=== PATIENT | male | born 1955 | race Caucasian/White ===

== ENCOUNTER 2020-02-29 08:04 | Inpatient (IN) | payer BC, OTHER ==
[2020-02-29 08:14] LABS: Glucose,Whole Blood >600 mg/dL (75-99)
[2020-02-29] MEDS ORDERED: SODIUM CHLORIDE 0.9% 1,000 ML IV STA (08:19)
[2020-02-29] MEDS ORDERED: SODIUM CHLORIDE 0.9% 500 ML 500 ML IV STA (08:19)
[2020-02-29] MEDS ORDERED: INSULIN REGULAR BOLUS (FROM DRIP BAG) IV ONE (08:21)
--- NOTE | 2020-02-29 08:47 | ED ---
General Adult HPI - General Chief complaint: Weakness Stated complaint: weakness Time Seen by Provider: 02/29/20 08:05 Source: patient, EMS, RN notes reviewed, old records reviewed Mode of arrival: EMS Limitations: altered mental status - History of Present Illness Initial comments: This is a 64-year-old male who presents emergency Department because his significant other called because he was on the floor all night. Supposedly the patient last night was too weak to shredder picker as related the floor. Patient is a diabetic we believe and does not take any medication. EMS states his sugar was in the 500s when we did a quick Accu-Chek on arrival was over 600. Patient follows commands but is not telling us why is here or what hurts. No one else with the patient at this time. - Related Data Home Medications Medication Instructions Recorded Confirmed No Known Home Medications 02/29/20 02/29/20 Allergies Allergy/AdvReac Type Severity Reaction Status Date / Time No Known Allergies Allergy Verified 02/29/20 10:04 Review of Systems ROS Statement: Those systems with pertinent positive or pertinent negative responses have been documented in the HPI. ROS Other: All systems not noted in ROS Statement are negative. Past Medical History Past Medical History: Diabetes Mellitus Past Surgical History: No Surgical Hx Reported Smoking Status: Unknown if ever smoked Past Alcohol Use History: Unable to Obtain Past Drug Use History: Unable to Obtain General Exam - General Exam Comments Initial Comments: GENERAL: Patient is well-developed and well-nourished. Patient is nontoxic and well- hydrated and is in mild distress. ENT: Neck is soft and supple. No significant lymphadenopathy is noted. Oropharynx is clear. Dry mucous membranes. Neck has full range of motion without eliciting any pain. EYES: The sclera were anicteric and conjunctiva were pink and moist. Extraocular movements were intact and pupils were equal round and reactive to light. Eyelids were unremarkable. PULMONARY: Unlabored respirations. Good breath sounds bilaterally. No audible rales rhonchi or wheezing was noted. CARDIOVASCULAR: Patient's heart rate is bradycardic ABDOMEN: Abdomen is slightly distended and diffusely tender SKIN: Patient has some bruising on the anterior abdomen as well as in the right flank. NEUROLOGIC: Patient is alert and oriented times one. Cranial nerves II through XII are grossly intact. Motor and sensory are also intact. Difficult to assess speech because he doesn't speak sentences he just groans and moans. MUSCULOSKELETAL: Normal extremities with adequate strength and full range of motion. LYMPHATICS: No significant lymphadenopathy is noted PSYCHIATRIC: Unable to assess secondary to altered metal status Limitations: no limitations Course Vital Signs 02/29/20 02/29/20 02/29/20 08:05 08:20 09:05 Temperature 97.1 F L Pulse Rate 61 58 L Respiratory 24 24 24 Rate Blood Pressure 146/73 124/64 O2 Sat by Pulse 95 98 Oximetry 02/29/20 02/29/20 09:48 10:31 Temperature Pulse Rate 68 60 Respiratory 24 20 Rate Blood Pressure 130/66 124/97 O2 Sat by Pulse 98 98 Oximetry Medical Decision Making - Medical Decision Making EKG shows sinus bradycardia with PACs at 57 bpm ID interval is 152 QRS is 100 QT interval 466 QTC is 453 per patient's EKG shows no ST segment elevation or depression or T wave abnormalities are noted. Patient's urine came back with a urinary tract infection at 9:30 and I considered septic at this time. You. Patient received 2 g of Rocephin 2 and half liters of normal saline. Patient started on an insulin drip after insulin bolus. Patient had a CT of the brain showed no acute abnormality. Chest x-ray showed no acute abnormality. CT of the abdomen show bilateral hydronephrosis and stranding indicative of pyelonephrosis. I spoke with a brisk and hospice agreed to admit the patient admitted the patient wrote admitting orders. - Lab Data Result diagrams: 02/29/20 08:25 02/29/20 08:25 Lab Results 02/29/20 02/29/20 02/29/20 Range/Units 08:11 08:25 08:25 WBC 23.6 H (3.8-10.6) k/uL RBC 4.00 L (4.30-5.90) m/uL Hgb 11.9 L (13.0-17.5) gm/dL Hct 42.1 (39.0-53.0) % MCV 105.3 H (80.0-100.0) fL MCH 29.9 (25.0-35.0) pg MCHC 28.4 L (31.0-37.0) g/dL RDW 13.2 (11.5-15.5) % Plt Count 360 (150-450) k/uL Neutrophils % Not Reportable Neutrophils % (Manual) 67 % Band Neutrophils % 28 % Lymphocytes % Not Reportable Lymphocytes % (Manual) 2 % Monocytes % Not Reportable Monocytes % (Manual) 5 % Eosinophils % Not Reportable Basophils % Not Reportable Neutrophils # Not Reportable Neutrophils # (Manual) 22.40 H (1.3-7.7) k/uL Lymphocytes # Not Reportable Lymphocytes # (Manual) 0.47 L (1.0-4.8) k/uL Monocytes # Not Reportable Monocytes # (Manual) 1.18 H (0-1.0) k/uL Eosinophils # Not Reportable Basophils # Not Reportable Nucleated RBCs 0 (0-0) /100 WBC Manual Slide Review Performed Toxic Granulation Present Hypochromasia Marked Poikilocytosis (manual Present Anisocytosis (manual) Present Macrocytosis Slight PT 9.6 (9.0-12.0) sec INR 0.9 (<1.2) APTT 24.3 (22.0-30.0) sec Sample Site ABG pH (7.35-7.45) ABG pCO2 (35-45) mmHg ABG pO2 (83-108) mmHg ABG HCO3 (21-25) mmol/L ABG Total CO2 (19-24) mmol/L ABG O2 Saturation (94-97) % ABG Base Excess mmol/L Jay Test FiO2 % Sodium (137-145) mmol/L Potassium (3.5-5.1) mmol/L Chloride (98-107) mmol/L Carbon Dioxide (22-30) mmol/L Anion Gap mmol/L BUN (9-20) mg/dL Creatinine (0.66-1.25) mg/dL Est GFR (CKD-EPI)AfAm (>60 ml/min/1.73 sqM) Est GFR (CKD-EPI)NonAf (>60 ml/min/1.73 sqM) Glucose (74-99) mg/dL POC Glucose (mg/dL) >600 H (75-99) mg/dL POC Glu Slider Assembler ID Alexx Hayden Plasma Lactic Acid Reilly (0.7-2.0) mmol/L Calcium (8.4-10.2) mg/dL Magnesium (1.6-2.3) mg/dL Total Bilirubin (0.2-1.3) mg/dL AST (17-59) U/L ALT (4-49) U/L Alkaline Phosphatase (38-126) U/L Troponin I (0.000-0.034) ng/mL Total Protein (6.3-8.2) g/dL Albumin (3.5-5.0) g/dL Urine Color Urine Appearance (Clear) Urine RBC (0-5) /hpf Urine WBC (0-5) /hpf Urine WBC Clumps (None) /hpf Urine Bacteria (None) /hpf Acetone, Qual (Negative) 02/29/20 02/29/20 02/29/20 Range/Units 08:25 08:25 08:25 WBC (3.8-10.6) k/uL RBC (4.30-5.90) m/uL Hgb (13.0-17.5) gm/dL Hct (39.0-53.0) % MCV (80.0-100.0) fL MCH (25.0-35.0) pg MCHC (31.0-37.0) g/dL RDW (11.5-15.5) % Plt Count (150-450) k/uL Neutrophils % Neutrophils % (Manual) % Band Neutrophils % % Lymphocytes % Lymphocytes % (Manual) % Monocytes % Monocytes % (Manual) % Eosinophils % Basophils % Neutrophils # Neutrophils # (Manual) (1.3-7.7) k/uL Lymphocytes # Lymphocytes # (Manual) (1.0-4.8) k/uL Monocytes # Monocytes # (Manual) (0-1.0) k/uL Eosinophils # Basophils # Nucleated RBCs (0-0) /100 WBC Manual Slide Review Toxic Granulation Hypochromasia Poikilocytosis (manual Anisocytosis (manual) Macrocytosis PT (9.0-12.0) sec INR (<1.2) APTT (22.0-30.0) sec Sample Site ABG pH (7.35-7.45) ABG pCO2 (35-45) mmHg ABG pO2 (83-108) mmHg ABG HCO3 (21-25) mmol/L ABG Total CO2 (19-24) mmol/L ABG O2 Saturation (94-97) % ABG Base Excess mmol/L Jay Test FiO2 % Sodium 114 L* (137-145) mmol/L Potassium 6.7 H* (3.5-5.1) mmol/L Chloride 72 L* (98-107) mmol/L Carbon Dioxide 13 L (22-30) mmol/L Anion Gap 29 mmol/L BUN 98 H (9-20) mg/dL Creatinine 2.46 H (0.66-1.25) mg/dL Est GFR (CKD-EPI)AfAm 31 (>60 ml/min/1.73 sqM) Est GFR (CKD-EPI)NonAf 27 (>60 ml/min/1.73 sqM) Glucose 1139 H* (74-99) mg/dL POC Glucose (mg/dL) (75-99) mg/dL POC Glu Slider Assembler ID Plasma Lactic Acid Reilly 3.1 H* (0.7-2.0) mmol/L Calcium 8.1 L (8.4-10.2) mg/dL Magnesium 2.7 H (1.6-2.3) mg/dL Total Bilirubin 1.0 (0.2-1.3) mg/dL AST 41 (17-59) U/L ALT 24 (4-49) U/L Alkaline Phosphatase 216 H (38-126) U/L Troponin I <0.012 (0.000-0.034) ng/mL Total Protein 5.4 L (6.3-8.2) g/dL Albumin 2.6 L (3.5-5.0) g/dL Urine Color Urine Appearance (Clear) Urine RBC (0-5) /hpf Urine WBC (0-5) /hpf Urine WBC Clumps (None) /hpf Urine Bacteria (None) /hpf Acetone, Qual Positive (Negative) 02/29/20 02/29/20 02/29/20 Range/Units 08:44 08:46 10:27 WBC (3.8-10.6) k/uL RBC (4.30-5.90) m/uL Hgb (13.0-17.5) gm/dL Hct (39.0-53.0) % MCV (80.0-100.0) fL MCH (25.0-35.0) pg MCHC (31.0-37.0) g/dL RDW (11.5-15.5) % Plt Count (150-450) k/uL Neutrophils % Neutrophils % (Manual) % Band Neutrophils % % Lymphocytes % Lymphocytes % (Manual) % Monocytes % Monocytes % (Manual) % Eosinophils % Basophils % Neutrophils # Neutrophils # (Manual) (1.3-7.7) k/uL Lymphocytes # Lymphocytes # (Manual) (1.0-4.8) k/uL Monocytes # Monocytes # (Manual) (0-1.0) k/uL Eosinophils # Basophils # Nucleated RBCs (0-0) /100 WBC Manual Slide Review Toxic Granulation Hypochromasia Poikilocytosis (manual Anisocytosis (manual) Macrocytosis PT (9.0-12.0) sec INR (<1.2) APTT (22.0-30.0) sec Sample Site RBRACH ABG pH 7.30 L (7.35-7.45) ABG pCO2 24 L (35-45) mmHg ABG pO2 128 H (83-108) mmHg ABG HCO3 12 L (21-25) mmol/L ABG Total CO2 12 L (19-24) mmol/L ABG O2 Saturation 98.1 H (94-97) % ABG Base Excess -14.9 mmol/L Jay Test Yes FiO2 28 % Sodium (137-145) mmol/L Potassium (3.5-5.1) mmol/L Chloride (98-107) mmol/L Carbon Dioxide (22-30) mmol/L Anion Gap mmol/L BUN (9-20) mg/dL Creatinine (0.66-1.25) mg/dL Est GFR (CKD-EPI)AfAm (>60 ml/min/1.73 sqM) Est GFR (CKD-EPI)NonAf (>60 ml/min/1.73 sqM) Glucose (74-99) mg/dL POC Glucose (mg/dL) >600 H (75-99) mg/dL POC Glu Slider Assembler ID Janelle Kessler Plasma Lactic Acid Reilly (0.7-2.0) mmol/L Calcium (8.4-10.2) mg/dL Magnesium (1.6-2.3) mg/dL Total Bilirubin (0.2-1.3) mg/dL AST (17-59) U/L ALT (4-49) U/L Alkaline Phosphatase (38-126) U/L Troponin I (0.000-0.034) ng/mL Total Protein (6.3-8.2) g/dL Albumin (3.5-5.0) g/dL Urine Color Light Red Urine Appearance Cloudy (Clear) Urine RBC >182 H (0-5) /hpf Urine WBC >182 H (0-5) /hpf Urine WBC Clumps Many H (None) /hpf Urine Bacteria Many H (None) /hpf Acetone, Qual (Negative) Critical Care Time Critical Care Time: Yes Total Critical Care Time: 35 Disposition Clinical Impression: Altered mental status, Pyelonephritis, Sepsis, DKA (diabetic ketoacidoses), Hyponatremia, Hyperkalemia Disposition: ADMITTED IP TO THIS HOSP Referrals: None,Stated [Primary Care Provider] - 1-2 days Time of Disposition: 10:45
[2020-02-29 08:48] LABS: ABG Base Excess -14.9 mmol/L; ABG HCO3 12 mmol/L (21-25); ABG Oxygen Saturation 98.1 % (94-97); ABG PCO2 24 mmHg (35-45); ABG PO2 128 mmHg (83-108); ABG TCO2 12 mmol/L (19-24)
[2020-02-29 08:52] LABS: Allen Test Performed? Yes
[2020-02-29 08:58] LABS: INR 0.9 (<1.2); Partial Thromboplastin Time 24.3 sec (22.0-30.0); Prothrombin Time 9.6 sec (9.0-12.0)
[2020-02-29 09:00] LABS: ALT 24 U/L (4-49); African American GFR (CKD) 31 (>60 ml/min/1.73 sqM); Albumin 2.6 g/dL (3.5-5.0); Anion Gap 29 mmol/L; Blood Urea Nitrogen 98 mg/dL (9-20); Calcium 8.1 mg/dL (8.4-10.2); Carbon Dioxide 13 mmol/L (22-30); Non-African American GFR(CKD) 27 (>60 ml/min/1.73 sqM); Total Protein 5.4 g/dL (6.3-8.2)
[2020-02-29 09:12] LABS: Appearance,Urine Cloudy (Clear)
[2020-02-29 09:13] LABS: Color,Urine Light Red
[2020-02-29 09:13] LABS: Glucose 1139 mg/dL (74-99)
[2020-02-29 09:14] LABS: Bacteria,Urine Many /hpf; RBC,Urine >182 /hpf (0-5); WBC,Urine >182 /hpf (0-5)
[2020-02-29 09:14] LABS: Chloride 72 mmol/L (98-107); Potassium 6.7 mmol/L (3.5-5.1); Sodium 114 mmol/L (137-145)
[2020-02-29 09:15] LABS: AST 41 U/L (17-59); Alkaline Phosphatase 216 U/L (38-126); Magnesium 2.7 mg/dL (1.6-2.3)
[2020-02-29 09:17] LABS: HCT 42.1 % (39.0-53.0); HGB 11.9 gm/dL (13.0-17.5); Hypochromasia Marked; MCH 29.9 pg (25.0-35.0); MCHC 28.4 g/dL (31.0-37.0); MCV 105.3 fL (80.0-100.0); Macrocytosis Slight; Mean Platelet Volume 9.8; Platelet Count 360 k/uL (150-450); RDW 13.2 % (11.5-15.5); WBC 23.6 k/uL (3.8-10.6)
--- NOTE | 2020-02-29 09:28 | XR ---
EXAMINATION TYPE: XR chest 2V DATE OF EXAM: 02/29/2020 COMPARISON: None INDICATION: Weakness labor breathing restless TECHNIQUE: Frontal and lateral views of the chest are obtained. FINDINGS: The heart size is normal. The pulmonary vasculature is normal. The lungs are clear. IMPRESSION: 1. No acute pulmonary process.
[2020-02-29] MEDS: INSULIN REGULAR 100 UNIT in SODIUM CHLORIDE 0.9% 100 ML IV SCH ×2 (09:31→18:01)
[2020-02-29] MEDS ORDERED: cefTRIAXone IN SWFI 1,000 MG/10 ML SYRINGE IVP STA (09:34)
[2020-02-29] MEDS ORDERED: SODIUM BICARB 8.4% 50 ML SYR (1 MEQ/ML) IV STA (09:38)
[2020-02-29] MEDS ORDERED: CALCIUM CHLORIDE 100 MG/ML 10 ML SYRINGE IVP STA (09:38)
[2020-02-29] MEDS ORDERED: SODIUM CHLORIDE 0.9% 1,000 ML IV ONE (10:03)
[2020-02-29 10:04] LABS: Band Neutrophils % 28 %; Lymphocytes # (M) 0.47 k/uL (1.0-4.8); Monocytes # (M) 1.18 k/uL (0-1.0); Neutrophils % (M) 67 %; Nucleated Red Blood Cells 0 /100 WBC (0-0); Total Cells Counted 200; Toxic Granulation Present
[2020-02-29 10:05] LABS: Anisocytosis (M) Present; Poikilocytosis (M) Present
[2020-02-29 10:29] LABS: Glucose,Whole Blood >600 mg/dL (75-99)
--- NOTE | 2020-02-29 10:41 | CT ---
EXAMINATION TYPE: CT brain wo con DATE OF EXAM: 02/29/2020 COMPARISON: None HISTORY: Altered mental status. CT DLP: 1158.[address] of the brain was performed. The ventricles, basal cisterns and sulci overlying the cerebral convexities demonstrate mild enlargem ent. There is no evidence for intracranial hemorrhage or sulcal effacement. There is decreased attenuation about the periventricular white matter and deep white matter of both c erebral hemispheres, compatible with chronic small vessel ischemia. Differential diagnosis does inclu de demyelination. No mass effects are seen.No midline shift. Osseous calvarium is intact. If symptoms persist consider MRI. IMPRESSION: 1. Age related atrophic and chronic small vessel ischemic change without acute intracranial process s een at this time.
[2020-02-29] MEDS ORDERED: INSULIN REGULAR 100 UNIT in SODIUM CHLORIDE 0.9% 100 ML IV SCH (11:00)
[2020-02-29] MEDS: SODIUM CHLORIDE 0.9% 1,000 ML IV SCH ×2 (11:09→15:52)
[2020-02-29 11:46] LABS: Glucose,Whole Blood >600 mg/dL (75-99)
[2020-02-29] MEDS ORDERED: NALOXONE 0.4 MG/ML 1 ML VIAL IV PRN (12:00)
--- NOTE | 2020-02-29 12:04 | CT ---
EXAMINATION TYPE: CT abdomen pelvis wo con DATE OF EXAM: 02/29/2020 COMPARISON: None INDICATION: Acute abdominal pain. DLP: 1616.9 mGycm, Automated exposure control for dose reduction was used. CONTRAST: 0 mL of Isovue 300. Study performed without Oral Contrast TECHNIQUE: Axial images were obtained from above the diaphragm to the pubic rami in the axial plane a t 5 mm thick sections. Reconstructed images are reviewed on the computer in the coronal plane. Ther e is an artifact with couple levels nonvisualization. FINDINGS: Limited CT sections are obtained the lung bases. The lung bases are clear. CT ABDOMEN: Liver: Normal Spleen: Normal Pancreas: Normal Adrenal glands: The adrenal glands are normal. Gallbladder: Normal Kidneys: Bilateral hydronephrosis is present. Bilateral hydroureters are present which extend to the urinary bladder. Aorta: Vascular calcification is within the aorta. Inferior vena cava: Normal. CT PELVIS: Loops of bowel within the abdomen and pelvis are normal. There are loops of bowel which are incom pletely distended or lack oral contrast limiting their evaluation. Appendix: Normal as visualized. Urinary bladder: Urinary bladder has a Krueger catheter present. There is irregular wall especially not ed along the anterior right margin. Genitourinary structures: Prostate is prominent. Osseous structures: No suspicious lytic or sclerotic lesions. Degenerative disc changes and scoliosis are within the lumbar spine. IMPRESSIONS: 1. Irregular urinary bladder wall suspicious for neoplasm. 2. Marked bilateral hydronephrosis and hydroureter extending to the urinary bladder.
--- NOTE | 2020-02-29 12:34 | P.CNPUL ---
History of Present Illness Consult date: 02/29/20 Chief complaint: Altered mentation History of present illness: 62-year-old male patient, noncompliant to medical care and medication and according to the reported history the patient does not have any medical insurance coverage and as such she has not taken any of his medications knowing that he has been diabetic for many years. The patient came in to the emergency department after significant decline in his health in general. He is currently living with his fiance. He apparently was seen to have some bloody urine and he considered that he was passing a kidney stone. Following that he became progressively more ill and weak and he got to the point where he went to the bathroom and he was unable to pick himself up the floor. He does have some bruising over the right flank area probably related to a blunt trauma to that area. He came into the emergency department and he was extremely dehydrated and lethargic and encephalopathic. EMS found the patient and apparently sugar was above 600. At the time of arrival, the patient was following some simple commands. He was unable to give any full history. Labs were significantly abnormal. The patient was found to have a white cell count 23.6. He had a hemoglobin of 11.9. The blood gas showed a pH of 7.3 with a pCO2 of 24 and pO2 of 128 and this was on FiO2 of 28%. Sodium was at 114, potassium was at 6.7 with a chloride of 72 and a bicarb of 13. BUN was 98 with a creatinine of 2.4. No cause was 1139. Lactic gas that was at 3.1. The troponin is negative at less than 0.012. UA was abnormal with more than 182 RBCs and WBCs. Chest x-ray showed negative about his PEEP CAT scan of the abdomen showed irregular and thickened bladder wall and there was bilateral hydronephrosis and hydroureter extending to the urinary bladder. No evidence of any kidney stones. Bowel loops are within normal limits. The patient was given a total of 3 L of IV fluids. Currently is on normal saline at the rate of 100 mL an hour. He is on insulin drip at 9 units an hour. The patient is also given 2 g of Rocephin IV and emergency department. Cultures were sent. His most recent blood sugar remains above 600. He is currently in intensive care unit. Krueger catheter in place. He does have a bloody urine. This is a blood-tinged urine. No gross hematuria. No evidence of any blood clots. He is moving all 4 extremities. He is unable to volunteer any history as the patient is currently encephalopathic.. The CAT scan of the brain showed age related atrophy and chronic small vessel ischemic changes without any acute intracranial abnormality seen. Review of Systems ROS unobtainable: due to mental status Past Medical History Past Medical History: Diabetes Mellitus, Hyperlipidemia, Hypertension Additional Past Medical History / Comment(s): Signiificant other and rosy state pt has not had insurance so has not been taking meds/seeing physician, NIDDM type II, neuropathy bilateral feet, past nephrolithiasis with pt passing stones on his own, pt passed a couple stones (s.o. saw stones) 2 weeks ago and had hematuria which improved after passing stones but has had weakness and loss of appetite past 2 weeks, spondylosis/chronic low back pain History of Any Multi-Drug Resistant Organisms: None Reported Past Surgical History: No Surgical Hx Reported Additional Past Surgical History / Comment(s): Bilateral cataract removals/lens implants. Past Anesthesia/Blood Transfusion Reactions: Unable to Obtain Additional Past Anesthesia/Blood Transfusion Reaction / Comment(s): Pt has never had general anesthesia per family Smoking Status: Former smoker - Past Family History Father Family Medical History: Dementia Mother Family Medical History: Cancer Additional Family Medical History / Comment(s): Mother of skin cancer. Medications and Allergies Home Medications Medication Instructions Recorded Confirmed Type No Known Home Medications 02/29/20 02/29/20 History Allergies Allergy/AdvReac Type Severity Reaction Status Date / Time No Known Allergies Allergy Verified 02/29/20 10:04 Physical Exam Vitals: Vital Signs Temp Pulse Resp BP Pulse Ox 02/29/20 11:28 97.8 F 56 L 24 113/57 99 02/29/20 10:58 58 L 24 102/85 99 02/29/20 10:31 60 20 124/97 98 02/29/20 09:48 68 24 130/66 98 02/29/20 09:05 58 L 24 124/64 98 02/29/20 08:20 24 02/29/20 08:05 97.1 F L 61 24 146/73 95 Intake and Output 02/28/20 02/29/20 02/29/20 22:59 06:59 14:59 Output Total 4300 Balance -4300 Output: Urine 4300 Uretheral (Krueger) 4300 Other: Weight 95.254 kg The patient is lethargic, encephalopathic, moving all 4 extremities and withdraws to painful simulation. He has rapid breathing related to his underlying metabolic acidosis. Does not have any accessory muscle use of breathing. Head exam was generally normal. There was no scleral icterus or corneal arcus. Mucous membranes were extremely dry and the patient has poor dentition and there is no evidence of any oropharyngeal thrush. Neck was supple and without jugular venous distension, thyromegaly, or carotid bruits. Carotids were easily palpable bilaterally. There was no adenopathy. Lungs were clear to auscultation and percussion, and with normal diaphragmatic excursion. No wheezes or rales were noted. Cardiac exam revealed the PMI to be normally situated and sized. The rhythm was regular and no extrasystoles were noted during several minutes of auscultation. The first and second heart sounds were normal and physiologic splitting of the second heart sound was noted. There were no murmurs, rubs, clicks, or gallops. Abdominal exam revealed normal bowel sounds. The abdomen was soft, non-tender, and without masses, organomegaly, or appreciable enlargement of the abdominal aorta. Examination of the extremities revealed easily palpable radial, femoral and pedal pulses. There was no cyanosis, clubbing or edema. Examination of the skin revealed no evidence of significant rashes, suspicious appearing nevi or other concerning lesions. Rkueger catheter is in place and the patient has some bloody urine output. Neurologically the patient is unable to hold a conversation. He is restless. His encephalopathic. He was a recall reactive to light. No neck stiffness. Moving all 4 extremities without limitation and accurate motor and sensory assessment cannot be done at this point in time. Results - Laboratory Findings CBC and BMP: 02/29/20 08:25 02/29/20 08:25 ABG ABG pH 7.30 (7.35-7.45) L 02/29/20 08:44 ABG pCO2 24 mmHg (35-45) L 02/29/20 08:44 ABG pO2 128 mmHg (83-108) H 02/29/20 08:44 ABG O2 Saturation 98.1 % (94-97) H 02/29/20 08:44 PT/INR, D-dimer PT 9.6 sec (9.0-12.0) 02/29/20 08:25 INR 0.9 (<1.2) 02/29/20 08:25 Abnormal lab findings: Abnormal Labs 02/29/20 02/29/20 02/29/20 08:11 08:25 08:25 WBC 23.6 H RBC 4.00 L Hgb 11.9 L MCV 105.3 H MCHC 28.4 L Neutrophils # (Manual) 22.40 H Lymphocytes # (Manual) 0.47 L Monocytes # (Manual) 1.18 H ABG pH ABG pCO2 ABG pO2 ABG HCO3 ABG Total CO2 ABG O2 Saturation Sodium 114 L* Potassium 6.7 H* Chloride 72 L* Carbon Dioxide 13 L BUN 98 H Creatinine 2.46 H Glucose 1139 H* POC Glucose (mg/dL) >600 H Plasma Lactic Acid Reilly Calcium 8.1 L Magnesium 2.7 H Alkaline Phosphatase 216 H Total Protein 5.4 L Albumin 2.6 L Urine RBC Urine WBC Urine WBC Clumps Urine Bacteria 02/29/20 02/29/20 02/29/20 08:25 08:44 08:46 WBC RBC Hgb MCV MCHC Neutrophils # (Manual) Lymphocytes # (Manual) Monocytes # (Manual) ABG pH 7.30 L ABG pCO2 24 L ABG pO2 128 H ABG HCO3 12 L ABG Total CO2 12 L ABG O2 Saturation 98.1 H Sodium Potassium Chloride Carbon Dioxide BUN Creatinine Glucose POC Glucose (mg/dL) Plasma Lactic Acid Reilly 3.1 H* Calcium Magnesium Alkaline Phosphatase Total Protein Albumin Urine RBC >182 H Urine WBC >182 H Urine WBC Clumps Many H Urine Bacteria Many H 02/29/20 02/29/20 10:27 11:45 WBC RBC Hgb MCV MCHC Neutrophils # (Manual) Lymphocytes # (Manual) Monocytes # (Manual) ABG pH ABG pCO2 ABG pO2 ABG HCO3 ABG Total CO2 ABG O2 Saturation Sodium Potassium Chloride Carbon Dioxide BUN Creatinine Glucose POC Glucose (mg/dL) >600 H >600 H Plasma Lactic Acid Reilly Calcium Magnesium Alkaline Phosphatase Total Protein Albumin Urine RBC Urine WBC Urine WBC Clumps Urine Bacteria - Diagnostic Findings Chest x-ray: image reviewed Assessment and Plan Plan: 1 acute diabetic hyperosmolar nonketotic crisis related to underlying diabetes mellitus type 2 2 acute bilateral hydronephrosis and hydroureter with thickening of the bladder wall. Consider underlying obstructive uropathy probably related to prostate enlargement/disease in addition to secondary infection/cystitis/pyelonephritis. Patient has a Krueger catheter in place. Patient started on broad-spectrum ant ibiotics 3 hematuria 4 history of nephrolithiasis 5 acute leukocytosis, secondary to above 6 acute pseudohyponatremia secondary to hyperglycemia 7 acute hyperkalemia treated with a combination of calcium gluconate and bicarbonate and the patient is currently on insulin drip for blood sugar cont rol. EKG showed some hyperacute T-wave changes. 8 anion gap metabolic acidosis 9 mild lactic acidosis Plan To this patient based on our protocol for hyperosmolar nonketotic diabetic coma. The patient will be given IV fluids and the patient is currently on normal saline at the rate of 200 mL's an hour. Continue the insulin drip and monitor the blood sugar every 1 hours. Monitor electrolytes. CMP will be done every 3-4 hours and accordingly this is a changes will be done. Continued IV Rocephin 2 g every 24 hours urine Gram stain and culture Blood culture Keep Krueger catheter in place Ultrasound the kidneys Urologic consultation Monitor hyperkalemia IV Protonix Subcu heparin for DVT prophylaxis We'll continue to follow. Condition is critical for now. Time with Patient: Greater than 30
[2020-02-29 12:39] LABS: Phosphorus 2.9 mg/dL (2.5-4.5); Potassium 4.7 mmol/L (3.5-5.1)
[2020-02-29] MEDS: PANTOPRAZOLE 40 MG/10 ML VIAL IV SCH (13:15)
[2020-02-29 13:30] LABS: Glucose,Whole Blood 592 mg/dL (75-99)
--- NOTE | 2020-02-29 14:24 | P.HPIM ---
History of Present Illness 64-year-old male is admitted for highly elevated blood sugars probably had hyperosmolar state and/ DKA, and IV insulin at this time. Regular much of the history from the patient patient appears to be noncompliant with medications has not been taking his diabetic medications. Most of the history is obtained from the staff ER physician . Patient has been getting progressively weak for last few days. Patient was also having hematuria. Patient does have a bruise on the right flank area. Patient is found to have highly elevated blood sugars of around 1200 with anion gap metabolic acidosis lactic is doses, with superimposed diabetic ketoacidosis and hyperosmolar state significant other provided abnormalities of severe hyponatremia and hyperkalemia both of which are secondary to have elevated blood sugars serum bicarbonate of 13 and the serum creatinine of 2.4. Baseline creatinine is not available at this time. Patient ABGs consistent with metabolic acidosis with some mild respiratory compensation Review of Systems REVIEW OF SYSTEMS: Unable to obtain due to his clinical condition Past Medical History Past Medical History: Diabetes Mellitus, Hyperlipidemia, Hypertension Additional Past Medical History / Comment(s): Signiificant other and rosy state pt has not had insurance so has not been taking meds/seeing physician, NIDDM type II, neuropathy bilateral feet, past nephrolithiasis with pt passing stones on his own, pt passed a couple stones (s.o. saw stones) 2 weeks ago and had hematuria which improved after passing stones but has had weakness and loss of appetite past 2 weeks, spondylosis/chronic low back pain History of Any Multi-Drug Resistant Organisms: None Reported Past Surgical History: No Surgical Hx Reported Additional Past Surgical History / Comment(s): Bilateral cataract removals/lens implants. Past Anesthesia/Blood Transfusion Reactions: Unable to Obtain Additional Past Anesthesia/Blood Transfusion Reaction / Comment(s): Pt has never had general anesthesia per family Smoking Status: Former smoker - Past Family History Father Family Medical History: Dementia Mother Family Medical History: Cancer Additional Family Medical History / Comment(s): Mother of skin cancer. Medications and Allergies Home Medications Medication Instructions Recorded Confirmed Type No Known Home Medications 02/29/20 02/29/20 History Allergies Allergy/AdvReac Type Severity Reaction Status Date / Time No Known Allergies Allergy Verified 02/29/20 10:04 Physical Exam Vitals: Vital Signs Temp Pulse Resp BP Pulse Ox 02/29/20 13:00 56 L 12 120/108 98 02/29/20 12:30 56 L 20 95/69 98 02/29/20 12:00 97.1 F L 58 L 22 107/88 98 02/29/20 11:28 97.8 F 56 L 24 113/57 99 02/29/20 10:58 58 L 24 102/85 99 02/29/20 10:31 60 20 124/97 98 02/29/20 09:48 68 24 130/66 98 02/29/20 09:05 58 L 24 124/64 98 02/29/20 08:20 24 02/29/20 08:05 97.1 F L 61 24 146/73 95 Intake and Output 02/28/20 02/29/20 02/29/20 22:59 06:59 14:59 Intake Total 400 Output Total 4655 Balance -4255 Intake: IV 400 Sodium Chloride 0.9% 1, 400 000 ml @ 200 mls/hr IV . Q5H [facility] Rx#:[id number] Output: Urine 4655 Uretheral (Krueger) 4300 Other: Voiding Method Indwelling Catheter Weight 95.254 kg PHYSICAL EXAMINATION: GENERAL: Patient is lethargic encephalopathic, unable to provide any history to me, drowsy. HEENT: Pupils are round and equally reacting to light. EOMI. No scleral icterus. No conjunctival pallor. Normocephalic, atraumatic. No pharyngeal erythema. No thyromegaly. CARDIOVASCULAR: S1 and S2 present. No murmurs, rubs, or gallops. PULMONARY: Chest is clear to auscultation, no wheezing or crackles. ABDOMEN: Soft, nontender, nondistended, normoactive bowel sounds. No palpable organomegaly. MUSCULOSKELETAL: No joint swelling or deformity. EXTREMITIES: No cyanosis, clubbing, or pedal edema. NEUROLOGICAL: Gross neurological examination did not reveal any focal deficits. SKIN: Bruising in the right flank area Results CBC & Chem 7: 02/29/20 08:25 02/29/20 12:10 Labs: Abnormal Lab Results - Last 24 Hours (Table) 02/29/20 02/29/20 02/29/20 Range/Units 08:11 08: 08:25 WBC 23.6 H (3.8-10.6) k/uL RBC 4.00 L (4.30-5.90) m/uL Hgb 11.9 L (13.0-17.5) gm/dL MCV 105.3 H (80.0-100.0) fL MCHC 28.4 L (31.0-37.0) g/dL Neutrophils # (Manual) 22.40 H (1.3-7.7) k/uL Lymphocytes # (Manual) 0.47 L (1.0-4.8) k/uL Monocytes # (Manual) 1.18 H (0-1.0) k/uL ABG pH (7.35-7.45) ABG pCO2 (35-45) mmHg ABG pO2 (83-108) mmHg ABG HCO3 (21-25) mmol/L ABG Total CO2 (19-24) mmol/L ABG O2 Saturation (94-97) % Sodium 114 L* (137-145) mmol/L Potassium 6.7 H* (3.5-5.1) mmol/L Chloride 72 L* (98-107) mmol/L Carbon Dioxide 13 L (22-30) mmol/L BUN 98 H (9-20) mg/dL Creatinine 2.46 H (0.66-1.25) mg/dL Glucose 1139 H* (74-99) mg/dL POC Glucose (mg/dL) >600 H (75-99) mg/dL Plasma Lactic Acid Reilly (0.7-2.0) mmol/L Calcium 8.1 L (8.4-10.2) mg/dL Magnesium 2.7 H (1.6-2.3) mg/dL Alkaline Phosphatase 216 H (38-126) U/L Total Protein 5.4 L (6.3-8.2) g/dL Albumin 2.6 L (3.5-5.0) g/dL Urine RBC (0-5) /hpf Urine WBC (0-5) /hpf Urine WBC Clumps (None) /hpf Urine Bacteria (None) /hpf 02/29/20 02/29/20 02/29/20 Range/Units 08:25 08:44 08:46 WBC (3.8-10.6) k/uL RBC (4.30-5.90) m/uL Hgb (13.0-17.5) gm/dL MCV (80.0-100.0) fL MCHC (31.0-37.0) g/dL Neutrophils # (Manual) (1.3-7.7) k/uL Lymphocytes # (Manual) (1.0-4.8) k/uL Monocytes # (Manual) (0-1.0) k/uL ABG pH 7.30 L (7.35-7.45) ABG pCO2 24 L (35-45) mmHg ABG pO2 128 H (83-108) mmHg ABG HCO3 12 L (21-25) mmol/L ABG Total CO2 12 L (19-24) mmol/L ABG O2 Saturation 98.1 H (94-97) % Sodium (137-145) mmol/L Potassium (3.5-5.1) mmol/L Chloride (98-107) mmol/L Carbon Dioxide (22-30) mmol/L BUN (9-20) mg/dL Creatinine (0.66-1.25) mg/dL Glucose (74-99) mg/dL POC Glucose (mg/dL) (75-99) mg/dL Plasma Lactic Acid Reilly 3.1 H* (0.7-2.0) mmol/L Calcium (8.4-10.2) mg/dL Magnesium (1.6-2.3) mg/dL Alkaline Phosphatase (38-126) U/L Total Protein (6.3-8.2) g/dL Albumin (3.5-5.0) g/dL Urine RBC >182 H (0-5) /hpf Urine WBC >182 H (0-5) /hpf Urine WBC Clumps Many H (None) /hpf Urine Bacteria Many H (None) /hpf 02/29/20 02/29/20 02/29/20 Range/Units 10:27 11:45 12:10 WBC (3.8-10.6) k/uL RBC (4.30-5.90) m/uL Hgb (13.0-17.5) gm/dL MCV (80.0-100.0) fL MCHC (31.0-37.0) g/dL Neutrophils # (Manual) (1.3-7.7) k/uL Lymphocytes # (Manual) (1.0-4.8) k/uL Monocytes # (Manual) (0-1.0) k/uL ABG pH (7.35-7.45) ABG pCO2 (35-45) mmHg ABG pO2 (83-108) mmHg ABG HCO3 (21-25) mmol/L ABG Total CO2 (19-24) mmol/L ABG O2 Saturation (94-97) % Sodium 124 L (137-145) mmol/L Potassium (3.5-5.1) mmol/L Chloride 85 L (98-107) mmol/L Carbon Dioxide 16 L (22-30) mmol/L BUN 91 H (9-20) mg/dL Creatinine 2.26 H (0.66-1.25) mg/dL Glucose 684 H* (74-99) mg/dL POC Glucose (mg/dL) >600 H >600 H (75-99) mg/dL Plasma Lactic Acid Reilly (0.7-2.0) mmol/L Calcium (8.4-10.2) mg/dL Magnesium (1.6-2.3) mg/dL Alkaline Phosphatase (38-126) U/L Total Protein (6.3-8.2) g/dL Albumin (3.5-5.0) g/dL Urine RBC (0-5) /hpf Urine WBC (0-5) /hpf Urine WBC Clumps (None) /hpf Urine Bacteria (None) /hpf 02/29/20 02/29/20 Range/Units 12:10 13:29 WBC (3.8-10.6) k/uL RBC (4.30-5.90) m/uL Hgb (13.0-17.5) gm/dL MCV (80.0-100.0) fL MCHC (31.0-37.0) g/dL Neutrophils # (Manual) (1.3-7.7) k/uL Lymphocytes # (Manual) (1.0-4.8) k/uL Monocytes # (Manual) (0-1.0) k/uL ABG pH (7.35-7.45) ABG pCO2 (35-45) mmHg ABG pO2 (83-108) mmHg ABG HCO3 (21-25) mmol/L ABG Total CO2 (19-24) mmol/L ABG O2 Saturation (94-97) % Sodium (137-145) mmol/L Potassium (3.5-5.1) mmol/L Chloride (98-107) mmol/L Carbon Dioxide (22-30) mmol/L BUN (9-20) mg/dL Creatinine (0.66-1.25) mg/dL Glucose (74-99) mg/dL POC Glucose (mg/dL) 592 H (75-99) mg/dL Plasma Lactic Acid Reilly 3.7 H* (0.7-2.0) mmol/L Calcium (8.4-10.2) mg/dL Magnesium (1.6-2.3) mg/dL Alkaline Phosphatase (38-126) U/L Total Protein (6.3-8.2) g/dL Albumin (3.5-5.0) g/dL Urine RBC (0-5) /hpf Urine WBC (0-5) /hpf Urine WBC Clumps (None) /hpf Urine Bacteria (None) /hpf Thrombosis Risk Factor Assmnt - Choose All That Apply Any of the Below Risk Factors Present?: Yes Each Factor Represents 1 point: Obesity (BMI >25), Sepsis (< 1month) Other Risk Factors: Yes Each Risk Factor Represents 2 Points: Age 61-74 years Other congenital or acquired thrombophilia - If yes, enter type in comment: No Thrombosis Risk Factor Assessment Total Risk Factor Score: 4 Thrombosis Risk Factor Assessment Level: Moderate Risk Assessment and Plan Plan: -Hypoglycemia: Leading to hyperosmolar state, DKA cannot be ruled out at this time. Patient probably has type 2 diabetes mellitus with insulin deficiency. Patient IV insulin which will be continued. We'll follow DKA protocol. -Hyponatremia: Combined pseudohyponatremia from hyperglycemia along with hypovolemic hyponatremia from excessive diuresis from hyperglycemia. IV fluids at 200 mL per hour for now -Lactic acidosis: Secondary to most probably intravascular depletion dehydration. UTI cannot be ruled out urine is significant abnormal. -Bilateral hydronephrosis with possibility of pyelonephritis leading to hematuria. Ultrasound showing to coming of the urinary bladder, neurology was consulted patient will be continued on Rocephin -Leukocytosis possibly secondary to DKA and possibility. That cannot be ruled out. -Hyperlipidemia secondary to metabolic acidosis and hyperglycemia expected improvement IV insulin and IV fluids. Patient also received calcium gluconate. Patient also has mildly elevated T waves there are no hyperacute T waves -Anion gap at work is doses: Secondary to lactic acidosis and possible diabetic ketoacidosis Due to prophylaxis subcutaneous heparin GI prophylaxis Protonix
[2020-02-29 14:28] LABS: Glucose,Whole Blood 475 mg/dL (75-99)
[2020-02-29 15:26] LABS: Glucose,Whole Blood 432 mg/dL (75-99)
[2020-02-29] MEDS: HEPARIN SODIUM,PORCINE 5,000 UNIT/ML 1 ML VIAL SQ SCH ×2 (15:41→23:28)
[2020-02-29] MEDS: HYDROmorphone 0.5 MG/0.5 ML SYRINGE IVP PRN ×2 (15:41→23:32)
--- NOTE | 2020-02-29 16:09 | US ---
EXAMINATION TYPE: US kidneys/renal and bladder DATE OF EXAM: 02/29/2020 COMPARISON: CT abdomen pelvis 02/29/2020 at 10:11 AM. CLINICAL HISTORY: ALICIA. Hydronephrosis seen on CT, hematuria EXAM MEASUREMENTS: Right Kidney: 12.9 x 8.0 x 7.8 cm Left Kidney: 13.2 x 7.8 x 9.0 cm Right Kidney: Severe hydronephrosis with dependent layering debris. Left Kidney: Severe hydronephrosis with dependent layering debris. Bladder: Urinary bladder incompletely distended with Krueger catheter. There is wall thickening measuri ng up to 1.2 cm. There is papillary, avascular, geometric intraluminal echogenicity measuring up to 5 .1 x 2.7 x 3.3 cm. IMPRESSION: 1. Severe hydronephrosis bilaterally with dependent layering debris within the renal collecting syste ms, likely hemorrhage. 2. 5.1 x 2.7 x 3.3 cm focal irregularity within the urinary bladder, which may represent thrombus todd benny avascular mass. 3. Circumferential bladder wall thickening more than expected for incomplete distention. Findings may represent bladder outlet obstruction, cystitis, or neoplastic etiology.
[2020-02-29 16:24] LABS: Potassium 4.5 mmol/L (3.5-5.1)
[2020-02-29] MEDS ORDERED: Phosphorus Replacement Protoco 1 EACH MISC MISCELLANE PRN (16:32)
[2020-02-29 17:37] LABS: Glucose,Whole Blood 324 mg/dL (75-99)
[2020-02-29] MEDS: SODIUM PHOSPHATE 10 MMOL in SODIUM CHLORIDE 0.9% 250 ML IVPB SCH ×2 (17:57→20:00)
[2020-02-29 18:21] LABS: Glucose,Whole Blood 456 mg/dL (75-99)
[2020-02-29 19:08] LABS: Glucose,Whole Blood 322 mg/dL (75-99)
--- NOTE | 2020-02-29 19:38 | P.GSCN ---
History of Present Illness Consult date: 02/29/20 Reason for Consult: Hematuria, hydronephrosis Requesting physician: Yola Rollins History of present illness: The patient is a 64-year-old white male who fell in his bathroom floor overnight. He refused to come to the hospital, but ultimately his fiance called EMS. Initial evaluation in the ER revealed elevated blood sugars of around 1200 with anion gap metabolic acidosis and diabetic ketoacidosis. He states that he has experienced voiding difficulty for the past year. He is a vague historian. He states that he has passed kidney stones in the past, as recently as 2 weeks ago. A Krueger catheter was placed in the ER, with return of 1300 mL of chocolate-colored urine. The appearance of the urine is gradually improving. Review of Systems - Constitutional Reports poor appetite, Reports weakness - Genitourinary Reports hematuria, Reports kidney stones Past Medical History Past Medical History: Diabetes Mellitus, Hyperlipidemia, Hypertension Additional Past Medical History / Comment(s): Signiificant other and rosy state pt has not had insurance so has not been taking meds/seeing physician, NIDDM type II, neuropathy bilateral feet, past nephrolithiasis with pt passing stones on his own, pt passed a couple stones (s.o. saw stones) 2 weeks ago and had he maturia which improved after passing stones but has had weakness and loss of appetite past 2 weeks, spondylosis/chronic low back pain History of Any Multi-Drug Resistant Organisms: None Reported Past Surgical History: No Surgical Hx Reported Additional Past Surgical History / Comment(s): Bilateral cataract removals/lens implants. Past Anesthesia/Blood Transfusion Reactions: Unable to Obtain Additional Past Anesthesia/Blood Transfusion Reaction / Comm: Pt has never had general anesthesia per family Smoking Status: Former smoker - Past Family History Father Family Medical History: Dementia Mother Family Medical History: Cancer Additional Family Medical History / Comment(s): Mother of skin cancer. Medications and Allergies Home Medications Medication Instructions Recorded Confirmed Type No Known Home Medications 02/29/20 02/29/20 History Allergies Allergy/AdvReac Type Severity Reaction Status Date / Time No Known Allergies Allergy Verified 02/29/20 10:04 Surgical - Exam Vital Signs Temp Pulse Resp BP Pulse Ox 97.1 F L 61 24 146/73 95 02/29/20 08:05 02/29/20 08:05 02/29/20 08:05 02/29/20 08:05 02/29/20 08:05 - General well developed, well nourished, moderate distress - Abdomen Soft, non-distended, no palpable masses. Right flank ecchymosis is noted. - Genitourinary normal penis with no external lesions, testicles non-tender - Psychiatric oriented to time, oriented to person, oriented to place, speech is normal, memory intact Results - Labs 02/29/20 08:25 02/29/20 15:51 Abnormal Lab Results - Last 24 Hours (Table) 02/29/20 02/29/20 02/29/20 Range/Units 08:11 08:25 08:25 WBC 23.6 H (3.8-10.6) k/uL RBC 4.00 L (4.30-5.90) m/uL Hgb 11.9 L (13.0-17.5) gm/dL MCV 105.3 H (80.0-100.0) fL MCHC 28.4 L (31.0-37.0) g/dL Neutrophils # (Manual) 22.40 H (1.3-7.7) k/uL Lymphocytes # (Manual) 0.47 L (1.0-4.8) k/uL Monocytes # (Manual) 1.18 H (0-1.0) k/uL ABG pH (7.35-7.45) ABG pCO2 (35-45) mmHg ABG pO2 (83-108) mmHg ABG HCO3 (21-25) mmol/L ABG Total CO2 (19-24) mmol/L ABG O2 Saturation (94-97) % Sodium 114 L* (137-145) mmol/L Potassium 6.7 H* (3.5-5.1) mmol/L Chloride 72 L* (98-107) mmol/L Carbon Dioxide 13 L (22-30) mmol/L BUN 98 H (9-20) mg/dL Creatinine 2.46 H (0.66-1.25) mg/dL Glucose 1139 H* (74-99) mg/dL POC Glucose (mg/dL) >600 H (75-99) mg/dL Plasma Lactic Acid Reilly (0.7-2.0) mmol/L Calcium 8.1 L (8.4-10.2) mg/dL Phosphorus (2.5-4.5) mg/dL Magnesium 2.7 H (1.6-2.3) mg/dL Alkaline Phosphatase 216 H (38-126) U/L Total Protein 5.4 L (6.3-8.2) g/dL Albumin 2.6 L (3.5-5.0) g/dL Urine RBC (0-5) /hpf Urine WBC (0-5) /hpf Urine WBC Clumps (None) /hpf Urine Bacteria (None) /hpf 02/29/20 02/29/20 02/29/20 Range/Units 08:25 08:44 08:46 WBC (3.8-10.6) k/uL RBC (4.30-5.90) m/uL Hgb (13.0-17.5) gm/dL MCV (80.0-100.0) fL MCHC (31.0-37.0) g/dL Neutrophils # (Manual) (1.3-7.7) k/uL Lymphocytes # (Manual) (1.0-4.8) k/uL Monocytes # (Manual) (0-1.0) k/uL ABG pH 7.30 L (7.35-7.45) ABG pCO2 24 L (35-45) mmHg ABG pO2 128 H (83-108) mmHg ABG HCO3 12 L (21-25) mmol/L ABG Total CO2 12 L (19-24) mmol/L ABG O2 Saturation 98.1 H (94-97) % Sodium (137-145) mmol/L Potassium (3.5-5.1) mmol/L Chloride (98-107) mmol/L Carbon Dioxide (22-30) mmol/L BUN (9-20) mg/dL Creatinine (0.66-1.25) mg/dL Glucose (74-99) mg/dL POC Glucose (mg/dL) (75-99) mg/dL Plasma Lactic Acid Reilly 3.1 H* (0.7-2.0) mmol/L Calcium (8.4-10.2) mg/dL Phosphorus (2.5-4.5) mg/dL Magnesium (1.6-2.3) mg/dL Alkaline Phosphatase (38-126) U/L Total Protein (6.3-8.2) g/dL Albumin (3.5-5.0) g/dL Urine RBC >182 H (0-5) /hpf Urine WBC >182 H (0-5) /hpf Urine WBC Clumps Many H (None) /hpf Urine Bacteria Many H (None) /hpf 02/29/20 02/29/20 02/29/20 Range/Units 10:27 11:45 12:10 WBC (3.8-10.6) k/uL RBC (4.30-5.90) m/uL Hgb (13.0-17.5) gm/dL MCV (80.0-100.0) fL MCHC (31.0-37.0) g/dL Neutrophils # (Manual) (1.3-7.7) k/uL Lymphocytes # (Manual) (1.0-4.8) k/uL Monocytes # (Manual) (0-1.0) k/uL ABG pH (7.35-7.45) ABG pCO2 (35-45) mmHg ABG pO2 (83-108) mmHg ABG HCO3 (21-25) mmol/L ABG Total CO2 (19-24) mmol/L ABG O2 Saturation (94-97) % Sodium 124 L (137-145) mmol/L Potassium (3.5-5.1) mmol/L Chloride 85 L (98-107) mmol/L Carbon Dioxide 16 L (22-30) mmol/L BUN 91 H (9-20) mg/dL Creatinine 2.26 H (0.66-1.25) mg/dL Glucose 684 H* (74-99) mg/dL POC Glucose (mg/dL) >600 H >600 H (75-99) mg/dL Plasma Lactic Acid Reilly (0.7-2.0) mmol/L Calcium (8.4-10.2) mg/dL Phosphorus (2.5-4.5) mg/dL Magnesium (1.6-2.3) mg/dL Alkaline Phosphatase (38-126) U/L Total Protein (6.3-8.2) g/dL Albumin (3.5-5.0) g/dL Urine RBC (0-5) /hpf Urine WBC (0-5) /hpf Urine WBC Clumps (None) /hpf Urine Bacteria (None) /hpf 02/29/20 02/29/20 02/29/20 Range/Units 12:10 13:29 14:26 WBC (3.8-10.6) k/uL RBC (4.30-5.90) m/uL Hgb (13.0-17.5) gm/dL MCV (80.0-100.0) fL MCHC (31.0-37.0) g/dL Neutrophils # (Manual) (1.3-7.7) k/uL Lymphocytes # (Manual) (1.0-4.8) k/uL Monocytes # (Manual) (0-1.0) k/uL ABG pH (7.35-7.45) ABG pCO2 (35-45) mmHg ABG pO2 (83-108) mmHg ABG HCO3 (21-25) mmol/L ABG Total CO2 (19-24) mmol/L ABG O2 Saturation (94-97) % Sodium (137-145) mmol/L Potassium (3.5-5.1) mmol/L Chloride (98-107) mmol/L Carbon Dioxide (22-30) mmol/L BUN (9-20) mg/dL Creatinine (0.66-1.25) mg/dL Glucose (74-99) mg/dL POC Glucose (mg/dL) 592 H 475 H (75-99) mg/dL Plasma Lactic Acid Reilly 3.7 H* (0.7-2.0) mmol/L Calcium (8.4-10.2) mg/dL Phosphorus (2.5-4.5) mg/dL Magnesium (1.6-2.3) mg/dL Alkaline Phosphatase (38-126) U/L Total Protein (6.3-8.2) g/dL Albumin (3.5-5.0) g/dL Urine RBC (0-5) /hpf Urine WBC (0-5) /hpf Urine WBC Clumps (None) /hpf Urine Bacteria (None) /hpf 02/29/20 02/29/20 02/29/20 Range/Units 15:25 15:51 15:51 WBC (3.8-10.6) k/uL RBC (4.30-5.90) m/uL Hgb (13.0-17.5) gm/dL MCV (80.0-100.0) fL MCHC (31.0-37.0) g/dL Neutrophils # (Manual) (1.3-7.7) k/uL Lymphocytes # (Manual) (1.0-4.8) k/uL Monocytes # (Manual) (0-1.0) k/uL ABG pH (7.35-7.45) ABG pCO2 (35-45) mmHg ABG pO2 (83-108) mmHg ABG HCO3 (21-25) mmol/L ABG Total CO2 (19-24) mmol/L ABG O2 Saturation (94-97) % Sodium 127 L (137-145) mmol/L Potassium (3.5-5.1) mmol/L Chloride 92 L (98-107) mmol/L Carbon Dioxide 21 L (22-30) mmol/L BUN 88 H (9-20) mg/dL Creatinine 2.01 H (0.66-1.25) mg/dL Glucose 421 H (74-99) mg/dL POC Glucose (mg/dL) 432 H (75-99) mg/dL Plasma Lactic Acid Reilly 3.3 H* (0.7-2.0) mmol/L Calcium (8.4-10.2) mg/dL Phosphorus 2.0 L (2.5-4.5) mg/dL Magnesium (1.6-2.3) mg/dL Alkaline Phosphatase (38-126) U/L Total Protein (6.3-8.2) g/dL Albumin (3.5-5.0) g/dL Urine RBC (0-5) /hpf Urine WBC (0-5) /hpf Urine WBC Clumps (None) /hpf Urine Bacteria (None) /hpf 02/29/20 Range/Units 17:35 WBC (3.8-10.6) k/uL RBC (4.30-5.90) m/uL Hgb (13.0-17.5) gm/dL MCV (80.0-100.0) fL MCHC (31.0-37.0) g/dL Neutrophils # (Manual) (1.3-7.7) k/uL Lymphocytes # (Manual) (1.0-4.8) k/uL Monocytes # (Manual) (0-1.0) k/uL ABG pH (7.35-7.45) ABG pCO2 (35-45) mmHg ABG pO2 (83-108) mmHg ABG HCO3 (21-25) mmol/L ABG Total CO2 (19-24) mmol/L ABG O2 Saturation (94-97) % Sodium (137-145) mmol/L Potassium (3.5-5.1) mmol/L Chloride (98-107) mmol/L Carbon Dioxide (22-30) mmol/L BUN (9-20) mg/dL Creatinine (0.66-1.25) mg/dL Glucose (74-99) mg/dL POC Glucose (mg/dL) 324 H (75-99) mg/dL Plasma Lactic Acid Reilly (0.7-2.0) mmol/L Calcium (8.4-10.2) mg/dL Phosphorus (2.5-4.5) mg/dL Magnesium (1.6-2.3) mg/dL Alkaline Phosphatase (38-126) U/L Total Protein (6.3-8.2) g/dL Albumin (3.5-5.0) g/dL Urine RBC (0-5) /hpf Urine WBC (0-5) /hpf Urine WBC Clumps (None) /hpf Urine Bacteria (None) /hpf Microbiology - Last 24 Hours (Table) 02/29/20 08:46 Urine Culture - Preliminary Urine,Voided Diabetes panel 02/29/20 02/29/20 02/29/20 Range/Units 08:25 12:10 15:51 Sodium 114 L* 124 L 127 L (137-145) mmol/L Potassium 6.7 H* 4.7 4.5 (3.5-5.1) mmol/L Chloride 72 L* 85 L 92 L (98-107) mmol/L Carbon Dioxide 13 L 16 L 21 L (22-30) mmol/L BUN 98 H 91 H 88 H (9-20) mg/dL Creatinine 2.46 H 2.26 H 2.01 H (0.66-1.25) mg/dL Glucose 1139 H* 684 H* 421 H (74-99) mg/dL Calcium 8.1 L (8.4-10.2) mg/dL AST 41 (17-59) U/L ALT 24 (4-49) U/L Alkaline Phosphatase 216 H (38-126) U/L Total Protein 5.4 L (6.3-8.2) g/dL Albumin 2.6 L (3.5-5.0) g/dL Calcium panel 02/29/20 02/29/20 02/29/20 Range/Units 08:25 12:10 15:51 Calcium 8.1 L (8.4-10.2) mg/dL Phosphorus 2.9 2.0 L (2.5-4.5) mg/dL Albumin 2.6 L (3.5-5.0) g/dL Pituitary panel 02/29/20 02/29/20 02/29/20 Range/Units 08:25 12:10 15:51 Sodium 114 L* 124 L 127 L (137-145) mmol/L Potassium 6.7 H* 4.7 4.5 (3.5-5.1) mmol/L Chloride 72 L* 85 L 92 L (98-107) mmol/L Carbon Dioxide 13 L 16 L 21 L (22-30) mmol/L BUN 98 H 91 H 88 H (9-20) mg/dL Creatinine 2.46 H 2.26 H 2.01 H (0.66-1.25) mg/dL Glucose 1139 H* 684 H* 421 H (74-99) mg/dL Calcium 8.1 L (8.4-10.2) mg/dL Adrenal panel 02/29/20 02/29/20 02/29/20 Range/Units 08:25 12:10 15:51 Sodium 114 L* 124 L 127 L (137-145) mmol/L Potassium 6.7 H* 4.7 4.5 (3.5-5.1) mmol/L Chloride 72 L* 85 L 92 L (98-107) mmol/L Carbon Dioxide 13 L 16 L 21 L (22-30) mmol/L BUN 98 H 91 H 88 H (9-20) mg/dL Creatinine 2.46 H 2.26 H 2.01 H (0.66-1.25) mg/dL Glucose 1139 H* 684 H* 421 H (74-99) mg/dL Calcium 8.1 L (8.4-10.2) mg/dL Total Bilirubin 1.0 (0.2-1.3) mg/dL AST 41 (17-59) U/L ALT 24 (4-49) U/L Alkaline Phosphatase 216 H (38-126) U/L Total Protein 5.4 L (6.3-8.2) g/dL Albumin 2.6 L (3.5-5.0) g/dL - Imaging CT scan - abdomen: report reviewed, image reviewed US - kidney/bladder: report reviewed Assessment and Plan (1) Retention of urine, unspecified Current Visit: Yes Status: Acute Code(s): R33.9 - RETENTION OF URINE, UNSPECIFIED SNOMED Code(s): 513863870 (2) Acquired hydronephrosis due to obstruction of bladder Current Visit: Yes Status: Acute Code(s): N13.30 - UNSPECIFIED HYDRONEPHROSIS; N32.89 - OTHER SPECIFIED DISORDERS OF BLADDER SNOMED Code(s): 289694468 (3) Gross hematuria Current Visit: Yes Status: Acute Code(s): R31.0 - GROSS HEMATURIA SNOMED Code(s): 873885116 Plan: Ultrasound and CT scan both show evidence of bilateral severe hydronephrosis. This is likely due to long-standing urinary retention. Clot or tumor is seen within the bladder on both studies. For now, I would suggest continued Krueger catheter drainage. I anticipate gradual improvement in his renal function. The catheter is draining well but may require manual irrigation. Whether or not he will regain bladder function is unclear at this time. Cystoscopy will be required to evaluate the bladder abnormalities seen on imaging studies, but this can be deferred until his overall condition is improved. Time with Patient: Greater than 30
[2020-02-29 19:49] LABS: Hemoglobin A1C 16.5 % (4.0-6.0)
[2020-02-29 20:10] LABS: Glucose,Whole Blood 243 mg/dL (75-99)
[2020-02-29] MEDS: D5-0.45% NACL WITH KCL 20MEQ/L 1,000 ML IV SCH (20:29)
[2020-02-29 21:01] LABS: Glucose,Whole Blood 212 mg/dL (75-99)
[2020-02-29 22:08] LABS: Glucose,Whole Blood 220 mg/dL (75-99)
[2020-03-01 00:12] LABS: Glucose,Whole Blood 170 mg/dL (75-99)
[2020-03-01 01:06] LABS: Glucose,Whole Blood 170 mg/dL (75-99)
[2020-03-01 01:20] LABS: Calcium 8.4 mg/dL (8.4-10.2); Phosphorus 3.9 mg/dL (2.5-4.5); Potassium 3.6 mmol/L (3.5-5.1)
[2020-03-01 02:03] LABS: Glucose,Whole Blood 131 mg/dL (75-99)
[2020-03-01 03:06] LABS: Glucose,Whole Blood 136 mg/dL (75-99)
[2020-03-01] MEDS: D5-0.45% NACL WITH KCL 20MEQ/L 1,000 ML IV SCH (03:55)
[2020-03-01 04:02] LABS: Glucose,Whole Blood 154 mg/dL (75-99)
[2020-03-01 04:35] LABS: Basophils # (A) 0.1 k/uL (0-0.2); Basophils % (A) 0 %; Eosinophils # (A) 0.1 k/uL (0-0.7); Eosinophils % (A) 1 %; HCT 34.7 % (39.0-53.0); HGB 10.7 gm/dL (13.0-17.5); Hypochromasia Slight; Lymphocytes # (A) 0.6 k/uL (1.0-4.8); Lymphocytes % (A) 3 %; MCH 29.3 pg (25.0-35.0); MCHC 30.9 g/dL (31.0-37.0); Mean Platelet Volume 8.8; Monocytes # (A) 0.7 k/uL (0-1.0); Monocytes % (A) 3 %; Neutrophils # (A) 19.4 k/uL (1.3-7.7); Neutrophils % (A) 91 %; Platelet Count 361 k/uL (150-450); RBC 3.66 m/uL (4.30-5.90); RDW 13.6 % (11.5-15.5); WBC 21.2 k/uL (3.8-10.6)
[2020-03-01 04:49] LABS: Calcium 8.3 mg/dL (8.4-10.2); MCV 94.9 fL (80.0-100.0); Magnesium 2.2 mg/dL (1.6-2.3); Phosphorus 3.8 mg/dL (2.5-4.5); Potassium 4.1 mmol/L (3.5-5.1)
[2020-03-01 05:22] LABS: Glucose,Whole Blood 230 mg/dL (75-99)
[2020-03-01] MEDS ORDERED: INSULIN DETEMIR (LEVEMIR) 100 UNIT/ML SYR SQ ONE (05:45)
[2020-03-01] MEDS: INSULIN REGULAR 100 UNIT in SODIUM CHLORIDE 0.9% 100 ML IV SCH (05:50)
[2020-03-01] MEDS: SODIUM CHLORIDE 0.9% 1,000 ML IV SCH ×2 (05:50→14:05)
[2020-03-01] MEDS: HYDROmorphone 0.5 MG/0.5 ML SYRINGE IVP PRN ×3 (06:27→22:19)
[2020-03-01] MEDS ORDERED: INSULIN ASPART (NovoLOG) 100 UNIT/ML VIAL SQ ONE (07:00)
[2020-03-01 07:03] LABS: Glucose,Whole Blood 251 mg/dL (75-99)
[2020-03-01] MEDS: INSULIN ASPART (NovoLOG) 100 UNIT/ML VIAL SQ SCH ×5 (07:04→20:59)
[2020-03-01] MEDS ORDERED: VANCOMYCIN IV PER PHARMACY 1 EACH MISC MISCELLANE PRN (07:34)
[2020-03-01] MEDS ORDERED: VANCOMYCIN 1,750 MG in SODIUM CHLORIDE 0.9% 500 ML 500 ML IVPB ONE (08:00)
[2020-03-01] MEDS: PANTOPRAZOLE 40 MG/10 ML VIAL IV SCH (08:13)
[2020-03-01] MEDS: HEPARIN SODIUM,PORCINE 5,000 UNIT/ML 1 ML VIAL SQ SCH ×2 (08:13→17:13)
[2020-03-01 10:14] VITALS: BMI 26.4
[2020-03-01 11:32] LABS: Glucose,Whole Blood 303 mg/dL (75-99)
--- NOTE | 2020-03-01 12:32 | P.PN ---
Subjective Progress Note Date: 03/01/20 03/01/2020, the patient is feeling well. Awake and alert and communicating. He claims to be diabetic. He apparently has not been taking any blood sugar medication. His HbA1c is at 16. He was started on insulin drip. Insulin drip was discontinued as the patient has improved and her blood sugars on the mother better control and his anion gap is down to 7 and his serum bicarbs at 25. The patient was given Lantus insulin 15 units and the patient will be also covered with a slight scale coverage. He is being given a carbohydrate consistent diet. His blood culture came back positive for staph aureus and final cultures and sensitivities are still pending for now. He'll be given a dose of vancomycin. He is on IV Rocephin 1 g every 24 hours. White cell count is at 21.2. Afebrile. Hemodynamically stable. Acute kidney injury is improving and the creatinine is down to 1.49. The patient is receiving IV fluids with normal saline at rate of 1 25 mL's an hour. Objective - Vital Signs Vital signs: Vital Signs Temp 97.9 F 03/01/20 04:00 Pulse 89 03/01/20 10:00 Resp 13 03/01/20 09:30 BP 111/70 03/01/20 10:00 Pulse Ox 95 03/01/20 09:30 Intake & Output 02/29/20 03/01/20 03/01/20 18:59 06:59 18:59 Intake Total 4501.944 0395.420 1300 Output Total 5910 1855 525 Balance -4178.221 352.420 775 Weight 95.254 kg 96.1 kg 96.1 kg Intake: IV 1650 2125 500 D5-0.45% NaCl with KCl 1350 20Meq/l 1,000 ml @ 150 mls/hr IV .[id number] [facility] Rx# :[id number] Sodium Chloride 0.9% 1, 125 500 000 ml @ 125 mls/hr IV . Q8H [facility] Rx#:[id number] Sodium Chloride 0.9% 1, 1400 400 000 ml @ 200 mls/hr IV . Q5H [facility] Rx#:[id number] Sodium Phosphate 10 mmol 250 250 In Sodium Chloride 0.9% 250 ml @ 125 mls/hr IVPB Q2H [facility] Rx#:[id number] Intake, IV Titration 81.779 82.420 300 Amount Insulin Regular 100 unit 81.779 82.420 In Sodium Chloride 0.9% 100 ml @ 0.1 UNITS/KG/HR 9.621 mls/hr IV .[id number] [facility] Rx#:[id number] Vancomycin 1,500 mg In 250 Sodium Chloride 0.9% 250 ml @ 125 mls/hr IVPB Q12H [facility] Rx#:[id number] cefTRIAXone 1 gm In 50 Sodium Chloride 0.9% 50 ml @ 100 mls/hr IVPB Q24HR [facility] Rx#:[id number] Oral 500 Output: Urine 5910 1855 525 Uretheral (Krueger) 4300 Other: Voiding Method Indwelling Catheter Indwelling Catheter Indwelling Catheter - Exam The patient awake and alert and following commands and answering questions Head exam was generally normal. There was no scleral icterus or corneal arcus. Mucous membranes were extremely dry and the patient has poor dentition and there is no evidence of any oropharyngeal thrush. Neck was supple and without jugular venous distension, thyromegaly, or carotid bruits. Carotids were easily palpable bilaterally. There was no adenopathy. Lungs were clear to auscultation and percussion, and with normal diaphragmatic excursion. No wheezes or rales were noted. Cardiac exam revealed the PMI to be normally situated and sized. The rhythm was regular and no extrasystoles were noted during several minutes of auscultation. The first and second heart sounds were normal and physiologic splitting of the second heart sound was noted. There were no murmurs, rubs, clicks, or gallops. Abdominal exam revealed normal bowel sounds. The abdomen was soft, non-tender, and without masses, organomegaly, or appreciable enlargement of the abdominal aorta. Examination of the extremities revealed easily palpable radial, femoral and pedal pulses. There was no cyanosis, clubbing or edema. Examination of the skin revealed no evidence of significant rashes, suspicious appearing nevi or other concerning lesions. Krueger catheter is in place and the patient has some bloody urine output. Neurologically, the patient is awake and alert and the patient does not have any focal neurological deficit. Cranial nerves are essentially intact. - Labs CBC & Chem 7: 03/01/20 04:05 03/01/20 04:05 Labs: Abnormal Lab Results - Last 24 Hours (Table) 02/29/20 02/29/20 02/29/20 Range/Units 12:10 12:10 12:10 WBC (3.8-10.6) k/uL RBC (4.30-5.90) m/uL Hgb (13.0-17.5) gm/dL Hct (39.0-53.0) % MCHC (31.0-37.0) g/dL Neutrophils # (1.3-7.7) k/uL Lymphocytes # (1.0-4.8) k/uL Sodium 124 L (137-145) mmol/L Chloride 85 L (98-107) mmol/L Carbon Dioxide 16 L (22-30) mmol/L BUN 91 H (9-20) mg/dL Creatinine 2.26 H (0.66-1.25) mg/dL Glucose 684 H* (74-99) mg/dL POC Glucose (mg/dL) (75-99) mg/dL Hemoglobin A1c 16.5 H (4.0-6.0) % Plasma Lactic Acid Reilly 3.7 H* (0.7-2.0) mmol/L Calcium (8.4-10.2) mg/dL Phosphorus (2.5-4.5) mg/dL 02/29/20 02/29/20 02/29/20 Range/Units 13:29 14:26 15:25 WBC (3.8-10.6) k/uL RBC (4.30-5.90) m/uL Hgb (13.0-17.5) gm/dL Hct (39.0-53.0) % MCHC (31.0-37.0) g/dL Neutrophils # (1.3-7.7) k/uL Lymphocytes # (1.0-4.8) k/uL Sodium (137-145) mmol/L Chloride (98-107) mmol/L Carbon Dioxide (22-30) mmol/L BUN (9-20) mg/dL Creatinine (0.66-1.25) mg/dL Glucose (74-99) mg/dL POC Glucose (mg/dL) 592 H 475 H 432 H (75-99) mg/dL Hemoglobin A1c (4.0-6.0) % Plasma Lactic Acid Reilly (0.7-2.0) mmol/L Calcium (8.4-10.2) mg/dL Phosphorus (2.5-4.5) mg/dL 02/29/20 02/29/20 02/29/20 Range/Units 15:51 15:51 17:35 WBC (3.8-10.6) k/uL RBC (4.30-5.90) m/uL Hgb (13.0-17.5) gm/dL Hct (39.0-53.0) % MCHC (31.0-37.0) g/dL Neutrophils # (1.3-7.7) k/uL Lymphocytes # (1.0-4.8) k/uL Sodium 127 L (137-145) mmol/L Chloride 92 L (98-107) mmol/L Carbon Dioxide 21 L (22-30) mmol/L BUN 88 H (9-20) mg/dL Creatinine 2.01 H (0.66-1.25) mg/dL Glucose 421 H (74-99) mg/dL POC Glucose (mg/dL) 324 H (75-99) mg/dL Hemoglobin A1c (4.0-6.0) % Plasma Lactic Acid Reilly 3.3 H* (0.7-2.0) mmol/L Calcium (8.4-10.2) mg/dL Phosphorus 2.0 L (2.5-4.5) mg/dL 02/29/20 02/29/20 02/29/20 Range/Units 18:20 19:07 20:09 WBC (3.8-10.6) k/uL RBC (4.30-5.90) m/uL Hgb (13.0-17.5) gm/dL Hct (39.0-53.0) % MCHC (31.0-37.0) g/dL Neutrophils # (1.3-7.7) k/uL Lymphocytes # (1.0-4.8) k/uL Sodium (137-145) mmol/L Chloride (98-107) mmol/L Carbon Dioxide (22-30) mmol/L BUN (9-20) mg/dL Creatinine (0.66-1.25) mg/dL Glucose (74-99) mg/dL POC Glucose (mg/dL) 456 H 322 H 243 H (75-99) mg/dL Hemoglobin A1c (4.0-6.0) % Plasma Lactic Acid Reilly (0.7-2.0) mmol/L Calcium (8.4-10.2) mg/dL Phosphorus (2.5-4.5) mg/dL 02/29/20 02/29/20 03/01/20 Range/Units 20:59 22:07 00:11 WBC (3.8-10.6) k/uL RBC (4.30-5.90) m/uL Hgb (13.0-17.5) gm/dL Hct (39.0-53.0) % MCHC (31.0-37.0) g/dL Neutrophils # (1.3-7.7) k/uL Lymphocytes # (1.0-4.8) k/uL Sodium (137-145) mmol/L Chloride (98-107) mmol/L Carbon Dioxide (22-30) mmol/L BUN (9-20) mg/dL Creatinine (0.66-1.25) mg/dL Glucose (74-99) mg/dL POC Glucose (mg/dL) 212 H 220 H 170 H (75-99) mg/dL Hemoglobin A1c (4.0-6.0) % Plasma Lactic Acid Reilly (0.7-2.0) mmol/L Calcium (8.4-10.2) mg/dL Phosphorus (2.5-4.5) mg/dL 03/01/20 03/01/20 03/01/20 Range/Units 00:47 01:04 02:02 WBC (3.8-10.6) k/uL RBC (4.30-5.90) m/uL Hgb (13.0-17.5) gm/dL Hct (39.0-53.0) % MCHC (31.0-37.0) g/dL Neutrophils # (1.3-7.7) k/uL Lymphocytes # (1.0-4.8) k/uL Sodium 133 L (137-145) mmol/L Chloride (98-107) mmol/L Carbon Dioxide (22-30) mmol/L BUN 77 H (9-20) mg/dL Creatinine 1.63 H (0.66-1.25) mg/dL Glucose 161 H (74-99) mg/dL POC Glucose (mg/dL) 170 H 131 H (75-99) mg/dL Hemoglobin A1c (4.0-6.0) % Plasma Lactic Acid Reilly (0.7-2.0) mmol/L Calcium (8.4-10.2) mg/dL Phosphorus (2.5-4.5) mg/dL 03/01/20 03/01/20 03/01/20 Range/Units 03:05 04:01 04:05 WBC 21.2 H (3.8-10.6) k/uL RBC 3.66 L (4.30-5.90) m/uL Hgb 10.7 L (13.0-17.5) gm/dL Hct 34.7 L (39.0-53.0) % MCHC 30.9 L (31.0-37.0) g/dL Neutrophils # 19.4 H (1.3-7.7) k/uL Lymphocytes # 0.6 L (1.0-4.8) k/uL Sodium (137-145) mmol/L Chloride (98-107) mmol/L Carbon Dioxide (22-30) mmol/L BUN (9-20) mg/dL Creatinine (0.66-1.25) mg/dL Glucose (74-99) mg/dL POC Glucose (mg/dL) 136 H 154 H (75-99) mg/dL Hemoglobin A1c (4.0-6.0) % Plasma Lactic Acid Reilly (0.7-2.0) mmol/L Calcium (8.4-10.2) mg/dL Phosphorus (2.5-4.5) mg/dL 03/01/20 03/01/20 03/01/20 Range/Units 04:05 05:20 07:02 WBC (3.8-10.6) k/uL RBC (4.30-5.90) m/uL Hgb (13.0-17.5) gm/dL Hct (39.0-53.0) % MCHC (31.0-37.0) g/dL Neutrophils # (1.3-7.7) k/uL Lymphocytes # (1.0-4.8) k/uL Sodium 133 L (137-145) mmol/L Chloride (98-107) mmol/L Carbon Dioxide (22-30) mmol/L BUN 75 H (9-20) mg/dL Creatinine 1.49 H (0.66-1.25) mg/dL Glucose 149 H (74-99) mg/dL POC Glucose (mg/dL) 230 H 251 H (75-99) mg/dL Hemoglobin A1c (4.0-6.0) % Plasma Lactic Acid Reilly (0.7-2.0) mmol/L Calcium 8.3 L (8.4-10.2) mg/dL Phosphorus (2.5-4.5) mg/dL 03/01/20 Range/Units 11:30 WBC (3.8-10.6) k/uL RBC (4.30-5.90) m/uL Hgb (13.0-17.5) gm/dL Hct (39.0-53.0) % MCHC (31.0-37.0) g/dL Neutrophils # (1.3-7.7) k/uL Lymphocytes # (1.0-4.8) k/uL Sodium (137-145) mmol/L Chloride (98-107) mmol/L Carbon Dioxide (22-30) mmol/L BUN (9-20) mg/dL Creatinine (0.66-1.25) mg/dL Glucose (74-99) mg/dL POC Glucose (mg/dL) 303 H (75-99) mg/dL Hemoglobin A1c (4.0-6.0) % Plasma Lactic Acid Reilly (0.7-2.0) mmol/L Calcium (8.4-10.2) mg/dL Phosphorus (2.5-4.5) mg/dL Microbiology - Last 24 Hours (Table) 02/29/20 09:38 Blood Culture Gram Stain - Preliminary Blood Blood Culture - Preliminary Staphylococcus aureus 02/29/20 09:38 Blood Culture - Final Blood 02/29/20 08:46 Urine Culture - Preliminary Urine,Voided Assessment and Plan Plan: 1 acute diabetic hyperosmolar nonketotic crisis related to underlying diabetes mellitus type 2, improved and the patient is currently on long-acting insulin with Levemir insulin. 2 acute kidney injury along with acute bilateral hydronephrosis and hydroureter with thickening of the bladder wall. Consider underlying obstructive uropathy probably related to prostate enlargement/disease in addition to secondary infection/cystitis/pyelonephritis. Patient has a Krueger catheter in place. Angela ent started on broad-spectrum antibiotics. The patient was seen by urology. The patient likely has long-standing urinary retention. A clot versus tumor is seen in the bladder on both ultrasound and a CAT scan and Krueger drains were discontinued and the patient will require cystoscopy at a later stage. 3 hematuria, currently inactive in stable 4 history of nephrolithiasis, not seen on the CAT scan of the chest 5 acute leukocytosis, secondary to above 6 acute pseudohyponatremia secondary to hyperglycemia, recovered and sodium level is improved 7 acute hyperkalemia treated and recovered 8 anion gap metabolic acidosis, recovered 9 mild lactic acidosis, recovered 10 staph aureus bacteremia Plan Continue IV Rocephin Add IV vancomycin Keep the Krueger catheter in place Start the patient on Levemir insulin 15 units along with a slight scale coverage Advance diet as tolerated and the patient will be given a carbohydrate consistent diet IV Protonix Electrolytes have improved Cystoscopy once more stable Can be transferred to a medical surgical floor We'll continue to follow
--- NOTE | 2020-03-01 13:33 | CDI ---
Documentation Clarification Form Date: 03/01/2020 01:04:30 PM From: Zoey Robertson RN CCDS Admit Date: 02/29/2020 10:49:00 AM Patient Name: Jones Ferraro Visit Number: [id number] Discharge Date: ATTENTION: The Clinical Documentation Specialists (CDI) and [facility] Coding Staff appreciate your assistance in clarifying documentation. Please respond to the clarification below the line at the bottom and electronically sign. The CDI & [facility] Coding staff will review the response and follow-up if needed. Please note: Queries are made part of the Legal Health Record. If you have any questions, please contact the author of this message via ITS. Dr. Yola Rollins Sepsis was documented in the ED Notes Clinical Impression 02/28 History/Risk Factors: 64-year-old samy presents to the ED via EMS after being on the floor all night too weak to pick himself up. EMS states his sugar was in 500s Medical history: DM type 2 Clinical Indicators: 02/28 Labs: Wbc: 23.6; Neutrophil Manual 22.40; Lactic acid: 3.1, 3.3, 1.8 02/28 UA Culture: Presumptive Staph aureus 02/28 Blood cultures: Staphylococcus aureus 02/28 Vital signs on admission: B/P: 146/73; HR: 61; Temp: 97.1 Axillary; RR: 24; SpO2 95% 2 nasal cannula 02/28 H&P Leukocytosis possibly secondary to DKA 02/28 Critical Care Consult Consider underlying obstructive uropathy probably related to prostate enlargement/disease in addition to secondary infection/cystitis/pyelonephritis. 02/28 Urology Consult Ultrasound and CT scan both show evidence of bilateral severe hydronephrosis. This is likely due to long standing urinary retention. Treatment: Antibiotics: 02/28 Rocephin Ivpb Daily; 03/01 Vancomycin Ivpb Q 12 hr IV Bolus: 0.9 NS 2.5 L bolus followed by 200cchr In your professional opinion, please clarify if Sepsis Sepsis Ruled Out Sepsis POA Please Identify the (suspected) organism (if known) Other, please specify Unable to determine SIRS Criteria (2 or more of the following may indicate SIRS): -Temperature < 96.8F (36C) or > 101.0F (38.3C) -Heart Rate > 90 bpm -Respiratory Rate > 20 breaths/min or PaCO2 < 32 mmHg -White Blood Cell Count > 12,000 or < 4,000 cells/mm3 or > 10% bands -Lactate >2.0 mmol/L (>4.0 is equivalent to septic shock) (Last Revision: October 2017) As per my note MTDD
[2020-03-01] MEDS ORDERED: INSULIN DETEMIR (LEVEMIR) 100 UNIT/ML SYR SQ STA (13:36)
--- NOTE | 2020-03-01 13:51 | CDI ---
Documentation Clarification Form Date: 03/01/2020 01:33:41 PM From: Zoey Robertson RN CCDS Admit Date: 02/29/2020 10:49:00 AM Patient Name: Jones Ferraro Visit Number: [id number] Discharge Date: ATTENTION: The Clinical Documentation Specialists (CDI) and [facility] Coding Staff appreciate your assistance in clarifying documentation. Please respond to the clarification below the line at the bottom and electronically sign. The CDI & [facility] Coding staff will review the response and follow-up if needed. Please note: Queries are made part of the Legal Health Record. If you have any questions, please contact the author of this message via ITS. Dr. Yola Rollins Patient is lethargic encephalopathic is documented in the H&P in the Physical Examination 02/28 History/Risk Factors: 64-year-old samy presents to the ED via EMS after being on the floor all night too weak to pick himself up. EMS states his sugar was in 500s Medical history DM Type 2 Clinical Indicators: 02/28 Labs: Wbc: 23.6; Neutrophil Manual 22.40; Lactic acid: 3.1, 3.3, 1.8; Glucose 1139; 02/28 CT Brain: Age related atrophic and chronic small vessel ischemic change without acute intracranial process seen at this time. 02/28 Critical Care Consult: He is unable to volunteer any history as the patient is currently encephalopathic. Treatment: Medications: 02/28 Calcium Chloride IVP x 1; Insulin Humulin R Iv bolus x1 followed by Human Regular Ivpb; Sodium Bicarb IVP x 1; Sodium Phosphate IVPB; D5%-1/2ns Kcl 20 meq 150cc/hr d/c 03/01 Antibiotics: 02/28 Rocephin Ivpb Daily; 03/01 Vancomycin Ivpb Q 12 hr IV Bolus: 0.9 NS 2.5 L bolus followed by 200cchr In your professional opinion, can you please clarify the specific type of Encephalopathy, if known? Metabolic Encephalopathy Other, please specify Unable to determine (Last Revision: October 2017) As per my note MTDD
--- NOTE | 2020-03-01 14:39 | P.PN ---
Subjective Patient is a 64-year-old male admitted for diabetic hyperosmolar state patient does have some ketosis as well probably starvation ketosis. Patient blood sugars improved. Patient's serum acidosis resolved electrolyte improved patient's serum creatinine is 133 patient was transitioned to subcutaneous insulin dose of which I'm increasing now as his blood sugars are still not well controlled. Patient was a valid by urology because of bilateral hydronephrosis, urinary retention patient had a Krueger catheter patient will eventually need a cystoscopy once his more stabilized. Patient is less encephalopathic today and able to answer my questions. Patient has staph aureus in the blood and urine repeat blood cultures will be obtained infectious disease will be consulted. Constitutional: Denied any fatigue denied any fever. Cardio vascular: denied any chest pain, palpitations Gastrointestinal denied any nausea vomiting Pulmonary: Denied any shortness of breath cough Neurologic denied any new focal deficits All inpatient medications were reviewed and appropriate changes in these medications as dictated in the interval history and assessment and plan. Objective - Vital Signs Vital signs: Vital Signs Temp 98.6 F 03/01/20 13:00 Pulse 89 03/01/20 10:00 Resp 13 03/01/20 12:00 BP 145/75 03/01/20 13:30 Pulse Ox 95 03/01/20 09:30 Intake & Output 02/29/20 03/01/20 03/01/20 18:59 06:59 18:59 Intake Total 5303.080 6957.420 1800 Output Total 5910 1855 725 Balance -4178.221 524.860 9894 Weight 95.254 kg 96.1 kg 96.1 kg Intake: IV 1650 2125 1000 D5-0.45% NaCl with KCl 1350 20Meq/l 1,000 ml @ 150 mls/hr IV .Q6H40M [facility] Rx# :[id number] Sodium Chloride 0.9% 1, 125 1000 000 ml @ 125 mls/hr IV . Q8H [facility] Rx#:[id number] Sodium Chloride 0.9% 1, 1400 400 000 ml @ 200 mls/hr IV . Q5H [facility] Rx#:[id number] Sodium Phosphate 10 mmol 250 250 In Sodium Chloride 0.9% 250 ml @ 125 mls/hr IVPB Q2H [facility] Rx#:[id number] Intake, IV Titration 81.779 82.420 300 Amount Insulin Regular 100 unit 81.779 82.420 In Sodium Chloride 0.9% 100 ml @ 0.1 UNITS/KG/HR 9.621 mls/hr IV .[id number] [facility] Rx#:[id number] Vancomycin 1,500 mg In 250 Sodium Chloride 0.9% 250 ml @ 125 mls/hr IVPB Q12H [facility] Rx#:[id number] cefTRIAXone 1 gm In 50 Sodium Chloride 0.9% 50 ml @ 100 mls/hr IVPB Q24HR [facility] Rx#:[id number] Oral 500 Output: Urine 5910 1855 725 Uretheral (Krueger) 4300 Other: Voiding Method Indwelling Catheter Indwelling Catheter Indwelling Catheter - Exam PHYSICAL EXAMINATION: GENERAL: The patient is alert and oriented x3, not in any acute distress. Well developed, well nourished. HEENT: Pupils are round and equally reacting to light. EOMI. No scleral icterus. No conjunctival pallor. Normocephalic, atraumatic. No pharyngeal erythema. No thyromegaly. CARDIOVASCULAR: S1 and S2 present. No murmurs, rubs, or gallops. PULMONARY: Chest is clear to auscultation, no wheezing or crackles. ABDOMEN: Soft, nontender, nondistended, normoactive bowel sounds. No palpable organomegaly. MUSCULOSKELETAL: No joint swelling or deformity. EXTREMITIES: No cyanosis, clubbing, or pedal edema. NEUROLOGICAL: Gross neurological examination did not reveal any focal deficits. SKIN: No rashes. - Labs CBC & Chem 7: 03/01/20 04:05 03/01/20 04:05 Labs: Abnormal Lab Results - Last 24 Hours (Table) 02/29/20 02/29/20 02/29/20 Range/Units 12:10 15:25 15:51 WBC (3.8-10.6) k/uL RBC (4.30-5.90) m/uL Hgb (13.0-17.5) gm/dL Hct (39.0-53.0) % MCHC (31.0-37.0) g/dL Neutrophils # (1.3-7.7) k/uL Lymphocytes # (1.0-4.8) k/uL Sodium 127 L (137-145) mmol/L Chloride 92 L (98-107) mmol/L Carbon Dioxide 21 L (22-30) mmol/L BUN 88 H (9-20) mg/dL Creatinine 2.01 H (0.66-1.25) mg/dL Glucose 421 H (74-99) mg/dL POC Glucose (mg/dL) 432 H (75-99) mg/dL Hemoglobin A1c 16.5 H (4.0-6.0) % Plasma Lactic Acid Reilly (0.7-2.0) mmol/L Calcium (8.4-10.2) mg/dL Phosphorus 2.0 L (2.5-4.5) mg/dL 02/29/20 02/29/20 02/29/20 Range/Units 15:51 17:35 18:20 WBC (3.8-10.6) k/uL RBC (4.30-5.90) m/uL Hgb (13.0-17.5) gm/dL Hct (39.0-53.0) % MCHC (31.0-37.0) g/dL Neutrophils # (1.3-7.7) k/uL Lymphocytes # (1.0-4.8) k/uL Sodium (137-145) mmol/L Chloride (98-107) mmol/L Carbon Dioxide (22-30) mmol/L BUN (9-20) mg/dL Creatinine (0.66-1.25) mg/dL Glucose (74-99) mg/dL POC Glucose (mg/dL) 324 H 456 H (75-99) mg/dL Hemoglobin A1c (4.0-6.0) % Plasma Lactic Acid Reilly 3.3 H* (0.7-2.0) mmol/L Calcium (8.4-10.2) mg/dL Phosphorus (2.5-4.5) mg/dL 02/29/20 02/29/20 02/29/20 Range/Units 19:07 20:09 20:59 WBC (3.8-10.6) k/uL RBC (4.30-5.90) m/uL Hgb (13.0-17.5) gm/dL Hct (39.0-53.0) % MCHC (31.0-37.0) g/dL Neutrophils # (1.3-7.7) k/uL Lymphocytes # (1.0-4.8) k/uL Sodium (137-145) mmol/L Chloride (98-107) mmol/L Carbon Dioxide (22-30) mmol/L BUN (9-20) mg/dL Creatinine (0.66-1.25) mg/dL Glucose (74-99) mg/dL POC Glucose (mg/dL) 322 H 243 H 212 H (75-99) mg/dL Hemoglobin A1c (4.0-6.0) % Plasma Lactic Acid Reilly (0.7-2.0) mmol/L Calcium (8.4-10.2) mg/dL Phosphorus (2.5-4.5) mg/dL 02/29/20 03/01/20 03/01/20 Range/Units 22:07 00:11 00:47 WBC (3.8-10.6) k/uL RBC (4.30-5.90) m/uL Hgb (13.0-17.5) gm/dL Hct (39.0-53.0) % MCHC (31.0-37.0) g/dL Neutrophils # (1.3-7.7) k/uL Lymphocytes # (1.0-4.8) k/uL Sodium 133 L (137-145) mmol/L Chloride (98-107) mmol/L Carbon Dioxide (22-30) mmol/L BUN 77 H (9-20) mg/dL Creatinine 1.63 H (0.66-1.25) mg/dL Glucose 161 H (74-99) mg/dL POC Glucose (mg/dL) 220 H 170 H (75-99) mg/dL Hemoglobin A1c (4.0-6.0) % Plasma Lactic Acid Reilly (0.7-2.0) mmol/L Calcium (8.4-10.2) mg/dL Phosphorus (2.5-4.5) mg/dL 03/01/20 03/01/20 03/01/20 Range/Units 01:04 02:02 03:05 WBC (3.8-10.6) k/uL RBC (4.30-5.90) m/uL Hgb (13.0-17.5) gm/dL Hct (39.0-53.0) % MCHC (31.0-37.0) g/dL Neutrophils # (1.3-7.7) k/uL Lymphocytes # (1.0-4.8) k/uL Sodium (137-145) mmol/L Chloride (98-107) mmol/L Carbon Dioxide (22-30) mmol/L BUN (9-20) mg/dL Creatinine (0.66-1.25) mg/dL Glucose (74-99) mg/dL POC Glucose (mg/dL) 170 H 131 H 136 H (75-99) mg/dL Hemoglobin A1c (4.0-6.0) % Plasma Lactic Acid Reilly (0.7-2.0) mmol/L Calcium (8.4-10.2) mg/dL Phosphorus (2.5-4.5) mg/dL 03/01/20 03/01/20 03/01/20 Range/Units 04:01 04:05 04:05 WBC 21.2 H (3.8-10.6) k/uL RBC 3.66 L (4.30-5.90) m/uL Hgb 10.7 L (13.0-17.5) gm/dL Hct 34.7 L (39.0-53.0) % MCHC 30.9 L (31.0-37.0) g/dL Neutrophils # 19.4 H (1.3-7.7) k/uL Lymphocytes # 0.6 L (1.0-4.8) k/uL Sodium 133 L (137-145) mmol/L Chloride (98-107) mmol/L Carbon Dioxide (22-30) mmol/L BUN 75 H (9-20) mg/dL Creatinine 1.49 H (0.66-1.25) mg/dL Glucose 149 H (74-99) mg/dL POC Glucose (mg/dL) 154 H (75-99) mg/dL Hemoglobin A1c (4.0-6.0) % Plasma Lactic Acid Reilly (0.7-2.0) mmol/L Calcium 8.3 L (8.4-10.2) mg/dL Phosphorus (2.5-4.5) mg/dL 03/01/20 03/01/20 03/01/20 Range/Units 05:20 07:02 11:30 WBC (3.8-10.6) k/uL RBC (4.30-5.90) m/uL Hgb (13.0-17.5) gm/dL Hct (39.0-53.0) % MCHC (31.0-37.0) g/dL Neutrophils # (1.3-7.7) k/uL Lymphocytes # (1.0-4.8) k/uL Sodium (137-145) mmol/L Chloride (98-107) mmol/L Carbon Dioxide (22-30) mmol/L BUN (9-20) mg/dL Creatinine (0.66-1.25) mg/dL Glucose (74-99) mg/dL POC Glucose (mg/dL) 230 H 251 H 303 H (75-99) mg/dL Hemoglobin A1c (4.0-6.0) % Plasma Lactic Acid Reilly (0.7-2.0) mmol/L Calcium (8.4-10.2) mg/dL Phosphorus (2.5-4.5) mg/dL Microbiology - Last 24 Hours (Table) 02/29/20 08:46 Urine Culture - Preliminary Urine,Voided Presumptive Staph aureus 02/29/20 09:38 Blood Culture Gram Stain - Preliminary Blood Blood Culture - Preliminary Staphylococcus aureus 02/29/20 09:38 Blood Culture - Final Blood Assessment and Plan Plan: -Diabetic hyperosmolar state: Blood sugars improved now can you with IV fluids patient the was started on long-acting insulin and pre-meal insulin -Severe Sepsis and bacteremia possibility of UTI contributing to that because patient has a staph oriented bacteremia other sources need to be considered as well. We'll repeat blood cultures today and tomorrow and day after and consulted infectious disease -Hyponatremia: Combined pseudohyponatremia from hyperglycemia along with hypovolemic hyponatremia from excessive diuresis from hyperglycemia. Improved with IV fluids cutting down the fluids to 1 25 mL per hour -Lactic acidosis: Secondary to most probably intravascular depletion dehydration. Along with sepsis lactic acidosis improved -Metabolic encephalopathy -Bilateral hydronephrosis with possibility of pyelonephritis leading to hematuria. Ultrasound showing to coming of the urinary bladder, urology evaluated the patient patient eventually will need cystoscopy -Leukocytosis possibly secondary to sepsis -Hyperkalemia secondary to metabolic acidosis and hyperglycemia improved now -Anion gap at work is doses: Secondary to lactic acidosis and possible diabetic ketoacidosis, improved now DVT prophylaxis subcutaneous heparin GI prophylaxis Protonix
[2020-03-01 16:47] LABS: Glucose,Whole Blood 199 mg/dL (75-99)
[2020-03-01 20:17] LABS: Glucose,Whole Blood 158 mg/dL (75-99)
[2020-03-01] MEDS: VANCOMYCIN 1,500 MG in SODIUM CHLORIDE 0.9% 250 ML IVPB SCH (21:03)
--- NOTE | 2020-03-01 23:32 | P.CONS ---
History of Present Illness - Reason for Consult Consult date: 03/01/20 Staph aureus bacteremia Requesting physician: Yola Rollins - Chief Complaint Weakness x days - History of Present Illness Patient is 64-year-old male with a past medical history significant for diabetes mellitus currently the patient is noncompliant in taking his medication patient has been brought into the ER after the patient was found on the floor by his significant other patient was too weak to get up and apparently was lying on for on lifelong on arrival of EMS the patient complaining of weakness and he was noticed to have elevated pressure while in the 500 range patient subsequently has been brought into the hospital on arrival to the ER patient has been afebrile but has been unable of the face subsequently with a T- max of 99.9 his white count was 23,000 patient did have a chest x-ray that was negative for any acute infiltrate she did have been negative for any bleed CT abdominal pelvis CT shows irregular bladder wall and fever hydronephrosis and hydroureter a Krueger catheter was placed and dark straw-colored urine was drained out patient did have a positive UA both blood and urine options to 4 days patient has been treated with vancomycin and Rocephin injections was consulted for further management of antibiotic therapy, patient is currently lethargic denies having any headache or chest pain or shortness of breath or cough and no abdominal discomfort some nausea no vomiting and no diarrhea did have difficulty urination but no significant burning however the patient elevated but good historian so most information has been extracted from review the chart, patient has been evaluated by urology will recommended Krueger catheter placement and further workup once his condition stabilizes Review of Systems Positive points has been mentioned in HPI complete review could not be obtained because of his underlying mental status Past Medical History Past Medical History: Diabetes Mellitus, Hyperlipidemia, Hypertension Additional Past Medical History / Comment(s): Signiificant other and rosy state pt has not had insurance so has not been taking meds/seeing physician, NIDDM type II, neuropathy bilateral feet, past nephrolithiasis with pt passing stones on his own, pt passed a couple stones (s.o. saw stones) 2 weeks ago and had hematuria which improved after passing stones but has had weakness and loss of appetite past 2 weeks, spondylosis/chronic low back pain History of Any Multi-Drug Resistant Organisms: None Reported Past Surgical History: No Surgical Hx Reported Additional Past Surgical History / Comment(s): Bilateral cataract removals/lens implants. Past Anesthesia/Blood Transfusion Reactions: Unable to Obtain Additional Past Anesthesia/Blood Transfusion Reaction / Comm: Pt has never had general anesthesia per family Smoking Status: Former smoker - Past Family History Father Family Medical History: Dementia Mother Family Medical History: Cancer Additional Family Medical History / Comment(s): Mother of skin cancer. Medications and Allergies Home Medications Medication Instructions Recorded Confirmed Type No Known Home Medications 02/29/20 02/29/20 History Allergies Allergy/AdvReac Type Severity Reaction Status Date / Time No Known Allergies Allergy Verified 02/29/20 10:04 Physical Exam Vitals: Vital Signs Temp Pulse Resp BP Pulse Ox 03/01/20 13:30 145/75 03/01/20 13:00 98.6 F 03/01/20 12:00 13 03/01/20 10:00 89 111/70 03/01/20 09:30 88 13 106/88 95 03/01/20 09:00 66 16 109/56 98 03/01/20 08:30 67 16 100/58 97 03/01/20 08:00 72 13 111/60 97 03/01/20 07:30 64 109/72 97 03/01/20 07:00 75 23 112/71 95 03/01/20 06:30 61 15 120/69 97 03/01/20 06:00 50 L 12 95/60 96 03/01/20 05:30 69 14 116/50 96 03/01/20 05:00 71 14 107/67 97 03/01/20 04:30 63 12 104/57 97 03/01/20 04:00 97.9 F 58 L 15 94/57 97 03/01/20 03:30 54 L 12 100/65 96 03/01/20 03:00 57 L 15 99/55 97 03/01/20 02:30 56 L 15 103/53 96 03/01/20 02:00 56 L 12 105/61 97 03/01/20 01:30 56 L 12 98/57 97 03/01/20 01:00 57 L 17 103/60 95 03/01/20 00:30 67 16 99/56 96 03/01/20 00:00 97.8 F 57 L 17 106/61 96 02/29/20 23:30 55 L 24 108/61 98 02/29/20 23:00 61 11 L 93/61 96 02/29/20 22:30 65 14 104/57 96 02/29/20 22:00 65 16 106/60 97 02/29/20 21:30 59 L 16 109/65 96 02/29/20 21:00 55 L 13 112/60 98 02/29/20 20:30 63 13 108/62 98 02/29/20 20:00 97.6 F 56 L 19 111/68 98 02/29/20 19:30 61 12 119/64 97 02/29/20 19:00 65 15 110/65 97 02/29/20 18:30 55 L 18 104/56 98 02/29/20 18:00 64 16 102/55 98 02/29/20 17:30 57 L 14 104/60 97 02/29/20 17:00 59 L 13 108/71 97 02/29/20 16:30 65 15 110/61 96 02/29/20 16:00 97.7 F 57 L 12 115/63 96 02/29/20 15:30 58 L 12 105/67 97 Intake and Output 03/01/20 03/01/20 03/01/20 06:59 14:59 22:59 Intake Total 6039.168 3081 Output Total 1400 725 Balance -862.344 6552 Intake: IV 1175 1000 D5-0.45% NaCl with KCl 1050 20Meq/l 1,000 ml @ 150 mls/hr IV .Q6H40M [facility] Rx# :[id number] Sodium Chloride 0.9% 1, 125 1000 000 ml @ 125 mls/hr IV . Q8H [facility] Rx#:[id number] Intake, IV Titration 82.420 300 Amount Insulin Regular 100 unit 82.420 In Sodium Chloride 0.9% 100 ml @ 0.1 UNITS/KG/HR 9.621 mls/hr IV .[id number] [facility] Rx#:[id number] Vancomycin 1,500 mg In 250 Sodium Chloride 0.9% 250 ml @ 125 mls/hr IVPB Q12H [facility] Rx#:[id number] cefTRIAXone 1 gm In 50 Sodium Chloride 0.9% 50 ml @ 100 mls/hr IVPB Q24HR [facility] Rx#:[id number] Oral 500 Output: Urine 1400 725 Other: Voiding Method Indwelling Catheter Indwelling Catheter Weight 96.1 kg 96.1 kg GENERAL DESCRIPTION: Middle-aged male lying in bed, no distress. No tachypnea or accessory muscle of respiration use. HEENT: Shows Pallor , no scleral icterus. Oral mucous membrane is dry. No pharyngeal erythema or thrush NECK: Trachea central, no thyromegaly. LUNGS: Unlabored breathing. Decreased breath sound the bases. No wheeze or crackle. HEART: S1, S2, regular rate and rhythm. No loud murmur ABDOMEN: Soft, no tenderness , guarding or rigidity, no organomegaly EXTREMITIES: No edema of feet. SKIN: No rash, no masses palpable. NEUROLOGICAL: The patient is lethargic but arousable mood and affect is normal Results CBC & Chem 7: 03/01/20 04:05 03/01/20 04:05 Labs: Abnormal Lab Results - Last 24 Hours (Table) 02/29/20 02/29/20 02/29/20 Range/Units 12:10 15:51 15:51 WBC (3.8-10.6) k/uL RBC (4.30-5.90) m/uL Hgb (13.0-17.5) gm/dL Hct (39.0-53.0) % MCHC (31.0-37.0) g/dL Neutrophils # (1.3-7.7) k/uL Lymphocytes # (1.0-4.8) k/uL Sodium 127 L (137-145) mmol/L Chloride 92 L (98-107) mmol/L Carbon Dioxide 21 L (22-30) mmol/L BUN 88 H (9-20) mg/dL Creatinine 2.01 H (0.66-1.25) mg/dL Glucose 421 H (74-99) mg/dL POC Glucose (mg/dL) (75-99) mg/dL Hemoglobin A1c 16.5 H (4.0-6.0) % Plasma Lactic Acid Reilly 3.3 H* (0.7-2.0) mmol/L Calcium (8.4-10.2) mg/dL Phosphorus 2.0 L (2.5-4.5) mg/dL 02/29/20 02/29/20 02/29/20 Range/Units 17:35 18:20 19:07 WBC (3.8-10.6) k/uL RBC (4.30-5.90) m/uL Hgb (13.0-17.5) gm/dL Hct (39.0-53.0) % MCHC (31.0-37.0) g/dL Neutrophils # (1.3-7.7) k/uL Lymphocytes # (1.0-4.8) k/uL Sodium (137-145) mmol/L Chloride (98-107) mmol/L Carbon Dioxide (22-30) mmol/L BUN (9-20) mg/dL Creatinine (0.66-1.25) mg/dL Glucose (74-99) mg/dL POC Glucose (mg/dL) 324 H 456 H 322 H (75-99) mg/dL Hemoglobin A1c (4.0-6.0) % Plasma Lactic Acid Reilly (0.7-2.0) mmol/L Calcium (8.4-10.2) mg/dL Phosphorus (2.5-4.5) mg/dL 02/29/20 02/29/20 02/29/20 Range/Units 20:09 20:59 22:07 WBC (3.8-10.6) k/uL RBC (4.30-5.90) m/uL Hgb (13.0-17.5) gm/dL Hct (39.0-53.0) % MCHC (31.0-37.0) g/dL Neutrophils # (1.3-7.7) k/uL Lymphocytes # (1.0-4.8) k/uL Sodium (137-145) mmol/L Chloride (98-107) mmol/L Carbon Dioxide (22-30) mmol/L BUN (9-20) mg/dL Creatinine (0.66-1.25) mg/dL Glucose (74-99) mg/dL POC Glucose (mg/dL) 243 H 212 H 220 H (75-99) mg/dL Hemoglobin A1c (4.0-6.0) % Plasma Lactic Acid Reilly (0.7-2.0) mmol/L Calcium (8.4-10.2) mg/dL Phosphorus (2.5-4.5) mg/dL 03/01/20 03/01/20 03/01/20 Range/Units 00:11 00:47 01:04 WBC (3.8-10.6) k/uL RBC (4.30-5.90) m/uL Hgb (13.0-17.5) gm/dL Hct (39.0-53.0) % MCHC (31.0-37.0) g/dL Neutrophils # (1.3-7.7) k/uL Lymphocytes # (1.0-4.8) k/uL Sodium 133 L (137-145) mmol/L Chloride (98-107) mmol/L Carbon Dioxide (22-30) mmol/L BUN 77 H (9-20) mg/dL Creatinine 1.63 H (0.66-1.25) mg/dL Glucose 161 H (74-99) mg/dL POC Glucose (mg/dL) 170 H 170 H (75-99) mg/dL Hemoglobin A1c (4.0-6.0) % Plasma Lactic Acid Reilly (0.7-2.0) mmol/L Calcium (8.4-10.2) mg/dL Phosphorus (2.5-4.5) mg/dL 03/01/20 03/01/20 03/01/20 Range/Units 02:02 03:05 04:01 WBC (3.8-10.6) k/uL RBC (4.30-5.90) m/uL Hgb (13.0-17.5) gm/dL Hct (39.0-53.0) % MCHC (31.0-37.0) g/dL Neutrophils # (1.3-7.7) k/uL Lymphocytes # (1.0-4.8) k/uL Sodium (137-145) mmol/L Chloride (98-107) mmol/L Carbon Dioxide (22-30) mmol/L BUN (9-20) mg/dL Creatinine (0.66-1.25) mg/dL Glucose (74-99) mg/dL POC Glucose (mg/dL) 131 H 136 H 154 H (75-99) mg/dL Hemoglobin A1c (4.0-6.0) % Plasma Lactic Acid Reilly (0.7-2.0) mmol/L Calcium (8.4-10.2) mg/dL Phosphorus (2.5-4.5) mg/dL 03/01/20 03/01/2020 Range/Units 04:05 04:05 05:20 WBC 21.2 H (3.8-10.6) k/uL RBC 3.66 L (4.30-5.90) m/uL Hgb 10.7 L (13.0-17.5) gm/dL Hct 34.7 L (39.0-53.0) % MCHC 30.9 L (31.0-37.0) g/dL Neutrophils # 19.4 H (1.3-7.7) k/uL Lymphocytes # 0.6 L (1.0-4.8) k/uL Sodium 133 L (137-145) mmol/L Chloride (98-107) mmol/L Carbon Dioxide (22-30) mmol/L BUN 75 H (9-20) mg/dL Creatinine 1.49 H (0.66-1.25) mg/dL Glucose 149 H (74-99) mg/dL POC Glucose (mg/dL) 230 H (75-99) mg/dL Hemoglobin A1c (4.0-6.0) % Plasma Lactic Acid Reilly (0.7-2.0) mmol/L Calcium 8.3 L (8.4-10.2) mg/dL Phosphorus (2.5-4.5) mg/dL 03/01/20 03/01/20 Range/Units 07:02 11:30 WBC (3.8-10.6) k/uL RBC (4.30-5.90) m/uL Hgb (13.0-17.5) gm/dL Hct (39.0-53.0) % MCHC (31.0-37.0) g/dL Neutrophils # (1.3-7.7) k/uL Lymphocytes # (1.0-4.8) k/uL Sodium (137-145) mmol/L Chloride (98-107) mmol/L Carbon Dioxide (22-30) mmol/L BUN (9-20) mg/dL Creatinine (0.66-1.25) mg/dL Glucose (74-99) mg/dL POC Glucose (mg/dL) 251 H 303 H (75-99) mg/dL Hemoglobin A1c (4.0-6.0) % Plasma Lactic Acid Reilly (0.7-2.0) mmol/L Calcium (8.4-10.2) mg/dL Phosphorus (2.5-4.5) mg/dL Microbiology - Last 24 Hours (Table) 02/29/20 08:46 Urine Culture - Preliminary Urine,Voided Presumptive Staph aureus 02/29/20 09:38 Blood Culture Gram Stain - Preliminary Blood Blood Culture - Preliminary Staphylococcus aureus 02/29/20 09:38 Blood Culture - Final Blood Assessment and Plan Assessment: 1- patient with staph on his bacteremia source is likely complicated urinary tract infection in this patient who did have evidence of bilateral hydronephrosis and hydroureter with concern for possible bladder structure abnormality questionably malignancy and a chronic urinary outflow obstruction 2- patient with sepsis on admission secondary to complicated staphylococcal urinary tract infection (1) Sepsis Current Visit: Yes Status: Acute Code(s): A41.9 - SEPSIS, UNSPECIFIED ORGANISM SNOMED Code(s): 79849416 (2) Urinary tract infection Current Visit: Yes Status: Acute Code(s): N39.0 - URINARY TRACT INFECTION, SITE NOT SPECIFIED SNOMED Code(s): 76702553 (3) Staphylococcus aureus bacteremia Current Visit: Yes Status: Acute Code(s): R78.81 - BACTEREMIA; B95.61 - METHICILLIN SUSCEP STAPH INFCT CAUSING DIS CLASSD [id number] SNOMED Code(s): 670036561 (4) Staphylococcus aureus bacteremia with sepsis Current Visit: Yes Status: Acute Code(s): A41.01 - SEPSIS DUE TO METHICILLIN SUSCEPTIBLE STAPHYLOCOCCUS AUREUS SNOMED Code(s): 992046956 Plan: 1 blood cultures will be repeated document clearance of bacteremia 2-Vancomycin pharmacy to dose target trough of 15 while watching his kidney function and Vanco trough closely 3- gentle IV fluid We will follow on clinical condition and cultures to further adjust medication if needed Thank you for this consultation will follow this patient with you-
[2020-03-02] MEDS: HEPARIN SODIUM,PORCINE 5,000 UNIT/ML 1 ML VIAL SQ SCH ×4 (01:09→20:48)
[2020-03-02] MEDS: SODIUM CHLORIDE 0.9% 1,000 ML IV SCH ×4 (01:10→20:49)
[2020-03-02] MEDS: HYDROmorphone 0.5 MG/0.5 ML SYRINGE IVP PRN ×4 (05:35→17:56)
--- NOTE | 2020-03-02 06:44 | P.PN ---
Progress Note - Text Progress Note Date: 03/01/20 The Krueger catheter is draining urine which is essentially clear in color. The serum creatinine level has decreased to 1.49. I made clear to the patient that imaging studies have suggested the presence of either clots or tumor within the bladder. I stressed to him the need for cystoscopy to rule out intravesical malignancy. The Krueger catheter should remain in place.
[2020-03-02] MEDS ORDERED: INSULIN DETEMIR (LEVEMIR) 100 UNIT/ML SYR SQ SCH (07:00)
[2020-03-02 07:37] LABS: Glucose,Whole Blood 252 mg/dL (75-99)
[2020-03-02 08:07] LABS: Basophils % (A) 0 %; Eosinophils % (A) 0 %; HCT 31.3 % (39.0-53.0); HGB 9.4 gm/dL (13.0-17.5); Hypochromasia Moderate; Lymphocytes # (A) 0.7 k/uL (1.0-4.8); Lymphocytes % (A) 5 %; MCH 29.1 pg (25.0-35.0); MCHC 30.2 g/dL (31.0-37.0); MCV 96.5 fL (80.0-100.0); Mean Platelet Volume 8.6; Monocytes # (A) 0.5 k/uL (0-1.0); Monocytes % (A) 3 %; Neutrophils # (A) 12.4 k/uL (1.3-7.7); Neutrophils % (A) 89 %; Platelet Count 226 k/uL (150-450); RBC 3.24 m/uL (4.30-5.90); RDW 13.9 % (11.5-15.5); WBC 13.9 k/uL (3.8-10.6)
[2020-03-02 08:16] LABS: Calcium 7.5 mg/dL (8.4-10.2); Magnesium 1.8 mg/dL (1.6-2.3); Phosphorus 3.4 mg/dL (2.5-4.5); Potassium 4.4 mmol/L (3.5-5.1)
[2020-03-02] MEDS: INSULIN DETEMIR (LEVEMIR) 100 UNIT/ML SYR SQ SCH (08:41)
[2020-03-02] MEDS: INSULIN ASPART (NovoLOG) 100 UNIT/ML VIAL SQ SCH ×7 (08:42→20:49)
[2020-03-02] MEDS: VANCOMYCIN 1,500 MG in SODIUM CHLORIDE 0.9% 250 ML IVPB SCH ×2 (09:41→20:48)
[2020-03-02 11:44] LABS: Glucose,Whole Blood 290 mg/dL (75-99)
--- NOTE | 2020-03-02 11:54 | P.PN ---
Subjective Progress Note Date: 03/02/20 Principal diagnosis: Acute diabetic hyperosmolar nonketotic crisis related to underlying diabetes mellitus type 2 03/01/2020, the patient is feeling well. Awake and alert and communicating. He claims to be diabetic. He apparently has not been taking any blood sugar medication. His HbA1c is at 16. He was started on insulin drip. Insulin drip was discontinued as the patient has improved and her blood sugars on the mother better control and his anion gap is down to 7 and his serum bicarbs at 25. The patient was given Lantus insulin 15 units and the patient will be also covered with a slight scale coverage. He is being given a carbohydrate consistent diet. His blood culture came back positive for staph aureus and final cultures and sensitivities are still pending for now. He'll be given a dose of vancomycin. He is on IV Rocephin 1 g every 24 hours. White cell count is at 21.2. Afebrile. Hemodynamically stable. Acute kidney injury is improving and the cre atinine is down to 1.49. The patient is receiving IV fluids with normal saline at rate of 1 25 mL's an hour. On 03/02/2020 patient seen in follow-up on general medical surgical floor. He is resting in bed, he is complaining of some neck pain, denies any shortness of breath, currently on 2 L of oxygen his pulse ox of 98%, hemodynamically stable, his been afebrile, lung sounds are clear, diminished at the bases, no rhonchi or wheezing. He is tolerating oral intake, this morning blood sugars 258, sodium is 132, potassium is 4.4, chloride is 101, CO2 is 25, BUN is 44 creatinine is 1.31, renal profile is improving, his anion gap has resolved. Patient's Levemir has been increased to 25 units daily in the morning, and in addition patient is on sliding scale insulin, he is receiving Dilaudid for pain, and he is on Rocephin and vancomycin, his blood culture showed staph aureus, and urine cul ture showed MSSA. Awaiting final culture, follow blood culture is negative Objective - Vital Signs Vital signs: Vital Signs Temp 97.7 F 03/02/20 07:41 Pulse 58 L 03/02/20 07:41 Resp 18 03/02/20 07:41 BP 113/73 03/02/20 07:41 Pulse Ox 98 03/02/20 07:41 Intake & Output 03/01/20 03/02/20 03/02/20 18:59 06:59 18:59 Intake Total 2300 Output Total 1250 1900 1000 Balance 1050 -1900 -1000 Weight 96.1 kg Intake: IV 1500 Sodium Chloride 0.9% 1, 1500 000 ml @ 125 mls/hr IV . Q8H [facility] Rx#:[id number] Intake, IV Titration 300 Amount Vancomycin 1,500 mg In 250 Sodium Chloride 0.9% 250 ml @ 125 mls/hr IVPB Q12H [facility] Rx#:[id number] cefTRIAXone 1 gm In 50 Sodium Chloride 0.9% 50 ml @ 100 mls/hr IVPB Q24HR [facility] Rx#:[id number] Oral 500 Output: Urine 1250 1900 1000 Other: Voiding Method Indwelling Catheter Indwelling Catheter Indwelling Catheter - Exam GENERAL EXAM: Alert, very pleasant, 64-year-old white male on 2 L of oxygen and the pulse ox 98%, in mild discomfort from his neck pain oriented 3, in no acute distress comfortable in no apparent distress. HEAD: Normocephalic/atraumatic. EYES: Normal reaction of pupils, equal size. Conjunctiva pink, sclera white. NOSE: Clear with pink turbinates. THROAT: No erythema or exudates. NECK: No masses, no JVD, no thyroid enlargement, no adenopathy. CHEST: No chest wall deformity. Symmetrical expansion. LUNGS: Equal air entry with no crackles, wheeze, rhonchi or dullness. CVS: Regular rate and rhythm, normal S1 and S2, no gallops, no murmurs, no rubs ABDOMEN: Soft, nontender. No hepatosplenomegaly, normal bowel sounds, no guarding or rigidity. EXTREMITIES: No clubbing, no edema, no cyanosis, 2+ pulses and upper and lower extremities. MUSCULOSKELETAL: Muscle strength and tone normal. SPINE: No scoliosis or deformity SKIN: No rashes CENTRAL NERVOUS SYSTEM: Alert and oriented -3. No focal deficits, tone is normal in all 4 extremities. PSYCHIATRIC: Alert and oriented -3. Appropriate affect. Intact judgment and insight. - Labs CBC & Chem 7: 03/02/20 07:17 03/02/20 07:17 Labs: Abnormal Lab Results - Last 24 Hours (Table) 03/01/20 03/01/20 03/02/20 Range/Units 16:44 20:16 07:17 WBC 13.9 H (3.8-10.6) k/uL RBC 3.24 L (4.30-5.90) m/uL Hgb 9.4 L (13.0-17.5) gm/dL Hct 31.3 L (39.0-53.0) % MCHC 30.2 L (31.0-37.0) g/dL Neutrophils # 12.4 H (1.3-7.7) k/uL Lymphocytes # 0.7 L (1.0-4.8) k/uL Sodium (137-145) mmol/L BUN (9-20) mg/dL Creatinine (0.66-1.25) mg/dL Glucose (74-99) mg/dL POC Glucose (mg/dL) 199 H 158 H (75-99) mg/dL Calcium (8.4-10.2) mg/dL 03/02/20 03/02/20 03/02/20 Range/Units 07:17 07:34 11:42 WBC (3.8-10.6) k/uL RBC (4.30-5.90) m/uL Hgb (13.0-17.5) gm/dL Hct (39.0-53.0) % MCHC (31.0-37.0) g/dL Neutrophils # (1.3-7.7) k/uL Lymphocytes # (1.0-4.8) k/uL Sodium 132 L (137-145) mmol/L BUN 44 H (9-20) mg/dL Creatinine 1.31 H (0.66-1.25) mg/dL Glucose 258 H (74-99) mg/dL POC Glucose (mg/dL) 252 H 290 H (75-99) mg/dL Calcium 7.5 L (8.4-10.2) mg/dL Microbiology - Last 24 Hours (Table) 02/29/20 08:46 Urine Culture - Final Urine,Voided Staphylococcus aureus 03/01/20 15:11 Blood Culture - Final Blood 02/29/20 09:38 Blood Culture Gram Stain - Preliminary Blood Blood Culture - Preliminary Staphylococcus aureus Assessment and Plan Plan: Assessment: 1 acute diabetic hyperosmolar nonketotic crisis related to underlying diabetes mellitus type 2, improved and the patient is currently on long-acting insulin with Levemir insulin. 2 acute kidney injury along with acute bilateral hydronephrosis and hydroureter with thickening of the bladder wall. Consider underlying obstructive uropathy probably related to prostate enlargement/disease in addition to secondary infection/cystitis/pyelonephritis. Patient has a Krueger catheter in place. Patient started on broad-spectrum antibiotics. The patient was seen by urology. The patient likely has long-standing urinary retention. A clot versus tumor is seen in the bladder on both ultrasound and a CAT scan and Krueger drains were discontinued and the patient will require cystoscopy at a later stage. 3 hematuria, currently inactive in stable 4 history of nephrolithiasis, not seen on the CAT scan of the chest 5 acute leukocytosis, secondary to above 6 acute pseudohyponatremia secondary to hyperglycemia, recovered and sodium lev el is improved 7 acute hyperkalemia treated and recovered 8 anion gap metabolic acidosis, recovered 9 mild lactic acidosis, recovered 10 staph aureus bacteremia related to acute urinary tract infection with urine culture positive for MSSA Plan: Continue current antibiotics, awaiting final results on the blood culture, urine culture showed MSSA, patient is currently on combination of Rocephin and vancomycin, his been afebrile, hemodynamically stable, no acute events overnight, his anion gap has closed, his renal profile is improving, patient is tolerating oral intake, his Levemir and sliding scale insulins are being managed by the primary care team. No acute events overnight, pulmonary/chronic with care service will sign off and follow on as-needed basis I performed a history & physical examination of the patient and discussed their management with my nurse practitioner, Danielle Hamlin. I reviewed the nurse practitioner's note and agree with the documented findings and plan of care. Lung sounds are positive for diminished breath sounds. The findings and the impression was discussed with the patient. I attest to the documentation by the nurse practitioner. Time with Patient: Less than 30
[2020-03-02] MEDS: PANTOPRAZOLE 40 MG/10 ML VIAL IV SCH (12:11)
[2020-03-02] MEDS ORDERED: polyethylene glycoL 3350 17 GM POWD.PACK PO PRN (13:10)
[2020-03-02 16:45] LABS: Glucose,Whole Blood 232 mg/dL (75-99)
[2020-03-02] MEDS: HYDROcodone/APAP 7.5-325MG 1 EACH TAB PO PRN ×2 (17:00→23:47)
--- NOTE | 2020-03-02 17:00 | P.PN ---
Subjective Patient is a 64-year-old male admitted for diabetic hyperosmolar state patient does have some ketosis as well probably starvation ketosis. Patient blood sugars improved. Patient's serum acidosis resolved electrolyte improved patient's serum creatinine is 133 patient was transitioned to subcutaneous insulin dose of which I'm increasing now as his blood sugars are still not well controlled. Patient was a valid by urology because of bilateral hydronephrosis, urinary retention patient had a Krueger catheter patient will eventually need a cystoscopy once his more stabilized. Patient is less encephalopathic today and able to answer my questions. Patient has staph aureus in the blood and urine repeat blood cultures will be obtained infectious disease will be consulted. 03/02/2020 Patient is comparing of neck pain because of which I'll obtain MRA of the neck or since patient had bacteremia with MRSA. This neck pain is new. Overall there is significant improvement in his clinical condition but patient probably will need to be placed in a subacute rehabilitation PT and OT will evaluate the patient. So far the blood cultures that were obtained yesterday were negative. Constitutional: Denied any fatigue denied any fever. Cardio vascular: denied any chest pain, palpitations Gastrointestinal denied any nausea vomiting Pulmonary: Denied any shortness of breath cough Neurologic denied any new focal deficits All inpatient medications were reviewed and appropriate changes in these medications as dictated in the interval history and assessment and plan. Objective - Vital Signs Vital signs: Vital Signs Temp 98.0 F 03/02/20 14:15 Pulse 63 03/02/20 14:15 Resp 16 03/02/20 14:15 BP 107/66 03/02/20 14:15 Pulse Ox 100 03/02/20 14:15 Intake & Output 03/01/20 03/02/20 03/02/20 18:59 06:59 18:59 Intake Total 2300 1020 Output Total 1250 1900 2475 Balance 1050 -1900 -1455 Weight 96.1 kg Intake: IV 1500 Sodium Chloride 0.9% 1, 1500 000 ml @ 125 mls/hr IV . Q8H [facility] Rx#:[id number] Intake, IV Titration 300 300 Amount Vancomycin 1,500 mg In 250 250 Sodium Chloride 0.9% 250 ml @ 125 mls/hr IVPB Q12H [facility] Rx#:[id number] cefTRIAXone 1 gm In 50 50 Sodium Chloride 0.9% 50 ml @ 100 mls/hr IVPB Q24HR [facility] Rx#:[id number] Oral 500 720 Output: Urine 1250 1900 2475 Other: Voiding Method Indwelling Catheter Indwelling Catheter Indwelling Catheter - Exam PHYSICAL EXAMINATION: GENERAL: The patient is alert and oriented x3, not in any acute distress. Well developed, well nourished. HEENT: Pupils are round and equally reacting to light. EOMI. No scleral icterus. No conjunctival pallor. Normocephalic, atraumatic. No pharyngeal erythema. No thyromegaly. CARDIOVASCULAR: S1 and S2 present. No murmurs, rubs, or gallops. PULMONARY: Chest is clear to auscultation, no wheezing or crackles. ABDOMEN: Soft, nontender, nondistended, normoactive bowel sounds. No palpable o rganomegaly. MUSCULOSKELETAL: No joint swelling or deformity. EXTREMITIES: No cyanosis, clubbing, or pedal edema. NEUROLOGICAL: Gross neurological examination did not reveal any focal deficits. SKIN: No rashes. - Labs CBC & Chem 7: 03/02/20 07:17 03/02/20 07:17 Labs: Abnormal Lab Results - Last 24 Hours (Table) 03/01/20 03/02/20 03/02/20 Range/Units 20:16 07:17 07:17 WBC 13.9 H (3.8-10.6) k/uL RBC 3.24 L (4.30-5.90) m/uL Hgb 9.4 L (13.0-17.5) gm/dL Hct 31.3 L (39.0-53.0) % MCHC 30.2 L (31.0-37.0) g/dL Neutrophils # 12.4 H (1.3-7.7) k/uL Lymphocytes # 0.7 L (1.0-4.8) k/uL Sodium 132 L (137-145) mmol/L BUN 44 H (9-20) mg/dL Creatinine 1.31 H (0.66-1.25) mg/dL Glucose 258 H (74-99) mg/dL POC Glucose (mg/dL) 158 H (75-99) mg/dL Calcium 7.5 L (8.4-10.2) mg/dL 08/06/20 08/06/20 08/06/20 Range/Units 07:34 11:42 16:42 WBC (3.8-10.6) k/uL RBC (4.30-5.90) m/uL Hgb (13.0-17.5) gm/dL Hct (39.0-53.0) % MCHC (31.0-37.0) g/dL Neutrophils # (1.3-7.7) k/uL Lymphocytes # (1.0-4.8) k/uL Sodium (137-145) mmol/L BUN (9-20) mg/dL Creatinine (0.66-1.25) mg/dL Glucose (74-99) mg/dL POC Glucose (mg/dL) 252 H 290 H 232 H (75-99) mg/dL Calcium (8.4-10.2) mg/dL Microbiology - Last 24 Hours (Table) 03/01/20 15:11 Blood Culture Gram Stain - Preliminary Blood 02/29/20 09:38 Blood Culture Gram Stain - Final Blood Blood Culture - Final Staphylococcus aureus 02/29/20 08:46 Urine Culture - Final Urine,Voided Staphylococcus aureus 03/01/20 15:11 Blood Culture - Final Blood Assessment and Plan Plan: -Diabetic hyperosmolar state: Blood sugars improved nowcontinue with IV fluids patient the was started on long-acting insulin and pre-meal insulin -Severe Sepsis and bacteremia possibly because of comminuted UTI but patient is comparing of neck pain which is new because of which I'm obtaining a MRI of the neck to rule out any discitis. repeated blood cultures today and will also repeat blood cultures tomorrow -Hyponatremia: Combined pseudohyponatremia from hyperglycemia along with hypovolemic hyponatremia from excessive diuresis from hyperglycemia. Improved with IV fluids cutting down the fluids to 75 mL per hour -Lactic acidosis: Secondary to most probably intravascular depletion dehydration. Along with sepsis lactic acidosis improved -Metabolic encephalopathy -Bilateral hydronephrosis with possibility of pyelonephritis leading to hematuria. Ultrasound showing to coming of the urinary bladder, urology evaluated the patient patient eventually will need cystoscopy -Leukocytosis possibly secondary to sepsis -Hyperkalemia secondary to metabolic acidosis and hyperglycemia improved now -Anion gap at work is doses: Secondary to lactic acidosis and possible diabetic ketoacidosis, improved now DVT prophylaxis subcutaneous heparin GI prophylaxis Protonix
[2020-03-02 20:24] LABS: Glucose,Whole Blood 196 mg/dL (75-99)
--- NOTE | 2020-03-02 22:44 | PN ---
PROGRESS NOTE DATE OF SERVICE: 03/02/2020 REASON FOR FOLLOWUP: MSSA bacteremia secondary to complicated UTI. INTERVAL HISTORY: The patient is currently afebrile. The patient is breathing comfortably. Patient denies having any chest pain or shortness of breath. Occasional cough. No abdominal pain or diarrhea. PHYSICAL EXAMINATION: His blood pressure 117/67 with a pulse of 67, temperature 98.5. He is 94% on 3 L nasal cannula. General description is a middle-aged male lying in bed in no distress. RESPIRATORY SYSTEM: Unlabored breathing. Clear to auscultation anteriorly. HEART: S1, S2. Regular rate and rhythm. ABDOMEN: Soft. No tenderness. LABS: White count down to 13.9. Creatinine is 1.31. DIAGNOSTIC IMPRESSION AND PLAN: Patient with MSSA bacteremia, source likely complicated urinary tract infection, now with persistent bacteremia. Blood culture will be repeated to document clearance of his bacteremia. Antibiotic will be adjusted to cefazolin 2 grams q.8 hours and monitor his clinical course closely. MMODL / IJN: [id number] /
[2020-03-03] MEDS: HYDROcodone/APAP 7.5-325MG 1 EACH TAB PO PRN ×3 (05:44→23:22)
[2020-03-03 06:59] LABS: Glucose,Whole Blood 222 mg/dL (75-99)
[2020-03-03] MEDS: INSULIN ASPART (NovoLOG) 100 UNIT/ML VIAL SQ SCH ×7 (07:34→21:03)
[2020-03-03] MEDS: INSULIN DETEMIR (LEVEMIR) 100 UNIT/ML SYR SQ SCH (07:36)
[2020-03-03] MEDS: HEPARIN SODIUM,PORCINE 5,000 UNIT/ML 1 ML VIAL SQ SCH ×3 (07:37→23:21)
[2020-03-03] MEDS ORDERED: VANCOMYCIN TROUGH DUE 1 EACH MISC MISCELLANE ONE (08:00)
[2020-03-03] MEDS: PANTOPRAZOLE 40 MG/10 ML VIAL IV SCH (09:04)
[2020-03-03] MEDS: SODIUM CHLORIDE 0.9% 1,000 ML IV SCH (11:31)
[2020-03-03 11:32] LABS: Glucose,Whole Blood 213 mg/dL (75-99)
--- NOTE | 2020-03-03 13:18 | MR ---
EXAMINATION TYPE: MR cervical spine wo/w con DATE OF EXAM: 03/03/2020 COMPARISON: None HISTORY: Neck pain, bacteremia CONTRAST: Performed utilizing 9.5 mL intravenous Gadavist gadolinium contrast. TECHNIQUE: Multiplanar multiecho imaging on a 3.0 Nani magnet is performed through the cervical spin e. FINDINGS: The craniovertebral junction is normal. Vertebral body alignment is normal. No suspiciou s enhancement is evident. Disc heights are preserved. There is diffuse disc desiccation throughout th e cervical spine. C7-T1: No focal disc herniation or significant disc bulge is evident. No spinal canal stenosis or n eural foraminal stenosis is present. C6-7: Mild disc bulge has mild anterior thecal sac impression. There is uncovertebral joint hypertrop hy with mild right foraminal narrowing. Left foramen is patent. No cord contact or spinal canal steno sis is present.. C5-6: There is moderate size broad-based disc bulge and central left paracentral region with associat ed endplate changes. No cord contact is evident. No spinal canal stenosis is present. Neural foramen are patent.. C4-5: No focal disc herniation or significant disc bulge is evident. No spinal canal stenosis is pres ent. Some uncovertebral joint hypertrophy has minimal left foraminal narrowing. C3-4: There is a left paracentral focal bulge with [id number] anterior thecal sac compression. No AP spinal canal stenosis is present. No cord contact or cord deformity is evident. Neural foramen and mild bilateral narrowing from uncovertebral joint hypertrophy.. C2-3: No focal disc herniation or significant disc bulge is evident. No spinal canal stenosis or hsane ral foraminal stenosis is present. IMPRESSIONS: 1. Moderate size left paracentral disc bulge at C3-4. 2. Moderate broad-based disc bulge central and left paracentrally at C5-6. 3. Mild disc bulge C6-7. 4. Mild foraminal narrowing due to uncovertebral joint hypertrophy discussed above.
--- NOTE | 2020-03-03 15:00 | P.PN ---
Subjective Progress Note Date: 03/03/20 Principal diagnosis: Patient is a 64-year-old male admitted for diabetic hyperosmolar state patient does have some ketosis as well probably starvation ketosis. Patient blood sugar s improved. Patient's serum acidosis resolved electrolyte improved patient's serum creatinine is 133 patient was transitioned to subcutaneous insulin dose of which I'm increasing now as his blood sugars are still not well controlled. Patient was a valid by urology because of bilateral hydronephrosis, urinary retention patient had a Krueger catheter patient will eventually need a cystoscopy once his more stabilized. Patient is less encephalopathic today and able to answer my questions. Patient has staph aureus in the blood and urine repeat blood cultures will be obtained infectious disease will be consulted. 03/02/2020 Patient is comparing of neck pain because of which I'll obtain MRA of the neck or since patient had bacteremia with MRSA. This neck pain is new. Overall there is significant improvement in his clinical condition but patient probably will need to be placed in a subacute rehabilitation PT and OT will evaluate the patient. So far the blood cultures that were obtained yesterday were negative. Constitutional: Denied any fatigue denied any fever. Cardio vascular: denied any chest pain, palpitations Gastrointestinal denied any nausea vomiting Pulmonary: Denied any shortness of breath cough Neurologic denied any new focal deficits All inpatient medications were reviewed and appropriate changes in these medications as dictated in the interval history and assessment and plan. 03/03/2020 Patient is seen and evaluated follow-up and continues to have severe neck pain with the inability to move the head back and forth. Patient underwent an MRI of the neck Showing moderate size left paracentral disc bulge at C3-4, moderate broad-based disc bulge central and left paracentrally at C5-6, mild disc bulge at C6-7, and mild for minimal narrowing due to uncovertebral joint hypertrophy. Patient continues to have bacteremia showing Presumptive Staphylococcus aureus a nd infectious disease is following. Patient is maintained on cefazolin and will continue at this time. Patient was also seen and evaluated by urology recommending cystoscopy and patient had retention and is currently maintained on indwelling Krueger catheter. Patient is currently maintained on long-acting insulin along with sliding scale and pre-meal insulins and will continue at this time. Will make further adjustments as necessary. An echo has been ordered and currently pending at this time. Patient denies any chest pain, shortness of breath, or palpitations. Patient has been afebrile. No reports of nausea or vomiting and patient is tolerating diet. Objective - Vital Signs Vital signs: Vital Signs Temp 97.6 F 03/03/20 07:21 Pulse 59 L 03/03/20 07:21 Resp 16 03/03/20 07:21 BP 94/55 03/03/20 07:21 Pulse Ox 99 03/03/20 07:21 Intake & Output 03/02/20 03/03/20 03/03/20 18:59 06:59 18:59 Intake Total 1020 Output Total 2990 1400 775 Balance -1969 Intake: Intake, IV Titration 300 Amount Vancomycin 1,500 mg In 250 Sodium Chloride 0.9% 250 ml @ 125 mls/hr IVPB Q12H [facility] Rx#:[id number] cefTRIAXone 1 gm In 50 Sodium Chloride 0.9% 50 ml @ 100 mls/hr IVPB Q24HR [facility] Rx#:[id number] Oral 720 Output: Urine 2990 1400 775 Other: Voiding Method Indwelling Catheter Indwelling Catheter Indwelling Catheter - Exam GENERAL: The patient is alert and oriented x3, not in any acute distress. Well developed, well nourished. HEENT: Pupils are round and equally reacting to light. EOMI. No scleral icterus. No conjunctival pallor. Normocephalic, atraumatic. No pharyngeal erythema. No thyromegaly. CARDIOVASCULAR: S1 and S2 present. No murmurs, rubs, or gallops. PULMONARY: Chest is clear to auscultation, no wheezing or crackles. ABDOMEN: Soft, nontender, nondistended, normoactive bowel sounds. No palpable organomegaly. MUSCULOSKELETAL: No joint swelling or deformity. EXTREMITIES: No cyanosis, clubbing, or pedal edema. NEUROLOGICAL: Gross neurological examination did not reveal any focal deficits. SKIN: No rashes. - Labs CBC & Chem 7: 03/02/20 07:17 03/02/20 07:17 Labs: Abnormal Lab Results - Last 24 Hours (Table) 03/02/20 03/02/20 03/03/20 Range/Units 16:42 20:23 06:56 POC Glucose (mg/dL) 232 H 196 H 222 H (75-99) mg/dL 03/03/20 Range/Units 11:30 POC Glucose (mg/dL) 213 H (75-99) mg/dL Microbiology - Last 24 Hours (Table) 03/02/20 07:17 Blood Culture Gram Stain - Preliminary Blood Blood Culture - Preliminary Presumptive Staph aureus 03/01/20 15:11 Blood Culture Gram Stain - Preliminary Blood Blood Culture - Preliminary Presumptive Staph aureus 03/02/20 07:17 Blood Culture - Final Blood 02/29/20 09:38 Blood Culture Gram Stain - Final Blood Blood Culture - Final Staphylococcus aureus 02/29/20 08:46 Urine Culture - Final Urine,Voided Staphylococcus aureus Assessment and Plan Assessment: -Diabetic hyperosmolar state: Blood sugars improved, Continue with long-acting insulin along with premeal sliding scale. Will increase long-acting to 25 units daily along with 8 units with premeal Insulin and sliding scale -Severe Sepsis and bacteremia possibly because of comminuted UTI but patient is Complaining of neck pain. MRI of the neck was done And is negative. Repeat blood cultures preliminary showing presumptive staph aureus And will repeat blood cultures. Obtaining echo and currently pending. Infectious disease is following. Patient is maintained on cefazolin. -Hyponatremia: Combined pseudohyponatremia from hyperglycemia along with hypovolemic hyponatremia from excessive diuresis from hyperglycemia. Improved with IV fluids cutting down the fluids to 75 mL per hour -Lactic acidosis: Secondary to most probably intravascular depletion dehydration. Along with sepsis lactic acidosis improved -Metabolic encephalopathy -Bilateral hydronephrosis with possibility of pyelonephritis leading to hematuria. Ultrasound showing Possible thrombus versus avascular mass of the urinary bladder, urology evaluated the patient patient eventually will need cystoscopy -Leukocytosis possibly secondary to sepsis -Hyperkalemia secondary to metabolic acidosis and hyperglycemia improved now -Anion gap Ketoacidosis: Secondary to lactic acidosis and possible diabetic ketoacidosis, improved now -DVT prophylaxis subcutaneous heparin -GI prophylaxis Protonix
--- NOTE | 2020-03-03 16:00 | PN ---
PROGRESS NOTE DATE OF SERVICE: 03/03/2020 REASON FOR FOLLOWUP: MSSA bacteremia, complicated UTI. INTERVAL HISTORY: Patient is currently afebrile. The patient is slightly sleepy and lethargic today, no prior history. No vomiting or diarrhea or other change reported by the nursing staff. PHYSICAL EXAMINATION: Blood pressure 90/60 with a pulse of 55, temperature 98.6, 98% on 2 L nasal cannula. General description is a middle-aged male, lying in bed in no distress. RESPIRATORY SYSTEM: Unlabored breathing, clear to auscultation anteriorly. HEART: S1, S2. Regular rate and rhythm. ABDOMEN: Soft, no tenderness. LABS: Hemoglobin 9.4, white count 13.9, BUN of 44, creatinine is 1.31. DIAGNOSTIC IMPRESSION AND PLAN: Patient with MSSA bacteremia, concern likely for complicated UTI, persistent bacteremia could be related to his urinary source, as the patient did have bilateral hydronephrosis, hydroureter and may benefit from a urology evaluation. Echocardiogram will be done and continue with cefazolin 2 g q.8 hours. Daily blood cultures to document clearance of his bacteremia. MMODL / IJN: [id number] /
[2020-03-03 16:39] LABS: Glucose,Whole Blood 137 mg/dL (75-99)
[2020-03-03 20:29] LABS: Glucose,Whole Blood 120 mg/dL (75-99)
[2020-03-04] MEDS: SODIUM CHLORIDE 0.9% 1,000 ML IV SCH ×2 (03:05→14:22)
[2020-03-04] MEDS: HYDROcodone/APAP 7.5-325MG 1 EACH TAB PO PRN ×2 (05:36→13:04)
[2020-03-04 07:14] LABS: Glucose,Whole Blood 248 mg/dL (75-99)
[2020-03-04] MEDS: INSULIN DETEMIR (LEVEMIR) 100 UNIT/ML SYR SQ SCH (08:01)
[2020-03-04] MEDS: PANTOPRAZOLE 40 MG/10 ML VIAL IV SCH (08:01)
[2020-03-04] MEDS: INSULIN ASPART (NovoLOG) 100 UNIT/ML VIAL SQ SCH ×7 (08:01→20:57)
[2020-03-04] MEDS: HEPARIN SODIUM,PORCINE 5,000 UNIT/ML 1 ML VIAL SQ SCH ×2 (08:01→16:35)
[2020-03-04] MEDS: HYDROmorphone 0.5 MG/0.5 ML SYRINGE IVP PRN ×2 (08:10→14:26)
[2020-03-04 08:48] LABS: Basophils % (A) 0 %; Eosinophils # (A) 0.1 k/uL (0-0.7); Eosinophils % (A) 0 %; HCT 35.6 % (39.0-53.0); HGB 10.4 gm/dL (13.0-17.5); Hypochromasia Marked; Lymphocytes # (A) 0.8 k/uL (1.0-4.8); Lymphocytes % (A) 6 %; MCH 28.8 pg (25.0-35.0); MCHC 29.3 g/dL (31.0-37.0); MCV 98.2 fL (80.0-100.0); Monocytes # (A) 0.6 k/uL (0-1.0); Monocytes % (A) 4 %; Neutrophils # (A) 12.4 k/uL (1.3-7.7); Neutrophils % (A) 88 %; Platelet Count 245 k/uL (150-450); RBC 3.63 m/uL (4.30-5.90); RDW 14.1 % (11.5-15.5)
[2020-03-04 08:59] LABS: Calcium 7.8 mg/dL (8.4-10.2); Potassium 4.4 mmol/L (3.5-5.1)
--- NOTE | 2020-03-04 09:27 | P.PN ---
Progress Note - Text Progress Note Date: 03/04/20 The patient denies complaints. He is afebrile. The Krueger catheter is draining clear yellow urine. The serum creatinine level has normalized. The urine culture showed MSSA, which has persistently been seen on blood cultures. It is my expectation that with continued Krueger catheter drainage and IV antibiotics this will clear. I again discussed the radiographic findings with the patient, explaining to him that cystoscopy will be required as an outpatient to rule out bladder cancer. He is to be discharged home with the Krueger catheter and follow- up within 1 week for cystoscopy.
[2020-03-04 11:22] LABS: Glucose,Whole Blood 203 mg/dL (75-99)
--- NOTE | 2020-03-04 14:15 | ECHOF ---
Referral Reason:bacteremia MEASUREMENTS -------- HEIGHT: 190.5 cm WEIGHT: 95.7 kg BP: 94/55 RVIDd: 4.1 cm (< 3.3) IVSd: 1.3 cm (0.6 - 1.1) LVIDd: 5.1 cm (3.9 - 5.3) LVPWd: 1.4 cm (0.6 - 1.1) IVSs: 2.0 cm LVIDs: 3.2 cm LVPWs: 1.9 cm LAESV Index (A-L): 23.40 ml/m Ao Diam: 3.2 cm (2.0 - 3.7) AV Cusp: 2.4 cm (1.5 - 2.6) MV EXCURSION: 25.683 mm (> 18.000) MV EF SLOPE: 93 mm/s (70 - 150) EPSS: 0.8 cm MV E Thai: 1.16 m/s MV DecT: 238 ms MV A Thai: 1.09 m/s MV E/A Ratio: 1.06 RAP: 5.00 mmHg RVSP: 62.55 mmHg FINDINGS -------- Sinus rhythm. This was a technically adequate study. The left ventricular size is normal. There is mild concentric left ventricular hypertrophy. Overa ll left ventricular systolic function is normal with, an EF between 55 - 60 %. The diastolic fillin g pattern is normal for the age of the patient {E/E'}. The right ventricle is moderately enlarged. Normal LA size by volume 22+/-6 ml/m2. The right atrial size is normal. Interatrial and interventricular septum intact. There is mild aortic valve sclerosis. There is no evidence of aortic regurgitation. There is no e vidence of aortic stenosis. No mitral regurgitation. Moderate to severe tricuspid regurgitation present. There is moderate to severe pulmonary hypertens ion. The right ventricular systolic pressure, as measured by Doppler, is 62.55mmHg. There is no pulmonic regurgitation present. The aortic root size is normal. IVC Not well visulized. There is a trivial pericardial effusion present. CONCLUSIONS -------- 1. The left ventricular size is normal. 2. There is mild concentric left ventricular hypertrophy. 3. Overall left ventricular systolic function is normal with, an EF between 55 - 60 %. 4. The diastolic filling pattern is normal for the age of the patient {E/E'} 5. The right ventricle is moderately enlarged. 6. There is mild aortic valve sclerosis. 7. Moderate to severe tricuspid regurgitation present. 8. There is moderate to severe pulmonary hypertension. 9. The right ventricular systolic pressure, as measured by Doppler, is 62.55mmHg. 10. There is a trivial pericardial effusion present. BLOWER INSULATOR: Tabitha Iniguez RDCS
[2020-03-04] MEDS ORDERED: bisacodyL 10 MG SUPP RECTAL PRN (15:05)
--- NOTE | 2020-03-04 15:46 | P.PN ---
Subjective Patient is a 64-year-old male admitted for diabetic hyperosmolar state patient does have some ketosis as well probably starvation ketosis. Patient blood sugars improved. Patient's serum acidosis resolved electrolyte improved patient's serum creatinine is 133 patient was transitioned to subcutaneous insulin dose of which I'm increasing now as his blood sugars are still not well controlled. Patient was a valid by urology because of bilateral hydronephrosis, urinary retention patient had a Krueger catheter patient will eventually need a cystoscopy once his more stabilized. Patient is less encephalopathic today and able to answer my questions. Patient has staph aureus in the blood and urine repeat blood cultures will be obtained infectious disease will be consulted. 03/02/2020 Patient is comparing of neck pain because of which I'll obtain MRA of the neck or since patient had bacteremia with MsSA. This neck pain is new. Overall there is significant improvement in his clinical condition but patient probably will need to be placed in a subacute rehabilitation PT and OT will evaluate the patient. So far the blood cultures that were obtained yesterday were negative. 03/03/2020 Patient can he is still persistent bacteremia with MSSA. Patient can use to be on ceftezolin, we'll repeat the blood cultures tomorrow patient will continue Krueger catheter upon discharge. Patient has degenerative neck disease but the is a sleeping excessively because of Dilaudid Dilaudid will be discontinued and patient will be started on tramadol and [place] will be continued. Constitutional: Denied any fatigue denied any fever. Cardio vascular: denied any chest pain, palpitations Gastrointestinal denied any nausea vomiting Pulmonary: Denied any shortness of breath cough Neurologic denied any new focal deficits All inpatient medications were reviewed and appropriate changes in these medications as dictated in the interval history and assessment and plan. Objective - Vital Signs Vital signs: Vital Signs Temp 98.5 F 03/04/20 14:23 Pulse 91 03/04/20 14:23 Resp 15 03/04/20 14:23 BP 115/74 03/04/20 14:23 Pulse Ox 96 03/04/20 14:23 Intake & Output 03/03/20 03/04/20 03/04/20 18:59 06:59 18:59 Intake Total 480 240 260 Output Total 1500 1400 1700 Balance -1020 -1160 -1440 Weight 96.1 kg Intake: Oral 480 240 260 Output: Urine 1500 1400 1700 Other: Voiding Method Indwelling Catheter Indwelling Catheter Indwelling Catheter - Exam PHYSICAL EXAMINATION: GENERAL: The patient is alert and oriented x3, not in any acute distress. Well developed, well nourished. HEENT: Pupils are round and equally reacting to light. EOMI. No scleral icterus. No conjunctival pallor. Normocephalic, atraumatic. No pharyngeal erythema. No thyromegaly. CARDIOVASCULAR: S1 and S2 present. No murmurs, rubs, or gallops. PULMONARY: Chest is clear to auscultation, no wheezing or crackles. ABDOMEN: Soft, nontender, nondistended, normoactive bowel sounds. No palpable organomegaly. MUSCULOSKELETAL: No joint swelling or deformity. EXTREMITIES: No cyanosis, clubbing, or pedal edema. NEUROLOGICAL: Gross neurological examination did not reveal any focal deficits. SKIN: No rashes. - Labs CBC & Chem 7: 03/04/20 07:29 03/04/20 07:29 Labs: Abnormal Lab Results - Last 24 Hours (Table) 03/03/20 03/03/20 03/04/20 Range/Units 16:36 20:27 07:13 WBC (3.8-10.6) k/uL RBC (4.30-5.90) m/uL Hgb (13.0-17.5) gm/dL Hct (39.0-53.0) % MCHC (31.0-37.0) g/dL Neutrophils # (1.3-7.7) k/uL Lymphocytes # (1.0-4.8) k/uL BUN (9-20) mg/dL Glucose (74-99) mg/dL POC Glucose (mg/dL) 137 H 120 H 248 H (75-99) mg/dL Calcium (8.4-10.2) mg/dL 03/04/20 03/04/20 03/04/20 Range/Units 07:29 07:29 11:22 WBC 14.0 H (3.8-10.6) k/uL RBC 3.63 L (4.30-5.90) m/uL Hgb 10.4 L (13.0-17.5) gm/dL Hct 35.6 L (39.0-53.0) % MCHC 29.3 L (31.0-37.0) g/dL Neutrophils # 12.4 H (1.3-7.7) k/uL Lymphocytes # 0.8 L (1.0-4.8) k/uL BUN 26 H (9-20) mg/dL Glucose 210 H (74-99) mg/dL POC Glucose (mg/dL) 203 H (75-99) mg/dL Calcium 7.8 L (8.4-10.2) mg/dL Microbiology - Last 24 Hours (Table) 03/02/20 07:17 Blood Culture Gram Stain - Final Blood Blood Culture - Final Staphylococcus aureus 03/03/20 06:33 Blood Culture Gram Stain - Preliminary Blood Blood Culture - Preliminary Presumptive Staph aureus 03/01/20 15:11 Blood Culture Gram Stain - Final Blood Blood Culture - Final Staphylococcus aureus 03/03/20 06:33 Blood Culture - Final Blood Assessment and Plan Plan: -Diabetic hyperosmolar state: Blood sugars improved nowcontinue with IV fluids patient the was started on long-acting insulin and pre-meal insulin -Severe Sepsis and bacteremia with MSSA UTI is believed to be the source but patient can history of persistent bacteremia. Had an echo which did not show any vegetations on the valves -Hyponatremia: Combined pseudohyponatremia from hyperglycemia along with hypovolemic hyponatremia from excessive diuresis from hyperglycemia. Improved with IV fluids cutting down the fluids to 75 mL per hour -Lactic acidosis: Secondary to most probably intravascular depletion deh ydration. Along with sepsis lactic acidosis improved -Metabolic encephalopathy -Bilateral hydronephrosis with possibility of pyelonephritis leading to hematuria. Ultrasound showing to coming of the urinary bladder, urology evaluated the patient patient eventually will need cystoscopy -Leukocytosis possibly secondary to sepsis -Hyperkalemia secondary to metabolic acidosis and hyperglycemia improved now -Anion gap metabolic acidosis resolved -Chronic back pain and degenerative arthritis DVT prophylaxis subcutaneous heparin GI prophylaxis Protonix
[2020-03-04 16:24] LABS: Glucose,Whole Blood 255 mg/dL (75-99)
[2020-03-04] MEDS: traMADol 50 MG TAB PO PRN (16:36)
[2020-03-04 20:27] LABS: Glucose,Whole Blood 202 mg/dL (75-99)
--- NOTE | 2020-03-04 23:49 | PN ---
PROGRESS NOTE DATE OF SERVICE: 03/04/2020 REASON FOR FOLLOWUP: MSSA bacteremia from complicated UTI. INTERVAL HISTORY: Patient is currently afebrile, has been breathing comfortably. He is hemodynamically stable, sleepy, lethargic, in no distress. No vomiting or any diarrhea reported. The patient himself was unable to provide any history. PHYSICAL EXAMINATION: Blood pressure is 115/74 with a pulse of 91, temperature 98.5. He is 96% on 2 L nasal cannula. General description is a middle-aged male lying in bed in no distress. Respiratory system: Unlabored breathing. Clear to auscultation anteriorly. Heart S1, S2. Regular rate and rhythm. Abdomen soft, no tenderness. LABS: Hemoglobin is 10.3, white count 14, BUN of 26, creatinine 1.22. DIAGNOSTIC IMPRESSION AND PLAN: Patient with MSSA bacteremia, persistent started with complicated UTI, now with persistent bacteremia, underlying intravascular source not excluded. Echocardiogram has been done with probable abnormality but no vegetation. We will get YAMILA. Also benefit from possible cystoscopy to find reason of his hydronephrosis that may be contributing to his persistent bacteremia as well. Discussed further with Urology. Continue cefazolin and continue supportive care. MMODL / IJN: [id number] / CARISSA
[2020-03-05] MEDS: HYDROcodone/APAP 7.5-325MG 1 EACH TAB PO PRN ×3 (00:25→17:12)
[2020-03-05] MEDS: HEPARIN SODIUM,PORCINE 5,000 UNIT/ML 1 ML VIAL SQ SCH ×4 (00:42→23:53)
[2020-03-05] MEDS: SODIUM CHLORIDE 0.9% 1,000 ML IV SCH ×2 (04:17→16:45)
[2020-03-05 06:58] LABS: Glucose,Whole Blood 134 mg/dL (75-99)
[2020-03-05 07:35] LABS: HCT 31.5 % (39.0-53.0); HGB 9.6 gm/dL (13.0-17.5); Hypochromasia Marked; MCH 29.7 pg (25.0-35.0); MCHC 30.5 g/dL (31.0-37.0); MCV 97.3 fL (80.0-100.0); Mean Platelet Volume 8.2; Platelet Count 240 k/uL (150-450); RBC 3.24 m/uL (4.30-5.90); RDW 14.1 % (11.5-15.5)
[2020-03-05] MEDS: INSULIN DETEMIR (LEVEMIR) 100 UNIT/ML SYR SQ SCH (07:38)
[2020-03-05] MEDS: PANTOPRAZOLE 40 MG/10 ML VIAL IV SCH (07:38)
[2020-03-05] MEDS: INSULIN ASPART (NovoLOG) 100 UNIT/ML VIAL SQ SCH ×7 (07:38→20:31)
[2020-03-05] MEDS: traMADol 50 MG TAB PO PRN ×2 (07:41→14:01)
[2020-03-05 07:51] LABS: Calcium 7.4 mg/dL (8.4-10.2); Potassium 4.5 mmol/L (3.5-5.1)
--- NOTE | 2020-03-05 10:30 | P.PN ---
Progress Note - Text Progress Note Date: 03/05/20 The patient denies complaints. He is afebrile. The Krueger catheter is draining clear yellow urine. The serum creatinine level today was 1.13. The urine culture showed MSSA, which has persistently been seen on blood cultures. the WBC count today was 13.0, the lowest it has been during this hospitalization. In view of the persistent bacteremia, the renal ultrasound was repeated and the degree of hydronephrosis is significantly improved, as would be expected with Krueger catheter drainage. I discussed this with the patient, and again laid out the plan for him to be discharged home with the Krueger catheter and undergo outpatient cystoscopy. However, if cultures show persistent bacteremia cystoscopy with retrograde pyelograms and possible bladder tumor resection under anesthesia would need to be considered.
[2020-03-05 11:18] LABS: Glucose,Whole Blood 136 mg/dL (75-99)
[2020-03-05] MEDS ORDERED: BENZOCAINE/MENTHOL LOZENG 1 EACH LOZENGE MUCOUS MEM PRN (14:07)
--- NOTE | 2020-03-05 14:23 | XR ---
EXAMINATION TYPE: XR chest 1V DATE OF EXAM: 03/05/2020 COMPARISON: 02/29/2020 HISTORY: Chest pain TECHNIQUE: Single view there is blunting right costophrenic angle. There is elevated right diaphragm. There is no gross hear t failure. Left lung is fairly clear. IMPRESSION: There is new right basilar infiltrate and atelectasis compared to recent exam. No gross h eart failure seen.
--- NOTE | 2020-03-05 14:27 | P.PN ---
Subjective Patient is a 64-year-old male admitted for diabetic hyperosmolar state patient does have some ketosis as well probably starvation ketosis. Patient blood sugars improved. Patient's serum acidosis resolved electrolyte improved patient's serum creatinine is 133 patient was transitioned to subcutaneous insulin dose of which I'm increasing now as his blood sugars are still not well controlled. Patient was a valid by urology because of bilateral hydronephrosis, urinary retention patient had a Krueger catheter patient will eventually need a cystoscopy once his more stabilized. Patient is less encephalopathic today and able to answer my questions. Patient has staph aureus in the blood and urine repeat blood cultures will be obtained infectious disease will be consulted. 03/02/2020 Patient is comparing of neck pain because of which I'll obtain MRA of the neck or since patient had bacteremia with MsSA. This neck pain is new. Overall there is significant improvement in his clinical condition but patient probably will need to be placed in a subacute rehabilitation PT and OT will evaluate the patient. So far the blood cultures that were obtained yesterday were negative. 03/04/2020 Patient can he is still persistent bacteremia with MSSA. Patient can use to be on ceftezolin, we'll repeat the blood cultures tomorrow patient will continue Krueger catheter upon discharge. Patient has degenerative neck disease but the is a sleeping excessively because of Dilaudid Dilaudid will be discontinued and patient will be started on tramadol and [place] will be continued. 03/05/2020 Patient is still having some back pain. Patient is to have bacteremia repeat blood cultures will be obtained tomorrow ultrasound of the kidneys was opted for her bilateral hydronephrosis will also order a transesophageal echocardiogram to rule out any endocarditis discussed with the cardiology as well as infectious disease. Constitutional: Denied any fatigue denied any fever. Cardio vascular: denied any chest pain, palpitations Gastrointestinal denied any nausea vomiting Pulmonary: Denied any shortness of breath cough Neurologic denied any new focal deficits All inpatient medications were reviewed and appropriate changes in these medications as dictated in the interval history and assessment and plan. Objective - Vital Signs Vital signs: Vital Signs Temp 98.2 F 03/05/20 07:00 Pulse 91 03/05/20 07:00 Resp 16 03/05/20 07:00 BP 137/81 03/05/20 07:00 Pulse Ox 93 L 03/05/20 07:00 Intake & Output 03/04/20 03/05/20 03/05/20 18:59 06:59 18:59 Intake Total 260 260 Output Total 1700 1850 1500 Balance -1440 -1850 -1240 Intake: Oral 260 260 Output: Urine 1700 1850 1500 Other: Voiding Method Indwelling Catheter Indwelling Catheter # Bowel Movements 1 - Exam PHYSICAL EXAMINATION: GENERAL: The patient is alert and oriented x3, not in any acute distress. Well developed, well nourished. HEENT: Pupils are round and equally reacting to light. EOMI. No scleral icterus. No conjunctival pallor. Normocephalic, atraumatic. No pharyngeal erythema. No thyromegaly. CARDIOVASCULAR: S1 and S2 present. No murmurs, rubs, or gallops. PULMONARY: Chest is clear to auscultation, no wheezing or crackles. ABDOMEN: Soft, nontender, nondistended, normoactive bowel sounds. No palpable organomegaly. MUSCULOSKELETAL: No joint swelling or deformity. EXTREMITIES: No cyanosis, clubbing, or pedal edema. NEUROLOGICAL: Gross neurological examination did not reveal any focal deficits. SKIN: No rashes. - Labs CBC & Chem 7: 03/05/20 06:44 03/05/20 06:44 Labs: Abnormal Lab Results - Last 24 Hours (Table) 03/04/20 03/04/20 03/05/20 Range/Units 16:23 20:26 06:44 WBC 13.0 H (3.8-10.6) k/uL RBC 3.24 L (4.30-5.90) m/uL Hgb 9.6 L (13.0-17.5) gm/dL Hct 31.5 L (39.0-53.0) % MCHC 30.5 L (31.0-37.0) g/dL Sodium (137-145) mmol/L BUN (9-20) mg/dL Glucose (74-99) mg/dL POC Glucose (mg/dL) 255 H 202 H (75-99) mg/dL Calcium (8.4-10.2) mg/dL 03/05/20 03/05/20 03/05/20 Range/Units 06:44 06:57 11:16 WBC (3.8-10.6) k/uL RBC (4.30-5.90) m/uL Hgb (13.0-17.5) gm/dL Hct (39.0-53.0) % MCHC (31.0-37.0) g/dL Sodium 136 L (137-145) mmol/L BUN 23 H (9-20) mg/dL Glucose 130 H (74-99) mg/dL POC Glucose (mg/dL) 134 H 136 H (75-99) mg/dL Calcium 7.4 L (8.4-10.2) mg/dL Microbiology - Last 24 Hours (Table) 03/04/20 07:29 Blood Culture Gram Stain - Preliminary Blood Blood Culture - Preliminary Staphylococcus aureus 03/04/20 07:29 Blood Culture - Final Blood 03/02/20 07:17 Blood Culture Gram Stain - Final Blood Blood Culture - Final Staphylococcus aureus 03/03/20 06:33 Blood Culture Gram Stain - Preliminary Blood Blood Culture - Preliminary Presumptive Staph aureus Assessment and Plan Plan: -Diabetic hyperosmolar state: Blood sugars improved nowcontinue with IV fluids patient the was started on long-acting insulin and pre-meal insulin -Severe Sepsis and bacteremia with MSSA UTI is believed to be the source but patient can history of persistent bacteremia. Had an echo which did not show any vegetations on the valves. Transesophageal echo cardiac and was ordered -Hyponatremia: Combined pseudohyponatremia from hyperglycemia along with hypovolemic hyponatremia from excessive diuresis from hyperglycemia. Improved with IV fluids cutting down the fluids to 75 mL per hour -Lactic acidosis: Secondary to most probably intravascular depletion dehydration. Along with sepsis lactic acidosis improved -Metabolic encephalopathy -Bilateral hydronephrosis with possibility of pyelonephritis leading to hematuria. Ultrasound showing to coming of the urinary bladder, urology evaluated the patient patient eventually will need cystoscopy -Leukocytosis possibly secondary to sepsis -Hyperkalemia secondary to metabolic acidosis and hyperglycemia improved now -Anion gap metabolic acidosis resolved -Chronic back pain and degenerative arthritis DVT prophylaxis subcutaneous heparin GI prophylaxis Protonix
--- NOTE | 2020-03-05 14:39 | US ---
EXAMINATION TYPE: US kidneys/renal and bladder DATE OF EXAM: 03/05/2020 COMPARISON: US dated 02/29/2020 CLINICAL HISTORY: Hematuria, Hydronephrosis. EXAM MEASUREMENTS: Right Kidney: 12.8 x 7.1 x 8.0 cm Left Kidney: 15.6 x 7.8 x 8.6 cm Right Kidney: mild hydro Left Kidney: mild hydro, enlarged at 15.6 cm. Bladder: Patient has catheter, there is thickened wall versus mass affect seen around catheter. Bilateral Jets seen: No No nephrolithiasis is seen. No masses are identified. IMPRESSION: Mild bilateral hydronephrosis. Enlarged kidneys. Urinary bladder wall thickening could re late to nonspecific cystitis.
[2020-03-05 16:57] LABS: Glucose,Whole Blood 70 mg/dL (75-99)
[2020-03-05] MEDS: NAFCILLIN 2 GM in DEXTROSE 5% IN WATER 100 ML IVPB SCH ×4 (19:38→23:25)
[2020-03-05 20:03] LABS: Glucose,Whole Blood 146 mg/dL (75-99)
--- NOTE | 2020-03-06 00:53 | PN ---
PROGRESS NOTE DATE OF SERVICE: 03/05/2020 REASON FOR FOLLOWUP: MSSA bacteremia complicated UTI. INTERVAL HISTORY: The patient is currently afebrile, has been breathing comfortably. The patient denies having any chest pain or shortness of breath or cough. No nausea, no vomiting. No abdominal pain or diarrhea. PHYSICAL EXAMINATION: Blood pressure 122/73 with a pulse of 79, temperature 99.4. He is 99% on 4 L nasal cannula. General description is a middle-aged male lying in bed in no distress. RESPIRATORY SYSTEM: Unlabored breathing, decreased breath sounds at the bases. No wheeze. HEART: S1, S2. Regular rate and rhythm. ABDOMEN: Soft, no tenderness. Extremities no edema feet LABS: Hemoglobin 9.6, white count 13, BUN of 23, creatinine 1.13. Blood culture of 03/04 is positive as well. DIAGNOSTIC IMPRESSION AND PLAN: Patient with MSSA bacteremia, source likely urinary. However, now with persistent bacteremia and is concerning for the possible endovascular source. YAMILA has been ordered for tomorrow. Keep the patient on cefazolin. We will switch more to nafcillin and monitor clinical course closely. MMODL / IJN: [id number] / CARISSA
[2020-03-06] MEDS: HYDROcodone/APAP 7.5-325MG 1 EACH TAB PO PRN ×4 (02:27→20:15)
[2020-03-06] MEDS: SODIUM CHLORIDE 0.9% 1,000 ML IV SCH ×2 (05:17→20:15)
[2020-03-06] MEDS: NAFCILLIN 2 GM in DEXTROSE 5% IN WATER 100 ML IVPB SCH ×12 (05:17→20:16)
[2020-03-06 07:23] LABS: Glucose,Whole Blood 195 mg/dL (75-99)
[2020-03-06] MEDS: INSULIN DETEMIR (LEVEMIR) 100 UNIT/ML SYR SQ SCH ×3 (07:42→21:21)
[2020-03-06] MEDS: INSULIN ASPART (NovoLOG) 100 UNIT/ML VIAL SQ SCH ×7 (07:42→20:16)
[2020-03-06] MEDS: PANTOPRAZOLE 40 MG/10 ML VIAL IV SCH (07:47)
[2020-03-06] MEDS: HEPARIN SODIUM,PORCINE 5,000 UNIT/ML 1 ML VIAL SQ SCH ×2 (07:47→17:14)
[2020-03-06 08:01] LABS: HCT 29.1 % (39.0-53.0); HGB 8.9 gm/dL (13.0-17.5); Hypochromasia Moderate; MCH 29.4 pg (25.0-35.0); MCHC 30.6 g/dL (31.0-37.0); MCV 96.2 fL (80.0-100.0); Platelet Count 261 k/uL (150-450); RBC 3.03 m/uL (4.30-5.90); RDW 14.2 % (11.5-15.5); WBC 12.4 k/uL (3.8-10.6)
[2020-03-06 08:17] LABS: Calcium 7.3 mg/dL (8.4-10.2); Potassium 4.5 mmol/L (3.5-5.1)
[2020-03-06] MEDS: BENZOCAINE SPRAY 1 CAN TOPICAL ONE ×2 (10:20→10:31)
[2020-03-06] MEDS ORDERED: fentaNYL (PF) 50 MCG/ML 2 ML AMP ONE (10:20)
[2020-03-06] MEDS ORDERED: ONDANSETRON 4 MG/2 ML VIAL ONE (10:23)
[2020-03-06] MEDS ORDERED: ONDANSETRON 4 MG/2 ML VIAL IVP ONE (10:28)
[2020-03-06] MEDS ORDERED: IV FLUID CONTINUATION 400 ML IV ONE (10:40)
[2020-03-06] MEDS ORDERED: MIDAZOLAM 2 MG/2 ML VIAL IV ONE (10:40)
[2020-03-06] MEDS ORDERED: fentaNYL (PF) 50 MCG/ML 2 ML AMP IV ONE (10:40)
[2020-03-06 11:34] LABS: Glucose,Whole Blood 285 mg/dL (75-99)
--- NOTE | 2020-03-06 11:35 | P.CRDCN ---
History of Present Illness History of present illness: HISTORY OF PRESENTING ILLNESS This is a pleasant 64-year-old male past medical history significant for retention, dyslipidemia and diabetes mellitus. He also has a history of daily tobacco use and recent alcohol abuse, he quit drinking November 2019. 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 He is currently being treated for MSSA bacteremia and we have been requested to perform a YAMILA. A transthoracic echocardiogram revealed preserved LV systolic function with ejection fraction 55-60%, moderate to severe tricuspid regurgitation and pulmonary hypertension with an RVSP of 62 mmHg. Currently maintained on IV antibiotics. He denies symptoms of chest pain, shortness of breath, dizziness or palpitations. He is complaining of significant discomfort throughout his whole body described as achy. Chest x-ray performed yesterday revealed a new right basilar infiltrate with surrounding atelectasis. No heart failure noted. EKG on admission revealed sinus bradycardia. Laboratory data reviewed, WBC 12.4, hemoglobin 8.9, sodium 133, potassium 4.5, creatinine 1.04. REVIEW OF SYSTEMS At the time of my exam: CONSTITUTIONAL: Denies fever or chills. CARDIOVASCULAR: Denies chest pain, shortness of breath, orthopnea, PND or palpitations. RESPIRATORY: Denies cough. GASTROINTESTINAL: Denies abdominal pain, diarrhea, constipation, nausea or vomiting. MUSCULOSKELETAL: Denies myalgias. NEUROLOGIC: Denies numbness, tingling or weakness. ENDOCRINE: Denies fatigue, weight change, polydipsia or polyurina. GENITOURINARY: Denies burning, hematuria or urgency with micturation. HEMATOLOGIC: Denies history of anemia or bleeding. PHYSICAL EXAMINATION Blood pressure 131/73 heart rate 87 afebrile and maintaining oxygen saturation on cannula. CONSTITUTIONAL: No apparent distress. HEENT: Head is normocephalic. Pupils are equal, round. Sclerae anicteric. Mucous membranes of the mouth are moist. No JVD. No carotid bruit. CHEST EXAMINATION: Lungs are clear to auscultation. No chest wall tenderness is noted on palpation or with deep breathing. HEART EXAMINATION: Regular rate and rhythm. S1, S2 heard. No murmurs, gallops or rub. ABDOMEN: Soft, nontender. Positive bowel sounds. EXTREMITIES: 2+ peripheral pulses, no lower extremity edema and no calf tenderness. NEUROLOGIC EXAMINATION: Patient is awake, alert and oriented x3. ASSESSMENT Sepsis and bacteremia with MSSA Leukocytosis PLAN I have discussed the risks, benefits and alternative therapies for the above- mentioned procedure and for both sedation/analgesia as they pertain to this patient. The patient has indicated understanding and acceptance of the risks and procedures discussed. Dr. No will proceed with YAMILA as requested. Thank you kindly for this consultation. Nurse Practitioner note has been reviewed, I agree with a documented findings and plan of care. Patient was seen and examined. Past Medical History Past Medical History: Diabetes Mellitus, Hyperlipidemia, Hypertension Additional Past Medical History / Comment(s): Signiificant other and rosy state pt has not had insurance so has not been taking meds/seeing physician, NIDDM type II, neuropathy bilateral feet, past nephrolithiasis with pt passing stones on his own, pt passed a couple stones (s.o. saw stones) 2 weeks ago and had hematuria which improved after passing stones but has had weakness and loss of appetite past 2 weeks, spondylosis/chronic low back pain History of Any Multi-Drug Resistant Organisms: None Reported Past Surgical History: No Surgical Hx Reported Additional Past Surgical History / Comment(s): Bilateral cataract removals/lens implants. Past Anesthesia/Blood Transfusion Reactions: Unable to Obtain Additional Past Anesthesia/Blood Transfusion Reaction / Comment(s): Pt has never had general anesthesia per family Smoking Status: Former smoker - Past Family History Father Family Medical History: Dementia Mother Family Medical History: Cancer Additional Family Medical History / Comment(s): Mother of skin cancer. Medications and Allergies Home Medications Medication Instructions Recorded Confirmed Type No Known Home Medications 02/29/20 02/29/20 History Allergies Allergy/AdvReac Type Severity Reaction Status Date / Time No Known Allergies Allergy Verified 02/29/20 10:04 Physical Exam Vitals: Vital Signs Temp Pulse Resp BP Pulse Ox 03/06/20 07:00 98.4 F 87 17 131/73 93 L 03/06/20 02:10 98.9 F 81 17 121/63 93 L 03/05/20 20:00 99.3 F 84 16 108/62 95 03/05/20 15:00 99.4 F 79 15 122/73 99 Intake and Output 03/05/20 03/06/20 03/06/20 22:59 06:59 14:59 Intake Total 150 Output Total 950 2000 Balance -950 -2000 150 Intake: IV 150 Output: Urine 950 2000 Other: Voiding Method Indwelling Catheter Indwelling Catheter Results 03/06/20 07:34 03/06/20 07:34 CBC 03/06/20 Range/Units 07:34 WBC 12.4 H (3.8-10.6) k/uL RBC 3.03 L (4.30-5.90) m/uL Hgb 8.9 L (13.0-17.5) gm/dL Hct 29.1 L (39.0-53.0) % Plt Count 261 (150-450) k/uL Comprehensive Metabolic Panel 03/06/20 Range/Units 07:34 Sodium 133 L (137-145) mmol/L Potassium 4.5 (3.5-5.1) mmol/L Chloride 99 (98-107) mmol/L Carbon Dioxide 29 (22-30) mmol/L BUN 19 (9-20) mg/dL Creatinine 1.04 (0.66-1.25) mg/dL Glucose 185 H (74-99) mg/dL Calcium 7.3 L (8.4-10.2) mg/dL Current Medications Generic Name Dose Route Start Last Admin Trade Name Freq PRN Reason Stop Dose Admin Hydrocodone Bitart/Acetaminophen 1 each 03/02/20 13:08 03/06/20 07:53 Geraldine 7.5-325 PO 1 each Q6H PRN Administration Pain Benzocaine/Menthol 1 each 03/05/20 14:07 Cepacol Lozenge MUCOUS MEM Q6HR PRN Sore Throat Bisacodyl 10 mg 03/04/20 15:05 03/04/20 16:36 Dulcolax RECTAL 10 mg DAILY PRN Administration Constipation Heparin Sodium (Porcine) 5,000 unit 02/29/20 16:00 03/06/20 07:47 Heparin SQ 5,000 unit Q8HR ADRIAN Administration Sodium Chloride 1,000 mls @ 75 mls/hr 03/01/20 05:38 03/06/20 05:17 Saline 0.9% IV 75 mls/hr .[id number] ADRIAN Administration Nafcillin Sodium 2 gm/ 100 mls @ 100 mls/hr 03/05/20 20:00 03/06/20 08:56 Dextrose/Water IVPB 100 mls/hr Q4HR ADRIAN Administration Insulin Aspart 0 unit 03/01/20 07:30 03/06/20 07:42 Novolog SQ Not Given ACHS [facility] Protocol Insulin Aspart 8 unit 03/03/20 17:30 03/06/20 07:42 Novolog SQ Not Given AC-TID [facility] Insulin Detemir 30 unit 03/04/20 07:00 03/06/20 07:42 Levemir SQ Not Given DAILY@0700 [facility] Miscellaneous Information 1 each 02/29/20 16:32 Phosphorus Per Protocol MISCELLANE DAILY PRN Per Protocol Protocol Naloxone HCl 0.2 mg 02/29/20 12:00 Narcan IV Q2M PRN Opioid Reversal Pantoprazole Sodium 40 mg 02/29/20 12:15 03/06/20 07:47 Protonix IV 40 mg DAILY [facility] Administration Polyethylene Glycol 17 gm 03/02/20 13:10 Miralax PO DAILY PRN Constipation Tramadol HCl 50 mg 03/04/20 15:01 03/05/20 14:01 Ultram PO 50 mg QID PRN Administration Pain/Discomfort Intake and Output 03/05/20 03/06/20 03/06/20 22:59 06:59 14:59 Intake Total 150 Output Total 950 1999 Balance 950 -1999 150 Intake: IV 150 Output: Urine 950 1999 Other: Voiding Method Indwelling Catheter Indwelling Catheter 03/06/20 07:34 03/06/20 07:34
--- NOTE | 2020-03-06 12:24 | ECHOT ---
TRANSESOPHAGEAL ECHOCARDIOGRAM INDICATION: Staphylococcus aureus sepsis, rule out infective endocarditis. PROCEDURE NOTE: After obtaining informed consent, transesophageal echocardiogram is performed in left lateral position using an Omni plane probe. Local and IV sedation were obtained using 100 mcg of fentanyl and 1 mg of Versed. Patient tolerated the procedure well without any obvious immediate complication point. The patient received moderate conscious sedation. Total sedation time was 6 minutes. FINDINGS: 1. There is no vegetation over the mitral valve aortic valve or tricuspid valve. 2. Mitral valve appears anatomically normal. There is mild to moderate central mitral regurgitation noted. 3. Aortic valve is free of stenosis or regurgitation. 4. Tricuspid valve shows mild tricuspid regurgitation. 5. Left ventricle has normal size and systolic function. 6. Left atrium, right atrium, right ventricle exam within normal limits. 7. Interatrial septum, there is no evidence of [id number] shunt by color-flow Doppler or [id number] shunt by agitated saline contrast study. 8. This is a technically suboptimal study as patient was not cooperative, but we were able to address the question on this study. CONCLUSION: No vegetation is noted on the study. MMODL / IJN: [id number] /
--- NOTE | 2020-03-06 13:42 | P.PN ---
Subjective Progress Note Date: 03/06/20 Principal diagnosis: Patient is a 64-year-old male admitted for diabetic hyperosmolar state patient does have some ketosis as well probably starvation ketosis. Patient blood sugar s improved. Patient's serum acidosis resolved electrolyte improved patient's serum creatinine is 133 patient was transitioned to subcutaneous insulin dose of which I'm increasing now as his blood sugars are still not well controlled. Patient was a valid by urology because of bilateral hydronephrosis, urinary retention patient had a Krueger catheter patient will eventually need a cystoscopy once his more stabilized. Patient is less encephalopathic today and able to answer my questions. Patient has staph aureus in the blood and urine repeat blood cultures will be obtained infectious disease will be consulted. 03/02/2020 Patient is comparing of neck pain because of which I'll obtain MRA of the neck or since patient had bacteremia with MRSA. This neck pain is new. Overall there is significant improvement in his clinical condition but patient probably will need to be placed in a subacute rehabilitation PT and OT will evaluate the patient. So far the blood cultures that were obtained yesterday were negative. Constitutional: Denied any fatigue denied any fever. Cardio vascular: denied any chest pain, palpitations Gastrointestinal denied any nausea vomiting Pulmonary: Denied any shortness of breath cough Neurologic denied any new focal deficits All inpatient medications were reviewed and appropriate changes in these medications as dictated in the interval history and assessment and plan. 03/03/2020 Patient is seen and evaluated follow-up and continues to have severe neck pain with the inability to move the head back and forth. Patient underwent an MRI of the neck Showing moderate size left paracentral disc bulge at C3-4, moderate broad-based disc bulge central and left paracentrally at C5-6, mild disc bulge at C6-7, and mild for minimal narrowing due to uncovertebral joint hypertrophy. Patient continues to have bacteremia showing Presumptive Staphylococcus aureus a nd infectious disease is following. Patient is maintained on cefazolin and will continue at this time. Patient was also seen and evaluated by urology recommending cystoscopy and patient had retention and is currently maintained on indwelling Krueger catheter. Patient is currently maintained on long-acting insulin along with sliding scale and pre-meal insulins and will continue at this time. Will make further adjustments as necessary. An echo has been ordered and currently pending at this time. Patient denies any chest pain, shortness of breath, or palpitations. Patient has been afebrile. No reports of nausea or vomiting and patient is tolerating diet. 03/04/2020 Patient can he is still persistent bacteremia with MSSA. Patient can use to be on ceftezolin, we'll repeat the blood cultures tomorrow patient will continue Krueger catheter upon discharge. Patient has degenerative neck disease but the is a sleeping excessively because of Dilaudid Dilaudid will be discontinued and patient will be started on tramadol and [place] will be continued. 03/05/2020 Patient is still having some back pain. Patient is to have bacteremia repeat blood cultures will be obtained tomorrow ultrasound of the kidneys was opted for her bilateral hydronephrosis will also order a transesophageal echocardiogram to rule out any endocarditis discussed with the cardiology as well as infectious disease. Constitutional: Denied any fatigue denied any fever. Cardio vascular: denied any chest pain, palpitations Gastrointestinal denied any nausea vomiting Pulmonary: Denied any shortness of breath cough Neurologic denied any new focal deficits All inpatient medications were reviewed and appropriate changes in these medications as dictated in the interval history and assessment and plan. 03/06/2020 Patient is seen and evaluated in follow-up status post undergoing YAMILA. YAMILA showed no areas of vegetation. Patient was having some shortness of breath and chest pain and labs to been within normal limits. Vital signs were stable. Patient is currently maintained on oxygen via nasal cannula and states the chest pain and shortness of breath have resolved. Patient is maintained on IV antibiotics and will continue at this time. Infectious disease following. Blood cultures continue to remain positive with Staphylococcus aureus. Urology also following and patient may need cystoscopy during admission. Repeat ultrasound of the kidney shows mild bilateral hydronephrosis. Patient continues with an indwelling Krueger catheter. Objective - Vital Signs Vital signs: Vital Signs Temp 98.4 F 03/06/20 07:00 Pulse 87 03/06/20 13:00 Resp 17 03/06/20 07:00 BP 132/77 03/06/20 13:00 Pulse Ox 93 L 03/06/20 11:25 Intake & Output 03/05/20 03/06/20 03/06/20 18:59 06:59 18:59 Intake Total 260 150 Output Total 1500 2950 800 Balance -1240 -2950 -650 Intake: IV 150 Oral 260 Output: Urine 1500 2950 800 Other: Voiding Method Indwelling Catheter Indwelling Catheter Indwelling Catheter - Exam GENERAL: The patient is alert and oriented x3, not in any acute distress. Well developed, well nourished. HEENT: Pupils are round and equally reacting to light. EOMI. No scleral icterus. No conjunctival pallor. Normocephalic, atraumatic. No pharyngeal erythema. No thyromegaly. CARDIOVASCULAR: S1 and S2 present. No murmurs, rubs, or gallops. PULMONARY: Chest is clear to auscultation, no wheezing or crackles. ABDOMEN: Soft, nontender, nondistended, normoactive bowel sounds. No palpable organomegaly. MUSCULOSKELETAL: No joint swelling or deformity. EXTREMITIES: No cyanosis, clubbing, or pedal edema. NEUROLOGICAL: Gross neurological examination did not reveal any focal deficits. SKIN: No rashes. - Labs CBC & Chem 7: 03/06/20 07:34 03/06/20 07:34 Labs: Abnormal Lab Results - Last 24 Hours (Table) 03/05/20 03/05/20 03/06/20 Range/Units 16:55 20:01 07:20 WBC (3.8-10.6) k/uL RBC (4.30-5.90) m/uL Hgb (13.0-17.5) gm/dL Hct (39.0-53.0) % MCHC (31.0-37.0) g/dL Sodium (137-145) mmol/L Glucose (74-99) mg/dL POC Glucose (mg/dL) 70 L 146 H 195 H (75-99) mg/dL Calcium (8.4-10.2) mg/dL 03/06/20 03/06/20 03/06/20 Range/Units 07:34 07:34 11:32 WBC 12.4 H (3.8-10.6) k/uL RBC 3.03 L (4.30-5.90) m/uL Hgb 8.9 L (13.0-17.5) gm/dL Hct 29.1 L (39.0-53.0) % MCHC 30.6 L (31.0-37.0) g/dL Sodium 133 L (137-145) mmol/L Glucose 185 H (74-99) mg/dL POC Glucose (mg/dL) 285 H (75-99) mg/dL Calcium 7.3 L (8.4-10.2) mg/dL Microbiology - Last 24 Hours (Table) 03/05/20 06:44 Blood Culture Gram Stain - Preliminary Blood Blood Culture - Preliminary Presumptive Staph aureus 03/05/20 06:44 Blood Culture - Final Blood 03/03/20 06:33 Blood Culture Gram Stain - Final Blood Blood Culture - Final Staphylococcus aureus 03/04/20 07:29 Blood Culture Gram Stain - Preliminary Blood Blood Culture - Preliminary Staphylococcus aureus Assessment and Plan Assessment: -Diabetic hyperosmolar state: Blood sugars improved now continue with IV fluids patient the was started on long-acting insulin and pre-meal insulin -Severe Sepsis and bacteremia with MSSA UTI is believed to be the source but patient can history of persistent bacteremia. YAMILA was negative for any signs of vegetation -Hyponatremia: Combined pseudohyponatremia from hyperglycemia along with hypovolemic hyponatremia from excessive diuresis from hyperglycemia. Improved with IV fluids -Lactic acidosis: Secondary to most probably intravascular depletion dehydration. Along with sepsis lactic acidosis improved -Metabolic encephalopathy -Bilateral hydronephrosis with possibility of pyelonephritis leading to hematuria. Repeat ultrasound of the kidneys continues to show mild bilateral hydronephrosis and patient will likely need cystoscopy during hospitalization. Urology is following. -Leukocytosis possibly secondary to sepsis -Hyperkalemia secondary to metabolic acidosis and hyperglycemia improved now -Anion gap metabolic acidosis resolved -Chronic back pain and degenerative arthritis -DVT prophylaxis subcutaneous heparin -GI prophylaxis Protonix Plan: Patient underwent YAMILA showing no areas of vegetation. Multiple medical consultations following. Patient continues to have persistent bacteremia and may likely need cystoscopy during hospitalization. Neurology following. Infectious disease also following and patient is maintained on IV antibiotics and will continue at this time. Will continue to monitor blood sugars closely and repeat a.m. labs. Repeat cultures as well while awaiting bacteremia clearance. Further recommendations to follow. Case management and social work following as patient has no insurance and will likely need placement and possible IV antibiotics in the outpatient setting.
[2020-03-06 16:28] LABS: Glucose,Whole Blood 309 mg/dL (75-99)
--- NOTE | 2020-03-06 18:36 | PN ---
PROGRESS NOTE DATE OF SERVICE: 03/06/2020 REASON FOR FOLLOWUP: An MSSA bacteremia and UTI. INTERVAL HISTORY: Patient is currently afebrile. The patient is status post YAMILA this morning with no evidence of any vegetation. The patient is complaining of some chest pain after the procedure. No nausea, no vomiting. No abdominal pain or diarrhea. EXAMINATION: Blood pressure 100/63, pulse of 83, temperature 98.3, he is 94% on 4 L nasal cannula. General description is a middle-aged male lying in bed in no distress. Respiratory system: Unlabored breathing, clear to auscultation anteriorly. Heart S1, S2. Regular rate and rhythm. Abdomen is soft, no tenderness. LABS: Hemoglobin 8.8, white count 10.4, creatinine 1.04. DIAGNOSTIC IMPRESSION AND PLAN: Patient with Methicillin sensitive Staphylococcus aureus bacteremia. Initial source was the urine complicated urinary tract infection, now with persistent bacteremia. YAMILA was done and was negative. Patient on nafcillin. To continue with daily blood cultures to document clearance of bacteremia and continue supportive care. MMODL / IJN: [id number] /
[2020-03-06 20:09] LABS: Glucose,Whole Blood 329 mg/dL (75-99)
[2020-03-06 21:21] LABS: Glucose,Whole Blood 330 mg/dL (75-99)
[2020-03-07] MEDS: traMADol 50 MG TAB PO PRN ×3 (00:12→20:34)
[2020-03-07] MEDS: NAFCILLIN 2 GM in DEXTROSE 5% IN WATER 100 ML IVPB SCH ×14 (00:12→23:04)
[2020-03-07] MEDS: HEPARIN SODIUM,PORCINE 5,000 UNIT/ML 1 ML VIAL SQ SCH ×4 (00:13→23:04)
[2020-03-07 06:59] LABS: Glucose,Whole Blood 228 mg/dL (75-99)
[2020-03-07] MEDS: INSULIN DETEMIR (LEVEMIR) 100 UNIT/ML SYR SQ SCH (08:04)
[2020-03-07] MEDS: PANTOPRAZOLE 40 MG/10 ML VIAL IV SCH (08:04)
[2020-03-07] MEDS: INSULIN ASPART (NovoLOG) 100 UNIT/ML VIAL SQ SCH ×7 (08:04→20:31)
[2020-03-07] MEDS: SODIUM CHLORIDE 0.9% 1,000 ML IV SCH (08:11)
[2020-03-07 09:02] LABS: Calcium 7.4 mg/dL (8.4-10.2); Potassium 4.3 mmol/L (3.5-5.1)
[2020-03-07 09:15] LABS: Basophils % (A) 0 %; Eosinophils # (A) 0.1 k/uL (0-0.7); Eosinophils % (A) 1 %; HCT 27.3 % (39.0-53.0); HGB 8.3 gm/dL (13.0-17.5); Hypochromasia Slight; Lymphocytes # (A) 0.9 k/uL (1.0-4.8); Lymphocytes % (A) 9 %; MCH 28.7 pg (25.0-35.0); MCHC 30.4 g/dL (31.0-37.0); MCV 94.5 fL (80.0-100.0); Mean Platelet Volume 7.9; Monocytes # (A) 0.5 k/uL (0-1.0); Monocytes % (A) 5 %; Neutrophils # (A) 8.6 k/uL (1.3-7.7); Neutrophils % (A) 85 %; Platelet Count 359 k/uL (150-450); RBC 2.89 m/uL (4.30-5.90); RDW 14.4 % (11.5-15.5); WBC 10.2 k/uL (3.8-10.6)
[2020-03-07] MEDS: HYDROcodone/APAP 7.5-325MG 1 EACH TAB PO PRN ×3 (10:06→23:03)
[2020-03-07 11:23] LABS: Glucose,Whole Blood 218 mg/dL (75-99)
--- NOTE | 2020-03-07 16:20 | P.PN ---
Subjective Progress Note Date: 03/07/20 Principal diagnosis: Patient is a 64-year-old male admitted for diabetic hyperosmolar state patient does have some ketosis as well probably starvation ketosis. Patient blood sugar s improved. Patient's serum acidosis resolved electrolyte improved patient's serum creatinine is 133 patient was transitioned to subcutaneous insulin dose of which I'm increasing now as his blood sugars are still not well controlled. Patient was a valid by urology because of bilateral hydronephrosis, urinary retention patient had a Krueger catheter patient will eventually need a cystoscopy once his more stabilized. Patient is less encephalopathic today and able to answer my questions. Patient has staph aureus in the blood and urine repeat blood cultures will be obtained infectious disease will be consulted. 03/02/2020 Patient is comparing of neck pain because of which I'll obtain MRA of the neck or since patient had bacteremia with MRSA. This neck pain is new. Overall there is significant improvement in his clinical condition but patient probably will need to be placed in a subacute rehabilitation PT and OT will evaluate the patient. So far the blood cultures that were obtained yesterday were negative. Constitutional: Denied any fatigue denied any fever. Cardio vascular: denied any chest pain, palpitations Gastrointestinal denied any nausea vomiting Pulmonary: Denied any shortness of breath cough Neurologic denied any new focal deficits All inpatient medications were reviewed and appropriate changes in these medications as dictated in the interval history and assessment and plan. 03/03/2020 Patient is seen and evaluated follow-up and continues to have severe neck pain with the inability to move the head back and forth. Patient underwent an MRI of the neck Showing moderate size left paracentral disc bulge at C3-4, moderate broad-based disc bulge central and left paracentrally at C5-6, mild disc bulge at C6-7, and mild for minimal narrowing due to uncovertebral joint hypertrophy. Patient continues to have bacteremia showing Presumptive Staphylococcus aureus a nd infectious disease is following. Patient is maintained on cefazolin and will continue at this time. Patient was also seen and evaluated by urology recommending cystoscopy and patient had retention and is currently maintained on indwelling Krueger catheter. Patient is currently maintained on long-acting insulin along with sliding scale and pre-meal insulins and will continue at this time. Will make further adjustments as necessary. An echo has been ordered and currently pending at this time. Patient denies any chest pain, shortness of breath, or palpitations. Patient has been afebrile. No reports of nausea or vomiting and patient is tolerating diet. 03/04/2020 Patient can he is still persistent bacteremia with MSSA. Patient can use to be on ceftezolin, we'll repeat the blood cultures tomorrow patient will continue Krueger catheter upon discharge. Patient has degenerative neck disease but the is a sleeping excessively because of Dilaudid Dilaudid will be discontinued and patient will be started on tramadol and [place] will be continued. 03/05/2020 Patient is still having some back pain. Patient is to have bacteremia repeat blood cultures will be obtained tomorrow ultrasound of the kidneys was opted for her bilateral hydronephrosis will also order a transesophageal echocardiogram to rule out any endocarditis discussed with the cardiology as well as infectious disease. Constitutional: Denied any fatigue denied any fever. Cardio vascular: denied any chest pain, palpitations Gastrointestinal denied any nausea vomiting Pulmonary: Denied any shortness of breath cough Neurologic denied any new focal deficits All inpatient medications were reviewed and appropriate changes in these medications as dictated in the interval history and assessment and plan. 03/06/2020 Patient is seen and evaluated in follow-up status post undergoing YAMILA. YAMILA showed no areas of vegetation. Patient was having some shortness of breath and chest pain and labs to been within normal limits. Vital signs were stable. Patient is currently maintained on oxygen via nasal cannula and states the chest pain and shortness of breath have resolved. Patient is maintained on IV antibiotics and will continue at this time. Infectious disease following. Blood cultures continue to remain positive with Staphylococcus aureus. Urology also following and patient may need cystoscopy during admission. Repeat ultrasound of the kidney shows mild bilateral hydronephrosis. Patient continues with an indwelling Krueger catheter. 03/07/2020 Patient is seen in follow-up with no acute overnight issues. Patient continues to be quite weak requiring 2 person max assist with physical therapy today. Repeat blood cultures continue to show Staphylococcus aureus and blood cultures from 03/06/2020 showing gram-positive cocci in clusters. Infectious disease is following. Patient remains on IV antibiotics in the form of nafcillin and will continue at this time. Patient is also maintained on long-acting along with sliding scale and pre-meal insulin and will continue at this time. Case management and social work following and Medicaid currently pending and looking for possible ECF placement. Urology also following and contemplating cystoscopy during hospitalization as patient continues to have persistent bacteremia noted. Patient is currently afebrile with no reports of chest pain or shortness of breath today. No reports of nausea or vomiting and patient is tolerating diet. Objective - Vital Signs Vital signs: Vital Signs Temp 98.3 F 03/07/20 07:15 Pulse 82 03/07/20 07:15 Resp 18 03/07/20 07:15 BP 125/71 03/07/20 07:15 Pulse Ox 96 03/07/20 07:55 Intake & Output 03/06/20 03/07/20 03/07/20 18:59 06:59 18:59 Intake Total 150 1200 Output Total 1575 2900 900 Balance -1425 -1700 -900 Weight 96.1 kg Intake: IV 150 Intake, IV Titration 1200 Amount Sodium Chloride 0.9% 1, 1200 000 ml @ 75 mls/hr IV . [id number] ADRIAN Rx#:[id number] Output: Urine 1575 2900 900 Uretheral (Krueger) 900 Other: Voiding Method Indwelling Catheter Indwelling Catheter Indwelling Catheter - Exam GENERAL: The patient is alert and oriented x3, not in any acute distress. Well developed, well nourished. HEENT: Pupils are round and equally reacting to light. EOMI. No scleral icterus. No conjunctival pallor. Normocephalic, atraumatic. No pharyngeal erythema. No thyromegaly. CARDIOVASCULAR: S1 and S2 present. No murmurs, rubs, or gallops. PULMONARY: Diminished breath sounds bilaterally with some scattered rhonchi noted. No wheezing noted on exam ABDOMEN: Soft, nontender, nondistended, normoactive bowel sounds. No palpable organomegaly. MUSCULOSKELETAL: No joint swelling or deformity. EXTREMITIES: No cyanosis, clubbing, or pedal edema. NEUROLOGICAL: Gross neurological examination did not reveal any focal deficits. Diffusely weak SKIN: No rashes. - Labs CBC & Chem 7: 03/07/20 07:48 03/07/20 07:48 Labs: Abnormal Lab Results - Last 24 Hours (Table) 03/06/20 03/06/20 03/06/20 Range/Units 16:26 20:07 21:20 RBC (4.30-5.90) m/uL Hgb (13.0-17.5) gm/dL Hct (39.0-53.0) % MCHC (31.0-37.0) g/dL Neutrophils # (1.3-7.7) k/uL Lymphocytes # (1.0-4.8) k/uL Sodium (137-145) mmol/L Glucose (74-99) mg/dL POC Glucose (mg/dL) 309 H 329 H 330 H (75-99) mg/dL Calcium (8.4-10.2) mg/dL 03/07/20 03/07/20 03/07/20 Range/Units 06:57 07:48 07:48 RBC 2.89 L (4.30-5.90) m/uL Hgb 8.3 L (13.0-17.5) gm/dL Hct 27.3 L (39.0-53.0) % MCHC 30.4 L (31.0-37.0) g/dL Neutrophils # 8.6 H (1.3-7.7) k/uL Lymphocytes # 0.9 L (1.0-4.8) k/uL Sodium 133 L (137-145) mmol/L Glucose 216 H (74-99) mg/dL POC Glucose (mg/dL) 228 H (75-99) mg/dL Calcium 7.4 L (8.4-10.2) mg/dL 03/07/20 Range/Units 11:21 RBC (4.30-5.90) m/uL Hgb (13.0-17.5) gm/dL Hct (39.0-53.0) % MCHC (31.0-37.0) g/dL Neutrophils # (1.3-7.7) k/uL Lymphocytes # (1.0-4.8) k/uL Sodium (137-145) mmol/L Glucose (74-99) mg/dL POC Glucose (mg/dL) 218 H (75-99) mg/dL Calcium (8.4-10.2) mg/dL Microbiology - Last 24 Hours (Table) 03/06/20 07:30 Blood Culture Gram Stain - Preliminary Blood 03/05/20 06:44 Blood Culture Gram Stain - Final Blood Blood Culture - Final Staphylococcus aureus 03/06/20 07:34 Blood Culture - Final Blood 03/04/20 07:29 Blood Culture Gram Stain - Final Blood Blood Culture - Final Staphylococcus aureus Assessment and Plan Assessment: -Diabetic hyperosmolar state: Blood sugars improved now continue with IV fluids patient the was started on long-acting insulin and pre-meal insulin -Severe Sepsis and bacteremia with MSSA UTI is believed to be the source but patient can history of persistent bacteremia. YAMILA was negative for any signs of vegetation -Hyponatremia: Combined pseudohyponatremia from hyperglycemia along with hypovolemic hyponatremia from excessive diuresis from hyperglycemia. Improved with IV fluids -Lactic acidosis: Secondary to most probably intravascular depletion dehydration. Along with sepsis lactic acidosis improved -Metabolic encephalopathy -Bilateral hydronephrosis with possibility of pyelonephritis leading to h ematuria. Repeat ultrasound of the kidneys continues to show mild bilateral hydronephrosis and patient will likely need cystoscopy during hospitalization. Urology is following. -Leukocytosis possibly secondary to sepsis -Hyperkalemia secondary to metabolic acidosis and hyperglycemia improved now -Anion gap metabolic acidosis resolved -Chronic back pain and degenerative arthritis -DVT prophylaxis subcutaneous heparin -GI prophylaxis Protonix Plan: Patient to continue with current medications, management, and symptomatic treatment. Multiple medical consultations following. Patient continues to have persistent bacteremia and may likely need cystoscopy during hospitalization. Urology following Infectious disease also following and patient is maintained on IV antibiotics in the form of nafcillin and will continue at this time. Will continue to monitor blood sugars closely and repeat a.m. labs. Repeat cultures as well while awaiting bacteremia clearance. Further recommendations to follow. Case management and social work following as patient has no insurance is Medicaid pending and will likely need placement and possible IV antibiotics along with PT/OT therapy in the outpatient setting. Guarded prognosis.
--- NOTE | 2020-03-07 16:30 | PN ---
PROGRESS NOTE DATE OF SERVICE: 03/07/2020 REASON FOR FOLLOWUP: MSSA bacteremia. INTERVAL HISTORY: Patient is currently afebrile. He did have fever of 100 F last night. The patient has some neck pain, no worsening though. No chest pain, shortness of breath or cough. No nausea, no vomiting, no abdominal pain, no diarrhea. PHYSICAL EXAMINATION: Blood pressure 125/71 with a pulse of 82, temperature 98.3. He is 96% on 2 L nasal cannula. General description is a middle-aged male, lying in bed in no distress. RESPIRATORY SYSTEM: Unlabored breathing, clear to auscultation anteriorly. HEART: S1, S2. Regular rate and rhythm. ABDOMEN: Soft, no tenderness. LABS: Hemoglobin 8.1, white count 10.2, BUN of 17, creatinine 1.08. DIAGNOSTIC IMPRESSION AND PLAN: Patient with persistent MRSA bacteremia in this patient who did have extensive workup, source pointing toward urinary source. YAMILA was negative. MRI of the cervical spine was negative as well. May obtain a WBC scan. The films will be reviewed with the radiologist. Continue with cefazolin. Continue supportive care. MMODL / IJN: [id number] /
[2020-03-07 16:33] LABS: Glucose,Whole Blood 140 mg/dL (75-99)
[2020-03-07 20:24] LABS: Glucose,Whole Blood 100 mg/dL (75-99)
--- NOTE | 2020-03-07 23:02 | P.PN ---
Progress Note - Text Progress Note Date: 03/07/20 The patient had a temperature of 100 yesterday evening but has remained for the last 24 hours. He denies any abdominal or flank pain. His urine is grossly clear. White blood count is improved at 10,200. Creatinine is 1.08 and has continued to improved since placement of the Krueger catheter . I reviewed the patient's previous CT scan and discussed this with who had evaluated him last week. At some point cystoscopy will need to be performed but neither of us feel that there is a high likelihood that an abnormality will be found but will explain the patient's persistent bacteremia. I'm in agreement with that a white blood scan would be a reasonable next step to better identify the source of the infection.
[2020-03-08] MEDS: SODIUM CHLORIDE 0.9% 1,000 ML IV SCH ×2 (01:30→12:19)
[2020-03-08] MEDS: NAFCILLIN 2 GM in DEXTROSE 5% IN WATER 100 ML IVPB SCH ×12 (04:55→22:59)
[2020-03-08] MEDS: HYDROcodone/APAP 7.5-325MG 1 EACH TAB PO PRN ×4 (05:21→21:14)
[2020-03-08] MEDS: traMADol 50 MG TAB PO PRN ×4 (07:46→22:58)
[2020-03-08] MEDS: HEPARIN SODIUM,PORCINE 5,000 UNIT/ML 1 ML VIAL SQ SCH ×3 (07:47→22:59)
[2020-03-08] MEDS: INSULIN DETEMIR (LEVEMIR) 100 UNIT/ML SYR SQ SCH (07:47)
[2020-03-08] MEDS: PANTOPRAZOLE 40 MG/10 ML VIAL IV SCH (07:47)
[2020-03-08] MEDS: INSULIN ASPART (NovoLOG) 100 UNIT/ML VIAL SQ SCH ×7 (07:48→21:12)
[2020-03-08 07:50] LABS: Glucose,Whole Blood 143 mg/dL (75-99)
[2020-03-08 09:18] LABS: Basophils # (A) 0.1 k/uL (0-0.2); Basophils % (A) 1 %; Eosinophils # (A) 0.1 k/uL (0-0.7); Eosinophils % (A) 1 %; HCT 30.3 % (39.0-53.0); Hypochromasia Moderate; Lymphocytes # (A) 1.2 k/uL (1.0-4.8); Lymphocytes % (A) 12 %; MCH 28.6 pg (25.0-35.0); MCHC 29.7 g/dL (31.0-37.0); MCV 96.5 fL (80.0-100.0); Mean Platelet Volume 7.8; Monocytes # (A) 0.3 k/uL (0-1.0); Monocytes % (A) 3 %; Neutrophils # (A) 8.5 k/uL (1.3-7.7); Neutrophils % (A) 82 %; Platelet Count 365 k/uL (150-450); RBC 3.14 m/uL (4.30-5.90); RDW 14.2 % (11.5-15.5); WBC 10.3 k/uL (3.8-10.6)
[2020-03-08 09:49] LABS: African American GFR (CKD) >90 (>60 ml/min/1.73 sqM); Anion Gap 5 mmol/L; Blood Urea Nitrogen 17 mg/dL (9-20); Calcium 7.7 mg/dL (8.4-10.2); Carbon Dioxide 30 mmol/L (22-30); Chloride 99 mmol/L (98-107); Glucose 154 mg/dL (74-99); Non-African American GFR(CKD) 87 (>60 ml/min/1.73 sqM); Potassium 4.5 mmol/L (3.5-5.1); Sodium 134 mmol/L (137-145)
[2020-03-08 11:41] LABS: Glucose,Whole Blood 147 mg/dL (75-99)
--- NOTE | 2020-03-08 11:45 | P.PN ---
Progress Note - Text Progress Note Date: 03/08/20 The patient is afebrile. His urine is grossly clear. He has no abdominal or flank pain. White blood count this morning is 10,300. BUN/creatinine continue to improve and are 17/0.94. At this point bilateral retrogrades appear to be unnecessary as the patient's renal function has improved with catheter drainage. At some point cystoscopy will be performed but both Dr. Roa and I feel that this should be deferred until his infection has been better treated.
--- NOTE | 2020-03-08 16:09 | P.PN ---
Subjective Progress Note Date: 03/08/20 Principal diagnosis: Patient is a 64-year-old male admitted for diabetic hyperosmolar state patient does have some ketosis as well probably starvation ketosis. Patient blood sugar s improved. Patient's serum acidosis resolved electrolyte improved patient's serum creatinine is 133 patient was transitioned to subcutaneous insulin dose of which I'm increasing now as his blood sugars are still not well controlled. Patient was a valid by urology because of bilateral hydronephrosis, urinary retention patient had a Krueger catheter patient will eventually need a cystoscopy once his more stabilized. Patient is less encephalopathic today and able to answer my questions. Patient has staph aureus in the blood and urine repeat blood cultures will be obtained infectious disease will be consulted. 03/02/2020 Patient is comparing of neck pain because of which I'll obtain MRA of the neck or since patient had bacteremia with MRSA. This neck pain is new. Overall there is significant improvement in his clinical condition but patient probably will need to be placed in a subacute rehabilitation PT and OT will evaluate the patient. So far the blood cultures that were obtained yesterday were negative. Constitutional: Denied any fatigue denied any fever. Cardio vascular: denied any chest pain, palpitations Gastrointestinal denied any nausea vomiting Pulmonary: Denied any shortness of breath cough Neurologic denied any new focal deficits All inpatient medications were reviewed and appropriate changes in these medications as dictated in the interval history and assessment and plan. 03/03/2020 Patient is seen and evaluated follow-up and continues to have severe neck pain with the inability to move the head back and forth. Patient underwent an MRI of the neck Showing moderate size left paracentral disc bulge at C3-4, moderate broad-based disc bulge central and left paracentrally at C5-6, mild disc bulge at C6-7, and mild for minimal narrowing due to uncovertebral joint hypertrophy. Patient continues to have bacteremia showing Presumptive Staphylococcus aureus a nd infectious disease is following. Patient is maintained on cefazolin and will continue at this time. Patient was also seen and evaluated by urology recommending cystoscopy and patient had retention and is currently maintained on indwelling Krueger catheter. Patient is currently maintained on long-acting insulin along with sliding scale and pre-meal insulins and will continue at this time. Will make further adjustments as necessary. An echo has been ordered and currently pending at this time. Patient denies any chest pain, shortness of breath, or palpitations. Patient has been afebrile. No reports of nausea or vomiting and patient is tolerating diet. 03/04/2020 Patient can he is still persistent bacteremia with MSSA. Patient can use to be on ceftezolin, we'll repeat the blood cultures tomorrow patient will continue Krueger catheter upon discharge. Patient has degenerative neck disease but the is a sleeping excessively because of Dilaudid Dilaudid will be discontinued and patient will be started on tramadol and [place] will be continued. 03/05/2020 Patient is still having some back pain. Patient is to have bacteremia repeat blood cultures will be obtained tomorrow ultrasound of the kidneys was opted for her bilateral hydronephrosis will also order a transesophageal echocardiogram to rule out any endocarditis discussed with the cardiology as well as infectious disease. Constitutional: Denied any fatigue denied any fever. Cardio vascular: denied any chest pain, palpitations Gastrointestinal denied any nausea vomiting Pulmonary: Denied any shortness of breath cough Neurologic denied any new focal deficits All inpatient medications were reviewed and appropriate changes in these medications as dictated in the interval history and assessment and plan. 03/06/2020 Patient is seen and evaluated in follow-up status post undergoing YAMILA. YAMILA showed no areas of vegetation. Patient was having some shortness of breath and chest pain and labs to been within normal limits. Vital signs were stable. Patient is currently maintained on oxygen via nasal cannula and states the chest pain and shortness of breath have resolved. Patient is maintained on IV antibiotics and will continue at this time. Infectious disease following. Blood cultures continue to remain positive with Staphylococcus aureus. Urology also following and patient may need cystoscopy during admission. Repeat ultrasound of the kidney shows mild bilateral hydronephrosis. Patient continues with an indwelling Krueger catheter. 03/07/2020 Patient is seen in follow-up with no acute overnight issues. Patient continues to be quite weak requiring 2 person max assist with physical therapy today. Repeat blood cultures continue to show Staphylococcus aureus and blood cultures from 03/06/2020 showing gram-positive cocci in clusters. Infectious disease is following. Patient remains on IV antibiotics in the form of nafcillin and will continue at this time. Patient is also maintained on long-acting along with sliding scale and pre-meal insulin and will continue at this time. Case management and social work following and Medicaid currently pending and looking for possible ECF placement. Urology also following and contemplating cystoscopy during hospitalization as patient continues to have persistent bacteremia noted. Patient is currently afebrile with no reports of chest pain or shortness of breath today. No reports of nausea or vomiting and patient is tolerating diet. 03/08/2020 Patient is seen and evaluated and follow-up and continues to have generalized pain in his neck and back which is chronic in nature. Most recent blood cultures from 03/07/2020 have shown no growth for the last 24 hours. Infectious disease is following. Patient is maintained on IV cefazolin and will continue at this time. Urology reevaluated the patient recommending outpatient cystoscopy once he infection is more controlled. Patient to continue with indwelling Krueger catheter. Patient continues to be quite weak requiring assistance and has been working with physical therapy. Case management and social work following and looking into possible inpatient rehab. Medicaid is pending. Patient has been afebrile. No reports of chest pain or worsening shortness of breath. Patient denies any nausea or vomiting and is tolerating diet. Hemoglobin is stable at 9.0, sodium is 134, potassium is 4.5, creatinine has improved at 0.94. Blood sugars are being well controlled and closely monitored and will continue with current regimen. Objective - Vital Signs Vital signs: Vital Signs Temp 99.1 F 03/08/20 14:55 Pulse 65 03/08/20 14:55 Resp 16 03/08/20 14:55 BP 122/69 03/08/20 14:55 Pulse Ox 98 03/08/20 14:55 Intake & Output 03/07/20 03/08/20 03/08/20 18:59 06:59 18:59 Intake Total 260 Output Total 1650 2200 1800 Balance -1650 -2200 -1540 Intake: Oral 260 Output: Urine 1650 2200 1800 Uretheral (Krueger) 900 Other: Voiding Method Indwelling Catheter Indwelling Catheter - Exam GENERAL: The patient is alert and oriented x3, not in any acute distress. Well developed, well nourished. HEENT: Pupils are round and equally reacting to light. EOMI. No scleral icterus. No conjunctival pallor. Normocephalic, atraumatic. No pharyngeal erythema. No thyromegaly. CARDIOVASCULAR: S1 and S2 present. No murmurs, rubs, or gallops. PULMONARY: Diminished breath sounds bilaterally with some scattered rhonchi noted. No wheezing noted on exam ABDOMEN: Soft, nontender, nondistended, normoactive bowel sounds. No palpable organomegaly. MUSCULOSKELETAL: No joint swelling or deformity. EXTREMITIES: No cyanosis, clubbing, or pedal edema. NEUROLOGICAL: Gross neurological examination did not reveal any focal deficits. Diffusely weak SKIN: No rashes. - Labs CBC & Chem 7: 03/08/20 08:07 03/08/20 08:07 Labs: Abnormal Lab Results - Last 24 Hours (Table) 03/07/20 03/07/20 03/08/20 Range/Units 16:31 20:20 06:58 RBC (4.30-5.90) m/uL Hgb (13.0-17.5) gm/dL Hct (39.0-53.0) % MCHC (31.0-37.0) g/dL Neutrophils # (1.3-7.7) k/uL Sodium (137-145) mmol/L Glucose (74-99) mg/dL POC Glucose (mg/dL) 140 H 100 H 143 H (75-99) mg/dL Calcium (8.4-10.2) mg/dL 03/08/20 03/08/20 03/08/20 Range/Units 08:07 08:07 11:17 RBC 3.14 L (4.30-5.90) m/uL Hgb 9.0 L (13.0-17.5) gm/dL Hct 30.3 L (39.0-53.0) % MCHC 29.7 L (31.0-37.0) g/dL Neutrophils # 8.5 H (1.3-7.7) k/uL Sodium 134 L (137-145) mmol/L Glucose 154 H (74-99) mg/dL POC Glucose (mg/dL) 147 H (75-99) mg/dL Calcium 7.7 L (8.4-10.2) mg/dL Microbiology - Last 24 Hours (Table) 03/07/20 07:48 Blood Culture - Preliminary Blood No Growth after 24 hours 03/06/20 07:30 Blood Culture Gram Stain - Preliminary Blood Blood Culture - Preliminary Staphylococcus aureus 03/05/20 06:44 Blood Culture Gram Stain - Final Blood Blood Culture - Final Staphylococcus aureus Assessment and Plan Assessment: -Diabetic hyperosmolar state: Blood sugars improved now continue with IV fluids patient the was started on long-acting insulin and pre-meal insulin -Severe Sepsis and bacteremia with MSSA UTI is believed to be the source but patient can history of persistent bacteremia. YAMILA was negative for any signs of vegetation. Most recent blood culture from 03/07/2020 has been negative for 24 hours. -Hyponatremia: Combined pseudohyponatremia from hyperglycemia along with hypovolemic hyponatremia from excessive diuresis from hyperglycemia. Improved with IV fluids -Lactic acidosis: Secondary to most probably intravascular depletion dehydration. Along with sepsis lactic acidosis improved -Metabolic encephalopathy -Bilateral hydronephrosis with possibility of pyelonephritis leading to hematuria. Repeat ultrasound of the kidneys continues to show mild bilateral hydronephrosis. Urology reevaluated patient recommending outpatient cystoscopy once infection further clears. Patient to continue with indwelling Krueger catheter at this time. -Leukocytosis possibly secondary to sepsis -Hyperkalemia secondary to metabolic acidosis and hyperglycemia improved now -Anion gap metabolic acidosis resolved -Chronic back pain and degenerative arthritis -DVT prophylaxis subcutaneous heparin -GI prophylaxis Protonix Plan: Patient to continue with current medications, management, and symptomatic treatment. Multiple medical consultations following. Most recent blood cultures from 03/07/2020 have been negative for 24 hours. Urology following recommending outpatient cystoscopy once infection further clears. Patient to continue with indwelling Krueger catheter at this time. Infectious disease also following and patient is maintained on IV antibiotics in the form of nafcillin and will continue at this time. Will continue to monitor blood sugars closely and repeat a.m. labs. Repeat cultures as well while awaiting bacteremia clearance. Further recommendations to follow. Case management and social work following as patient has no insurance is Medicaid pending and will likely need placement and possible IV antibiotics along with PT/OT therapy in the outpatient setting. Guarded prognosis.
[2020-03-08 17:10] LABS: Glucose,Whole Blood 69 mg/dL (75-99)
[2020-03-08 17:10] LABS: Glucose,Whole Blood 74 mg/dL (75-99)
[2020-03-08 20:52] LABS: Glucose,Whole Blood 110 mg/dL (75-99)
--- NOTE | 2020-03-08 20:59 | PN ---
PROGRESS NOTE DATE OF SERVICE: 03/08/2020 REASON FOR FOLLOWUP: MSSA bacteremia, source likely urinary. INTERVAL HISTORY: Patient is currently afebrile. Patient is breathing comfortably. Has been complaining of pain to the neck. No chest pain. No cough. No abdominal pain. No diarrhea. PHYSICAL EXAMINATION: Blood pressure 152/69 with a pulse of 65, temperature 98.1. He is 98% on 2 L nasal cannula. General description is a middle-aged male lying in bed in no distress. Respiratory system: Unlabored breathing. Clear to auscultation anteriorly. Heart S1, S2. Regular rate and rhythm. Abdomen soft, no tenderness. LABS: Hemoglobin 9.4, white count 10.3, BUN of 17, creatinine 0.94. Blood cultures 03/06, 03/07 so far negative. DIAGNOSTIC IMPRESSION AND PLAN: Patient with persistent MSSA bacteremia possible started with urinary source. The patient's CT and MRI were reviewed with the radiologist yesterday and no other obvious focus. The patient to continue with nafcillin and daily blood cultures until he has cleared his bacteremia. Continue supportive care. MMODL / IJN: [id number] /
[2020-03-09] MEDS: NAFCILLIN 2 GM in DEXTROSE 5% IN WATER 100 ML IVPB SCH ×10 (04:33→22:27)
[2020-03-09] MEDS: HYDROcodone/APAP 7.5-325MG 1 EACH TAB PO PRN ×3 (04:33→17:41)
[2020-03-09] MEDS: SODIUM CHLORIDE 0.9% 1,000 ML IV SCH ×2 (04:35→13:38)
[2020-03-09 07:10] LABS: Glucose,Whole Blood 207 mg/dL (75-99)
[2020-03-09] MEDS: PANTOPRAZOLE 40 MG/10 ML VIAL IV SCH (07:20)
[2020-03-09] MEDS: traMADol 50 MG TAB PO PRN ×3 (07:21→20:31)
[2020-03-09] MEDS: HEPARIN SODIUM,PORCINE 5,000 UNIT/ML 1 ML VIAL SQ SCH ×2 (07:21→15:52)
[2020-03-09] MEDS: INSULIN DETEMIR (LEVEMIR) 100 UNIT/ML SYR SQ SCH (07:21)
[2020-03-09] MEDS: INSULIN ASPART (NovoLOG) 100 UNIT/ML VIAL SQ SCH ×7 (07:33→22:18)
[2020-03-09 10:03] LABS: Basophils % (A) 1 %; Eosinophils # (A) 0.1 k/uL (0-0.7); Eosinophils % (A) 1 %; HCT 25.5 % (39.0-53.0); HGB 7.8 gm/dL (13.0-17.5); Hypochromasia Moderate; Lymphocytes # (A) 0.9 k/uL (1.0-4.8); Lymphocytes % (A) 11 %; MCH 29.2 pg (25.0-35.0); MCHC 30.6 g/dL (31.0-37.0); MCV 95.6 fL (80.0-100.0); Mean Platelet Volume 8.4; Monocytes # (A) 0.4 k/uL (0-1.0); Monocytes % (A) 5 %; Neutrophils # (A) 6.6 k/uL (1.3-7.7); Neutrophils % (A) 82 %; Platelet Count 406 k/uL (150-450); RBC 2.66 m/uL (4.30-5.90); RDW 14.3 % (11.5-15.5)
[2020-03-09 10:09] LABS: Potassium 4.1 mmol/L (3.5-5.1)
[2020-03-09 10:10] LABS: Calcium 7.5 mg/dL (8.4-10.2)
--- NOTE | 2020-03-09 10:52 | P.CONS ---
History of Present Illness - Chief Complaint medical debility - History of Present Illness I had the opportunity see patient for inpatient rehab consultation with regard to medical debility. He was admitted to [facility] February 28 with inability to stand or walk. Apparently fell. Found to be with DKA and hyperosmolar state. Patient known medically noncompliant. Seen by Dr. Bishop for pulmonary. Seen by Dr. Montiel because of chocolate -colored urine, UTI as well as known bilateral hydronephrosis. Seen by Dr. Sheikh for UTI and MSSA sepsis. Seen by cardiology. Chest x-ray demonstrates right infiltrate versus atelectasis. Abdominal and renal ultrasound consistent for negative for stones. C-spine MRI with bulging/herniation C3, 5, 6, all with thecal impression. PT reports maximal assistance for bed mobility, minimum moderate assistance to sit stand and moderate assistance for gait 3 feet with roller walker. OT reports minimal assistance for upper dressing and moderate to maximal assistance for lower dressing. Maximal assistance for bathing, toileting and functional mobility/transfers. Previous functional history as elicited from patient: 65-year-old ambidextrous male who is lives and 2 floor home with girlfriend and girlfriend and son. Girlfriend does the cooking and laundry. Patient retired and in the girlfriend doesn't work. Patient describes is independent with driving, standing shower and gait without device. Does not have PMD. Apparently has history of tobacco and alcohol and just recently quit both. Review of Systems Review of systems: ENT: Denies sneezes or discharge. Eyes: Denies discharge or photophobia. Cardiac: Denies chest pain or palpitation. Pulmonary: Denies cough or shortness of breath. Gastrointestinal: Denies nausea, emesis, constipation, diarrhea. Genitourinary: Denies discharge or frequency. Musculoskeletal: Denies muscle or bone aches. Neurologic:current headache and generalized weakness. Endocrine: Denies shakes or sweats. Oncology: Denies cancers. Dermatologic: Denies rash, itching, pruritus. ALLERGY/immunology: Denies sneezes, rashes. Past Medical History Past Medical History: Diabetes Mellitus, Hyperlipidemia, Hypertension Additional Past Medical History / Comment(s): Signiificant other and rosy state pt has not had insurance so has not been taking meds/seeing physician, NIDDM type II, neuropathy bilateral feet, past nephrolithiasis with pt passing stones on his own, pt passed a couple stones (s.o. saw stones) 2 weeks ago and had hematuria which improved after passing stones but has had weakness and loss of appetite past 2 weeks, spondylosis/chronic low back pain History of Any Multi-Drug Resistant Organisms: None Reported Past Surgical History: No Surgical Hx Reported Additional Past Surgical History / Comment(s): Bilateral cataract removals/lens implants. Past Anesthesia/Blood Transfusion Reactions: Unable to Obtain Additional Past Anesthesia/Blood Transfusion Reaction / Comm: Pt has never had general anesthesia per family Smoking Status: Former smoker - Past Family History Father Family Medical History: Dementia Mother Family Medical History: Cancer Additional Family Medical History / Comment(s): Mother of skin cancer. Medications and Allergies Home Medications Medication Instructions Recorded Confirmed Type No Known Home Medications 02/29/20 02/29/20 History Allergies Allergy/AdvReac Type Severity Reaction Status Date / Time No Known Allergies Allergy Verified 02/29/20 10:04 Physical Exam Vitals: Vital Signs Temp Pulse Resp BP Pulse Ox 03/09/20 07:06 98.3 F 74 18 119/75 99 03/09/20 01:38 97.4 F L 58 L 16 110/68 98 03/09/20 00:00 65 16 03/08/20 20:00 65 16 03/08/20 19:00 98.7 F 66 16 111/58 98 03/08/20 14:55 99.1 F 65 16 122/69 98 Intake and Output 03/08/20 03/09/20 03/09/20 22:59 06:59 14:59 Output Total 1000 1350 Balance -1000 -1350 Output: Urine 1000 1350 Other: Voiding Method Indwelling Catheter Indwelling Catheter Indwelling Catheter Skin: Good color, texture, turgor. General: overweight build and comfortable appearance. Head: Normocephalic, atraumatic. Eyes: Symmetric. Pupils equal round. Ears: Symmetric. Hearing within normal limits. Mouth: Clear. Neck: Supple. Carotid without bruit. Cardiac: Regular rate and rhythm. Lungs: Clear anteriorly and posteriorly. Abdomen: Soft active nontender. Extremities: Normal tone. Neurological: Mental status: Alert, cooperative, pleasant. Cranial nerves: Symmetric facial tone and trapezius. Motor: active movement all 4 limbs. Sensation: Intact throughout. DTRs: Symmetric and equal throughout. Mobility: did not attempt to sit or stand due to headache. Results CBC & Chem 7: 03/09/20 09:45 03/09/20 09:45 Labs: Abnormal Lab Results - Last 24 Hours (Table) 03/08/20 03/08/20 03/08/20 Range/Units 11:17 16:55 17:06 RBC (4.30-5.90) m/uL Hgb (13.0-17.5) gm/dL Hct (39.0-53.0) % MCHC (31.0-37.0) g/dL Lymphocytes # (1.0-4.8) k/uL Sodium (137-145) mmol/L Chloride (98-107) mmol/L Carbon Dioxide (22-30) mmol/L Glucose (74-99) mg/dL POC Glucose (mg/dL) 147 H 69 L 74 L (75-99) mg/dL Calcium (8.4-10.2) mg/dL 03/08/20 03/09/20 03/09/20 Range/Units 20:48 07:04 09:45 RBC 2.66 L (4.30-5.90) m/uL Hgb 7.8 L (13.0-17.5) gm/dL Hct 25.5 L (39.0-53.0) % MCHC 30.6 L (31.0-37.0) g/dL Lymphocytes # 0.9 L (1.0-4.8) k/uL Sodium (137-145) mmol/L Chloride (98-107) mmol/L Carbon Dioxide (22-30) mmol/L Glucose (74-99) mg/dL POC Glucose (mg/dL) 110 H 207 H (75-99) mg/dL Calcium (8.4-10.2) mg/dL 03/09/20 Range/Units 09:45 RBC (4.30-5.90) m/uL Hgb (13.0-17.5) gm/dL Hct (39.0-53.0) % MCHC (31.0-37.0) g/dL Lymphocytes # (1.0-4.8) k/uL Sodium 132 L (137-145) mmol/L Chloride 96 L (98-107) mmol/L Carbon Dioxide 32 H (22-30) mmol/L Glucose 204 H (74-99) mg/dL POC Glucose (mg/dL) (75-99) mg/dL Calcium 7.5 L (8.4-10.2) mg/dL Microbiology - Last 24 Hours (Table) 03/07/20 07:48 Blood Culture - Preliminary Blood No Growth after 48 hours 03/06/20 07:30 Blood Culture Gram Stain - Final Blood Blood Culture - Final Staphylococcus aureus Assessment and Plan (1) Acquired hydronephrosis due to obstruction of bladder Current Visit: Yes Status: Acute Code(s): N13.30 - UNSPECIFIED HYD RONEPHROSIS; N32.89 - OTHER SPECIFIED DISORDERS OF BLADDER SNOMED Code(s): 464708578 (2) DKA (diabetic ketoacidoses) Current Visit: Yes Status: Acute Code(s): E11.10 - TYPE 2 DIABETES MELLITUS WITH KETOACIDOSIS WITHOUT COMA SNOMED Code(s): 922035635 (3) Gross hematuria Current Visit: Yes Status: Acute Code(s): R31.0 - GROSS HEMATURIA SNOMED Code(s): 202558529 (4) Hyperkalemia Current Visit: Yes Status: Acute Code(s): E87.5 - HYPERKALEMIA SNOMED Code(s): 34248230 (5) Hyponatremia Current Visit: Yes Status: Acute Code(s): E87.1 - HYPO-OSMOLALITY AND HYPONATREMIA SNOMED Code(s): 41797525 (6) Retention of urine, unspecified Current Visit: Yes Status: Acute Code(s): R33.9 - RETENTION OF URINE, UNSPECIFIED SNOMED Code(s): 593809534 Plan: impression: 1. Medical debility. 2. Diabetes with a DKA. 3. Hypertension. 4. Dyslipidemia. 5. UTI and MSSA sepsis. 4. Bilateral hydronephrosis and now with retention of urine. Comments and plan: At this time PT and OT are ongoing. Safety concerns noted. At patient is aware possible inpatient rehab. admission currently complicated bypending status of Medicaid application. This was discussed with sr. social media & mobile manager.
[2020-03-09 11:55] LABS: Glucose,Whole Blood 215 mg/dL (75-99)
--- NOTE | 2020-03-09 15:24 | P.PN ---
Subjective Progress Note Date: 03/09/20 Principal diagnosis: Patient is a 64-year-old male admitted for diabetic hyperosmolar state patient does have some ketosis as well probably starvation ketosis. Patient blood sugar s improved. Patient's serum acidosis resolved electrolyte improved patient's serum creatinine is 133 patient was transitioned to subcutaneous insulin dose of which I'm increasing now as his blood sugars are still not well controlled. Patient was a valid by urology because of bilateral hydronephrosis, urinary retention patient had a Krueger catheter patient will eventually need a cystoscopy once his more stabilized. Patient is less encephalopathic today and able to answer my questions. Patient has staph aureus in the blood and urine repeat blood cultures will be obtained infectious disease will be consulted. 03/02/2020 Patient is comparing of neck pain because of which I'll obtain MRA of the neck or since patient had bacteremia with MRSA. This neck pain is new. Overall there is significant improvement in his clinical condition but patient probably will need to be placed in a subacute rehabilitation PT and OT will evaluate the patient. So far the blood cultures that were obtained yesterday were negative. Constitutional: Denied any fatigue denied any fever. Cardio vascular: denied any chest pain, palpitations Gastrointestinal denied any nausea vomiting Pulmonary: Denied any shortness of breath cough Neurologic denied any new focal deficits All inpatient medications were reviewed and appropriate changes in these medications as dictated in the interval history and assessment and plan. 03/03/2020 Patient is seen and evaluated follow-up and continues to have severe neck pain with the inability to move the head back and forth. Patient underwent an MRI of the neck Showing moderate size left paracentral disc bulge at C3-4, moderate broad-based disc bulge central and left paracentrally at C5-6, mild disc bulge at C6-7, and mild for minimal narrowing due to uncovertebral joint hypertrophy. Patient continues to have bacteremia showing Presumptive Staphylococcus aureus a nd infectious disease is following. Patient is maintained on cefazolin and will continue at this time. Patient was also seen and evaluated by urology recommending cystoscopy and patient had retention and is currently maintained on indwelling Krueger catheter. Patient is currently maintained on long-acting insulin along with sliding scale and pre-meal insulins and will continue at this time. Will make further adjustments as necessary. An echo has been ordered and currently pending at this time. Patient denies any chest pain, shortness of breath, or palpitations. Patient has been afebrile. No reports of nausea or vomiting and patient is tolerating diet. 03/04/2020 Patient can he is still persistent bacteremia with MSSA. Patient can use to be on ceftezolin, we'll repeat the blood cultures tomorrow patient will continue Krueger catheter upon discharge. Patient has degenerative neck disease but the is a sleeping excessively because of Dilaudid Dilaudid will be discontinued and patient will be started on tramadol and Logan will be continued. 03/05/2020 Patient is still having some back pain. Patient is to have bacteremia repeat blood cultures will be obtained tomorrow ultrasound of the kidneys was opted for her bilateral hydronephrosis will also order a transesophageal echocardiogram to rule out any endocarditis discussed with the cardiology as well as infectious disease. Constitutional: Denied any fatigue denied any fever. Cardio vascular: denied any chest pain, palpitations Gastrointestinal denied any nausea vomiting Pulmonary: Denied any shortness of breath cough Neurologic denied any new focal deficits All inpatient medications were reviewed and appropriate changes in these medications as dictated in the interval history and assessment and plan. 03/06/2020 Patient is seen and evaluated in follow-up status post undergoing YAMILA. YAMILA showed no areas of vegetation. Patient was having some shortness of breath and chest pain and labs to been within normal limits. Vital signs were stable. Patient is currently maintained on oxygen via nasal cannula and states the chest pain and shortness of breath have resolved. Patient is maintained on IV antibiotics and will continue at this time. Infectious disease following. Blood cultures continue to remain positive with Staphylococcus aureus. Urology also following and patient may need cystoscopy during admission. Repeat ultrasound of the kidney shows mild bilateral hydronephrosis. Patient continues with an indwelling Krueger catheter. 03/07/2020 Patient is seen in follow-up with no acute overnight issues. Patient continues to be quite weak requiring 2 person max assist with physical therapy today. Repeat blood cultures continue to show Staphylococcus aureus and blood cultures from 03/06/2020 showing gram-positive cocci in clusters. Infectious disease is following. Patient remains on IV antibiotics in the form of nafcillin and will continue at this time. Patient is also maintained on long-acting along with sliding scale and pre-meal insulin and will continue at this time. Case management and social work following and Medicaid currently pending and looking for possible ECF placement. Urology also following and contemplating cystoscopy during hospitalization as patient continues to have persistent bacteremia noted. Patient is currently afebrile with no reports of chest pain or shortness of breath today. No reports of nausea or vomiting and patient is tolerating diet. 03/08/2020 Patient is seen and evaluated and follow-up and continues to have generalized pain in his neck and back which is chronic in nature. Most recent blood cultures from 03/07/2020 have shown no growth for the last 24 hours. Infectious disease is following. Patient is maintained on IV cefazolin and will continue at this time. Urology reevaluated the patient recommending outpatient cystoscopy once he infection is more controlled. Patient to continue with indwelling Krueger catheter. Patient continues to be quite weak requiring assistance and has been working with physical therapy. Case management and social work following and looking into possible inpatient rehab. Medicaid is pending. Patient has been afebrile. No reports of chest pain or worsening shortness of breath. Patient denies any nausea or vomiting and is tolerating diet. Hemoglobin is stable at 9.0, sodium is 134, potassium is 4.5, creatinine has improved at 0.94. Blood sugars are being well controlled and closely monitored and will continue with current regimen. 03/09/2020 Patient is seen in follow-up and continues to be quite weak and also continues to have generalized discomfort in his neck and back. Patient was seen and evaluated by Dr. Feng today for possible inpatient rehab. Medicaid is still pending at this time. Social work following closely and working on discharge planning needs. Patient is maintained on nafcillin and will continue at this time. Infectious disease is following. Repeat Blood cultures from 03/07 and 03/08 thus far remain negative. Blood sugars being closely monitored. White blood count is 8.0. Hemoglobin is 7.8 today with no active sites of bleeding noted. Patient continues with an indwelling Krueger catheter. Will repeat a.m. labs and continue to monitor closely. Patient denies any chest pain or palpitations. Patient is afebrile. No reports of nausea or vomiting and patie nt is tolerating diet. Objective - Vital Signs Vital signs: Vital Signs Temp 98.3 F 03/09/20 07:06 Pulse 74 03/09/20 07:06 Resp 18 03/09/20 07:06 BP 119/75 03/09/20 07:06 Pulse Ox 99 03/09/20 07:06 Intake & Output 03/08/20 03/09/20 03/09/20 18:59 06:59 18:59 Intake Total 260 Output Total 1800 2350 Balance -1540 -2350 Weight 96.1 kg Intake: Oral 260 Output: Urine 1800 2350 Other: Voiding Method Indwelling Catheter Indwelling Catheter - Exam GENERAL: The patient is alert and oriented x3, not in any acute distress. Well developed, well nourished. HEENT: Pupils are round and equally reacting to light. EOMI. No scleral icterus. No conjunctival pallor. Normocephalic, atraumatic. No pharyngeal erythema. No thyromegaly. CARDIOVASCULAR: S1 and S2 present. No murmurs, rubs, or gallops. PULMONARY: Diminished breath sounds bilaterally with some scattered rhonchi noted. No wheezing noted on exam ABDOMEN: Soft, nontender, nondistended, normoactive bowel sounds. No palpable organomegaly. MUSCULOSKELETAL: No joint swelling or deformity. EXTREMITIES: No cyanosis, clubbing, or pedal edema. NEUROLOGICAL: Gross neurological examination did not reveal any focal deficits. Diffusely weak SKIN: No rashes. - Labs CBC & Chem 7: 03/09/20 09:45 03/09/20 09:45 Labs: Abnormal Lab Results - Last 24 Hours (Table) 03/08/20 03/08/20 03/08/20 Range/Units 16:55 17:06 20:48 RBC (4.30-5.90) m/uL Hgb (13.0-17.5) gm/dL Hct (39.0-53.0) % MCHC (31.0-37.0) g/dL Lymphocytes # (1.0-4.8) k/uL Sodium (137-145) mmol/L Chloride (98-107) mmol/L Carbon Dioxide (22-30) mmol/L Glucose (74-99) mg/dL POC Glucose (mg/dL) 69 L 74 L 110 H (75-99) mg/dL Calcium (8.4-10.2) mg/dL 03/09/20 03/09/20 03/09/20 Range/Units 07:04 09:45 09:45 RBC 2.66 L (4.30-5.90) m/uL Hgb 7.8 L (13.0-17.5) gm/dL Hct 25.5 L (39.0-53.0) % MCHC 30.6 L (31.0-37.0) g/dL Lymphocytes # 0.9 L (1.0-4.8) k/uL Sodium 132 L (137-145) mmol/L Chloride 96 L (98-107) mmol/L Carbon Dioxide 32 H (22-30) mmol/L Glucose 204 H (74-99) mg/dL POC Glucose (mg/dL) 207 H (75-99) mg/dL Calcium 7.5 L (8.4-10.2) mg/dL 03/09/20 Range/Units 11:54 RBC (4.30-5.90) m/uL Hgb (13.0-17.5) gm/dL Hct (39.0-53.0) % MCHC (31.0-37.0) g/dL Lymphocytes # (1.0-4.8) k/uL Sodium (137-145) mmol/L Chloride (98-107) mmol/L Carbon Dioxide (22-30) mmol/L Glucose (74-99) mg/dL POC Glucose (mg/dL) 215 H (75-99) mg/dL Calcium (8.4-10.2) mg/dL Microbiology - Last 24 Hours (Table) 03/08/20 08:07 Blood Culture - Preliminary Blood No Growth after 24 hours 03/07/20 07:48 Blood Culture - Preliminary Blood No Growth after 48 hours 03/06/20 07:30 Blood Culture Gram Stain - Final Blood Blood Culture - Final Staphylococcus aureus Assessment and Plan Assessment: -Diabetic hyperosmolar state: Blood sugars improved now continue with IV fluids patient the was started on long-acting insulin and pre-meal insulin -Severe Sepsis and bacteremia with MSSA UTI is believed to be the source but patient can history of persistent bacteremia. YAMILA was negative for any signs of vegetation. Most recent blood culture from 03/07/2020 has been negative for 24 hours. -Hyponatremia: Combined pseudohyponatremia from hyperglycemia along with hypovolemic hyponatremia from excessive diuresis from hyperglycemia. Improved with IV fluids -Lactic acidosis: Secondary to most probably intravascular depletion dehydrati on. Along with sepsis lactic acidosis improved -Metabolic encephalopathy -Bilateral hydronephrosis with possibility of pyelonephritis leading to hematuria. Repeat ultrasound of the kidneys continues to show mild bilateral hydronephrosis. Urology reevaluated patient recommending outpatient cystoscopy once infection further clears. Patient to continue with indwelling Krueger catheter at this time. -Leukocytosis possibly secondary to sepsis -Hyperkalemia secondary to metabolic acidosis and hyperglycemia improved now -Anion gap metabolic acidosis resolved -Chronic back pain and degenerative arthritis -DVT prophylaxis subcutaneous heparin -GI prophylaxis Protonix Plan: Patient to continue with current medications, management, and symptomatic treatment. Multiple medical consultations following. Most recent blood cultures from 03/07/2020 and 03/08/2020 have been negative for 48 hours. In fectious disease also following and patient is maintained on IV antibiotics in the form of nafcillin and will continue at this time. Will continue to monitor blood sugars closely and repeat a.m. labs. Further recommendations to follow. Patient was seen and evaluated by Dr. Feng with the possibility of inpatient rehab at [facility] in case being reviewed. Case management and social work following as patient has no insurance is Medicaid pending and will likely need placement and possible IV antibiotics along with PT/OT therapy in the outpatient setting. Will discuss with infectious disease about the possibility of IV antibiotics in the outpatient setting. Guarded prognosis.
[2020-03-09 17:11] LABS: Glucose,Whole Blood 149 mg/dL (75-99)
[2020-03-09 21:26] LABS: Glucose,Whole Blood 83 mg/dL (75-99)
--- NOTE | 2020-03-10 00:01 | PN ---
PROGRESS NOTE DATE OF SERVICE: 03/09/2020 REASON FOR FOLLOWUP: MSSA bacteremia likely urinary source. INTERVAL HISTORY: The patient is currently afebrile, has been breathing comfortably. The patient's neck pain has decreased in intensity. Denies having any chest pain or cough. No nausea, no vomiting. No abdominal pain or diarrhea. PHYSICAL EXAMINATION: Blood pressure is 112/57 with a pulse of 77 temperature 99.2. He is 93% on room air. General description is a middle-aged male up in the chair in no distress. RESPIRATORY SYSTEM: Unlabored breathing, clear to auscultation. HEART: S1, S2. Regular rate and rhythm. ABDOMEN: Soft, no tenderness. LABS: Hemoglobin 7.8 with white count of 8.0, BUN of 17, creatinine 1.08. Blood cultures from 03/07 and 03/08 so far negative. DIAGNOSTIC IMPRESSION AND PLAN: Patient with MSSA bacteremia, likely source is urinary as the patient did have extensive workup and no other focus of infection. The patient;s blood cultures from 03/07 if remains to be negative by tomorrow he should be able to get a PICC line. Antibiotic will be switched to cefazolin 2 grams q.8 for total of 6 weeks and a close outpatient followup. MMODL / IJN: [id number] /
[2020-03-10] MEDS: HYDROcodone/APAP 7.5-325MG 1 EACH TAB PO PRN ×4 (00:42→18:04)
[2020-03-10] MEDS: NAFCILLIN 2 GM in DEXTROSE 5% IN WATER 100 ML IVPB SCH ×12 (00:42→21:18)
[2020-03-10] MEDS: HEPARIN SODIUM,PORCINE 5,000 UNIT/ML 1 ML VIAL SQ SCH ×3 (00:45→16:05)
[2020-03-10] MEDS: traMADol 50 MG TAB PO PRN ×4 (03:21→21:18)
[2020-03-10] MEDS: SODIUM CHLORIDE 0.9% 1,000 ML IV SCH ×2 (04:45→18:42)
[2020-03-10 07:08] LABS: Glucose,Whole Blood 178 mg/dL (75-99)
[2020-03-10] MEDS: PANTOPRAZOLE 40 MG/10 ML VIAL IV SCH (08:00)
[2020-03-10] MEDS: INSULIN DETEMIR (LEVEMIR) 100 UNIT/ML SYR SQ SCH (08:00)
[2020-03-10] MEDS: INSULIN ASPART (NovoLOG) 100 UNIT/ML VIAL SQ SCH ×7 (08:00→22:57)
[2020-03-10 11:00] LABS: Calcium 8.5 mg/dL (8.4-10.2)
[2020-03-10 11:05] LABS: Basophils # (A) 0.1 k/uL (0-0.2); Basophils % (A) 1 %; Eosinophils # (A) 0.1 k/uL (0-0.7); Eosinophils % (A) 1 %; HCT 31.4 % (39.0-53.0); Hypochromasia Slight; Lymphocytes # (A) 1.2 k/uL (1.0-4.8); Lymphocytes % (A) 13 %; MCH 29.2 pg (25.0-35.0); MCHC 31.3 g/dL (31.0-37.0); MCV 93.2 fL (80.0-100.0); Mean Platelet Volume 7.6; Monocytes # (A) 0.4 k/uL (0-1.0); Monocytes % (A) 5 %; Neutrophils # (A) 7.5 k/uL (1.3-7.7); Neutrophils % (A) 80 %; Platelet Count 590 k/uL (150-450); RBC 3.37 m/uL (4.30-5.90); RDW 14.4 % (11.5-15.5); WBC 9.4 k/uL (3.8-10.6)
[2020-03-10 11:06] LABS: HGB 9.8 gm/dL (13.0-17.5)
[2020-03-10 11:14] LABS: Potassium 3.6 mmol/L (3.5-5.1)
[2020-03-10 11:18] LABS: Glucose,Whole Blood 100 mg/dL (75-99)
[2020-03-10] MEDS ORDERED: TAMSULOSIN 0.4 MG CAP.ER.24H PO STA (16:27)
--- NOTE | 2020-03-10 16:32 | P.PN ---
Subjective Progress Note Date: 03/10/20 Principal diagnosis: Patient is a 64-year-old male admitted for diabetic hyperosmolar state patient does have some ketosis as well probably starvation ketosis. Patient blood sugar s improved. Patient's serum acidosis resolved electrolyte improved patient's serum creatinine is 133 patient was transitioned to subcutaneous insulin dose of which I'm increasing now as his blood sugars are still not well controlled. Patient was a valid by urology because of bilateral hydronephrosis, urinary retention patient had a Krueger catheter patient will eventually need a cystoscopy once his more stabilized. Patient is less encephalopathic today and able to answer my questions. Patient has staph aureus in the blood and urine repeat blood cultures will be obtained infectious disease will be consulted. 03/02/2020 Patient is comparing of neck pain because of which I'll obtain MRA of the neck or since patient had bacteremia with MRSA. This neck pain is new. Overall there is significant improvement in his clinical condition but patient probably will need to be placed in a subacute rehabilitation PT and OT will evaluate the patient. So far the blood cultures that were obtained yesterday were negative. Constitutional: Denied any fatigue denied any fever. Cardio vascular: denied any chest pain, palpitations Gastrointestinal denied any nausea vomiting Pulmonary: Denied any shortness of breath cough Neurologic denied any new focal deficits All inpatient medications were reviewed and appropriate changes in these medications as dictated in the interval history and assessment and plan. 03/03/2020 Patient is seen and evaluated follow-up and continues to have severe neck pain with the inability to move the head back and forth. Patient underwent an MRI of the neck Showing moderate size left paracentral disc bulge at C3-4, moderate broad-based disc bulge central and left paracentrally at C5-6, mild disc bulge at C6-7, and mild for minimal narrowing due to uncovertebral joint hypertrophy. Patient continues to have bacteremia showing Presumptive Staphylococcus aureus a nd infectious disease is following. Patient is maintained on cefazolin and will continue at this time. Patient was also seen and evaluated by urology recommending cystoscopy and patient had retention and is currently maintained on indwelling Krueger catheter. Patient is currently maintained on long-acting insulin along with sliding scale and pre-meal insulins and will continue at this time. Will make further adjustments as necessary. An echo has been ordered and currently pending at this time. Patient denies any chest pain, shortness of breath, or palpitations. Patient has been afebrile. No reports of nausea or vomiting and patient is tolerating diet. 03/04/2020 Patient can he is still persistent bacteremia with MSSA. Patient can use to be on ceftezolin, we'll repeat the blood cultures tomorrow patient will continue Krueger catheter upon discharge. Patient has degenerative neck disease but the is a sleeping excessively because of Dilaudid Dilaudid will be discontinued and patient will be started on tramadol and Moore will be continued. 03/05/2020 Patient is still having some back pain. Patient is to have bacteremia repeat blood cultures will be obtained tomorrow ultrasound of the kidneys was opted for her bilateral hydronephrosis will also order a transesophageal echocardiogram to rule out any endocarditis discussed with the cardiology as well as infectious disease. Constitutional: Denied any fatigue denied any fever. Cardio vascular: denied any chest pain, palpitations Gastrointestinal denied any nausea vomiting Pulmonary: Denied any shortness of breath cough Neurologic denied any new focal deficits All inpatient medications were reviewed and appropriate changes in these medications as dictated in the interval history and assessment and plan. 03/06/2020 Patient is seen and evaluated in follow-up status post undergoing YAMILA. YAMILA showed no areas of vegetation. Patient was having some shortness of breath and chest pain and labs to been within normal limits. Vital signs were stable. Patient is currently maintained on oxygen via nasal cannula and states the chest pain and shortness of breath have resolved. Patient is maintained on IV antibiotics and will continue at this time. Infectious disease following. Blood cultures continue to remain positive with Staphylococcus aureus. Urology also following and patient may need cystoscopy during admission. Repeat ultrasound of the kidney shows mild bilateral hydronephrosis. Patient continues with an indwelling Krueger catheter. 03/07/2020 Patient is seen in follow-up with no acute overnight issues. Patient continues to be quite weak requiring 2 person max assist with physical therapy today. Repeat blood cultures continue to show Staphylococcus aureus and blood cultures from 03/06/2020 showing gram-positive cocci in clusters. Infectious disease is following. Patient remains on IV antibiotics in the form of nafcillin and will continue at this time. Patient is also maintained on long-acting along with sliding scale and pre-meal insulin and will continue at this time. Case management and social work following and Medicaid currently pending and looking for possible ECF placement. Urology also following and contemplating cystoscopy during hospitalization as patient continues to have persistent bacteremia noted. Patient is currently afebrile with no reports of chest pain or shortness of breath today. No reports of nausea or vomiting and patient is tolerating diet. 03/08/2020 Patient is seen and evaluated and follow-up and continues to have generalized pain in his neck and back which is chronic in nature. Most recent blood cultures from 03/07/2020 have shown no growth for the last 24 hours. Infectious disease is following. Patient is maintained on IV cefazolin and will continue at this time. Urology reevaluated the patient recommending outpatient cystoscopy once he infection is more controlled. Patient to continue with indwelling Krueger catheter. Patient continues to be quite weak requiring assistance and has been working with physical therapy. Case management and social work following and looking into possible inpatient rehab. Medicaid is pending. Patient has been afebrile. No reports of chest pain or worsening shortness of breath. Patient denies any nausea or vomiting and is tolerating diet. Hemoglobin is stable at 9.0, sodium is 134, potassium is 4.5, creatinine has improved at 0.94. Blood sugars are being well controlled and closely monitored and will continue with current regimen. 03/09/2020 Patient is seen in follow-up and continues to be quite weak and also continues to have generalized discomfort in his neck and back. Patient was seen and evaluated by Dr. Feng today for possible inpatient rehab. Medicaid is still pending at this time. Social work following closely and working on discharge planning needs. Patient is maintained on nafcillin and will continue at this time. Infectious disease is following. Repeat Blood cultures from 03/07 and 03/08 thus far remain negative. Blood sugars being closely monitored. White blood count is 8.0. Hemoglobin is 7.8 today with no active sites of bleeding noted. Patient continues with an indwelling Krueger catheter. Will repeat a.m. labs and continue to monitor closely. Patient denies any chest pain or palpitations. Patient is afebrile. No reports of nausea or vomiting and patie nt is tolerating diet. 03/10/2020 patient is seen and evaluated and follow-up and continues to have generalized neck and back pain and remains quite weak. Patient continues to work with physical therapy although requiring assistance with position changes and gait. [facility] inpatient rehab currently reviewing his chart for possible inpatient rehab. Medicaid remains pending. Patient is currently maintained on nafcillin and infectious disease is following closely. Repeat blood cultures remain negative for 48 hours now. Patient will still be requiring IV antibiotics for at least another 6 weeks and patient is arranged to have a PICC line placed. patient continues to have an indwelling Krueger catheter and an order for removal is being placed. Continue to monitor for retention and will initiate Flomax. If retention continues may need indwelling Krueger catheter replaced. Currently patient denies any chest pain, shortness of breath, or palpitations. Patient is afebrile. No reports of nausea or vomiting and patient is tolerating diet. Continue to monitor closely. Objective - Vital Signs Vital signs: Vital Signs Temp 98.7 F 03/10/20 14:11 Pulse 81 03/10/20 14:11 Resp 17 03/10/20 14:11 BP 104/56 03/10/20 14:11 Pulse Ox 95 03/10/20 14:11 Intake & Output 03/09/20 03/10/20 03/10/20 18:59 06:59 18:59 Output Total 1100 2700 850 Balance -1100 -2700 -850 Weight 96.1 kg Output: Urine 1100 2700 850 Other: Voiding Method Indwelling Catheter Indwelling Catheter Indwelling Catheter - Exam GENERAL: The patient is alert and oriented x3, not in any acute distress. Well developed, well nourished. HEENT: Pupils are round and equally reacting to light. EOMI. No scleral icterus. No conjunctival pallor. Normocephalic, atraumatic. No pharyngeal erythema. No thyromegaly. CARDIOVASCULAR: S1 and S2 present. No murmurs, rubs, or gallops. PULMONARY: Diminished breath sounds bilaterally with some scattered rhonchi noted. No wheezing noted on exam ABDOMEN: Soft, nontender, nondistended, normoactive bowel sounds. No palpable organomegaly. MUSCULOSKELETAL: No joint swelling or deformity. EXTREMITIES: No cyanosis, clubbing, or pedal edema. NEUROLOGICAL: Gross neurological examination did not reveal any focal deficits. Diffusely weak SKIN: No rashes. - Labs CBC & Chem 7: 03/10/20 10:01 03/10/20 10:01 Labs: Abnormal Lab Results - Last 24 Hours (Table) 03/09/20 03/10/20 03/10/20 Range/Units 17:03 07:06 10:01 RBC 3.37 L (4.30-5.90) m/uL Hgb 9.8 L D (13.0-17.5) gm/dL Hct 31.4 L (39.0-53.0) % Plt Count 590 H (150-450) k/uL Sodium (137-145) mmol/L Chloride (98-107) mmol/L Carbon Dioxide (22-30) mmol/L Glucose (74-99) mg/dL POC Glucose (mg/dL) 149 H 178 H (75-99) mg/dL 03/10/20 03/10/20 Range/Units 10:01 11:17 RBC (4.30-5.90) m/uL Hgb (13.0-17.5) gm/dL Hct (39.0-53.0) % Plt Count (150-450) k/uL Sodium 134 L (137-145) mmol/L Chloride 95 L (98-107) mmol/L Carbon Dioxide 31 H (22-30) mmol/L Glucose 157 H (74-99) mg/dL POC Glucose (mg/dL) 100 H (75-99) mg/dL Microbiology - Last 24 Hours (Table) 03/08/20 08:07 Blood Culture - Preliminary Blood No Growth after 48 hours 03/07/20 07:48 Blood Culture - Preliminary Blood No Growth after 72 hours 03/09/20 06:55 Blood Culture - Preliminary Blood No Growth after 24 hours Assessment and Plan Assessment: -Diabetic hyperosmolar state: Blood sugars improved -Severe Sepsis and bacteremia with MSSA UTI is believed to be the source. YAMILA was negative for any signs of vegetation. Most recent blood culture from 03/07/2020 has been negative for 48 hours. infectious disease following patient is maintained on nafcillin. Blood cultures repeated daily and patient awaiting to receive a PICC line for continued IV antibiotic therapy in the outpatient setting. -Hyponatremia: Combined pseudohyponatremia from hyperglycemia along with hypovolemic hyponatremia from excessive diuresis from hyperglycemia. Improved with IV fluids -Lactic acidosis: Secondary to most probably intravascular depletion dehydration. Along with sepsis lactic acidosis improved -Metabolic encephalopathy -Bilateral hydronephrosis with possibility of pyelonephritis leading to sabino turia. Repeat ultrasound of the kidneys continues to show mild bilateral hydronephrosis. Urology reevaluated patient recommending outpatient cystoscopy once infection further clears. -Leukocytosis possibly secondary to sepsis -Hyperkalemia secondary to metabolic acidosis and hyperglycemia improved now -Anion gap metabolic acidosis resolved -Chronic back pain and degenerative arthritis -DVT prophylaxis subcutaneous heparin -GI prophylaxis Protonix Plan: Patient to continue with current medications, management, and symptomatic treatment. Multiple medical consultations following. Most recent blood cultures from 03/07/2020 and 03/08/2020 have been negative for 48 hours. Infectious disease also following and patient is maintained on IV antibiotics in the form of nafcillin and will continue at this time. Will continue to monitor blood sugars closely and repeat a.m. labs. Further recommendations to follow. Patient was seen and evaluated by Dr. Feng with the possibility of inpatient rehab at [facility] in case being reviewed. Case management and social work following as patient has no insurance is Medicaid pending and will likely need placement and possible IV antibiotics along with PT/OT therapy in the outpatient setting. an order for PICC line placed as patient will need at least 6 weeks of IV antibiotic therapy in the outpatient setting. Guarded prognosis.
[2020-03-10 16:50] LABS: Glucose,Whole Blood 166 mg/dL (75-99)
--- NOTE | 2020-03-10 17:18 | PN ---
PROGRESS NOTE DATE OF SERVICE: 03/10/2020 REASON FOR VISIT: MSSA bacteremia, likely urinary source. INTERVAL HISTORY: Patient is currently afebrile. Patient is breathing comfortably. Still some pain to the leg area but no worsening. No chest pain, shortness of breath or cough. No abdominal pain, no diarrhea. PHYSICAL EXAMINATION: Blood pressure is 104/56, pulse of 81, temperature 98.7. He is 95% on room air. General description is a middle-aged male, lying in bed in no distress. RESPIRATORY SYSTEM: Unlabored breathing, clear to auscultation anteriorly. HEART: S1, S2. Regular rate and rhythm. ABDOMEN: Soft, no tenderness. LABS: Hemoglobin is 9.8, white count 9.4, BUN of 17, creatinine 1.05. Blood cultures 03/06, 03/07 and 03/08 have been negative. DIAGNOSTIC IMPRESSION AND PLAN: Patient with MSSA bacteremia, source likely urinary in this patient who did have extensive workup and no other evidence of infection was noticed. The patient finally responded and blood culture has been negative. He will get a PICC line and Cefazolin 2 g q.8 hours, 6 weeks will be needed. CBC, BMP and CRP. Continue supportive care. MMODL / IJN: [id number] /
[2020-03-10] MEDS ORDERED: BUTALB/APAP/CAFF 50-325-40MG TAB PO STA (21:24)
[2020-03-10 21:37] LABS: Glucose,Whole Blood 97 mg/dL (75-99)
[2020-03-11] MEDS: HEPARIN SODIUM,PORCINE 5,000 UNIT/ML 1 ML VIAL SQ SCH ×4 (00:15→23:12)
[2020-03-11] MEDS: NAFCILLIN 2 GM in DEXTROSE 5% IN WATER 100 ML IVPB SCH ×14 (00:15→22:57)
[2020-03-11] MEDS: HYDROcodone/APAP 7.5-325MG 1 EACH TAB PO PRN ×4 (00:15→17:39)
[2020-03-11] MEDS: SODIUM CHLORIDE 0.9% 1,000 ML IV SCH ×2 (05:42→17:37)
[2020-03-11 07:30] LABS: Glucose,Whole Blood 235 mg/dL (75-99)
[2020-03-11 08:08] LABS: Basophils % (A) 0 %; Eosinophils # (A) 0.1 k/uL (0-0.7); Eosinophils % (A) 1 %; HCT 31.3 % (39.0-53.0); HGB 9.5 gm/dL (13.0-17.5); Hypochromasia Moderate; Lymphocytes # (A) 1.1 k/uL (1.0-4.8); Lymphocytes % (A) 9 %; MCH 29.5 pg (25.0-35.0); MCHC 30.5 g/dL (31.0-37.0); MCV 96.7 fL (80.0-100.0); Mean Platelet Volume 7.1; Monocytes # (A) 0.5 k/uL (0-1.0); Monocytes % (A) 4 %; Neutrophils # (A) 10.1 k/uL (1.3-7.7); Neutrophils % (A) 85 %; Platelet Count 591 k/uL (150-450); RBC 3.23 m/uL (4.30-5.90); RDW 14.3 % (11.5-15.5); WBC 11.9 k/uL (3.8-10.6)
[2020-03-11 08:15] LABS: Calcium 7.7 mg/dL (8.4-10.2); Potassium 4.3 mmol/L (3.5-5.1)
[2020-03-11] MEDS ORDERED: TAMSULOSIN 0.4 MG CAP.ER.24H PO SCH (08:30)
[2020-03-11] MEDS: INSULIN ASPART (NovoLOG) 100 UNIT/ML VIAL SQ SCH ×7 (08:51→20:51)
[2020-03-11] MEDS: INSULIN DETEMIR (LEVEMIR) 100 UNIT/ML SYR SQ SCH (08:51)
[2020-03-11] MEDS: PANTOPRAZOLE 40 MG/10 ML VIAL IV SCH (08:51)
[2020-03-11 12:05] LABS: Glucose,Whole Blood 129 mg/dL (75-99)
[2020-03-11] MEDS: traMADol 50 MG TAB PO PRN ×2 (13:08→20:02)
[2020-03-11 13:39] LABS: Bacteria,Urine Rare /hpf; Hyaline Casts,Urine 1 /lpf (0-2); Mucus,Urine Rare /hpf; RBC,Urine 12 /hpf (0-5); Squamous Epithelial Cell,Urine <1 /hpf (0-4); WBC,Urine 142 /hpf (0-5)
[2020-03-11 13:40] LABS: Appearance,Urine Clear (Clear); Color,Urine Yellow; Specific Gravity,Urine 1.005 (1.001-1.035)
[2020-03-11 13:41] LABS: Bilirubin,Urine Negative (Negative); Blood,Urine Moderate (Negative); Glucose,Urine (UA) Negative (Negative); Ketones,Urine Negative (Negative); Leukocyte Esterase,Urine Large (Negative); Nitrite,Urine Negative (Negative); Protein,Urine Negative (Negative)
[2020-03-11] MEDS: IOPAMIDOL CONTRAST (ORAL USE) VIAL PO PRN ×2 (15:12→16:17)
[2020-03-11 17:12] LABS: Glucose,Whole Blood 121 mg/dL (75-99)
--- NOTE | 2020-03-11 17:24 | CT ---
EXAMINATION TYPE: CT ChestAbdPelvis wo con DATE OF EXAM: 03/11/2020 COMPARISON: 02/29/2020 CT abdomen pelvis HISTORY: Persistent UTI CT DLP: 1129.8 mGycm Automated exposure control for dose reduction was used. Images were obtained from the thoracic inlet to the floor the pelvis with no contrast. There is moderate right pleural effusion. There is infiltrate and atelectasis at the right lung base. There is mild atelectasis and infiltrate posterior left lung base. There is no mediastinal adenopath y. There are no hilar masses. There is no pericardial effusion. Liver and gallbladder appear normal. Bile ducts are not dilated. Spleen is intact. Stomach is intact. There is no evidence of pancreatic mass. There is no adrenal mass. There is bilateral hydronephrosis and hydroureter. There is Krueger catheter in the urinary bladder. Bladder is empty. There is bladder wall thickening. There is small amount of free fluid in the pelvis. There is no inguinal hernia. There is no evidence of a pelvic mass. There is no mesenteric edema. There is no ascites or free air. There is no sign of a bowel obstructio n. Appendix is anterior and appears normal. There is multilevel hypertrophic degenerative changes in the thoracic and lumbar spine. There is no c ompression fracture. The bony pelvis is intact. The ribs appear intact. IMPRESSION: There is moderate bilateral hydronephrosis and hydroureter. Unchanged. Urinary bladder wall thickenin g consistent with nonspecific cystitis. No renal atrophy seen. Atherosclerotic vascular disease. Bilateral lower lobe pulmonary infiltrates and atelectasis with pleural fluid are essentially new com pared to recent exam. There is new mild free fluid in the pelvis.
--- NOTE | 2020-03-11 17:48 | PN ---
PROGRESS NOTE DATE OF SERVICE: 03/11/2020 This 64-year-old gentleman who was previously noncompliant with medications, admitted in diabetic hyperosmolar state without evidence of ketosis, severe sepsis and bacteremia with MSSA. UTI was supposed to be the source. The YAMILA was negative. Patient is on broad-spectrum IV antibiotics. PICC line is being planned at this time. Dr. Feng also has seen the patient. The patient had multiple blood cultures positive till 03/06, but the most recent cultures subsequently was negative. The sodium was 131. Urine still shows WBC with clumps. Past medical history reviewed. REVIEW OF SYSTEMS: CARDIOVASCULAR: No angina. RESPIRATORY: As mentioned earlier. GI: As mentioned earlier. : No dysuria. NERVOUS SYSTEM: As mentioned earlier. CURRENT MEDICATIONS: 1. [place] 7.5 q.6 p.r.n. 2. Cepacol. 3. Dulcolax. 4. Heparin. 5. NovoLog. 6. Nafcillin 2 g IV q.4h. 7. Protonix. 8. Flomax. 9. Ultram. PHYSICAL EXAM: Patient is alert, oriented x2. Pulse 90. Blood pressure 130/64, respirations 16, temperature 97.8, pulse ox 92% on room air. HEENT: Conjunctivae normal. Oral mucosa moist. NECK is no jugular venous distention. No carotid bruit. No lymph node enlargement. Cardiovascular: S1, S2 muffled. RESPIRATIONS: Breath sounds diminished in the bases. Scattered rhonchi and crackles. ABDOMEN: Soft, obese, nontender. LEGS are no swelling. NERVOUS SYSTEM: Diffusely weak. LABS: Micro noted. As mentioned earlier, WBC 11.7, hemoglobin 9.5, sodium is 131, glucose is 235. ASSESSMENT: 1. Diabetic hyperosmolar state, uncontrolled diabetes, hypoglycemia, present on admission with no evidence of ketosis. 2. Severe MSSA bacteremia secondary to possibly urinary tract infection with severe sepsis with YAMILA negative for any vegetations. The patient is on nafcillin. 3. Hyponatremia, pseudohyponatremia. 4. Lactic acidosis. 5. Metabolic encephalopathy. 6. Bilateral hydronephrosis, possible pyelonephritis hematuria. 7. Leukocytosis. 8. Hyperkalemia. 9. Anion gap metabolic acidosis. 10.Chronic back pain, degenerative joint disease. 11.Change in mental status, metabolic encephalopathy. 12.Anemia, normocytic anemia of chronic disease. 13.Persistent bacteriuria. 14.Diabetes. 15.Hypertension. 16.Hyperlipidemia. 17.Continued nicotine dependence. 18.History of possible EtOH. 19.History of THC. 20.FULL CODE. RECOMMENDATIONS AND DISCUSSION: This 64-year-old gentleman who presented with multiple complex medical issues, we will monitor the patient closely, continue the current medications, symptomatic treatment. Continue to follow repeat cultures. The CT scan of the brain showed no acute abnormality. Would also recommend a CT of the chest, abdomen and pelvis with IV contrast and continue to monitor. Otherwise, prognosis guarded because of multiple complex medical issues. CT of the abdomen and pelvis was done on February 28, which showed irregular urinary bladder with suspicion of neoplasm and marked bilateral hydronephrosis as well. Urology is following the patient closely. Cystoscopy is being planned in the future. I would recommend CT scan chest, abdomen and pelvis as a followup. Further recommendations to follow. DONALD / JOHNN: [id number] / MTDD
[2020-03-11 20:31] LABS: Glucose,Whole Blood 104 mg/dL (75-99)
[2020-03-11] MEDS: TAMSULOSIN 0.4 MG CAP.ER.24H PO SCH (20:54)
--- NOTE | 2020-03-11 23:26 | PN ---
PROGRESS NOTE DATE OF SERVICE: 03/11/2020 REASON FOR FOLLOWUP: MSSA bacteremia likely urinary source. INTERVAL HISTORY: Patient is currently afebrile, has been breathing comfortably. The patient denies having any chest pain or shortness of breath or cough. No nausea, vomiting. No abdominal pain or diarrhea. Krueger has to be reinserted as the patient unable to urinate. PHYSICAL EXAMINATION: Blood pressure 112/57, pulse of 69, temperature 98.4. He is 94% on room air. General description is a middle-aged male up in the bed in no distress. Respiratory system: Unlabored breathing, clear to auscultation anteriorly. Heart S1, S2. Regular rate and rhythm. LABS: Hemoglobin 9.5, white count 11.9, BUN of 17, creatinine 1.06. DIAGNOSTIC IMPRESSION AND PLAN: Patient with MSSA bacteremia source is likely urine, did have extensive workup with no other obvious focus of infection. Plan is to continue Zosyn, switching to cefazolin 2 g p.o. for a total of 6 weeks with close outpatient followup. MMODL / IJN: [id number] /
[2020-03-12] MEDS: NAFCILLIN 2 GM in DEXTROSE 5% IN WATER 100 ML IVPB SCH ×10 (04:20→21:24)
[2020-03-12] MEDS: HYDROcodone/APAP 7.5-325MG 1 EACH TAB PO PRN ×3 (06:23→17:47)
[2020-03-12 07:46] LABS: Glucose,Whole Blood 105 mg/dL (75-99)
[2020-03-12 07:56] LABS: Basophils # (A) 0.1 k/uL (0-0.2); Basophils % (A) 1 %; Eosinophils # (A) 0.1 k/uL (0-0.7); Eosinophils % (A) 2 %; HCT 25.3 % (39.0-53.0); Hypochromasia Moderate; Lymphocytes # (A) 1.2 k/uL (1.0-4.8); Lymphocytes % (A) 16 %; MCH 29.4 pg (25.0-35.0); MCHC 30.7 g/dL (31.0-37.0); Mean Platelet Volume 7.2; Monocytes # (A) 0.4 k/uL (0-1.0); Monocytes % (A) 5 %; Neutrophils # (A) 5.5 k/uL (1.3-7.7); Neutrophils % (A) 75 %; Platelet Count 496 k/uL (150-450); RBC 2.63 m/uL (4.30-5.90); RDW 14.5 % (11.5-15.5); WBC 7.4 k/uL (3.8-10.6)
[2020-03-12 07:57] LABS: Calcium 7.8 mg/dL (8.4-10.2); Potassium 3.9 mmol/L (3.5-5.1)
[2020-03-12 08:01] LABS: HGB 7.7 gm/dL (13.0-17.5)
[2020-03-12] MEDS: INSULIN ASPART (NovoLOG) 100 UNIT/ML VIAL SQ SCH ×6 (08:42→18:17)
[2020-03-12] MEDS: PANTOPRAZOLE 40 MG/10 ML VIAL IV SCH (08:56)
[2020-03-12] MEDS: TAMSULOSIN 0.4 MG CAP.ER.24H PO SCH ×2 (08:56→21:24)
[2020-03-12] MEDS: traMADol 50 MG TAB PO PRN ×2 (08:56→20:33)
[2020-03-12] MEDS: HEPARIN SODIUM,PORCINE 5,000 UNIT/ML 1 ML VIAL SQ SCH ×2 (08:57→15:21)
[2020-03-12] MEDS: INSULIN DETEMIR (LEVEMIR) 100 UNIT/ML SYR SQ SCH (08:57)
[2020-03-12] MEDS: SODIUM CHLORIDE 0.9% 1,000 ML IV SCH (08:58)
--- NOTE | 2020-03-12 11:11 | P.PN ---
Progress Note - Text Progress Note Date: 03/12/20 The patient is afebrile. His urine is grossly clear. I reviewed the computed tomography scan which was performed yesterday. I disagree with the radiologist's interpretation as there does appear to be improvement in the degree of bilateral hydroureteronephrosis following catheter drainage. Images of the bladder are nondiagnostic as the bladder was decompressed with the catheter. He will be receiving an extended course of antibiotics. I told him that he should call our office next week and set up an appointment for cystoscopy to be performed in the office by . He should go home with the indwelling catheter.
[2020-03-12 12:09] LABS: Glucose,Whole Blood 177 mg/dL (75-99)
[2020-03-12] MEDS: ACETAMINOPHEN TAB 325 MG TAB PO PRN (14:26)
[2020-03-12] MEDS: IBUPROFEN 200 MG TAB PO SCH ×2 (15:21→21:23)
[2020-03-12 17:37] LABS: Glucose,Whole Blood 89 mg/dL (75-99)
--- NOTE | 2020-03-12 17:49 | PN ---
PROGRESS NOTE DATE OF SERVICE: 03/12/2020 This 64-year-old gentleman was admitted with diabetic hyperosmolar state and uncontrolled diabetes mellitus type 2, is being closely monitored at this time. The patient also has severe MSSA bacteria. The most recent cultures are negative. The exact origin of the primary origin is unknown. Dr. Sheikh is considering possibility of urinary tract etiology. The patient also had hydronephrosis and Dr. Wesley from urology is recommended outpatient followup. No chest pain. No palpitations. PICC line has been planned early next week. PAST MEDICAL HISTORY: Reviewed. REVIEW OF SYSTEMS: CARDIOVASCULAR SYSTEM: No angina or palpitations. RESPIRATORY: As mentioned earlier. GI: As mentioned earlier. GI: As mentioned earlier. NERVOUS SYSTEMS: No focal deficits. CURRENT MEDICATIONS: 1. Tylenol p.r.n. 2. [place] 7.5 q.6 p.r.n. 3. Cepacol. 4. Dulcolax. 5. Heparin. 6. Advil. 7. NovoLog scale. 8. Levemir. 9. Nafcillin 2 grams. 10.Narcan. 11.Protonix. 12.MiraLAX. 13.Flomax. 14.Ultram. 15.Doses are reviewed. PHYSICAL EXAM: Patient is alert, oriented x3. Pulse 82, blood pressure 118/56, respirations 16, temperature 98.7, pulse ox 97% on room air. HEENT: Conjunctivae normal. NECK: No jugular venous distention. CARDIOVASCULAR: S1, S2, muffled. RESPIRATORY: Diminished breath sounds at the bases. Bilateral scattered rhonchi and crackles. ABDOMEN: Soft, nontender. LEGS: No edema, no swelling. NERVOUS SYSTEM: No focal deficits. LABS: WBC 7.4, hemoglobin 7.7, platelets of 496. Sodium 135, glucose 105. ASSESSMENT: 1. Diabetic hyperosmolar state, uncontrolled diabetes type 2 with hyperglycemia, present on admission with no evidence of ketosis. 2. Severe MSSA persistent bacteria secondary to possible urinary tract infection with severe sepsis with YAMILA negative for any vegetations. The patient is on nafcillin. 3. Hyponatremia, pseudohyponatremia. 4. Lactic acidosis acute, present on admission secondary to sepsis. 5. Acute metabolic encephalopathy. 6. Bilateral hydronephrosis, possibly with pyelonephritis and hematuria. 7. Leukocytosis. 8. Hyperkalemia. 9. Anion gap metabolic acidosis. 10.Chronic back pain, degenerative joint disease. 11.Change in mental status with acute metabolic encephalopathy. 12.Anemia, normocytic anemia of chronic disease. 13.Persistent bacteriuria. 14.Diabetes mellitus type 2. 15.Hypertension. 16.Hyperlipidemia. 17.Continued nicotine dependence. 18.History of possible EtOH. 19.History of THC. 20.FULL CODE. RECOMMENDATIONS AND DISCUSSION: Recommend to continue current medications, continue with monitoring and symptomatic treatment. Continue with antibiotics. Otherwise, monitor blood sugars closely. PT/OT evaluation. PICC line. Outpatient followup. Guarded prognosis. Further recommendations to follow. MMODL / IJN: [id number] /
[2020-03-12 20:32] LABS: Glucose,Whole Blood 67 mg/dL (75-99)
[2020-03-12 20:48] LABS: Glucose,Whole Blood 67 mg/dL (75-99)
[2020-03-12 21:07] LABS: Glucose,Whole Blood 77 mg/dL (75-99)
[2020-03-12 21:45] LABS: Glucose,Whole Blood 102 mg/dL (75-99)
--- NOTE | 2020-03-13 00:10 | PN ---
PROGRESS NOTE DATE OF SERVICE: 03/12/2020 REASON FOR FOLLOWUP: MSSA bacteremia possible urinary source. INTERVAL HISTORY: The patient is currently afebrile, has been breathing comfortably. Complaining of some neck pain. No chest pain, shortness of breath or cough. No abdominal pain or diarrhea. PHYSICAL EXAMINATION: Blood pressure 118/56, pulse of 82, temperature 98.7. He is 97% on room air. General description is a middle-aged male up in the bed in no distress. RESPIRATORY SYSTEM: Unlabored breathing, no distress. EXTREMITIES: No edema of feet. LABS: Hemoglobin 7.7, white count 7.4, BUN of 15, creatinine 1.03. DIAGNOSTIC IMPRESSION AND PLAN: Patient with MSSA bacteremia, source likely urinary in this patient with blood culture negative from 03/07 until the 03/10. Planning on cefazolin 2 grams q.8hours for total of 6 weeks from negative blood culture and close outpatient followup. MMODL / IJN: [id number] / MTDD
[2020-03-13] MEDS: HYDROcodone/APAP 7.5-325MG 1 EACH TAB PO PRN ×3 (01:08→14:08)
[2020-03-13 01:32] LABS: Glucose,Whole Blood 121 mg/dL (75-99)
[2020-03-13] MEDS: traMADol 50 MG TAB PO PRN (03:36)
[2020-03-13] MEDS: NAFCILLIN 2 GM in DEXTROSE 5% IN WATER 100 ML IVPB SCH ×10 (04:00→15:59)
[2020-03-13] MEDS: INSULIN ASPART (NovoLOG) 100 UNIT/ML VIAL SQ SCH ×5 (04:21→12:46)
[2020-03-13] MEDS: SODIUM CHLORIDE 0.9% 1,000 ML IV SCH ×2 (04:21→12:10)
[2020-03-13 07:38] LABS: Glucose,Whole Blood 266 mg/dL (75-99)
[2020-03-13 07:51] LABS: Basophils # (A) 0.1 k/uL (0-0.2); Basophils % (A) 1 %; Eosinophils # (A) 0.1 k/uL (0-0.7); Eosinophils % (A) 2 %; HCT 24.3 % (39.0-53.0); HGB 7.6 gm/dL (13.0-17.5); Hypochromasia Marked; Lymphocytes # (A) 0.9 k/uL (1.0-4.8); Lymphocytes % (A) 15 %; MCH 29.8 pg (25.0-35.0); MCHC 31.2 g/dL (31.0-37.0); MCV 95.7 fL (80.0-100.0); Mean Platelet Volume 7.2; Monocytes # (A) 0.4 k/uL (0-1.0); Monocytes % (A) 6 %; Neutrophils # (A) 4.6 k/uL (1.3-7.7); Neutrophils % (A) 75 %; Platelet Count 460 k/uL (150-450); RBC 2.54 m/uL (4.30-5.90); RDW 14.6 % (11.5-15.5); WBC 6.2 k/uL (3.8-10.6)
[2020-03-13] MEDS: IBUPROFEN 200 MG TAB PO SCH ×2 (07:53→15:59)
[2020-03-13] MEDS: PANTOPRAZOLE 40 MG/10 ML VIAL IV SCH (07:53)
[2020-03-13] MEDS: TAMSULOSIN 0.4 MG CAP.ER.24H PO SCH (07:54)
[2020-03-13] MEDS: INSULIN DETEMIR (LEVEMIR) 100 UNIT/ML SYR SQ SCH (07:54)
[2020-03-13] MEDS: HEPARIN SODIUM,PORCINE 5,000 UNIT/ML 1 ML VIAL SQ SCH ×3 (07:54→15:59)
[2020-03-13 08:02] LABS: African American GFR (CKD) >90 (>60 ml/min/1.73 sqM); Anion Gap 5 mmol/L; Blood Urea Nitrogen 13 mg/dL (9-20); Calcium 7.8 mg/dL (8.4-10.2); Carbon Dioxide 31 mmol/L (22-30); Chloride 97 mmol/L (98-107); Glucose 181 mg/dL (74-99); Non-African American GFR(CKD) 84 (>60 ml/min/1.73 sqM); Sodium 133 mmol/L (137-145)
[2020-03-13 08:13] LABS: Potassium 4.3 mmol/L (3.5-5.1)
[2020-03-13] MEDS ORDERED: LIDOCAINE 1% INJ 10MG/ML (20 ML MDV) ONE (09:00)
[2020-03-13] MEDS ORDERED: LIDOCAINE 1% INJ 10MG/ML (20 ML MDV) SQ ONE (09:42)
[2020-03-13 09:43] LABS: C Reactive Protein 184.2 mg/L (<10.0)
--- NOTE | 2020-03-13 10:28 | IR ---
EXAMINATION TYPE: IR cvc insert >=5 years DATE OF EXAM: 03/13/2020 COMPARISON: NONE CLINICAL HISTORY: Infection, need for long-term antibiotics. SALESFORCE SPECIALIST: Dr. Karen Pizarro PROCEDURE: Maximal barrier technique utilized. After informed consent, the skin overlying the left basilic vein was localized with ultrasound and noted to be compressible and patent. An ultrasound image was obtai natividad and submitted on the patient's chart. Sterile technique utilized with the ultrasound machine. The skin overlying was prepped and draped and Lidocaine used for local anesthesia. Access was gained to the vein under ultrasound guidance with a 21 gauge needle and a 0.018 inch wire was advanced. A skin yinka was made with a scalpel. Access site was dilated with Peel-Away sheath. 4 FR single lumen cathet er tailored to the appropriate length of 47 cm and advanced such that the distal tip is at the cavoat rial junction. Spot image was obtained verifying PICC placement. Catheter was fixed to the skin and a sterile dressing was placed following hemostasis. Catheter was aspirated and flushed with saline. Mingo engel was discharged from the radiology department in stable condition without immediate complication . Fluoro time: 0.2 Fluoroscopic images obtained: 29 IMPRESSION: Status post ultrasound-guided and fluoroscopic-guided PICC placement, ready for use.
[2020-03-13 11:27] LABS: Erythrocyte Sedimentation Rate 129 mm/hr (0-15)
[2020-03-13 12:06] LABS: Glucose,Whole Blood 129 mg/dL (75-99)
[2020-03-13] MEDS: ACETAMINOPHEN TAB 325 MG TAB PO PRN (12:47)
--- NOTE | 2020-03-13 15:21 | P.DS ---
Providers Date of admission: 02/29/20 10:49 Expected date of discharge: 03/13/20 Attending physician: Yola Rollins Consults: 02/29/20 11:00 Consult Physician Stat Consulting Provider: Jyotsna Bishop Consult Reason/Comments: icu management Do you want consulting provider notified?: Already Contacted 02/29/20 11:44 Consult Physician Urgent Consulting Provider: Mook Wesley Consult Reason/Comments: Bilateral hydronephrosis Do you want consulting provider notified?: Yes 02/29/20 12:35 Consult Physician Routine Consulting Provider: Percy Allen Consult Reason/Comments: ALICIA, hydronephrosis Do you want consulting provider notified?: Yes 03/01/20 14:35 Consult Physician Routine Consulting Provider: Cynthia Sheikh Consult Reason/Comments: Staph bacteremia Do you want consulting provider notified?: Yes 03/05/20 14:22 Consult Physician Routine Consulting Provider: Devon Naqvi Consult Reason/Comments: YAMILA Do you want consulting provider notified?: Yes 03/09/20 09:01 Consult Physician Urgent Consulting Provider: Ricardo Feng Consult Reason/Comments: inpatient rehab/bacteremia/ weakness Do you want consulting provider notified?: Yes Primary care physician: Stated None Hospital Course: Final diagnosis -Diabetic hyperosmolar state, Uncontrolled diabetes mellitus type 2 with hyperglycemia will present on admission with no evidence of ketosis -Severe Sepsis and bacteremia with MSSA, Secondary to possible urinary tract infection with severe sepsis with YAMILA negative for any vegetations. Patient currently remains on nafcillin -Hyponatremia: Combined pseudohyponatremia from hyperglycemia along with hypovolemic hyponatremia from excessive diuresis from hyperglycemia -Lactic acidosis Acute, present on admission secondary to sepsis -Acute Metabolic encephalopathy -Bilateral hydronephrosis with possibility of pyelonephritis And hematuria. -Leukocytosis -Hyperkalemia -Hypertension -Hyperlipidemia -Anemia, normocytic anemia of chronic disease -Persistent bacteriuria -Diabetes mellitus type 2 -Anion gap metabolic acidosis resolved -Chronic back pain and degenerative Joint disease -Change in mental status with Acute metabolic encephalopathy -DVT prophylaxis subcutaneous heparin -GI prophylaxis Protonix -Continue nicotine dependence -History of THC -History of possible EtOH -Full code Discharge disposition Patient is being discharged in a stable condition with guarded prognosis to [facility] inpatient rehab for continued PT/OT therapy. [facility] upon discharge. Patient also instructed to follow-up with Dr. Roa urology in the outpatient setting within the next week. Patient to continue with IV antibiotics in the form of nafcillin per infectious disease recommendations. Total time taken is greater than 35 minutes. History of present illness This is a 64-year-old male who was recently admitted with diabetic hyperosmolar state and uncontrolled diabetes mellitus type 2 and was being closely monitored. Patient was also found to have severe MSSA bacteria and was being followed closely with infectious disease. Most recent cultures have been negative. Exact origin of the primary origin is unknown although infectious diseases suspicious of urinary tract infection as the primary etiology. Patient was retaining and had an indwelling Krueger catheter which was subsequently removed although continue to retain an indwelling Krueger catheter was replaced. Was evaluated by urology and recommending outpatient follow-up for possible cystoscopy in the near future. Patient is maintained on nafcillin 3 times daily and will continue at this time. Patient did receive a PICC line. Patient continued to be quite weak requiring assistance with position changes in gait dysfunction and was evaluated by physical therapy along with Dr. Feng and will benefit from inpatient rehab. Patient will be going to [facility] inpatient rehab today. Currently no reports of chest pain, shortness of breath, or palpitations. Patient is afebrile. No reports of nausea or vomiting and patient is tolerating diet. Guarded prognosis On exam vital signs are stable. Temp is 99.0F, pulse is 89, respirations are 20, blood pressure is 143/76, oxygen saturation is 93% on room air. Cardio S1, S2 are muffled. Respiratory system shows diminished breath sounds at the bases with no wheezing or rhonchi noted. Abdomen is soft and nontender. Nervous system shows diffuse weakness. Please refer to medication reconciliation sheet for a list of medications. Patient Condition at Discharge: Fair Plan - Discharge Summary Discharge Rx Participant: No New Discharge Prescriptions: New Ibuprofen [Advil] 200 mg PO TID tab Benzocaine/Menthol Lozeng [Cepacol lozenge] 1 each MUCOUS MEM Q6HR PRN lozenge PRN Reason: Sore Throat bisacodyL [Dulcolax] 10 mg RECTAL DAILY PRN supp PRN Reason: Constipation Tamsulosin [Flomax] 0.4 mg PO BID cap.er.24h Insulin Detemir (Levemir) [Levemir] 30 unit SQ DAILY@0700 syr polyethylene glycoL 3350 [Miralax] 17 gm PO DAILY PRN powd.pack PRN Reason: Constipation Nafcillin [Nafcil] 2 gm IVPB Q4HR vial HYDROcodone/APAP 7.5-325MG [[place] 7.5-325] 1 each PO Q6H PRN #10 tab PRN Reason: Severe Pain INSULIN ASPART (NovoLOG) [NovoLOG (formulary)] 8 unit SQ AC-TID vial INSULIN ASPART (NovoLOG) [NovoLOG (formulary)] 0 unit SQ ACHS vial Acetaminophen Tab [Tylenol] 650 mg PO Q6HR PRN tab PRN Reason: Fever And/ Or Pain traMADol HCl [Ultram] 50 mg PO QID PRN #10 tab PRN Reason: Moderate Pain Discharge Medication List Acetaminophen Tab [Tylenol] 650 mg PO Q6HR PRN tab 03/13/20 [Rx] Benzocaine/Menthol Lozeng [Cepacol lozenge] 1 each MUCOUS MEM Q6HR PRN lozenge 03/13/20 [Rx] HYDROcodone/APAP 7.5-325MG [[place] 7.5-325] 1 each PO Q6H PRN #10 tab 03/13/20 [R x] INSULIN ASPART (NovoLOG) [NovoLOG (formulary)] 0 unit SQ ACHS vial 03/13/20 [Rx] INSULIN ASPART (NovoLOG) [NovoLOG (formulary)] 8 unit SQ AC-TID vial 03/13/20 [Rx] Ibuprofen [Advil] 200 mg PO TID tab 03/13/20 [Rx] Insulin Detemir (Levemir) [Levemir] 30 unit SQ DAILY@0700 syr 03/13/20 [Rx] Nafcillin [Nafcil] 2 gm IVPB Q4HR vial 03/13/20 [Rx] Tamsulosin [Flomax] 0.4 mg PO BID cap.er.24h 03/13/20 [Rx] bisacodyL [Dulcolax] 10 mg RECTAL DAILY PRN supp 03/13/20 [Rx] polyethylene glycoL 3350 [Miralax] 17 gm PO DAILY PRN powd.pack 03/13/20 [Rx] traMADol HCl [Ultram] 50 mg PO QID PRN #10 tab 03/13/20 [Rx] Follow up Appointment(s)/Referral(s): Ben Roa MD [STAFF PHYSICIAN] - 1 Week None,Stated [Primary Care Provider] - 1-2 days [facility] [NON-STAFF] - Activity/Diet/Wound Care/Special Instructions: Patient is going to [facility] inpatient rehab Continue with indwelling Krueger catheter until urology follow-up Continue to monitor blood sugars before meals and at bedtime to treat accordingly Continue with consistent carb diet Continue working with physical therapy Continue with IV antibiotics per infectious disease Free glucometer was given, you can buy supplies from [employer]. you can also get a free glucometer from [facility] with low cost test supplies [address], [place] [address] . Discharge Disposition: TRANSFER TO SNF/ECF
[2020-03-13 15:52] VITALS: BP 127/62; PULSE 83; RESP 16; TEMP 98.9
== END 2020-03-13 17:10 | DRG 871 ==
LOC: EC 08:04 → 2SICU 10:49 → 4SSUR 03-01 18:54
PROVIDERS: ADMIT Internal Medicine; ATTEND Internal Medicine
PROC: B24BZZ4 Ultrasonography of Heart with Aorta, Transesophageal (ICD-10-PCS; 2020-03-06)
PROC: 02HV33Z Insertion of Infusion Device into Superior Vena Cava, Percutaneous Approach (ICD-10-PCS; principal; 2020-03-13 07:30)
DX: A41.01 Sepsis due to Methicillin susceptible Staphylococcus aureus (principal); E11.00 Type 2 diabetes mellitus with hyperosmolarity without nonketotic hyperglycemic-hyperosmolar coma (NKHHC); E11.10 Type 2 diabetes mellitus with ketoacidosis without coma; G93.41 Metabolic encephalopathy; E87.1 Hypo-osmolality and hyponatremia; N17.9 Acute kidney failure, unspecified; N13.6 Pyonephrosis; N12 Tubulo-interstitial nephritis, not specified as acute or chronic; E78.5 Hyperlipidemia, unspecified; R65.20 Severe sepsis without septic shock; E87.5 Hyperkalemia; G89.29 Other chronic pain; Z20.828 Contact with and (suspected) exposure to other viral communicable diseases; F17.200 Nicotine dependence, unspecified, uncomplicated; I10 Essential (primary) hypertension; M19.90 Unspecified osteoarthritis, unspecified site; I07.1 Rheumatic tricuspid insufficiency; R31.0 Gross hematuria; E86.1 Hypovolemia; E86.0 Dehydration; I25.10 Atherosclerotic heart disease of native coronary artery without angina pectoris; I27.20 Pulmonary hypertension, unspecified; D63.8 Anemia in other chronic diseases classified elsewhere; Z96.1 Presence of intraocular lens; Z98.42 Cataract extraction status, left eye; Z98.41 Cataract extraction status, right eye; Z80.8 Family history of malignant neoplasm of other organs or systems; Z82.0 Family history of epilepsy and other diseases of the nervous system; Z91.14 Patient's other noncompliance with medication regimen; Z79.4 Long term (current) use of insulin; Z87.442 Personal history of urinary calculi; Z91.19 Patient's noncompliance with other medical treatment and regimen
CPT/HCPCS: 36415; 36573; 36600; 70450; 71045; 71046; 71250; 72156; 74176; 76770; 80048; 80051; 80053; 81001; 82009; 82150; 82550; 82565; 82805; 82947; 83036; 83605; 83690; 83735; 84100; 84484; 84520; 85025; 85027; 85610; 85652; 85730; 86140; 87040; 87077; 87086; 87186; 93005; 93306; 93312; 93325; 94760; 96360; 96361; 96374; 96375; 99291

== ENCOUNTER → 2020-09-16 | Outpatient (CLI) | payer OTHER ==
--- NOTE | 2020-09-16 14:40 | MR ---
EXAMINATION TYPE: MR thoracic spine wo con DATE OF EXAM: 09/16/2020 COMPARISON: CT scan of the chest 03/11/2020 HISTORY: Thoracic abscess Multiplanar multiecho imaging of the thoracic spine was performed without contrast. Thoracic vertebra have normal alignment. At T5-T6 level there is abnormal decreased signal in the todd tebral bodies. There is increased fluid signal in the disc space. There is abnormal paraspinal densit y at the T5-T6 level on the right side. There is also anterior slight density that could relate to a phlegmon. There is posterior disc herniation and elevation of the posterior longitudinal ligament at T5-T6 with some encroachment on the spinal canal. I see no drainable fluid collection. Thoracic spina l cord shows very slight increased signal at the T5-T6 level without a mass. There is mild compressio n deformities of T5 and T6 vertebral bodies with approximate 15% loss of height. There is decreased signal in the subcutaneous fat on the T1 and T2 images over the posterior mid thor acic spine. There is large area of signal loss involving the posterior elements at T5 and T6 as well as the spinous process of T4 on the T1 weighted images. There is anterior bridging osteophyte formation and large hypertrophic anterior spurring in the lower thoracic spine. IMPRESSION: Signal changes at T5-T6 level with loss of height consistent with chronic discitis and pathologic com pression fractures. Paraspinal density consistent with phlegmon. Posterior disc herniation at T5-6 wi th a mild relative spinal stenosis. Minimal edema and the thoracic cord at T5-6 level. There is evidence of bone edema involving the posterior elements as above at T5-6 and also spinous pr ocess of T4 consistent with osteomyelitis. Contrast exam would be helpful for further evaluation to e valuate extent of active infection.
== END | disposition home or self-care (01) ==
LOC: RADMRIMAIN 10:02
PROVIDERS: ATTEND Internal Medicine Infectious Disease
DX: M48.04 Spinal stenosis, thoracic region (principal); M51.24 Other intervertebral disc displacement, thoracic region
CPT/HCPCS: 72146

== ENCOUNTER 2021-03-01 09:11 | Emergency (ER) | payer OTHER ==
[2021-03-01] MEDS ORDERED: PANTOPRAZOLE 40 MG/10 ML VIAL IVP STA (09:14)
[2021-03-01 09:21] VITALS: TEMP 98.4
--- NOTE | 2021-03-01 09:32 | ED ---
General Adult HPI - General Chief complaint: Recheck/Abnormal Lab/Rx Stated complaint: low hemoglobin Time Seen by Provider: 03/01/21 09:12 Source: patient, EMS, RN notes reviewed Mode of arrival: EMS Limitations: no limitations - History of Present Illness Initial comments: 65-year-old male with a past medical history of NIDDM type II, hyperlipidemia, hypertension, currently at [facility] for bacteremia presents to the emergency room for a chief complaint of abnormal labs. Patient was sent in his hemoglobin was found to be 5.9 on labs yesterday. Patient denies any obvious bleeding from the GI system but does state that he sent a stool sample to his doctor and there was blood in it recently. Patient states he is feeling well. He denies dizziness or lightheadedness. He denies taking blood thinners.Patient has no other complaints at this time including shortness of breath, chest pain, abdominal pain, nausea or vomiting, headache, or visual changes. - Related Data Previous Rx's Medication Instructions Recorded Acetaminophen Tab [Tylenol] 650 mg PO Q6HR PRN tab 03/13/20 Benzocaine/Menthol Lozeng [Cepacol 1 each MUCOUS MEM Q6HR PRN lozenge 03/13/20 lozenge] HYDROcodone/APAP 7.5-325MG [[place] 1 each PO Q6H PRN #10 tab 03/13/20 7.5-325] INSULIN ASPART (NovoLOG) [NovoLOG 0 unit SQ ACHS vial 03/13/20 (formulary)] INSULIN ASPART (NovoLOG) [NovoLOG 8 unit SQ AC-TID vial 03/13/20 (formulary)] Ibuprofen [Advil] 200 mg PO TID tab 03/13/20 Insulin Detemir (Levemir) [Levemir] 30 unit SQ DAILY@0700 syr 03/13/20 Nafcillin [Nafcil] 2 gm IVPB Q4HR vial 03/13/20 Tamsulosin [Flomax] 0.4 mg PO BID cap.er.24h 03/13/20 bisacodyL [Dulcolax] 10 mg RECTAL DAILY PRN supp 03/13/20 polyethylene glycoL 3350 [Miralax] 17 gm PO DAILY PRN powd.pack 03/13/20 traMADol HCl [Ultram] 50 mg PO QID PRN #10 tab 03/13/20 Allergies Allergy/AdvReac Type Severity Reaction Status Date / Time No Known Allergies Allergy Verified 03/01/21 09:22 Review of Systems ROS Statement: Those systems with pertinent positive or pertinent negative responses have been documented in the HPI. ROS Other: All systems not noted in ROS Statement are negative. Past Medical History Past Medical History: Diabetes Mellitus, Hyperlipidemia, Hypertension Additional Past Medical History / Comment(s): Signiificant other and rosy state pt has not had insurance so has not been taking meds/seeing physician, NIDDM type II, neuropathy bilateral feet, past nephrolithiasis with pt passing stones on his own, pt passed a couple stones (s.o. saw stones) 2 weeks ago and had hematuria which improved after passing stones but has had weakness and loss of appetite past 2 weeks, spondylosis/chronic low back pain History of Any Multi-Drug Resistant Organisms: MRSA MDRO Source:: Back Past Surgical History: No Surgical Hx Reported Additional Past Surgical History / Comment(s): Bilateral cataract removals/lens implants. Back surgery-feb 2020- infection after, mrsa Past Anesthesia/Blood Transfusion Reactions: Unable to Obtain Additional Past Anesthesia/Blood Transfusion Reaction / Comment(s): Pt has never had general anesthesia per family Past Psychological History: No Psychological Hx Reported Smoking Status: Former smoker Past Alcohol Use History: Rare Past Drug Use History: None Reported - Past Family History Father Family Medical History: Dementia Mother Family Medical History: Cancer Additional Family Medical History / Comment(s): Mother of skin cancer. General Exam Limitations: no limitations General appearance: alert, in no apparent distress Head exam: Present: atraumatic Eye exam: Present: normal appearance, PERRL, EOMI. Absent: scleral icterus, conjunctival injection ENT exam: Present: normal exam, mucous membranes moist Neck exam: Present: normal inspection, full ROM. Absent: tenderness Respiratory exam: Present: normal lung sounds bilaterally. Absent: respiratory distress, wheezes Cardiovascular Exam: Present: regular rate, normal rhythm, normal heart sounds GI/Abdominal exam: Present: soft, normal bowel sounds. Absent: distended, tenderness, guarding, rebound, rigid Rectal exam: Present: normal inspection Course Vital Signs 03/01/21 09:15 Temperature 98.4 F Pulse Rate 60 Respiratory 18 Rate Blood Pressure 170/84 O2 Sat by Pulse 98 Oximetry EKG Findings - EKG Comments: EKG Findings:: Atrial fibrillation, ventricular rate 62, QRS duration 88, QTc 454 Medical Decision Making - Medical Decision Making Vitals are stable. CBC here revealed a hemoglobin of 9.4. I suspect yester day's hemoglobin result was inaccurate. CMP is unremarkable. Occult blood is negative. Patient did previously state that he had a positive occult blood outpatient however states he got the sample off the toilet paper and had had a bleeding sore on his buttock so this could've been contaminated. Ultimately however patient's EKG did show an atrial fibrillation. This was reviewed by Dr. Hawley as well. Patient does not have a history of atrial fibrillation. Patient will be admitted for cardiology consultation. We will not start heparin and patient given possibility of anemia and GI bleed. Dr. Holt did accept this admission - Lab Data Result diagrams: 03/01/21 09:32 03/01/21 09:32 Lab Results 03/01/21 03/01/21 03/01/21 Range/Units 09:32 09:32 09:32 WBC 6.1 (3.8-10.6) k/uL RBC 3.23 L (4.30-5.90) m/uL Hgb 9.4 L (13.0-17.5) gm/dL Hct 29.5 L (39.0-53.0) % MCV 91.1 (80.0-100.0) fL MCH 29.2 (25.0-35.0) pg MCHC 32.1 (31.0-37.0) g/dL RDW 16.5 H (11.5-15.5) % Plt Count 341 (150-450) k/uL MPV 7.1 Neutrophils % 64 % Lymphocytes % 20 % Monocytes % 7 % Eosinophils % 5 % Basophils % 1 % Neutrophils # 3.9 (1.3-7.7) k/uL Lymphocytes # 1.2 (1.0-4.8) k/uL Monocytes # 0.5 (0-1.0) k/uL Eosinophils # 0.3 (0-0.7) k/uL Basophils # 0.0 (0-0.2) k/uL Hypochromasia Marked Poikilocytosis Moderate Anisocytosis Slight PT 9.7 (9.0-12.0) sec INR 0.9 (<1.2) APTT 24.8 (22.0-30.0) sec Sodium (137-145) mmol/L Potassium (3.5-5.1) mmol/L Chloride (98-107) mmol/L Carbon Dioxide (22-30) mmol/L Anion Gap mmol/L BUN (9-20) mg/dL Creatinine (0.66-1.25) mg/dL Est GFR (CKD-EPI)AfAm (>60 ml/min/1.73 sqM) Est GFR (CKD-EPI)NonAf (>60 ml/min/1.73 sqM) Glucose (74-99) mg/dL Calcium (8.4-10.2) mg/dL Magnesium (1.6-2.3) mg/dL Total Bilirubin (0.2-1.3) mg/dL AST (17-59) U/L ALT (4-49) U/L Alkaline Phosphatase (38-126) U/L Total Protein (6.3-8.2) g/dL Albumin (3.5-5.0) g/dL Stool Occult Blood Negative (Negative) 03/01/21 Range/Units 09:32 WBC (3.8-10.6) k/uL RBC (4.30-5.90) m/uL Hgb (13.0-17.5) gm/dL Hct (39.0-53.0) % MCV (80.0-100.0) fL MCH (25.0-35.0) pg MCHC (31.0-37.0) g/dL RDW (11.5-15.5) % Plt Count (150-450) k/uL MPV Neutrophils % % Lymphocytes % % Monocytes % % Eosinophils % % Basophils % % Neutrophils # (1.3-7.7) k/uL Lymphocytes # (1.0-4.8) k/uL Monocytes # (0-1.0) k/uL Eosinophils # (0-0.7) k/uL Basophils # (0-0.2) k/uL Hypochromasia Poikilocytosis Anisocytosis PT (9.0-12.0) sec INR (<1.2) APTT (22.0-30.0) sec Sodium 135 L (137-145) mmol/L Potassium 4.5 (3.5-5.1) mmol/L Chloride 102 (98-107) mmol/L Carbon Dioxide 24 (22-30) mmol/L Anion Gap 9 mmol/L BUN 15 (9-20) mg/dL Creatinine 0.96 (0.66-1.25) mg/dL Est GFR (CKD-EPI)AfAm >90 (>60 ml/min/1.73 sqM) Est GFR (CKD-EPI)NonAf 84 (>60 ml/min/1.73 sqM) Glucose 146 H (74-99) mg/dL Calcium 9.2 (8.4-10.2) mg/dL Magnesium 1.9 (1.6-2.3) mg/dL Total Bilirubin 1.5 H (0.2-1.3) mg/dL AST 26 (17-59) U/L ALT 10 (4-49) U/L Alkaline Phosphatase 105 (38-126) U/L Total Protein 6.6 (6.3-8.2) g/dL Albumin 3.5 (3.5-5.0) g/dL Stool Occult Blood (Negative) Disposition Clinical Impression: New onset atrial fibrillation, Chronic anemia Narrative: possible GI bleed Disposition: ADMITTED IP TO THIS HOSP Is patient prescribed a controlled substance at d/c from ED?: No Referrals: Kushal Deleon MD [Primary Care Provider] - 1-2 days Time of Disposition: 10:55
[2021-03-01] MEDS ORDERED: LORazepam 2 MG/ML INJ IV STA (09:42)
[2021-03-01 09:55] LABS: Anisocytosis Slight; Basophils % (A) 1 %; Eosinophils # (A) 0.3 k/uL (0-0.7); Eosinophils % (A) 5 %; HCT 29.5 % (39.0-53.0); HGB 9.4 gm/dL (13.0-17.5); Hypochromasia Marked; Lymphocytes # (A) 1.2 k/uL (1.0-4.8); Lymphocytes % (A) 20 %; MCH 29.2 pg (25.0-35.0); MCHC 32.1 g/dL (31.0-37.0); MCV 91.1 fL (80.0-100.0); Mean Platelet Volume 7.1; Monocytes # (A) 0.5 k/uL (0-1.0); Monocytes % (A) 7 %; Neutrophils # (A) 3.9 k/uL (1.3-7.7); Neutrophils % (A) 64 %; Platelet Count 341 k/uL (150-450); Poikilocytosis Moderate; RBC 3.23 m/uL (4.30-5.90); RDW 16.5 % (11.5-15.5); WBC 6.1 k/uL (3.8-10.6)
[2021-03-01 10:14] LABS: INR 0.9 (<1.2); Partial Thromboplastin Time 24.8 sec (22.0-30.0); Prothrombin Time 9.7 sec (9.0-12.0)
[2021-03-01 10:20] LABS: ALT 10 U/L (4-49); AST 26 U/L (17-59); African American GFR (CKD) >90 (>60 ml/min/1.73 sqM); Albumin 3.5 g/dL (3.5-5.0); Alkaline Phosphatase 105 U/L (38-126); Anion Gap 9 mmol/L; Blood Urea Nitrogen 15 mg/dL (9-20); Calcium 9.2 mg/dL (8.4-10.2); Carbon Dioxide 24 mmol/L (22-30); Chloride 102 mmol/L (98-107); Glucose 146 mg/dL (74-99); Magnesium 1.9 mg/dL (1.6-2.3); Non-African American GFR(CKD) 84 (>60 ml/min/1.73 sqM); Potassium 4.5 mmol/L (3.5-5.1); Sodium 135 mmol/L (137-145); Total Bilirubin 1.5 mg/dL (0.2-1.3); Total Protein 6.6 g/dL (6.3-8.2)
[2021-03-01 11:39] VITALS: RESP 22
[2021-03-01 14:19] VITALS: BP 154/86; PULSE 60
== END 2021-03-01 14:18 | disposition other institution (70) ==
LOC: EC 09:11 → 3SCARD 10:30 → UNDOADMIN 10:30 → EC 14:18
DX: I48.91 Unspecified atrial fibrillation (principal); D64.9 Anemia, unspecified; E11.9 Type 2 diabetes mellitus without complications; I10 Essential (primary) hypertension; Z87.891 Personal history of nicotine dependence
CPT/HCPCS: 99285; 96374; 96375; 36415; 93005; 86900; 86901; 80053; 83735; 84484; 85025; 85610; 85730; 86850; 82272; J2060; C9113

== ENCOUNTER 2023-06-22 10:44 | Inpatient (IN) | payer MEDICARE, OTHER ==
[2023-06-22] MEDS ORDERED: AMPICILLIN-SULBACTAM 3 GM in SODIUM CHLORIDE 0.9% 100 ML IVPB STA (11:39)
[2023-06-22] MEDS ORDERED: VANCOMYCIN IV PER PHARMACY 1 EACH MISC MISCELLANE PRN ×2 (11:39→15:51)
[2023-06-22] MEDS ORDERED: SODIUM CHLORIDE 0.9% 1,000 ML IV STA (11:40)
--- NOTE | 2023-06-22 11:43 | ED ---
Lower Extremity Injury HPI - General Chief Complaint: Extremity Injury, Lower Stated Complaint: Left foot pain Time Seen by Provider: 06/22/23 11:21 Source: patient, family, RN notes reviewed Mode of arrival: wheelchair - History of Present Illness Initial Comments: Patient is a 68-year-old male presented ER with chief complaint of left foot pain. Patient has a past medical history significant for diabetes. Patient states that he had a wound on his foot about 2 weeks ago and has now spread and this morning he noticed it was black. Patient states decreased sensation and pa in. Patient states it is difficult to walk due to the pain. Patient is on prophylactic Keflex from back surgery. Patient denies any fevers but does report some recent chills. - Related Data Home Medications Medication Instructions Recorded Confirmed ALPRAZolam [Xanax] 0.25 mg PO Q12H PRN 03/01/21 03/01/21 Acetaminophen Tab [Tylenol] 975 mg PO Q6HR PRN 03/01/21 03/01/21 Aspirin EC [Ecotrin Low Dose] 81 mg PO DAILY 03/01/21 03/01/21 Atorvastatin [Lipitor] 80 mg PO HS 03/01/21 03/01/21 Famotidine [Pepcid] 20 mg PO BID 03/01/21 03/01/21 Ferrous Sulfate [Feosol] 325 mg PO HS 03/01/21 03/01/21 Gabapentin [Neurontin] 600 mg PO TID@0900,1300,2100 03/01/21 03/01/21 Ibuprofen [Motrin] 600 mg PO Q6H PRN 03/01/21 03/01/21 Insulin Glargine,Hum.rec.anlog 30 unit SQ HS 03/01/21 03/01/21 [Lantus Solostar] Insulin Lispro [humaLOG Kwikpen] 3 unit SQ AC-TID@,,03/01/21 03/01/21 Insulin Lispro [humaLOG Kwikpen] See Protocol SQ AC-TID@,,03/01/21 03/01/21 Loperamide HCl [Imodium A-D] 2 - 4 mg PO QID PRN 03/01/21 03/01/21 Magnesium Oxide [Magox 400] 400 mg PO BID 03/01/21 03/01/21 Nafcillin [Nafcil] 2 gm IVPB Q4H 03/01/21 03/01/21 Sennosides/Docusate Sodium [Senna 2 tab PO BID 03/01/21 03/01/21 Plus 8.6-50 mg Tablet] Tamsulosin [Flomax] 0.8 mg PO DAILY 03/01/21 03/01/21 lisinopriL 40 mg PO DAILY 03/01/21 03/01/21 metFORMIN HCL 500 mg PO BID@0900,1700 03/01/21 03/01/21 methocarbamoL [Robaxin] 1,000 mg PO QID PRN 03/01/21 03/01/21 ondansetron HCL [Zofran] 4 mg PO TID PRN 03/01/21 03/01/21 oxyCODONE-APAP 10-325MG [Percocet 1 tab PO Q6H PRN 03/01/21 03/01/21 10-325 mg] rifAMPin [Rifampin] 300 mg PO Q12H 03/01/21 03/01/21 Previous Rx's Medication Instructions Recorded polyethylene glycoL 3350 [Miralax] 17 gm PO DAILY PRN powd.pack 03/13/20 Allergies Allergy/AdvReac Type Severity Reaction Status Date / Time No Known Allergies Allergy Verified 06/22/23 10:56 Review of Systems ROS Statement: Those systems with pertinent positive or pertinent negative responses have been documented in the HPI. ROS Other: All systems not noted in ROS Statement are negative. Past Medical History Past Medical History: Diabetes Mellitus, Hyperlipidemia, Hypertension Additional Past Medical History / Comment(s): Signiificant other and rosy state pt has not had insurance so has not been taking meds/seeing physician, NIDDM type II, neuropathy bilateral feet, past nephrolithiasis with pt passing stones on his own, pt passed a couple stones (s.o. 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 Back surgery-feb 2020- infection after, mrsa Past Anesthesia/Blood Transfusion Reactions: Unable to Obtain Additional Past Anesthesia/Blood Transfusion Reaction / Comment(s): Pt has never had general anesthesia per family Past Psychological History: No Psychological Hx Reported Smoking Status: Current every day smoker Past Alcohol Use History: Rare Past Drug Use History: None Reported - Past Family History Father Family Medical History: Dementia Mother Family Medical History: Cancer Additional Family Medical History / Comment(s): Mother of skin cancer. General Exam General appearance: alert, in no apparent distress Respiratory exam: Present: normal lung sounds bilaterally. Absent: respiratory distress, wheezes, rales, rhonchi, stridor Cardiovascular Exam: Present: regular rate, normal rhythm, normal heart sounds. Absent: systolic murmur, diastolic murmur, rubs, gallop, clicks Extremities exam: Present: other (Left MTP joint overlying skin is black with extension into first toe and later surface of foot. There is purulent discharge noted. 2+ dorsalis pedis pulse. There is a strong odor from foot.) Neurological exam: Present: alert, oriented X3, CN II-XII intact Psychiatric exam: Present: normal affect, normal mood Course Vital Signs 06/22/23 06/22/23 10:53 14:31 Pulse Rate 67 77 Respiratory 20 18 Rate Blood Pressure 174/76 175/74 O2 Sat by Pulse 96 95 Oximetry Medical Decision Making - Medical Decision Making Was pt. sent in by a medical professional or institution ([facility], [facility], urgent care, hospital, or retirement...) When possible be specific @ -No Did you speak to anyone other than the patient for history (EMS, parent, family, police, friend...)? What history was obtained from this source @ -Family Did you review nursing and triage notes (agree or disagree)? Why? @ -I reviewed and agree with nursing and triage notes Were old charts reviewed (outside hosp., previous admission, EMS record, old EKG, old radiological studies, urgent care reports/EKG's, retirement records)? Report findings @ -No old charts were reviewed Differential Diagnosis (chest pain, altered mental status, abdominal pain women, abdominal pain men, vaginal bleeding, weakness, fever, dyspnea, syncope, headache, dizziness, GI bleed, back pain, seizure, CVA, palpatations, mental health, musculoskeletal)? @ -[Differential Musculoskeletal: Muscular strain, contusion, ligament sprain, fracture, arthritis, septic arthritis, bursitis, cellulitis, muscle spasm, nerve compression, DVT, arterial occlusion, herpes zoster, electrolyte abnormality, tumor.... This is not meant to be in all inclusive list EKG interpreted by me (3pts min.). @ -None X-rays interpreted by me (1pt min.). @ -Left foot x-ray findings are most consistent with underlying osteomyelitis and gas involving the first toe metatarsal phalangeal joint. There are subtle erosive changes identified of the distal first metatarsal and proximal first phalanx of the great toe. Gases identified in the soft tissues of the great toe. CT interpreted by me (1pt min.). @ -None done U/S interpreted by me (1pt. min.). @ -None done What testing was considered but not performed or refused? (CT, X-rays, U/S, labs)? Why? @ -None What meds were considered but not given or refused? Why? @ -None Did you discuss the management of the patient with other professionals (professionals i.e. , PA, [facility], lab, RT, psych nurse, social security specialist, harbor engineer, teacher, branch officer, special education case manager)? Give summary @ -Yes, I discussed this case with Dr. Krueger who advised admission and NPO at midnight for possible surgery tomorrow. I also spoke with Dr. Cobb for admission. Was smoking cessation discussed for >3mins.? @ -No Was critical care preformed (if so, how long)? @ -No Were there social determinants of health that impacted care today? How? (Homelessness, low income, unemployed, alcoholism, drug addiction, transportation, low edu. Level, literacy, decrease access to med. care, [facility], rehab)? @ -No Was there de-escalation of care discussed even if they declined (Discuss DNR or withdrawal of care, Hospice)? DNR status @ -No What co-morbidities impacted this encounter? (DM, HTN, Smoking, COPD, CAD, Cancer, CVA, ARF, Chemo, Hep., AIDS, mental health diagnosis, sleep apnea, morbid obesity)? @ -Diabetes mellitus, hypertension Was patient admitted / discharged? Hospital course, mention meds given and route, prescriptions, significant lab abnormalities, going to OR and other pertinent info. @ -Admitted. Upon examination, patient's vitals were stable. Left MTP joint overlying skin was black with surrounding erythema and purulent drainage noted. 2+ dorsalis pedis pulse on the left present. Labs were significant for WBC 13.7, BUN 38, Cr 1.40, and alk phos 146. Blood and wound cultures were obtained in ER. Left foot xrays findings are most consistent with underlying osteomyelitis and gas involving the first toe metatarsal phalangeal joint. There are subtle erosive changes identified of the distal first metatarsal and proximal first phalanx of the great toe. Gases identified in the soft tissues of the great toe. Patient was started on IV Unasyn and Vanco in the ER. He also received 1L IV fluids, 0.5 Diluadad, and 4mg Zofran for pain control. I spoke with Dr. Krueger who advised admission and possible surgery tomorrow. I also spoke with Dr. Cobb for admission. Patient will be admitted in stable condition for further treatment. Patient expressed understanding and agreement with care plan. Undiagnosed new problem with uncertain prognosis? @ -No Drug Therapy requiring intensive monitoring for toxicity (Heparin, Nitro, Insulin, Cardizem)? @ -No Were any procedures done? @ -No Diagnosis/symptom? @ -Osteomyelitis/gangrene of great toe Acute, or Chronic, or Acute on Chronic? @ -Acute Uncomplicated (without systemic symptoms) or Complicated (systemic symptoms)? @ -Complicated Side effects of treatment? @ -No Exacerbation, Progression, or Severe Exacerbation? @ -No Poses a threat to life or bodily function? How? (Chest pain, USA, PA, pneumonia, PE, COPD, DKA, ARF, appy, cholecystitis, CVA, Diverticulitis, Homicidal, S uicidal, threat to staff... and all critical care pts) @ -Yes, osteomyelitis/gangrene can lead to sepsis. - Lab Data Result diagrams: 06/22/23 11:40 06/22/23 11:40 Lab Results 06/22/23 06/22/23 06/22/23 Range/Units 11:40 11:40 11:40 WBC 13.7 H (3.8-10.6) k/uL RBC 5.05 (4.30-5.90) m/uL Hgb 14.4 (13.0-17.5) gm/dL Hct 44.1 (39.0-53.0) % MCV 87.3 (80.0-100.0) fL MCH 28.4 (25.0-35.0) pg MCHC 32.6 (31.0-37.0) g/dL RDW 14.2 (11.5-15.5) % Plt Count 298 (150-450) k/uL MPV 7.5 Neutrophils % 85 % Lymphocytes % 8 % Monocytes % 5 % Eosinophils % 1 % Basophils % 0 % Neutrophils # 11.7 H (1.3-7.7) k/uL Lymphocytes # 1.2 (1.0-4.8) k/uL Monocytes # 0.6 (0-1.0) k/uL Eosinophils # 0.1 (0-0.7) k/uL Basophils # 0.0 (0-0.2) k/uL Hypochromasia Slight Sodium 139 (137-145) mmol/L Potassium 5.2 H (3.5-5.1) mmol/L Chloride 107 (98-107) mmol/L Carbon Dioxide 15 L (22-30) mmol/L Anion Gap 17 mmol/L BUN 38 H (9-20) mg/dL Creatinine 1.40 H (0.66-1.25) mg/dL Est GFR (CKD-EPI)AfAm 60 (>60 ml/min/1.73 sqM) Est GFR (CKD-EPI)NonAf 52 (>60 ml/min/1.73 sqM) Glucose 134 H (74-99) mg/dL Plasma Lactic Acid Reilly 0.8 (0.7-2.0) mmol/L Calcium 9.7 (8.4-10.2) mg/dL Total Bilirubin 0.8 (0.2-1.3) mg/dL AST 32 (17-59) U/L ALT 21 (4-49) U/L Alkaline Phosphatase 146 H (38-126) U/L Total Protein 8.2 (6.3-8.2) g/dL Albumin 4.6 (3.5-5.0) g/dL - Radiology Data Radiology results: report reviewed, image reviewed Disposition Clinical Impression: Osteomyelitis, Gas bacillus infection or gangrene Disposition: ADMITTED IP TO THIS HOSP Condition: Stable Referrals: Kushal Deleon MD [Primary Care Provider] - 1-2 days Time of Disposition: 14:52
[2023-06-22] MEDS ORDERED: VANCOMYCIN 1,500 MG in SODIUM CHLORIDE 0.9% 500 ML 500 ML IVPB STA (11:44)
[2023-06-22 12:15] LABS: Basophils % (A) 0 %; Eosinophils # (A) 0.1 k/uL (0-0.7); Eosinophils % (A) 1 %; HCT 44.1 % (39.0-53.0); HGB 14.4 gm/dL (13.0-17.5); Hypochromasia Slight; Lymphocytes # (A) 1.2 k/uL (1.0-4.8); Lymphocytes % (A) 8 %; MCH 28.4 pg (25.0-35.0); MCHC 32.6 g/dL (31.0-37.0); MCV 87.3 fL (80.0-100.0); Mean Platelet Volume 7.5; Monocytes # (A) 0.6 k/uL (0-1.0); Monocytes % (A) 5 %; Neutrophils # (A) 11.7 k/uL (1.3-7.7); Neutrophils % (A) 85 %; Platelet Count 298 k/uL (150-450); RBC 5.05 m/uL (4.30-5.90); RDW 14.2 % (11.5-15.5); WBC 13.7 k/uL (3.8-10.6)
--- NOTE | 2023-06-22 12:24 | XR ---
EXAMINATION TYPE: XR foot complete LT DATE OF EXAM: 06/22/2023 12:17 PM CLINICAL INDICATION:Male, 68 years old with history of wound; [facility] COMPARISON: None. TECHNIQUE: The left foot was examined in the AP, oblique, and lateral projections. FINDINGS: There are subtle erosive changes identified of the distal first metatarsal as well as proximal first phalanx of the great toe. No evidence of fracture. Hallux valgus is identified. Gas is identified wit hin the soft tissues surrounding the great toe. Atherosclerotic changes of the arterial vasculature i dentified. IMPRESSION: Findings most consistent with underlying with osteomyelitis and gas involving the first toe metatarsa l phalangeal joint.
[2023-06-22 13:22] LABS: ALT 21 U/L (4-49); AST 32 U/L (17-59); African American GFR (CKD) 60 (>60 ml/min/1.73 sqM); Albumin 4.6 g/dL (3.5-5.0); Alkaline Phosphatase 146 U/L (38-126); Anion Gap 17 mmol/L; Blood Urea Nitrogen 38 mg/dL (9-20); Calcium 9.7 mg/dL (8.4-10.2); Carbon Dioxide 15 mmol/L (22-30); Chloride 107 mmol/L (98-107); Glucose 134 mg/dL (74-99); Non-African American GFR(CKD) 52 (>60 ml/min/1.73 sqM); Sodium 139 mmol/L (137-145); Total Bilirubin 0.8 mg/dL (0.2-1.3); Total Protein 8.2 g/dL (6.3-8.2)
[2023-06-22 13:29] LABS: Potassium 5.2 mmol/L (3.5-5.1)
[2023-06-22] MEDS ORDERED: HYDROmorphone 0.5 MG/0.5 ML SYRINGE IVP STA (14:23)
[2023-06-22] MEDS: ONDANSETRON 4 MG/2 ML VIAL IVP STA (14:27)
[2023-06-22] MEDS ORDERED: NALOXONE 0.4 MG/ML 1 ML VIAL IV PRN ×2 (14:53→15:59)
[2023-06-22] MEDS ORDERED: METOCLOPRAMIDE 5 MG/ML 2 ML VIAL IVP STA (14:56)
[2023-06-22] MEDS: SODIUM CHLORIDE 0.9% 1,000 ML IV SCH (14:59)
[2023-06-22] MEDS ORDERED: CLINDAMYCIN 300 MG in DEXTROSE 5% IN WATER 50 ML IVPB SCH ×4 (16:00→22:00)
[2023-06-22] MEDS: HYDROmorphone 0.5 MG/0.5 ML SYRINGE IVP PRN ×3 (17:19→23:39)
[2023-06-22] MEDS: HEPARIN SODIUM,PORCINE 5,000 UNIT/ML 1 ML VIAL SQ SCH ×2 (17:20→23:31)
--- NOTE | 2023-06-22 17:34 | P.HPIM ---
History of Present Illness H&P Date: 06/22/23 Chief Complaint: Left foot wound CC: Left foot wound HPI: Mr. 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 He has had this chronic wound for the last s everal months but states his wound has worsened over the last 2 weeks. He has noted some necrotic tissue and worsening ulceration with drainage. He also has some surrounding erythema around the area. Denies any fevers at home but does state he has had intermittent chills. He does not have any known peripheral vascular disease. States the wound initially started after trauma to the area. The wound is located on the medial border of the great toe and foot. X-ray of the left foot showed osteomyelitis with gas of the first toe metatarsal phalangeal joint. Complete ROS performed, pertinent positives and negatives in HPI Brought list of home meds and they were reviewed ALLERGIES NKDA Surgical history Intervention for spine infection Family history Positive for hypertension Social history Smokes 4-5 cigars a day. Seldom alcohol use. Denies illicit drug use. Vitals: Reviewed General: No acute distress HEENT: Mucous membranes moist neck supple Cardiovascular: RRR, S1-S2 Lungs: Breath sounds equal and clear to auscultation bilaterally. No wheezing, rhonchi or rales Abdomen: Soft, nontender, nondistended Extremities: No lower extremity edema, necrotic appearing ulcer with surrounding erythema extending from the great toe down the medial side of the left foot Labs reviewed, mild leukocytosis, potassium 5.2, anion gap metabolic acidosis, creatinine 1.4 Assessment and plan 1. Left foot osteomyelitis Start Vanco and cefepime. Clindamycin added for gas. MRI of the foot. Wound and blood cultures. ESR/therapy for trending. ID consultation. Vascular surgery consulted and the plan debridement tomorrow.Arterial US. 2. Insulin dependent diabetes mellitus Blood sugars currently controlled. Resume Lantus at lower dose of 5 units tonight is to be nothing by mouth. Sliding scale insulin. We will adjust accordingly. 3. Acute kidney injury Mild hyperkalemia Anion gap metabolic acidosis Likely prerenal. Baseline creatinine about 1, presented with creatinine 1.4. Repeat BMP state as he received IV fluids. Avoid nephrotoxins. Avoid NSAIDs. 4. Hypertension Resume home metoprolol and nifedipine. Hold arb for hyperkalemia. IV hydralazine as needed. DVT prophylaxis with subcu heparin CODE STATUS discussed, he is full code Past Medical History Past Medical History: Diabetes Mellitus, Hyperlipidemia, Hypertension Additional Past Medical History / Comment(s): Signiificant other and rosy state pt has not had insurance so has not been taking meds/seeing physician, NIDDM type II, neuropathy bilateral feet, past nephrolithiasis with pt passing stones on his own, pt passed a couple stones (s.o. 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 Back surgery-feb 2020- infection after, mrsa Past Anesthesia/Blood Transfusion Reactions: Unable to Obtain Additional Past Anesthesia/Blood Transfusion Reaction / Comment(s): Pt has never had general anesthesia per family Past Psychological History: No Psychological Hx Reported Smoking Status: Current every day smoker Past Alcohol Use History: Rare Past Drug Use History: None Reported - Past Family History Father Family Medical History: Dementia Mother Family Medical History: Cancer Additional Family Medical History / Comment(s): Mother of skin cancer. Medications and Allergies Home Medications Medication Instructions Recorded Confirmed Type Aspirin EC [Ecotrin Low Dose] 81 mg PO DAILY 03/01/21 06/22/23 History Atorvastatin [Lipitor] 80 mg PO DAILY 03/01/21 06/22/23 History Gabapentin [Neurontin] 300 mg PO BID 03/01/21 06/22/23 History Ibuprofen [Motrin] 600 mg PO Q8H PRN 03/01/21 06/22/23 History Insulin Glargine,Hum.rec.anlog 39 unit SQ HS 03/01/21 06/22/23 History [Lantus Solostar] Insulin Lispro [humaLOG Kwikpen] 6 unit SQ AC-TID 03/01/21 06/22/23 History Tamsulosin [Flomax] 0.8 mg PO DAILY 03/01/21 06/22/23 History Albuterol Sulfate [Albuterol 1 - 2 puff PO RT-Q4H PRN 06/22/23 06/22/23 History Sulfate Hfa] Cephalexin [Keflex] 500 mg PO QID 06/22/23 06/22/23 History Cholecalciferol [Vitamin D3 (25 50 mcg PO DAILY 06/22/23 06/22/23 History Mcg = 1000 Iu)] Cyclobenzaprine [Flexeril] 5 mg PO TID 06/22/23 06/22/23 History Empagliflozin [Jardiance] 10 mg PO DAILY 06/22/23 06/22/23 History Folic Acid 1 mg PO DAILY 06/22/23 06/22/23 History Losartan [Cozaar] 25 mg PO HS 06/22/23 06/22/23 History Metoclopramide [Reglan] 5 mg PO TID PRN 06/22/23 06/22/23 History Metoprolol Tartrate [Lopressor] 25 mg PO BID 06/22/23 06/22/23 History NIFEdipine XL [Procardia XL] 60 mg PO HS 06/22/23 06/22/23 History Omeprazole 20 mg PO DAILY 06/22/23 06/22/23 History Thiamine [Vitamin B-1] 100 mg PO DAILY 06/22/23 06/22/23 History traMADol-ACETAMINOP 37.5-325MG 1 tab PO TID PRN 06/22/23 06/22/23 History [Ultracet] Allergies Allergy/AdvReac Type Severity Reaction Status Date / Time No Known Allergies Allergy Verified 06/22/23 16:23 Physical Exam Vitals: Vital Signs Temp Pulse Pulse Resp BP BP Pulse Ox 06/22/23 16:17 98.0 F 82 16 200/84 94 L 06/22/23 15:41 97.9 F 70 18 167/74 95 06/22/23 14:31 77 18 175/74 95 06/22/23 10:53 67 20 174/76 96 Intake and Output 06/22/23 06/22/23 06/22/23 06:59 14:59 22:59 Output Total 250 Balance -250 Output: Urine 250 Other: Weight 99.79 kg Results CBC & Chem 7: 06/22/23 11:40 06/22/23 11:40 Labs: Abnormal Lab Results - Last 24 Hours (Table) 06/22/23 06/22/23 Range/Units 11:40 11:40 WBC 13.7 H (3.8-10.6) k/uL Neutrophils # 11.7 H (1.3-7.7) k/uL Potassium 5.2 H (3.5-5.1) mmol/L Carbon Dioxide 15 L (22-30) mmol/L BUN 38 H (9-20) mg/dL Creatinine 1.40 H (0.66-1.25) mg/dL Glucose 134 H (74-99) mg/dL Alkaline Phosphatase 146 H (38-126) U/L
[2023-06-22 17:40] LABS: Glucose,Whole Blood 112 mg/dL (70-110)
[2023-06-22] MEDS: CEFEPIME 2 GM in SODIUM CHLORIDE 0.9% 100 ML IVPB SCH ×2 (18:00→23:31)
[2023-06-22 18:07] LABS: African American GFR (CKD) 71 (>60 ml/min/1.73 sqM); Anion Gap 14 mmol/L; Blood Urea Nitrogen 32 mg/dL (9-20); Calcium 9.4 mg/dL (8.4-10.2); Carbon Dioxide 17 mmol/L (22-30); Chloride 109 mmol/L (98-107); Glucose 106 mg/dL (74-99); Non-African American GFR(CKD) 62 (>60 ml/min/1.73 sqM); Potassium 4.4 mmol/L (3.5-5.1); Sodium 140 mmol/L (137-145)
[2023-06-22] MEDS: hydrALAZINE HCL 20 MG/ML 1 ML VIAL IVP PRN (18:09)
--- NOTE | 2023-06-22 19:52 | US ---
EXAMINATION TYPE: US arterial LE multi level DATE OF EXAM: 06/22/2023 7:32 PM CLINICAL INDICATION: Male, 68 years old with history of assess for pvd; PVD Left big toe is gangrene open wound for weeks having surgery tomorrow History of: Smoker: Yes Hypertension: Yes Diabetic: Yes Hyperlipidemia: Yes TIA/CVA: No Previous Vascular Surgery: No CAD: No NH: No Vascular Ulcers: Yes Claudication: No Gangrene: Yes Doppler Waveforms: Right: Monophasic Left: Monophasic Ankle-Brachial Indices: Right: 0.57 Left: 0.53 Toe Brachial Indices: Right: 0.15 Left: Unable to do toe pressures due to open wound gangrene. IMPRESSION: Severe bilateral peripheral vascular disease but ankle-brachial indices.
[2023-06-22 20:20] LABS: Glucose,Whole Blood 172 mg/dL (70-110)
[2023-06-22] MEDS: ATORVASTATIN 80 MG TAB PO SCH (20:25)
[2023-06-22] MEDS: METOPROLOL TARTRATE 25 MG TAB PO SCH (20:25)
[2023-06-22] MEDS: INSULIN ASPART (NovoLOG) 100 UNIT/ML VIAL SQ SCH (20:25)
[2023-06-22] MEDS: GABAPENTIN 300 MG CAP PO SCH (20:25)
[2023-06-22] MEDS: INSULIN DETEMIR (LEVEMIR) 100 UNIT/ML SYR SQ SCH (20:25)
[2023-06-22] MEDS: CYCLOBENZAPRINE 5 MG TAB PO PRN (21:11)
[2023-06-23] MEDS: SODIUM CHLORIDE 0.9% 1,000 ML IV SCH ×2 (04:00→21:02)
[2023-06-23] MEDS: HYDROmorphone 0.5 MG/0.5 ML SYRINGE IVP PRN ×3 (04:05→23:03)
[2023-06-23 06:01] LABS: Glucose,Whole Blood 141 mg/dL (70-110)
[2023-06-23] MEDS: INSULIN ASPART (NovoLOG) 100 UNIT/ML VIAL SQ SCH ×4 (06:05→21:01)
[2023-06-23] MEDS: PANTOPRAZOLE 40 MG TABLET PO SCH (06:11)
[2023-06-23 07:10] LABS: Basophils % (A) 0 %; Eosinophils # (A) 0.2 k/uL (0-0.7); Eosinophils % (A) 2 %; HCT 39.6 % (39.0-53.0); HGB 12.7 gm/dL (13.0-17.5); Hypochromasia Slight; Lymphocytes # (A) 1.2 k/uL (1.0-4.8); Lymphocytes % (A) 13 %; MCH 28.2 pg (25.0-35.0); MCV 88.2 fL (80.0-100.0); Mean Platelet Volume 7.2; Monocytes # (A) 0.7 k/uL (0-1.0); Monocytes % (A) 7 %; Neutrophils # (A) 6.8 k/uL (1.3-7.7); Neutrophils % (A) 76 %; Platelet Count 267 k/uL (150-450); RBC 4.49 m/uL (4.30-5.90); RDW 14.2 % (11.5-15.5)
[2023-06-23 07:32] LABS: ALT 18 U/L (4-49); AST 21 U/L (17-59); African American GFR (CKD) 76 (>60 ml/min/1.73 sqM); Albumin 3.8 g/dL (3.5-5.0); Albumin/Globulin Ratio 1.3; Alkaline Phosphatase 139 U/L (38-126); Anion Gap 11 mmol/L; Blood Urea Nitrogen 31 mg/dL (9-20); Calcium 9.3 mg/dL (8.4-10.2); Carbon Dioxide 17 mmol/L (22-30); Chloride 110 mmol/L (98-107); Glucose 127 mg/dL (74-99); Non-African American GFR(CKD) 66 (>60 ml/min/1.73 sqM); Phosphorus 3.6 mg/dL (2.5-4.5); Potassium 4.8 mmol/L (3.5-5.1); Sodium 138 mmol/L (137-145); Total Bilirubin 0.4 mg/dL (0.2-1.3); Total Protein 6.8 g/dL (6.3-8.2)
--- NOTE | 2023-06-23 08:08 | P.CONS ---
History of Present Illness - Reason for Consult Consult date: 06/22/23 Osteomyelitis Requesting physician: Samson Calhoun - Chief Complaint Left big toe discoloration x few days - History of Present Illness Patient is a 68-year-old male with a past medical history significant for diabetes mellitus hypertension hyperlipidemia patient did have a history of thoracic discitis and paraspinal abscess requiring surgery and the patient is currently on suppressive oral Keflex therapy patient presenting to the ER for evaluation of left big toe discoloration along with the swelling and redness patient mention he did injured his toe about 2 weeks ago and has been taking care of it at home however he noticed to have rapid worsening of the left big toe with the discoloration for the patient presenting to the hospital patient did have underlying diabetic neuropathy and his pain has been mostly minimal without any radiation mostly discoloration to the left big toe especially the medial side and did have some foul-smelling drainage patient on presentation to the hospital was afebrile and no fever has been recorded subsequently patient did have vital of 13.7 creatinine was 1.4 0 repeat is 1.22 liver exams are normal patient did have a x-ray of the foot finding consistent with underlying osteomyelitis with gas involving the first big toe patient was started on vancomycin and cefepime and clindamycin infectious disease was consulted for further management of antibiotic therapy Review of Systems Positive point and negatives has been mentioned in the HPI, complete review of systems was performed and all other systems are negative Past Medical History Past Medical History: Diabetes Mellitus, Hyperlipidemia, Hypertension Additional Past Medical History / Comment(s): Signiificant other and rosy state pt has not had insurance so has not been taking meds/seeing physician, NIDDM type II, neuropathy bilateral feet, past nephrolithiasis with pt passing stones on his own, pt passed a couple stones (s.o. 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 Back surgery-feb 2020- infection after, mrsa Past Anesthesia/Blood Transfusion Reactions: Unable to Obtain Additional Past Anesthesia/Blood Transfusion Reaction / Comm: Pt has never had general anesthesia per family Past Psychological History: No Psychological Hx Reported Smoking Status: Current every day smoker Past Alcohol Use History: Rare Past Drug Use History: None Reported - Past Family History Father Family Medical History: Dementia Mother Family Medical History: Cancer Additional Family Medical History / Comment(s): Mother of skin cancer. Medications and Allergies Home Medications Medication Instructions Recorded Confirmed Type Aspirin EC [Ecotrin Low Dose] 81 mg PO DAILY 03/01/21 06/22/23 History Atorvastatin [Lipitor] 80 mg PO DAILY 03/01/21 06/22/23 History Ibuprofen [Motrin] 600 mg PO Q8H PRN 03/01/21 06/22/23 History Insulin Glargine,Hum.rec.anlog 39 unit SQ HS 03/01/21 06/22/23 History [Lantus Solostar Pen] Insulin Lispro [humaLOG Kwikpen] 6 unit SQ AC-TID 03/01/21 06/22/23 History Tamsulosin [Flomax] 0.8 mg PO DAILY 03/01/21 06/22/23 History Albuterol Sulfate [Albuterol 1 - 2 puff PO RT-Q4H PRN 06/22/23 06/22/23 History Sulfate Hfa] Cholecalciferol [Vitamin D3 (25 50 mcg PO DAILY 06/22/23 06/22/23 History Mcg = 1000 Iu)] Cyclobenzaprine [Flexeril] 5 mg PO TID 06/22/23 06/22/23 History Empagliflozin [Jardiance] 10 mg PO DAILY 06/22/23 06/22/23 History Folic Acid 1 mg PO DAILY 06/22/23 06/22/23 History Losartan [Cozaar] 25 mg PO HS 06/22/23 06/22/23 History Metoclopramide [Reglan] 5 mg PO TID PRN 06/22/23 06/22/23 History Metoprolol Tartrate [Lopressor] 25 mg PO BID 06/22/23 06/22/23 History NIFEdipine XL [Procardia XL] 60 mg PO HS 06/22/23 06/22/23 History Omeprazole 20 mg PO DAILY 06/22/23 06/22/23 History Thiamine [Vitamin B-1] 100 mg PO DAILY 06/22/23 06/22/23 History traMADol-ACETAMINOP 37.5-325MG 1 tab PO TID PRN 06/22/23 06/22/23 History [Ultracet] Ertapenem [INVanz] 1 gm IVPB Q24H #42 each 06/27/23 Rx Gabapentin [Neurontin] 400 mg PO TID 30 Days #90 cap 06/27/23 Rx HYDROcodone/APAP 10-325MG [[place] 1 tab PO Q4HR PRN 3 Days #18 tab 06/27/23 Rx 10-325] Allergies Allergy/AdvReac Type Severity Reaction Status Date / Time No Known Allergies Allergy Verified 06/22/23 16:23 Physical Exam Vitals: Vital Signs Temp Pulse Pulse Resp BP BP Pulse Ox 06/22/23 20:00 98.1 F 85 16 187/74 94 L 06/22/23 18:40 185/76 06/22/23 16:17 98.0 F 82 16 200/84 94 L 06/22/23 15:41 97.9 F 70 18 167/74 95 06/22/23 14:31 77 18 175/74 95 06/22/23 10:53 67 20 174/76 96 Intake and Output 06/22/23 06/22/23 06/22/23 06:59 14:59 22:59 Intake Total 118 Output Total 250 Balance -132 Intake: Oral 118 Output: Urine 250 Other: Weight 99.79 kg 99.79 kg GENERAL DESCRIPTION: Elderly male lying in bed, no distress. No tachypnea or accessory muscle of respiration use. HEENT: Shows Pallor , no scleral icterus. Oral mucous membrane is dry. No pharyngeal erythema or thrush NECK: Trachea central, no thyromegaly. LUNGS: Unlabored breathing. Clear to auscultation anteriorly. No wheeze or crackle. HEART: S1, S2, regular rate and rhythm. No loud murmur ABDOMEN: Soft, no tenderness , guarding or rigidity, no organomegaly EXTREMITIES: Left big toe with black discoloration associated swelling redness and foul-smelling drainage SKIN: No rash, no masses palpable. NEUROLOGICAL: The patient is awake, alert, oriented x3, mood and affect normal. Results CBC & Chem 7: 06/26/23 04:59 06/26/23 04:59 Labs: Abnormal Lab Results - Last 24 Hours (Table) 06/22/23 06/22/23 06/22/23 Range/Units 11:40 11:40 17:38 WBC 13.7 H (3.8-10.6) k/uL Neutrophils # 11.7 H (1.3-7.7) k/uL Potassium 5.2 H (3.5-5.1) mmol/L Chloride (98-107) mmol/L Carbon Dioxide 15 L (22-30) mmol/L BUN 38 H (9-20) mg/dL Creatinine 1.40 H (0.66-1.25) mg/dL Glucose 134 H (74-99) mg/dL POC Glucose (mg/dL) 112 H (70-110) mg/dL Alkaline Phosphatase 146 H (38-126) U/L 06/22/23 06/22/23 Range/Units 17:39 20:16 WBC (3.8-10.6) k/uL Neutrophils # (1.3-7.7) k/uL Potassium (3.5-5.1) mmol/L Chloride 109 H (98-107) mmol/L Carbon Dioxide 17 L (22-30) mmol/L BUN 32 H (9-20) mg/dL Creatinine (0.66-1.25) mg/dL Glucose 106 H (74-99) mg/dL POC Glucose (mg/dL) 172 H (70-110) mg/dL Alkaline Phosphatase (38-126) U/L Assessment and Plan (1) Diabetic foot infection Current Visit: Yes Status: Acute Code(s): E11.628 - TYPE 2 DIABETES MELLITUS WITH OTHER SKIN COMPLICATIONS; L08.9 - LOCAL INFECTION OF THE SKIN AND SUBCUTANEOUS TISSUE, UNSP SNOMED Code(s): 532361291 (2) Gangrene of toe of left foot Current Visit: Yes Status: Acute Code(s): I96 - GANGRENE, NOT ELSEWHERE CLASSIFIED SNOMED Code(s): 66127770068231714 Plan: 1patient was in the hospital with left big toe diabetic foot infection with evidence of wet gangrene and x-ray has been suspicious for osteomyelitis with gas-forming organism we will need to cover for the polymicrobial gaby usually associated with diabetic foot infection 2-mild insufficiency and high risk of nephrotoxicity 3-patient to continue the vancomycin pharmacy to dose cefepime we will switch clindamycin to Flagyl 4-await vascular surgery evaluation for possible debridement versus amputation and deep culture We will follow on clinical condition and cultures to further adjust medication if needed Thank you for this consultation we will follow the patient along with you Dictation was produced using [employer] (formerly [employer]) dictation software. please excuse any grammatical, word or spelling errors. Time with Patient: Greater than 30
[2023-06-23] MEDS ORDERED: TAMSULOSIN 0.4 MG CAP.ER.24H PO SCH (09:00)
[2023-06-23] MEDS: METOPROLOL TARTRATE 25 MG TAB PO SCH ×2 (09:42→21:00)
[2023-06-23] MEDS: HEPARIN SODIUM,PORCINE 5,000 UNIT/ML 1 ML VIAL SQ SCH ×3 (09:42→23:05)
[2023-06-23] MEDS: metroNIDAZOLE 500 MG TAB PO SCH ×3 (09:43→21:00)
[2023-06-23] MEDS: CEFEPIME 2 GM in SODIUM CHLORIDE 0.9% 100 ML IVPB SCH ×3 (09:43→23:05)
[2023-06-23] MEDS: TAMSULOSIN 0.4 MG CAP.ER.24H PO SCH (09:43)
[2023-06-23] MEDS: VANCOMYCIN 1,500 MG in SODIUM CHLORIDE 0.9% 500 ML 500 ML IVPB SCH ×2 (09:57→23:05)
[2023-06-23] MEDS: GABAPENTIN 300 MG CAP PO SCH ×2 (09:57→21:00)
--- NOTE | 2023-06-23 12:12 | P.GSCN ---
History of Present Illness Consult date: 06/23/23 Reason for Consult: Osteomyelitis Requesting physician: Frances Moffett History of present illness: . 68-year-old male with past medical history of diabetes mellitus, current Pack per day smoker for past 50 years who presented to the emergency department with concerns of an infected left great toe. States he had a wound that started a few months ago that Dr. Deleon was taking care of and it was healing. He then lost his Medicaid insurance and he was not having regular care. He states that about 1-2 weeks ago started turning black and having drainage. Patient was admitted for osteomyelitis and started on IV antibiotics. He had a x-ray of the left foot reporting underlying osteomyelitis and gas involving the first toe metatarsal phalangeal joint. Patient denies any pain in his lower extremities. States he does have some discomfort around the toe and has notable redness to the foot as well as swelling. He denies any shortness of breath, chest pain, abdominal pain, nausea or vomiting. He has been afebrile. WBC 9.0 hemoglobin 12.7 platelet count 267,019 INR 1.0 Patient also had arterial Dopplers of lower extremities SHARI right lower extremity 0.57, left 0.53. Review of Systems A 14 point review systems was completed all pertinent positives and negatives as stated in the HPI. Past Medical History Past Medical History: Diabetes Mellitus, Hyperlipidemia, Hypertension Additional Past Medical History / Comment(s): Signiificant other and rosy state pt has not had insurance so has not been taking meds/seeing physician, NIDDM type II, neuropathy bilateral feet, past nephrolithiasis with pt passing stones on his own, pt passed a couple stones (s.o. 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 Back surgery-feb 2020- infection after, mrsa Past Anesthesia/Blood Transfusion Reactions: Unable to Obtain Additional Past Anesthesia/Blood Transfusion Reaction / Comm: Pt has never had general anesthesia per family Past Psychological History: No Psychological Hx Reported Smoking Status: Current every day smoker Past Alcohol Use History: Rare Past Drug Use History: None Reported - Past Family History Father Family Medical History: Dementia Mother Family Medical History: Cancer Additional Family Medical History / Comment(s): Mother of skin cancer. Medications and Allergies Home Medications Medication Instructions Recorded Confirmed Type Aspirin EC [Ecotrin Low Dose] 81 mg PO DAILY 03/01/21 06/22/23 History Atorvastatin [Lipitor] 80 mg PO DAILY 03/01/21 06/22/23 History Gabapentin [Neurontin] 300 mg PO BID 03/01/21 06/22/23 History Ibuprofen [Motrin] 600 mg PO Q8H PRN 03/01/21 06/22/23 History Insulin Glargine,Hum.rec.anlog 39 unit SQ HS 03/01/21 06/22/23 History [Lantus Solostar] Insulin Lispro [humaLOG Kwikpen] 6 unit SQ AC-TID 03/01/21 06/22/23 History Tamsulosin [Flomax] 0.8 mg PO DAILY 03/01/21 06/22/23 History Albuterol Sulfate [Albuterol 1 - 2 puff PO RT-Q4H PRN 06/22/23 06/22/23 History Sulfate Hfa] Cephalexin [Keflex] 500 mg PO QID 06/22/23 06/22/23 History Cholecalciferol [Vitamin D3 (25 50 mcg PO DAILY 06/22/23 06/22/23 History Mcg = 1000 Iu)] Cyclobenzaprine [Flexeril] 5 mg PO TID 06/22/23 06/22/23 History Empagliflozin [Jardiance] 10 mg PO DAILY 06/22/23 06/22/23 History Folic Acid 1 mg PO DAILY 06/22/23 06/22/23 History Losartan [Cozaar] 25 mg PO HS 06/22/23 06/22/23 History Metoclopramide [Reglan] 5 mg PO TID PRN 06/22/23 06/22/23 History Metoprolol Tartrate [Lopressor] 25 mg PO BID 06/22/23 06/22/23 History NIFEdipine XL [Procardia XL] 60 mg PO HS 06/22/23 06/22/23 History Omeprazole 20 mg PO DAILY 06/22/23 06/22/23 History Thiamine [Vitamin B-1] 100 mg PO DAILY 06/22/23 06/22/23 History traMADol-ACETAMINOP 37.5-325MG 1 tab PO TID PRN 06/22/23 06/22/23 History [Ultracet] Allergies Allergy/AdvReac Type Severity Reaction Status Date / Time No Known Allergies Allergy Verified 06/22/23 16:23 Surgical - Exam Vital Signs Pulse Resp BP Pulse Ox 67 20 174/76 96 06/22/23 10:53 06/22/23 10:53 06/22/23 10:53 06/22/23 10:53 General appearance: The patient is alert, oriented, appears in no acute distress. HET: Head is normocephalic and atraumatic. Pupils are equal and reactive. Neck: Supple. Heart: Regular. Lungs: Equal expansion, normal respiratory effort. Abdomen: Soft, nontender, nondistended. Extremities: Bilateral palpable femoral pulses. Nonpalpable DP or PT pulses. Left foot with erythema on dorsal and plantar aspect. Left great toe with wet gangrene. Neurological: No focal deficits. Alert and oriented. Results - Labs 06/23/23 06:16 06/23/23 06:16 Abnormal Lab Results - Last 24 Hours (Table) 06/22/23 06/22/23 06/22/23 Range/Units 11:40 11:40 17:38 WBC 13.7 H (3.8-10.6) k/uL Hgb (13.0-17.5) gm/dL Neutrophils # 11.7 H (1.3-7.7) k/uL Potassium 5.2 H (3.5-5.1) mmol/L Chloride (98-107) mmol/L Carbon Dioxide 15 L (22-30) mmol/L BUN 38 H (9-20) mg/dL Creatinine 1.40 H (0.66-1.25) mg/dL Glucose 134 H (74-99) mg/dL POC Glucose (mg/dL) 112 H (70-110) mg/dL Alkaline Phosphatase 146 H (38-126) U/L 06/22/23 06/22/23 06/23/23 Range/Units 17:39 20:16 06:00 WBC (3.8-10.6) k/uL Hgb (13.0-17.5) gm/dL Neutrophils # (1.3-7.7) k/uL Potassium (3.5-5.1) mmol/L Chloride 109 H (98-107) mmol/L Carbon Dioxide 17 L (22-30) mmol/L BUN 32 H (9-20) mg/dL Creatinine (0.66-1.25) mg/dL Glucose 106 H (74-99) mg/dL POC Glucose (mg/dL) 172 H 141 H (70-110) mg/dL Alkaline Phosphatase (38-126) U/L 06/23/23 06/23/23 Range/Units 06:16 06:16 WBC (3.8-10.6) k/uL Hgb 12.7 L (13.0-17.5) gm/dL Neutrophils # (1.3-7.7) k/uL Potassium (3.5-5.1) mmol/L Chloride 110 H (98-107) mmol/L Carbon Dioxide 17 L (22-30) mmol/L BUN 31 H (9-20) mg/dL Creatinine (0.66-1.25) mg/dL Glucose 127 H (74-99) mg/dL POC Glucose (mg/dL) (70-110) mg/dL Alkaline Phosphatase 139 H (38-126) U/L Diabetes panel 06/22/23 06/22/23 06/23/23 Range/Units 11:40 17:39 06:16 Sodium 139 140 138 (137-145) mmol/L Potassium 5.2 H 4.4 4.8 (3.5-5.1) mmol/L Chloride 107 109 H 110 H (98-107) mmol/L Carbon Dioxide 15 L 17 L 17 L (22-30) mmol/L BUN 38 H 32 H 31 H (9-20) mg/dL Creatinine 1.40 H 1.22 1.16 (0.66-1.25) mg/dL Glucose 134 H 106 H 127 H (74-99) mg/dL Calcium 9.7 9.4 9.3 (8.4-10.2) mg/dL AST 32 21 (17-59) U/L ALT 21 18 (4-49) U/L Alkaline Phosphatase 146 H 139 H (38-126) U/L Total Protein 8.2 6.8 (6.3-8.2) g/dL Albumin 4.6 3.8 (3.5-5.0) g/dL Calcium panel 06/22/23 06/22/23 06/23/23 Range/Units 11:40 17:39 06:16 Calcium 9.7 9.4 9.3 (8.4-10.2) mg/dL Phosphorus 3.6 (2.5-4.5) mg/dL Albumin 4.6 3.8 (3.5-5.0) g/dL Pituitary panel 06/22/23 06/22/23 06/23/23 Range/Units 11:40 17:39 06:16 Sodium 139 140 138 (137-145) mmol/L Potassium 5.2 H 4.4 4.8 (3.5-5.1) mmol/L Chloride 107 109 H 110 H (98-107) mmol/L Carbon Dioxide 15 L 17 L 17 L (22-30) mmol/L BUN 38 H 32 H 31 H (9-20) mg/dL Creatinine 1.40 H 1.22 1.16 (0.66-1.25) mg/dL Glucose 134 H 106 H 127 H (74-99) mg/dL Calcium 9.7 9.4 9.3 (8.4-10.2) mg/dL Adrenal panel 06/22/23 06/22/23 06/23/23 Range/Units 11:40 17:39 06:16 Sodium 139 140 138 (137-145) mmol/L Potassium 5.2 H 4.4 4.8 (3.5-5.1) mmol/L Chloride 107 109 H 110 H (98-107) mmol/L Carbon Dioxide 15 L 17 L 17 L (22-30) mmol/L BUN 38 H 32 H 31 H (9-20) mg/dL Creatinine 1.40 H 1.22 1.16 (0.66-1.25) mg/dL Glucose 134 H 106 H 127 H (74-99) mg/dL Calcium 9.7 9.4 9.3 (8.4-10.2) mg/dL Total Bilirubin 0.8 0.4 (0.2-1.3) mg/dL AST 32 21 (17-59) U/L ALT 21 18 (4-49) U/L Alkaline Phosphatase 146 H 139 H (38-126) U/L Total Protein 8.2 6.8 (6.3-8.2) g/dL Albumin 4.6 3.8 (3.5-5.0) g/dL Assessment and Plan Assessment: 1. Left great toe with gangrene 2. Osteomyelitis left great toe 3. Diabetes mellitus 4. Current every day smoker 5. Peripheral arterial disease 6. Hypertension and hyperlipidemia Plan: 1. Patient may have a light breakfast then nothing by mouth 2. Antibiotics per recommendations from infectious disease 3. Patient scheduled for left great toe amputation with possible transmetatarsal amputation today 4. Discussed importance/recommendation of smoking cessation Thank you for this consultation, we will continue to follow. Later in the day patient discussed with nursing is concerned about proceeding with surgery. At 1600 Discussed with patient at the bedside and his girlfriend on the phone Shaniqua, the plan for left great toe amputation with possible transmetatarsal amputation. Discussed findings of x-ray as well as exam with concern for infection and possible bacteremia. Discussed procedures and postop care with both of them. They both seemingly understood and patient is agreeable to proceed with surgery today. The impression and plan of care has been dictated as directed. Dr. Krueger I performed a history and examination of this patient, discussed the same with the dictator. I agree with the dictator's note ,documented as a scribe. Any additional findings or plans will be noted.
[2023-06-23 12:18] LABS: Glucose,Whole Blood 156 mg/dL (70-110)
[2023-06-23] MEDS: LORazepam 2 MG/ML INJ IV PRN (13:51)
--- NOTE | 2023-06-23 13:59 | P.PN ---
Subjective Progress Note Date: 06/23/23 Mr. 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 He has had this chronic wound for the last several months but states his wound has worsened over the last 2 weeks. He has noted some necrotic tissue and worsening ulceration with drainage. He also has some surrounding erythema around the area. Denies any fevers at home but does state he has had intermittent chills. He does not have any known peripheral vascular disease. States the wound initially started after trauma to the area. The wound is located on the medial border of the great toe and foot. X-ray of the left foot showed osteomyelitis with gas of the first toe metatarsal phalangeal joint. Started on Vancomycin and Cefepime along with Clindamycin. MRI foot ordered along with wound and blood cultures. ID consulted. Vascular surgery consulted. 06/23 Patient was seen and examined. Vascular surgery plans for left great toe amputation with possible transmetatarsal amputation today. Patient reports anxiety. CBC Hg 12.7. CMP Cl 110, bicarb 17, BUN 31, glu 127, alk phos 139. Art duplex shows severe PAD. Currently on Cefepime 2g IV TID, Flagyl 500 mg PO TID, Vancomycin dosed per pharmacy. General: non toxic, no distress, appears at stated age Derm: warm, dry Head: atraumatic, normocephalic, symmetric Eyes: EOMI, no lid lag, anicteric sclera Cardiovascular: S1S2 reg, no murmur Lungs: CTA bilateral, no rhonchi, no rales , no accessory muscle use Ext: no gross muscle atrophy, no edema, no contractures, L foot wrapped dressing c/d/i Neuro: no focal neuro deficits Psych: Alert, oriented, appropriate affect Based on my assessment of this patient, this patient meets a high complexity level of care. Patient has an acute diagnosis of OM of the left foot that poses a threat to life or bodily function. L foot OM: Cefepime and Vancomycin as above. Flagyl for anerobic coverage. Plans for left great toe amputation with possible transmetatarsal amputation today. Follow deep wound culture. Follow BCx. ID and Vascular Sx on board. Anxiety: Ativan 1 mg IV Q6H PRN for anxiety. Diabetes mellitus: Levemir 5 units QHS. ISS. Accuechecks ACHS. Prerenal azotemia with metabolic acidosis: NS at 75 cc/hr. HTN: Hydralazine IV PRN with parameters. Metoprolol 25 mg PO BID. Nifedipine 60 mg PO QD. CODE STATUS: FULL CODE DVT Prophylaxis: Heparin SQ. GI Prophylaxis: Protonix PO. Designated medical POA if patient is not able to make medical decisions for themselves: I have reviewed the following [employer] consultant notes: ID, Vascular surgery note. I have reviewed the results of the following tests: CBC, CMP. I have ordered the following tests: I have discussed the care of this patient with the following independent hist orian: I have independently interpreted the following test below: I have discussed the management of this patient with the following physician: This patient has a high risk of morbidity due to the following reasons: Vancomycin requires monitoring for toxicity and renal monitoring. Objective - Vital Signs Vital signs: Vital Signs Temp 98.0 F 06/23/23 07:10 Pulse 75 06/23/23 07:10 Resp 18 06/23/23 07:10 BP 166/78 06/23/23 07:10 Pulse Ox 96 06/23/23 07:10 FiO2 Intake & Output 06/22/23 06/23/23 06/23/23 18:59 06:59 18:59 Intake Total 118 Output Total 250 700 600 Balance -132 -700 -600 Weight 99.79 kg Intake: Oral 118 Output: Urine 250 700 600 Other: Voiding Method Urinal # Voids 3 - Labs CBC & Chem 7: 06/23/23 06:16 06/23/23 06:16 Labs: Abnormal Lab Results - Last 24 Hours (Table) 06/22/23 06/22/23 06/22/23 Range/Units 11:40 11:40 17:38 WBC 13.7 H (3.8-10.6) k/uL Hgb (13.0-17.5) gm/dL Neutrophils # 11.7 H (1.3-7.7) k/uL Potassium 5.2 H (3.5-5.1) mmol/L Chloride (98-107) mmol/L Carbon Dioxide 15 L (22-30) mmol/L BUN 38 H (9-20) mg/dL Creatinine 1.40 H (0.66-1.25) mg/dL Glucose 134 H (74-99) mg/dL POC Glucose (mg/dL) 112 H (70-110) mg/dL Alkaline Phosphatase 146 H (38-126) U/L 06/22/23 06/22/23 06/23/23 Range/Units 17:39 20:16 06:00 WBC (3.8-10.6) k/uL Hgb (13.0-17.5) gm/dL Neutrophils # (1.3-7.7) k/uL Potassium (3.5-5.1) mmol/L Chloride 109 H (98-107) mmol/L Carbon Dioxide 17 L (22-30) mmol/L BUN 32 H (9-20) mg/dL Creatinine (0.66-1.25) mg/dL Glucose 106 H (74-99) mg/dL POC Glucose (mg/dL) 172 H 141 H (70-110) mg/dL Alkaline Phosphatase (38-126) U/L 06/23/23 06/23/23 Range/Units 06:16 06:16 WBC (3.8-10.6) k/uL Hgb 12.7 L (13.0-17.5) gm/dL Neutrophils # (1.3-7.7) k/uL Potassium (3.5-5.1) mmol/L Chloride 110 H (98-107) mmol/L Carbon Dioxide 17 L (22-30) mmol/L BUN 31 H (9-20) mg/dL Creatinine (0.66-1.25) mg/dL Glucose 127 H (74-99) mg/dL POC Glucose (mg/dL) (70-110) mg/dL Alkaline Phosphatase 139 H (38-126) U/L
[2023-06-23 17:09] LABS: Glucose,Whole Blood 91 mg/dL (70-110)
[2023-06-23] MEDS: hydrALAZINE HCL 20 MG/ML 1 ML VIAL IVP PRN (17:41)
[2023-06-23] MEDS ORDERED: PROPOFOL 10 MG/ML 20 ML VIAL IV ONE (18:47)
[2023-06-23] MEDS ORDERED: fentaNYL (PF) 50 MCG/ML 2 ML AMP ONE (18:47)
[2023-06-23] MEDS ORDERED: LIDOCAINE 1% INJ 10MG/ML (20 ML MDV) ONE (18:47)
[2023-06-23] MEDS ORDERED: HYDROmorphone (PF) 1 MG/ML ONE (18:47)
[2023-06-23] MEDS ORDERED: KETOROLAC 30 MG/ML 1 ML VIAL ONE (18:47)
[2023-06-23] MEDS ORDERED: MIDAZOLAM 2 MG/2 ML VIAL ONE (18:47)
--- NOTE | 2023-06-23 19:08 | P.PN ---
Subjective Progress Note Date: 06/23/23 Principal diagnosis: Reason for follow-up is left big toe gangrene and diabetic foot infection Patient is a 68-year-old male with a past medical history significant for diabetes mellitus hypertension hyperlipidemia patient did have a history of thoracic discitis and paraspinal abscess, presented to hospital with discoloration of the left big toe has been diagnosed with a wet gangrene and underlying diabetes mellitus. On today's evaluation that is 06/23/2023, the patient remains to be afebrile, the patient is breathing comfortably on room air and denies any shortness of breath, the patient denies any chest pain, no significant cough or sputum production, patient denies nausea/vomiting /diarrhea and no abdominal pain, denies any worsening pain to the left big toe Patient did have white count of 9.0, creatinine 1.16 Objective - Vital Signs Vital signs: Vital Signs Temp 98.0 F 06/23/23 07:10 Pulse 75 06/23/23 07:10 Resp 18 06/23/23 07:10 BP 166/78 06/23/23 07:10 Pulse Ox 96 06/23/23 07:10 FiO2 Intake & Output 06/22/23 06/23/23 06/23/23 18:59 06:59 18:59 Intake Total 118 Output Total 250 700 600 Balance -132 -700 -600 Weight 99.79 kg Intake: Oral 118 Output: Urine 250 700 600 Other: Voiding Method Urinal # Voids 3 - Exam GENERAL DESCRIPTION: An elderly male lying in bed in no distress RESPIRATORY SYSTEM: Unlabored breathing , clear to auscultation anteriorly HEART: S1 S2 regular rate and rhythm , ABDOMEN: Soft , no tenderness EXTREMITIES: Left foot is currently dressed no drainage on the dressing - Labs CBC & Chem 7: 06/23/23 06:16 06/23/23 06:16 Labs: Abnormal Lab Results - Last 24 Hours (Table) 06/22/23 06/22/23 06/22/23 Range/Units 11:40 11:40 17:38 WBC 13.7 H (3.8-10.6) k/uL Hgb (13.0-17.5) gm/dL Neutrophils # 11.7 H (1.3-7.7) k/uL Potassium 5.2 H (3.5-5.1) mmol/L Chloride (98-107) mmol/L Carbon Dioxide 15 L (22-30) mmol/L BUN 38 H (9-20) mg/dL Creatinine 1.40 H (0.66-1.25) mg/dL Glucose 134 H (74-99) mg/dL POC Glucose (mg/dL) 112 H (70-110) mg/dL Alkaline Phosphatase 146 H (38-126) U/L 06/22/23 06/22/23 06/23/23 Range/Units 17:39 20:16 06:00 WBC (3.8-10.6) k/uL Hgb (13.0-17.5) gm/dL Neutrophils # (1.3-7.7) k/uL Potassium (3.5-5.1) mmol/L Chloride 109 H (98-107) mmol/L Carbon Dioxide 17 L (22-30) mmol/L BUN 32 H (9-20) mg/dL Creatinine (0.66-1.25) mg/dL Glucose 106 H (74-99) mg/dL POC Glucose (mg/dL) 172 H 141 H (70-110) mg/dL Alkaline Phosphatase (38-126) U/L 06/23/23 06/23/23 Range/Units 06:16 06:16 WBC (3.8-10.6) k/uL Hgb 12.7 L (13.0-17.5) gm/dL Neutrophils # (1.3-7.7) k/uL Potassium (3.5-5.1) mmol/L Chloride 110 H (98-107) mmol/L Carbon Dioxide 17 L (22-30) mmol/L BUN 31 H (9-20) mg/dL Creatinine (0.66-1.25) mg/dL Glucose 127 H (74-99) mg/dL POC Glucose (mg/dL) (70-110) mg/dL Alkaline Phosphatase 139 H (38-126) U/L Assessment and Plan (1) Diabetic foot infection Current Visit: Yes Status: Acute Code(s): E11.628 - TYPE 2 DIABETES MELLITUS WITH OTHER SKIN COMPLICATIONS; L08.9 - LOCAL INFECTION OF THE SKIN AND SUBCUTANEOUS TISSUE, UNSP SNOMED Code(s): 471526537 (2) Gangrene of toe of left foot Current Visit: Yes Status: Acute Code(s): I96 - GANGRENE, NOT ELSEWHERE CLASSIFIED SNOMED Code(s): 90026571069902851 Plan: 1patient was in the hospital with left big toe diabetic foot infection with evidence of wet gangrene and x-ray has been suspicious for osteomyelitis with gas-forming organism we will need to cover for the polymicrobial gaby usually associated with diabetic foot infection 2-patient has been evaluated by vascular surgery and planning for amputation request for deep culture the time of surgery 3-patient to continue the vancomycin pharmacy to dose cefepime we will switch clindamycin to Flagyl Dictation was produced using [facility] dictation software. please excuse any grammatical, word or spelling errors. Time with Patient: Less than 30
[2023-06-23] MEDS ORDERED: BUPIVACAINE (PF) 0.25% 30 ML VIAL SQ ONE (19:10)
[2023-06-23] MEDS ORDERED: IV FLUID CONTINUATION 900 ML IV ONE (19:11)
[2023-06-23] MEDS ORDERED: HYDROmorphone 0.5 MG/0.5 ML SYRINGE IVP ONE ×3 (19:37→19:59)
--- NOTE | 2023-06-23 19:39 | P.OP ---
Date of Procedure: 06/23/23 Description of Procedure: DATE OF SERVICE: SURGEON: Monique Krueger DO CRYPTANALYST: None PREOPERATIVE DIAGNOSIS: Wet gangrene left first toe POSTOPERATIVE DIAGNOSIS: Same OPERATION: Left great toe amputation. Initiation of wound VAC with wound measuring 8.7 x 5 x 1.6 cm ANESTHESIA: Sedation with local ESTIMATED BLOOD LOSS: 10 mL SPECIMENS REMOVED: left great toe for disposal COMPLICATIONS: None DESCRIPTION OF PROCEDURE: This patient is [id number] with recent history of callus and wound to his left great toe was tried medical home therapies and thought that the discoloration was due to some wound pads he has tried. Upon evaluation here in the hospital he is found to have evidence of gangrene and potential gas with a wound and purulent drainage therefore operative intervention was offered. Risks and benefits were discussed. He seemingly understood after multiple conversations was willing to proceed. Using the operative suite and placed in supine position. IV sedation was initiated and ring block was performed, and a circular incision around the significant area of necrosis was made at the base of the proximal phalanx, deepened through the skin, fat, and tendons. Tendons were divided prior to plantar and dorsal aspect of the great toe. After that, proximal phalanx was dislocated from the metatarsal joint, and we took deep culture from the toe. It was sent for culture and sensitivity. Bone cutter was used to transect the metatarsal head. Hemostasis was well controlled. Due to the size of the wound, a wound VAC was necessary. It was placed. The resultant wound prior to placement was as above.. The patient tolerated the procedure well.
[2023-06-23] MEDS: ONDANSETRON 4 MG/2 ML VIAL IVP STA (20:00)
[2023-06-23] MEDS: ATORVASTATIN 80 MG TAB PO SCH (21:00)
[2023-06-23 21:01] LABS: Glucose,Whole Blood 99 mg/dL (70-110)
[2023-06-23] MEDS: INSULIN DETEMIR (LEVEMIR) 100 UNIT/ML SYR SQ SCH (21:01)
[2023-06-23] MEDS: HYDROcodone/APAP 5-325MG 1 EACH TAB PO PRN (21:17)
[2023-06-23] MEDS: CYCLOBENZAPRINE 5 MG TAB PO PRN (23:03)
[2023-06-24] MEDS: HYDROmorphone 0.5 MG/0.5 ML SYRINGE IVP PRN ×2 (02:14→05:34)
[2023-06-24] MEDS: HYDROcodone/APAP 5-325MG 1 EACH TAB PO PRN ×3 (05:34→20:44)
[2023-06-24] MEDS: PANTOPRAZOLE 40 MG TABLET PO SCH (05:35)
[2023-06-24] MEDS: SODIUM CHLORIDE 0.9% 1,000 ML IV SCH ×2 (05:35→20:46)
[2023-06-24 06:15] LABS: Glucose,Whole Blood 160 mg/dL (70-110)
[2023-06-24] MEDS: INSULIN ASPART (NovoLOG) 100 UNIT/ML VIAL SQ SCH ×4 (06:18→20:43)
[2023-06-24 07:12] LABS: HCT 38.2 % (39.0-53.0); HGB 11.9 gm/dL (13.0-17.5); Hypochromasia Marked; MCH 28.5 pg (25.0-35.0); MCHC 31.1 g/dL (31.0-37.0); MCV 91.7 fL (80.0-100.0); Mean Platelet Volume 7.2; Platelet Count 238 k/uL (150-450); RBC 4.16 m/uL (4.30-5.90); RDW 13.9 % (11.5-15.5); WBC 8.2 k/uL (3.8-10.6)
[2023-06-24 07:27] LABS: African American GFR (CKD) 71 (>60 ml/min/1.73 sqM); Anion Gap 11 mmol/L; Blood Urea Nitrogen 30 mg/dL (9-20); Calcium 9.1 mg/dL (8.4-10.2); Carbon Dioxide 16 mmol/L (22-30); Chloride 111 mmol/L (98-107); Glucose 165 mg/dL (74-99); Non-African American GFR(CKD) 62 (>60 ml/min/1.73 sqM); Potassium 4.5 mmol/L (3.5-5.1); Sodium 138 mmol/L (137-145)
[2023-06-24] MEDS: CEFEPIME 2 GM in SODIUM CHLORIDE 0.9% 100 ML IVPB SCH ×3 (09:16→22:27)
[2023-06-24] MEDS: HYDROmorphone 1 MG/ML 1 ML SYRINGE IVP PRN ×3 (09:16→22:27)
[2023-06-24] MEDS: metroNIDAZOLE 500 MG TAB PO SCH ×3 (09:17→20:44)
[2023-06-24] MEDS: TAMSULOSIN 0.4 MG CAP.ER.24H PO SCH (09:17)
[2023-06-24] MEDS: METOPROLOL TARTRATE 25 MG TAB PO SCH ×2 (09:17→20:44)
[2023-06-24] MEDS: GABAPENTIN 300 MG CAP PO SCH ×2 (09:17→20:44)
[2023-06-24] MEDS: HEPARIN SODIUM,PORCINE 5,000 UNIT/ML 1 ML VIAL SQ SCH ×3 (09:17→22:27)
[2023-06-24 11:56] LABS: Glucose,Whole Blood 175 mg/dL (70-110)
--- NOTE | 2023-06-24 14:13 | P.PN ---
Subjective Progress Note Date: 06/24/23 Mr. 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 He has had this chronic wound for the last several months but states his wound has worsened over the last 2 weeks. He has noted some necrotic tissue and worsening ulceration with drainage. He also has some surrounding erythema around the area. Denies any fevers at home but does state he has had intermittent chills. He does not have any known peripheral vascular disease. States the wound initially started after trauma to the area. The wound is located on the medial border of the great toe and foot. X-ray of the left foot showed osteomyelitis with gas of the first toe metatarsal phalangeal joint. Started on Vancomycin and Cefepime along with Clindamycin. MRI foot ordered along with wound and blood cultures. ID consulted. Vascular surgery consulted. 06/23 Patient was seen and examined. Vascular surgery plans for left great toe amputation with possible transmetatarsal amputation today. Patient reports anxiety. CBC Hg 12.7. CMP Cl 110, bicarb 17, BUN 31, glu 127, alk phos 139. Art duplex shows severe PAD. Currently on Cefepime 2g IV TID, Flagyl 500 mg PO TID, Vancomycin dosed per pharmacy. 06/24 Patient was seen and examined. Underwent amputation of the L first toe yesterday. He reports burning pain, 10/10 in his left foot. CBC Hg 11.9. BMP Cl 111, bicarb 16, BUN 30, glu 165, General: non toxic, no distress, appears at stated age Derm: warm, dry Head: atraumatic, normocephalic, symmetric Eyes: EOMI, no lid lag, anicteric sclera Cardiovascular: S1S2 reg, no murmur Lungs: CTA bilateral, no rhonchi, no rales , no accessory muscle use Ext: no gross muscle atrophy, no edema, no contractures, L foot wrapped dressing c/d/i Neuro: no focal neuro deficits Psych: Alert, oriented, appropriate affect Based on my assessment of this patient, this patient meets a high complexity level of care. Patient has an acute diagnosis of OM of the left foot that poses a threat to life or bodily function. L foot OM: Cefepime and Vancomycin as above. Flagyl for anerobic coverage. POD 1 left great toe amputation. Follow deep wound culture. Follow BCx. ID and Vascular Sx on board. Anxiety: Ativan 1 mg IV Q6H PRN for anxiety. Diabetes mellitus: Levemir 5 units QHS. ISS. Accuechecks ACHS. Prerenal azotemia with metabolic acidosis: NS at 75 cc/hr. HTN: Hydralazine IV PRN with parameters. Metoprolol 25 mg PO BID. Nifedipine 60 mg PO QD. CODE STATUS: FULL CODE DVT Prophylaxis: Heparin SQ. GI Prophylaxis: Protonix PO. Designated medical POA if patient is not able to make medical decisions for themselves: I have reviewed the following ergonomics consultant notes: ID, Vascular surgery note. I have reviewed the results of the following tests: CBC, BMP. I have ordered the following tests: BMP. I have discussed the care of this patient with the following independent historian: I have independently interpreted the following test below: I have discussed the management of this patient with the following physician: This patient has a high risk of morbidity due to the following reasons: Vancomycin requires monitoring for toxicity and renal monitoring. Objective - Vital Signs Vital signs: Vital Signs Temp 97.7 F 06/24/23 07:58 Pulse 62 06/24/23 07:58 Resp 16 06/24/23 07:58 BP 139/62 06/24/23 07:58 Pulse Ox 93 L 06/24/23 07:58 FiO2 Intake & Output 06/23/23 06/24/23 06/24/23 18:59 06:59 18:59 Intake Total 900 Output Total 1500 410 Balance -1500 490 Intake: IV 650 Oral 250 Output: Urine 1500 400 Estimated Blood Loss 10 Other: Voiding Method Urinal Urinal Urinal - Labs CBC & Chem 7: 06/24/23 06:36 06/24/23 06:36 Labs: Abnormal Lab Results - Last 24 Hours (Table) 06/24/23 06/24/23 06/24/23 Range/Units 06:14 06:36 06:36 RBC 4.16 L (4.30-5.90) m/uL Hgb 11.9 L (13.0-17.5) gm/dL Hct 38.2 L (39.0-53.0) % Chloride 111 H (98-107) mmol/L Carbon Dioxide 16 L (22-30) mmol/L BUN 30 H (9-20) mg/dL Glucose 165 H (74-99) mg/dL POC Glucose (mg/dL) 160 H (70-110) mg/dL 06/24/23 Range/Units 11:54 RBC (4.30-5.90) m/uL Hgb (13.0-17.5) gm/dL Hct (39.0-53.0) % Chloride (98-107) mmol/L Carbon Dioxide (22-30) mmol/L BUN (9-20) mg/dL Glucose (74-99) mg/dL POC Glucose (mg/dL) 175 H (70-110) mg/dL Microbiology - Last 24 Hours (Table) 06/22/23 11:50 Blood Culture - Preliminary Blood 06/22/23 11:35 Blood Culture - Preliminary Blood 06/22/23 11:40 Gram Stain - Preliminary Foot - Left Wound Culture - Preliminary Gram Neg Bacilli
--- NOTE | 2023-06-24 15:07 | P.PN ---
Subjective Progress Note Date: 06/24/23 A shunt seen and examined today as a follow-up. He is postop day #1 for left first toe amputation with wound VAC application. Wound VAC is currently secured with good suction with serosanguineous drainage. Patient is afebrile. States that his pain has not been very well controlled and he did not get much sleep last night. Objective - Vital Signs Vital signs: Vital Signs Temp 97.7 F 06/24/23 07:58 Pulse 62 06/24/23 07:58 Resp 16 06/24/23 07:58 BP 139/62 06/24/23 07:58 Pulse Ox 93 L 06/24/23 07:58 FiO2 Intake & Output 06/23/23 06/24/23 06/24/23 18:59 06:59 18:59 Intake Total 900 Output Total 1500 410 Balance -1500 490 Intake: IV 650 Oral 250 Output: Urine 1500 400 Estimated Blood Loss 10 Other: Voiding Method Urinal Urinal - Exam General appearance: The patient is alert, oriented, appears in no acute distress. HET: Head is normocephalic and atraumatic. Pupils are equal and reactive. Lungs: Equal expansion, normal respiratory effort. Abdomen: Soft, nondistended. Extremities: Normal skin color and turgor. Left foot with dressing in place with wound VAC intact with good suction. Neurological: No focal deficits. Strength and sensation are grossly intact. - Labs CBC & Chem 7: 06/24/23 06:36 06/24/23 06:36 Labs: Abnormal Lab Results - Last 24 Hours (Table) 06/23/23 06/24/23 06/24/23 Range/Units 12:16 06:14 06:36 RBC 4.16 L (4.30-5.90) m/uL Hgb 11.9 L (13.0-17.5) gm/dL Hct 38.2 L (39.0-53.0) % Chloride (98-107) mmol/L Carbon Dioxide (22-30) mmol/L BUN (9-20) mg/dL Glucose (74-99) mg/dL POC Glucose (mg/dL) 156 H 160 H (70-110) mg/dL 06/24/23 Range/Units 06:36 RBC (4.30-5.90) m/uL Hgb (13.0-17.5) gm/dL Hct (39.0-53.0) % Chloride 111 H (98-107) mmol/L Carbon Dioxide 16 L (22-30) mmol/L BUN 30 H (9-20) mg/dL Glucose 165 H (74-99) mg/dL POC Glucose (mg/dL) (70-110) mg/dL Microbiology - Last 24 Hours (Table) 06/22/23 11:50 Blood Culture - Preliminary Blood 06/22/23 11:35 Blood Culture - Preliminary Blood 06/22/23 11:40 Gram Stain - Preliminary Foot - Left Wound Culture - Preliminary Gram Neg Bacilli Assessment and Plan Assessment: 1. Left great toe with wet gangrene status post left great toe amputation with wound VAC application 2. Osteo applicationmyelitis left great toe 3. Diabetes mellitus 4. Current every day smoker 5. Peripheral arterial disease 6. Hypertension and hyperlipidemia Plan: 1. Diabetes tolerated 2. Antibiotics per recommendations from infectious disease 3. Continue with wound VAC, will need to be changed Friday 4. Discussed importance/recommendation of smoking cessation 5. PT/OT consulted 6. Left heel weightbearing only, postop shoe ordered Thank you for this consultation, we will continue to follow. The impression and plan of care has been dictated as directed. Dr. Krueger I performed a history and examination of this patient, discussed the same with the dictator. I agree with the dictator's note ,documented as a scribe. Any additional findings or plans will be noted.
--- NOTE | 2023-06-24 16:48 | P.PN ---
Subjective Progress Note Date: 06/24/23 Principal diagnosis: Reason for follow-up is left big toe gangrene and diabetic foot infection Patient is a 68-year-old male with a past medical history significant for diabetes mellitus hypertension hyperlipidemia patient did have a history of thoracic discitis and paraspinal abscess, presented to hospital with discoloration of the left big toe has been diagnosed with a wet gangrene and underlying diabetes mellitus. Patient is status post a left big toe amputation completed on 06/23/2023 On today's evaluation that is 06/24/2023, the patient denies any fever or any chills, the patient is breathing comfortably on room air without the need for supplemental oxygen, patient denies chest pain shortness of breath, the patient denies cough or sputum production, patient denies Abdominal pain, no nausea/vomiting or diarrhea, the patient denies any worsening pain to the left big toe amputation site Patient did have white count of 8.2, creatinine 1.22, culture with gram-negative bacilli Objective - Vital Signs Vital signs: Vital Signs Temp 97.7 F 06/24/23 07:58 Pulse 62 06/24/23 07:58 Resp 16 06/24/23 07:58 BP 139/62 06/24/23 07:58 Pulse Ox 93 L 06/24/23 07:58 FiO2 Intake & Output 06/23/23 06/24/23 06/24/23 18:59 06:59 18:59 Intake Total 900 Output Total 1500 410 Balance -1500 490 Intake: IV 650 Oral 250 Output: Urine 1500 400 Estimated Blood Loss 10 Other: Voiding Method Urinal Urinal Urinal - Exam GENERAL DESCRIPTION: An elderly male lying in bed in no distress RESPIRATORY SYSTEM: Unlabored breathing , clear to auscultation anteriorly HEART: S1 S2 regular rate and rhythm , ABDOMEN: Soft , no tenderness EXTREMITIES: Left big toe amputation site is currently dressed no drainage on the dressing - Labs CBC & Chem 7: 06/24/23 06:36 06/24/23 06:36 Labs: Abnormal Lab Results - Last 24 Hours (Table) 06/23/23 06/24/23 06/24/23 Range/Units 12:16 06:14 06:36 RBC 4.16 L (4.30-5.90) m/uL Hgb 11.9 L (13.0-17.5) gm/dL Hct 38.2 L (39.0-53.0) % Chloride (98-107) mmol/L Carbon Dioxide (22-30) mmol/L BUN (9-20) mg/dL Glucose (74-99) mg/dL POC Glucose (mg/dL) 156 H 160 H (70-110) mg/dL 06/24/23 Range/Units 06:36 RBC (4.30-5.90) m/uL Hgb (13.0-17.5) gm/dL Hct (39.0-53.0) % Chloride 111 H (98-107) mmol/L Carbon Dioxide 16 L (22-30) mmol/L BUN 30 H (9-20) mg/dL Glucose 165 H (74-99) mg/dL POC Glucose (mg/dL) (70-110) mg/dL Microbiology - Last 24 Hours (Table) 06/22/23 11:50 Blood Culture - Preliminary Blood 06/22/23 11:35 Blood Culture - Preliminary Blood 06/22/23 11:40 Gram Stain - Preliminary Foot - Left Wound Culture - Preliminary Gram Neg Bacilli Assessment and Plan (1) Diabetic foot infection Current Visit: Yes Status: Acute Code(s): E11.628 - TYPE 2 DIABETES MELLITUS WITH OTHER SKIN COMPLICATIONS; L08.9 - LOCAL INFECTION OF THE SKIN AND SUBCUTANEOUS TISSUE, UNSP SNOMED Code(s): 819022938 (2) Gangrene of toe of left foot Current Visit: Yes Status: Acute Code(s): I96 - GANGRENE, NOT ELSEWHERE CLASSIFIED SNOMED Code(s): 48025328755806002 Plan: 1patient was in the hospital with left big toe diabetic foot infection with evidence of wet gangrene and x-ray has been suspicious for osteomyelitis with gas-forming organism we will need to cover for the polymicrobial gaby usually associated with diabetic foot infection 2-patient has been evaluated by vascular surgery and status post left big toe amputation 3-patient to continue the vancomycin pharmacy to dose cefepime along with Flagyl and monitor clinical course closely Dictation was produced using [employer] dictation software. please excuse any grammatical, word or spelling errors. Time with Patient: Less than 30
[2023-06-24] MEDS: VANCOMYCIN 1,500 MG in SODIUM CHLORIDE 0.9% 500 ML 500 ML IVPB SCH (16:52)
[2023-06-24 17:34] LABS: Glucose,Whole Blood 159 mg/dL (70-110)
[2023-06-24 20:15] LABS: Glucose,Whole Blood 209 mg/dL (70-110)
[2023-06-24] MEDS: INSULIN DETEMIR (LEVEMIR) 100 UNIT/ML SYR SQ SCH (20:43)
[2023-06-24] MEDS: ATORVASTATIN 80 MG TAB PO SCH (20:44)
[2023-06-25] MEDS: HYDROmorphone 1 MG/ML 1 ML SYRINGE IVP PRN ×4 (05:01→21:10)
[2023-06-25] MEDS: PANTOPRAZOLE 40 MG TABLET PO SCH (05:01)
[2023-06-25 06:08] LABS: Glucose,Whole Blood 173 mg/dL (70-110)
[2023-06-25] MEDS: INSULIN ASPART (NovoLOG) 100 UNIT/ML VIAL SQ SCH ×4 (06:27→21:10)
[2023-06-25 06:42] LABS: HCT 34.8 % (39.0-53.0); HGB 11.3 gm/dL (13.0-17.5); Hypochromasia Moderate; MCH 28.9 pg (25.0-35.0); MCHC 32.5 g/dL (31.0-37.0); MCV 88.9 fL (80.0-100.0); Mean Platelet Volume 7.7; Platelet Count 211 k/uL (150-450); RBC 3.91 m/uL (4.30-5.90); RDW 14.2 % (11.5-15.5); WBC 9.2 k/uL (3.8-10.6)
[2023-06-25 06:55] LABS: African American GFR (CKD) 74 (>60 ml/min/1.73 sqM); Non-African American GFR(CKD) 64 (>60 ml/min/1.73 sqM)
[2023-06-25 06:58] LABS: African American GFR (CKD) 74 (>60 ml/min/1.73 sqM); Anion Gap 9 mmol/L; Blood Urea Nitrogen 31 mg/dL (9-20); Calcium 8.6 mg/dL (8.4-10.2); Carbon Dioxide 16 mmol/L (22-30); Chloride 113 mmol/L (98-107); Glucose 174 mg/dL (74-99); Non-African American GFR(CKD) 64 (>60 ml/min/1.73 sqM); Potassium 4.8 mmol/L (3.5-5.1); Sodium 138 mmol/L (137-145)
[2023-06-25] MEDS ORDERED: VANCOMYCIN TROUGH DUE 1 EACH MISC MISCELLANE ONE (07:00)
[2023-06-25] MEDS: GABAPENTIN 300 MG CAP PO SCH ×2 (08:58→20:29)
[2023-06-25] MEDS: CEFEPIME 2 GM in SODIUM CHLORIDE 0.9% 100 ML IVPB SCH (08:58)
[2023-06-25] MEDS: HEPARIN SODIUM,PORCINE 5,000 UNIT/ML 1 ML VIAL SQ SCH ×3 (08:58→23:24)
[2023-06-25] MEDS: METOPROLOL TARTRATE 25 MG TAB PO SCH ×2 (08:58→20:29)
[2023-06-25] MEDS: metroNIDAZOLE 500 MG TAB PO SCH ×3 (08:58→20:29)
[2023-06-25] MEDS: TAMSULOSIN 0.4 MG CAP.ER.24H PO SCH (08:58)
[2023-06-25] MEDS: VANCOMYCIN 1,500 MG in SODIUM CHLORIDE 0.9% 500 ML 500 ML IVPB SCH (08:59)
[2023-06-25] MEDS: MEROPENEM 1 GM in SODIUM CHLORIDE 0.9% 100 ML IVPB SCH ×2 (11:22→20:30)
[2023-06-25] MEDS: HYDROcodone/APAP 5-325MG 1 EACH TAB PO PRN ×2 (11:32→23:23)
--- NOTE | 2023-06-25 12:44 | P.PN ---
Subjective Progress Note Date: 06/25/23 Mr. 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 He has had this chronic wound for the last several months but states his wound has worsened over the last 2 weeks. He has noted some necrotic tissue and worsening ulceration with drainage. He also has some surrounding erythema around the area. Denies any fevers at home but does state he has had intermittent chills. He does not have any known peripheral vascular disease. States the wound initially started after trauma to the area. The wound is located on the medial border of the great toe and foot. X-ray of the left foot showed osteomyelitis with gas of the first toe metatarsal phalangeal joint. Started on Vancomycin and Cefepime along with Clindamycin. MRI foot ordered along with wound and blood cultures. ID consulted. Vascular surgery consulted. 06/23 Patient was seen and examined. Vascular surgery plans for left great toe amputation with possible transmetatarsal amputation today. Patient reports anxiety. CBC Hg 12.7. CMP Cl 110, bicarb 17, BUN 31, glu 127, alk phos 139. Art duplex shows severe PAD. Currently on Cefepime 2g IV TID, Flagyl 500 mg PO TID, Vancomycin dosed per pharmacy. 06/24 Patient was seen and examined. Underwent amputation of the L first toe yesterday. He reports burning pain, 10/10 in his left foot. CBC Hg 11.9. BMP Cl 111, bicarb 16, BUN 30, glu 165. 06/25 Patient was seen and examined. Pain better controlled. Feels more comfortable going home vs SNF. Will need wound vac on discharge. CBC Hg 11.3. BMP Cl 113, bicarb 16, BUN 31, glu 174. Initial WCx growing K. pneumoniae, proteus vulgaris and enterococcus faecalis. General: non toxic, no distress, appears at stated age Derm: warm, dry Head: atraumatic, normocephalic, symmetric Eyes: EOMI, no lid lag, anicteric sclera Cardiovascular: good distal perfusion in all 4 extremities Lungs: breathing comfortably, no accessory muscle use Ext: no gross muscle atrophy, no edema, no contractures, L foot wrapped dressing c/d/i Neuro: no focal neuro deficits Psych: Alert, oriented, appropriate affect Based on my assessment of this patient, this patient meets a high complexity level of care. Patient has an acute diagnosis of OM of the left foot that poses a threat to life or bodily function. L foot OM: Cefepime and Vancomycin as above. Flagyl for anerobic coverage. POD 2 left great toe amputation. Initial wound culture growing K. pneumoniae, proteus vulgaris and enterococcus faecalis. Follow deep wound culture. Follow BCx. ID and Vascular Sx on board. Anxiety: Ativan 1 mg IV Q6H PRN for anxiety. Diabetes mellitus: Levemir 5 units QHS. ISS. Accuechecks ACHS. Prerenal azotemia with metabolic acidosis: DC IVF. HTN: Hydralazine IV PRN with parameters. Metoprolol 25 mg PO BID. Nifedipine 60 mg PO QD. CODE STATUS: FULL CODE DVT Prophylaxis: Heparin SQ. GI Prophylaxis: Protonix PO. Designated medical POA if patient is not able to make medical decisions for themselves: I have reviewed the following water resource consultant notes: ID, Vascular surgery note. I have reviewed the results of the following tests: CBC, BMP, WCx. I have ordered the following tests: BMP. I have discussed the care of this patient with the following independent historian: I have independently interpreted the following test below: I have discussed the management of this patient with the following physician: This patient has a high risk of morbidity due to the following reasons: Vancomycin requires monitoring for toxicity and renal monitoring. Objective - Vital Signs Vital signs: Vital Signs Temp 98 F 06/25/23 08:00 Pulse 81 06/25/23 08:00 Resp 16 06/25/23 08:00 BP 162/77 06/25/23 08:00 Pulse Ox 94 L 06/25/23 08:00 FiO2 Intake & Output 06/24/23 06/25/23 06/25/23 18:59 06:59 18:59 Intake Total 298 118 Output Total 650 1000 Balance -352 -882 Intake: Oral 298 118 Output: Urine 650 1000 Other: Voiding Method Urinal Urinal # Voids 4 - Labs CBC & Chem 7: 06/25/23 06:13 06/25/23 06:13 Labs: Abnormal Lab Results - Last 24 Hours (Table) 06/24/23 06/24/23 06/25/23 Range/Units 17:32 20:14 06:06 RBC (4.30-5.90) m/uL Hgb (13.0-17.5) gm/dL Hct (39.0-53.0) % Chloride (98-107) mmol/L Carbon Dioxide (22-30) mmol/L BUN (9-20) mg/dL Glucose (74-99) mg/dL POC Glucose (mg/dL) 159 H 209 H 173 H (70-110) mg/dL 06/25/23 06/25/23 Range/Units 06:13 06:13 RBC 3.91 L (4.30-5.90) m/uL Hgb 11.3 L (13.0-17.5) gm/dL Hct 34.8 L (39.0-53.0) % Chloride 113 H (98-107) mmol/L Carbon Dioxide 16 L (22-30) mmol/L BUN 31 H (9-20) mg/dL Glucose 174 H (74-99) mg/dL POC Glucose (mg/dL) (70-110) mg/dL Microbiology - Last 24 Hours (Table) 06/22/23 11:40 Gram Stain - Final Foot - Left Wound Culture - Final Klebsiella pneumoniae Proteus vulgaris Enterococcus faecalis 06/22/23 11:50 Blood Culture - Preliminary Blood 06/22/23 11:35 Blood Culture - Preliminary Blood 06/23/23 19:19 Gram Stain - Preliminary Toe - Left First Wound Culture - Preliminary Gram Neg Bacilli
[2023-06-25 12:50] LABS: Glucose,Whole Blood 203 mg/dL (70-110)
[2023-06-25] MEDS: SODIUM CHLORIDE 0.9% 1,000 ML IV SCH (12:51)
--- NOTE | 2023-06-25 16:23 | P.PN ---
Subjective Progress Note Date: 06/25/23 Principal diagnosis: Osteomyelitis Patient seen and examined today as a follow-up. He is postop day #2 for left great toe amputation with wound VAC at dictation. Patient's dates pain is much more tolerable today. He has been afebrile. He continues with IV antibiotics recommended by infectious disease. Patient does state that he has transportation and insurance issues. Objective - Vital Signs Vital signs: Vital Signs Temp 99.6 F 06/25/23 13:22 Pulse 66 06/25/23 13:22 Resp 16 06/25/23 13:22 BP 183/80 06/25/23 13:22 Pulse Ox 95 06/25/23 13:22 FiO2 Intake & Output 06/24/23 06/25/23 06/25/23 18:59 06:59 18:59 Intake Total 298 177 Output Total 650 2300 Balance -352 -2122 Intake: Oral 298 177 Output: Urine 650 2300 Other: Voiding Method Urinal Urinal # Voids 4 # Bowel Movements 1 - Exam General appearance: The patient is alert, oriented, appears in no acute distress. HET: Head is normocephalic and atraumatic. Pupils are equal and reactive. Lungs: Equal expansion, normal respiratory effort. Abdomen: Soft, nondistended. Extremities: Normal skin color and turgor. Left foot with dressing in place with wound VAC intact with good suction. Neurological: No focal deficits. Strength and sensation are grossly intact. - Labs CBC & Chem 7: 06/25/23 06:13 06/25/23 06:13 Labs: Abnormal Lab Results - Last 24 Hours (Table) 06/24/23 06/24/23 06/25/23 Range/Units 17:32 20:14 06:06 RBC (4.30-5.90) m/uL Hgb (13.0-17.5) gm/dL Hct (39.0-53.0) % Chloride (98-107) mmol/L Carbon Dioxide (22-30) mmol/L BUN (9-20) mg/dL Glucose (74-99) mg/dL POC Glucose (mg/dL) 159 H 209 H 173 H (70-110) mg/dL 06/25/23 06/25/23 06/25/23 Range/Units 06:13 06:13 12:48 RBC 3.91 L (4.30-5.90) m/uL Hgb 11.3 L (13.0-17.5) gm/dL Hct 34.8 L (39.0-53.0) % Chloride 113 H (98-107) mmol/L Carbon Dioxide 16 L (22-30) mmol/L BUN 31 H (9-20) mg/dL Glucose 174 H (74-99) mg/dL POC Glucose (mg/dL) 203 H (70-110) mg/dL Microbiology - Last 24 Hours (Table) 06/22/23 11:40 Gram Stain - Final Foot - Left Wound Culture - Final Klebsiella pneumoniae Proteus vulgaris Enterococcus faecalis 06/22/23 11:50 Blood Culture - Preliminary Blood 06/22/23 11:35 Blood Culture - Preliminary Blood 06/23/23 19:19 Gram Stain - Preliminary Toe - Left First Wound Culture - Preliminary Gram Neg Bacilli Assessment and Plan Assessment: 1. Left great toe with wet gangrene status post left great toe amputation with wound VAC application 2. Osteomyelitis left great toe 3. Diabetes mellitus 4. Current every day smoker 5. Peripheral arterial disease 6. Hypertension and hyperlipidemia Plan: 1. Diet as tolerated 2. Antibiotics per recommendations from infectious disease 3. Continue with wound VAC, will need to be changed Friday 4. Discussed importance/recommendation of smoking cessation 5. PT/OT consulted 6. Left heel weightbearing only, postop shoe ordered 7. Consult to wound care patient will need outpatient wound care management as well as wound VAC management 8. Consult to case management for patient financial concerns, insurance concerns, and lack of transportation for appointments. 9. Patient cleared by vascular surgery for discharge. Thank you for this consultation. The impression and plan of care has been dictated as directed. Dr. Peña I performed a history and examination of this patient, discussed the same with the dictator. I agree with the dictator's note ,documented as a scribe. Any additional findings or plans will be noted.
[2023-06-25 17:30] LABS: Glucose,Whole Blood 142 mg/dL (70-110)
[2023-06-25 20:23] LABS: Glucose,Whole Blood 175 mg/dL (70-110)
[2023-06-25] MEDS: ATORVASTATIN 80 MG TAB PO SCH (20:29)
[2023-06-25] MEDS: hydrALAZINE HCL 20 MG/ML 1 ML VIAL IVP PRN (20:46)
[2023-06-25] MEDS: INSULIN DETEMIR (LEVEMIR) 100 UNIT/ML SYR SQ SCH (20:48)
[2023-06-26] MEDS: HYDROmorphone 1 MG/ML 1 ML SYRINGE IVP PRN ×6 (02:54→21:35)
[2023-06-26] MEDS: MEROPENEM 1 GM in SODIUM CHLORIDE 0.9% 100 ML IVPB SCH ×3 (02:54→20:31)
[2023-06-26 05:11] LABS: HCT 33.7 % (39.0-53.0); HGB 10.8 gm/dL (13.0-17.5); Hypochromasia Slight; MCH 28.4 pg (25.0-35.0); MCHC 32.2 g/dL (31.0-37.0); MCV 88.2 fL (80.0-100.0); Platelet Count 217 k/uL (150-450); RBC 3.81 m/uL (4.30-5.90); RDW 14.2 % (11.5-15.5); WBC 8.2 k/uL (3.8-10.6)
[2023-06-26 05:26] LABS: African American GFR (CKD) 88 (>60 ml/min/1.73 sqM); Anion Gap 11 mmol/L; Blood Urea Nitrogen 25 mg/dL (9-20); Calcium 8.7 mg/dL (8.4-10.2); Carbon Dioxide 18 mmol/L (22-30); Chloride 110 mmol/L (98-107); Glucose 155 mg/dL (74-99); Non-African American GFR(CKD) 76 (>60 ml/min/1.73 sqM); Potassium 4.3 mmol/L (3.5-5.1); Sodium 139 mmol/L (137-145)
[2023-06-26 06:14] LABS: Glucose,Whole Blood 166 mg/dL (70-110)
[2023-06-26] MEDS: INSULIN ASPART (NovoLOG) 100 UNIT/ML VIAL SQ SCH ×4 (06:20→21:31)
[2023-06-26] MEDS: PANTOPRAZOLE 40 MG TABLET PO SCH (06:20)
[2023-06-26 08:03] VITALS: RESP 16
[2023-06-26] MEDS: HEPARIN SODIUM,PORCINE 5,000 UNIT/ML 1 ML VIAL SQ SCH ×2 (09:25→18:11)
[2023-06-26] MEDS: HYDROcodone/APAP 5-325MG 1 EACH TAB PO PRN ×2 (09:26→20:30)
[2023-06-26] MEDS: metroNIDAZOLE 500 MG TAB PO SCH ×3 (09:26→20:29)
[2023-06-26] MEDS: METOPROLOL TARTRATE 25 MG TAB PO SCH ×2 (09:26→20:30)
[2023-06-26] MEDS: TAMSULOSIN 0.4 MG CAP.ER.24H PO SCH (09:26)
[2023-06-26] MEDS: GABAPENTIN 300 MG CAP PO SCH ×2 (09:26→20:30)
--- NOTE | 2023-06-26 11:51 | P.CONS ---
History of Present Illness - Reason for Consult Consult date: 06/26/23 wound care - History of Present Illness This is a 68-year-old patient with history of osteomyelitis who underwent a left great toe amputation. Patient also has a ulceration to the second digit medial aspect. Patient currently has a negative pressure wound VAC in place. Exposed bone and granulation noted throughout the wound bed. The second digit ulceration measures approximately 1.3 x 1.4 x 0.1 cm with eschar in place and no granulation noted. Patient will undergo 6 weeks of Ativan therapy. Patient's past medical history significant for diabetes, hyperlipidemia, hypertension, current every day smoker. Review Of Systems: Constitutional: No fever, no chills, no night sweats. No weight change. No weakness, fatigue or lethargy. No daytime sleepiness. Integumentary:reports wounds, no lesions. No rash or pruritus. No unusual bruising. No change in hair or nails. Physical exam: General Appearance: Alert, cooperative, no distress, appears stated age. Skin: See HPI all other Skin color, texture, tugor normal, no rashes or lesions. Neurologic: Alert oriented x3 Assessment: 1. Diabetic foot ulcer Lizama grade 4 2. Non-pressure ulceration with bone necrosis 3. Nonpressure ulceration with fatty layer exposure other part of left foot 4. Osteomyelitis Plan: 1. Apply honey gel to the second digit ulceration covered with duodenum. He utilizes to Xyrem to the periwound. Adaptic to the exposed bone. Negative pressure wound VAC at 125 mmHg constant pressure change Friday. Patient will benefit from advanced wound care and wound care center. We will be happy to see him upon discharge. Thank you for the consultation any questions please contact the wound care center DNP note has been reviewed and discussed with Dr. Norman and the impression and plan of care has been directed as dictated. Past Medical History Past Medical History: Diabetes Mellitus, Hyperlipidemia, Hypertension Additional Past Medical History / Comment(s): Signiificant other and rosy state pt has not had insurance so has not been taking meds/seeing physician, NIDDM type II, neuropathy bilateral feet, past nephrolithiasis with pt passing stones on his own, pt passed a couple stones (s.o. 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 Back surgery-feb 2020- infection after, mrsa Past Anesthesia/Blood Transfusion Reactions: Unable to Obtain Additional Past Anesthesia/Blood Transfusion Reaction / Comm: Pt has never had general anesthesia per family Past Psychological History: No Psychological Hx Reported Smoking Status: Current every day smoker Past Alcohol Use History: Rare Past Drug Use History: None Reported - Past Family History Father Family Medical History: Dementia Mother Family Medical History: Cancer Additional Family Medical History / Comment(s): Mother of skin cancer. Medications and Allergies Home Medications Medication Instructions Recorded Confirmed Type Aspirin EC [Ecotrin Low Dose] 81 mg PO DAILY 03/01/21 06/22/23 History Atorvastatin [Lipitor] 80 mg PO DAILY 03/01/21 06/22/23 History Gabapentin [Neurontin] 300 mg PO BID 03/01/21 06/22/23 History Ibuprofen [Motrin] 600 mg PO Q8H PRN 03/01/21 06/22/23 History Insulin Glargine,Hum.rec.anlog 39 unit SQ HS 03/01/21 06/22/23 History [Lantus Solostar] Insulin Lispro [humaLOG Kwikpen] 6 unit SQ AC-TID 03/01/21 06/22/23 History Tamsulosin [Flomax] 0.8 mg PO DAILY 03/01/21 06/22/23 History Albuterol Sulfate [Albuterol 1 - 2 puff PO RT-Q4H PRN 06/22/23 06/22/23 History Sulfate Hfa] Cephalexin [Keflex] 500 mg PO QID 06/22/23 06/22/23 History Cholecalciferol [Vitamin D3 (25 50 mcg PO DAILY 06/22/23 06/22/23 History Mcg = 1000 Iu)] Cyclobenzaprine [Flexeril] 5 mg PO TID 06/22/23 06/22/23 History Empagliflozin [Jardiance] 10 mg PO DAILY 06/22/23 06/22/23 History Folic Acid 1 mg PO DAILY 06/22/23 06/22/23 History Losartan [Cozaar] 25 mg PO HS 06/22/23 06/22/23 History Metoclopramide [Reglan] 5 mg PO TID PRN 06/22/23 06/22/23 History Metoprolol Tartrate [Lopressor] 25 mg PO BID 06/22/23 06/22/23 History NIFEdipine XL [Procardia XL] 60 mg PO HS 06/22/23 06/22/23 History Omeprazole 20 mg PO DAILY 06/22/23 06/22/23 History Thiamine [Vitamin B-1] 100 mg PO DAILY 06/22/23 06/22/23 History traMADol-ACETAMINOP 37.5-325MG 1 tab PO TID PRN 06/22/23 06/22/23 History [Ultracet] Allergies Allergy/AdvReac Type Severity Reaction Status Date / Time No Known Allergies Allergy Verified 06/22/23 16:23 Physical Exam Vitals: Vital Signs Temp Pulse Resp BP BP Pulse Ox 06/26/23 07:43 98.3 F 71 16 149/79 93 L 06/26/23 01:55 98.1 F 53 L 15 145/82 95 06/25/23 21:39 62 152/75 06/25/23 19:08 98.2 F 81 15 181/88 94 L 06/25/23 13:22 99.6 F 66 16 183/80 95 Intake and Output 06/25/23 06/26/23 06/26/23 22:59 06:59 14:59 Output Total 500 780 Balance -500 -780 Output: Urine 500 780 Other: Voiding Method Urinal # Voids 3 # Bowel Movements 1 Results CBC & Chem 7: 06/26/23 04:59 06/26/23 04:59 Labs: Abnormal Lab Results - Last 24 Hours (Table) 06/25/23 06/25/23 06/25/23 Range/Units 12:48 17:28 20:22 RBC (4.30-5.90) m/uL Hgb (13.0-17.5) gm/dL Hct (39.0-53.0) % Chloride (98-107) mmol/L Carbon Dioxide (22-30) mmol/L BUN (9-20) mg/dL Glucose (74-99) mg/dL POC Glucose (mg/dL) 203 H 142 H 175 H (70-110) mg/dL 06/26/23 06/26/23 06/26/23 Range/Units 04:59 04:59 06:13 RBC 3.81 L (4.30-5.90) m/uL Hgb 10.8 L (13.0-17.5) gm/dL Hct 33.7 L (39.0-53.0) % Chloride 110 H (98-107) mmol/L Carbon Dioxide 18 L (22-30) mmol/L BUN 25 H (9-20) mg/dL Glucose 155 H (74-99) mg/dL POC Glucose (mg/dL) 166 H (70-110) mg/dL Microbiology - Last 24 Hours (Table) 06/22/23 11:40 Gram Stain - Final Foot - Left Wound Culture - Final Klebsiella pneumoniae Proteus vulgaris Enterococcus faecalis 06/22/23 11:50 Blood Culture - Preliminary Blood 06/22/23 11:35 Blood Culture - Preliminary Blood 06/23/23 19:19 Gram Stain - Preliminary Toe - Left First Wound Culture - Preliminary Gram Neg Bacilli Assessment and Plan (1) Non-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 Current Visit: Yes Status: Acute Code(s): L97.524 - NON-PRS CHRONIC ULCER OTH PRT LEFT FOOT W NECROSIS OF BONE SNOMED Code(s): 21464201313069941 (2) Non-pressure chronic ulcer of other part of left foot with fat layer exposed Current Visit: Yes Status: Acute Code(s): L97.522 - NON-PRS CHRONIC ULCER OTH PRT LEFT FOOT W FAT LAYER EXPOSED SNOMED Code(s): 16879607433269014 (3) Type 2 diabetes mellitus with foot ulcer Current Visit: Yes Status: Acute Code(s): E11.621 - TYPE 2 DIABETES MELLITUS WITH FOOT ULCER; L97.509 - NON-PRESSURE CHRONIC ULCER OTH PRT UNSP FOOT W UNSP SEVERITY SNOMED Code(s): 793526741 (4) Osteomyelitis Current Visit: Yes Status: Acute Code(s): M86.9 - OSTEOMYELITIS, UNSPECIFIED SNOMED Code(s): 05914213
[2023-06-26 12:53] LABS: Glucose,Whole Blood 172 mg/dL (70-110)
[2023-06-26] MEDS ORDERED: LIDOCAINE 2% (PF) 20 MG/ML 5 ML VIAL SQ ONE (13:37)
--- NOTE | 2023-06-26 14:03 | P.PN ---
Subjective Progress Note Date: 06/26/23 Principal diagnosis: Osteomyelitis seen and examined today as a follow-up. States he did have some pain last night at his amputation site which he states he did not get much sleep. Wound VAC was not changed yesterday as directed. He is still getting good amount of output. He been afebrile. Objective - Vital Signs Vital signs: Vital Signs Temp 98.3 F 06/26/23 07:43 Pulse 71 06/26/23 07:43 Resp 16 06/26/23 07:43 BP 149/79 06/26/23 07:43 Pulse Ox 93 L 06/26/23 07:43 FiO2 Intake & Output 06/25/23 06/26/23 06/26/23 18:59 06:59 18:59 Intake Total 177 Output Total 2300 Balance -2122 Intake: Oral 177 Output: Urine 2300 Other: Voiding Method Urinal # Voids 3 # Bowel Movements 1 - Exam General appearance: The patient is alert, oriented, appears in no acute distress. HET: Head is normocephalic and atraumatic. Pupils are equal and reactive. Lungs: Equal expansion, normal respiratory effort. Abdomen: Soft, nondistended. Extremities: Normal skin color and turgor. Left foot with dressing in place with wound VAC intact with good suction. Neurological: No focal deficits. Strength and sensation are grossly intact. - Labs CBC & Chem 7: 06/26/23 04:59 06/26/23 04:59 Labs: Abnormal Lab Results - Last 24 Hours (Table) 06/25/23 06/25/23 06/25/23 Range/Units 12:48 17:28 20:22 RBC (4.30-5.90) m/uL Hgb (13.0-17.5) gm/dL Hct (39.0-53.0) % Chloride (98-107) mmol/L Carbon Dioxide (22-30) mmol/L BUN (9-20) mg/dL Glucose (74-99) mg/dL POC Glucose (mg/dL) 203 H 142 H 175 H (70-110) mg/dL 06/26/23 06/26/23 06/26/23 Range/Units 04:59 04:59 06:13 RBC 3.81 L (4.30-5.90) m/uL Hgb 10.8 L (13.0-17.5) gm/dL Hct 33.7 L (39.0-53.0) % Chloride 110 H (98-107) mmol/L Carbon Dioxide 18 L (22-30) mmol/L BUN 25 H (9-20) mg/dL Glucose 155 H (74-99) mg/dL POC Glucose (mg/dL) 166 H (70-110) mg/dL Microbiology - Last 24 Hours (Table) 06/22/23 11:40 Gram Stain - Final Foot - Left Wound Culture - Final Klebsiella pneumoniae Proteus vulgaris Enterococcus faecalis 06/22/23 11:50 Blood Culture - Preliminary Blood 06/22/23 11:35 Blood Culture - Preliminary Blood 06/23/23 19:19 Gram Stain - Preliminary Toe - Left First Wound Culture - Preliminary Gram Neg Bacilli Assessment and Plan Assessment: 1. Left great toe with wet gangrene status post left great toe amputation with wound VAC application 2. Osteomyelitis left great toe 3. Diabetes mellitus 4. Current every day smoker 5. Peripheral arterial disease 6. Hypertension and hyperlipidemia Plan: 1. Diet as tolerated 2. Antibiotics per recommendations from infectious disease 3. Continue with wound VAC, will need to be changed Friday 4. Discussed importance/recommendation of smoking cessation 5. PT/OT consulted 6. Left heel weightbearing only, postop shoe ordered 7. Consult to wound care patient will need outpatient wound care management as well as wound VAC management 8. Consult to case management for patient financial concerns, insurance concerns, and lack of transportation for appointments. 9. Patient cleared by vascular surgery for discharge. Thank you for this consultation. The impression and plan of care has been dictated as directed. Dr. Peña I performed a history and examination of this patient, discussed the same with the dictator. I agree with the dictator's note ,documented as a scribe. Any additional findings or plans will be noted. Thank you
--- NOTE | 2023-06-26 15:19 | P.PN ---
Subjective Progress Note Date: 06/25/23 Principal diagnosis: Reason for follow-up is left big toe gangrene and diabetic foot infection Patient is a 68-year-old male with a past medical history significant for diabetes mellitus hypertension hyperlipidemia patient did have a history of thoracic discitis and paraspinal abscess, presented to hospital with discoloration of the left big toe has been diagnosed with a wet gangrene and underlying diabetes mellitus. Patient is status post a left big toe amputation completed on 06/23/2023 On today's evaluation that is 06/25/2023, the patient remains to be febrile, the patient is breathing comfortably on room air. The patient denies having any shortness of breath no chest pain or cough, patient denies Abdominal pain, no nausea/vomiting or diarrhea, the patient denies any worsening pain to the left big toe amputation site Patient did have white count of 9.2, creatinine 1.18, culture with ESBL Klebsiella Proteus and enterococcus faecalis Objective - Vital Signs Vital signs: Vital Signs Temp 98 F 06/25/23 08:00 Pulse 81 06/25/23 08:00 Resp 16 06/25/23 08:00 BP 162/77 06/25/23 08:00 Pulse Ox 94 L 06/25/23 08:00 FiO2 Intake & Output 06/24/23 06/25/23 06/25/23 18:59 06:59 18:59 Intake Total 298 Output Total 650 1000 Balance -352 -1000 Intake: Oral 298 Output: Urine 650 1000 Other: Voiding Method Urinal Urinal # Voids 4 - Exam GENERAL DESCRIPTION: An elderly male lying in bed in no distress RESPIRATORY SYSTEM: Unlabored breathing , clear to auscultation anteriorly HEART: S1 S2 regular rate and rhythm , ABDOMEN: Soft , no tenderness EXTREMITIES: Left big toe amputation site is currently covered with a wound VAC - Labs CBC & Chem 7: 06/26/23 04:59 06/26/23 04:59 Labs: Abnormal Lab Results - Last 24 Hours (Table) 06/24/23 06/24/23 06/24/23 Range/Units 11:54 17:32 20:14 RBC (4.30-5.90) m/uL Hgb (13.0-17.5) gm/dL Hct (39.0-53.0) % Chloride (98-107) mmol/L Carbon Dioxide (22-30) mmol/L BUN (9-20) mg/dL Glucose (74-99) mg/dL POC Glucose (mg/dL) 175 H 159 H 209 H (70-110) mg/dL 06/25/23 06/25/23 06/25/23 Range/Units 06:06 06:13 06:13 RBC 3.91 L (4.30-5.90) m/uL Hgb 11.3 L (13.0-17.5) gm/dL Hct 34.8 L (39.0-53.0) % Chloride 113 H (98-107) mmol/L Carbon Dioxide 16 L (22-30) mmol/L BUN 31 H (9-20) mg/dL Glucose 174 H (74-99) mg/dL POC Glucose (mg/dL) 173 H (70-110) mg/dL Microbiology - Last 24 Hours (Table) 06/22/23 11:40 Gram Stain - Final Foot - Left Wound Culture - Final Klebsiella pneumoniae Proteus vulgaris Enterococcus faecalis 06/22/23 11:50 Blood Culture - Preliminary Blood 06/22/23 11:35 Blood Culture - Preliminary Blood 06/23/23 19:19 Gram Stain - Preliminary Toe - Left First Wound Culture - Preliminary Gram Neg Bacilli Assessment and Plan (1) Diabetic foot infection Current Visit: Yes Status: Acute Code(s): E11.628 - TYPE 2 DIABETES MELLITUS WITH OTHER SKIN COMPLICATIONS; L08.9 - LOCAL INFECTION OF THE SKIN AND SUBCUTANEOUS TISSUE, UNSP SNOMED Code(s): 292258790 (2) Gangrene of toe of left foot Current Visit: Yes Status: Acute Code(s): I96 - GANGRENE, NOT ELSEWHERE CLASSIFIED SNOMED Code(s): 01239515885404098 Plan: 1patient was in the hospital with left big toe diabetic foot infection with evidence of wet gangrene and x-ray has been suspicious for osteomyelitis with gas-forming organism we will need to cover for the polymicrobial gaby usually associated with diabetic foot infection 2-patient has been evaluated by vascular surgery and status post left big toe amputation, with deep cultures pending 3-patient local cultures came back positive with ESBL Klebsiella Proteus and enterococcus faecalis, we will discontinue vancomycin and cefepime. And start patient on meropenem Dictation was produced using [employer] dictation software. please excuse any gramma tical, word or spelling errors. Time with Patient: Less than 30
--- NOTE | 2023-06-26 15:29 | P.PN ---
Subjective Progress Note Date: 06/26/23 Principal diagnosis: Reason for follow-up is left big toe gangrene and diabetic foot infection Patient is a 68-year-old male with a past medical history significant for diabetes mellitus hypertension hyperlipidemia patient did have a history of thoracic discitis and paraspinal abscess, presented to hospital with discoloration of the left big toe has been diagnosed with a wet gangrene and underlying diabetes mellitus. Patient is status post a left big toe amputation completed on 06/23/2023 On today's evaluation that is 06/26/2023, the patient denies any fever or any chills, the patient is breathing comfortably on room air and denies any shortness of breath, the patient denies any chest pain, no cough or sputum production, patient denies nausea/vomiting /diarrhea and no abdominal pain, the patient pain to the left big toe amputation siteis currently controlled Patient did have white count of 8.2, creatinine 1.03, culture with ESBL Klebsiella Proteus and enterococcus faecalis Objective - Vital Signs Vital signs: Vital Signs Temp 98.3 F 06/26/23 07:43 Pulse 71 06/26/23 07:43 Resp 16 06/26/23 07:43 BP 149/79 06/26/23 07:43 Pulse Ox 93 L 06/26/23 07:43 FiO2 Intake & Output 06/25/23 06/26/23 06/26/23 18:59 06:59 18:59 Intake Total 177 Output Total 2300 780 Balance -2122 Intake: Oral 177 Output: Urine 2300 780 Other: Voiding Method Urinal # Voids 3 # Bowel Movements 1 - Exam GENERAL DESCRIPTION: An elderly male lying in bed in no distress RESPIRATORY SYSTEM: Unlabored breathing , clear to auscultation anteriorly HEART: S1 S2 regular rate and rhythm , ABDOMEN: Soft , no tenderness EXTREMITIES: Left big toe amputation site wound is deep with surrounding inflammation and some ulceration to the left big toe medial side - Labs CBC & Chem 7: 06/26/23 04:59 06/26/23 04:59 Labs: Abnormal Lab Results - Last 24 Hours (Table) 06/25/23 06/25/23 06/25/23 Range/Units 12:48 17:28 20:22 RBC (4.30-5.90) m/uL Hgb (13.0-17.5) gm/dL Hct (39.0-53.0) % Chloride (98-107) mmol/L Carbon Dioxide (22-30) mmol/L BUN (9-20) mg/dL Glucose (74-99) mg/dL POC Glucose (mg/dL) 203 H 142 H 175 H (70-110) mg/dL 06/26/23 06/26/23 06/26/23 Range/Units 04:59 04:59 06:13 RBC 3.81 L (4.30-5.90) m/uL Hgb 10.8 L (13.0-17.5) gm/dL Hct 33.7 L (39.0-53.0) % Chloride 110 H (98-107) mmol/L Carbon Dioxide 18 L (22-30) mmol/L BUN 25 H (9-20) mg/dL Glucose 155 H (74-99) mg/dL POC Glucose (mg/dL) 166 H (70-110) mg/dL Microbiology - Last 24 Hours (Table) 06/22/23 11:40 Gram Stain - Final Foot - Left Wound Culture - Final Klebsiella pneumoniae Proteus vulgaris Enterococcus faecalis 06/22/23 11:50 Blood Culture - Preliminary Blood 06/22/23 11:35 Blood Culture - Preliminary Blood 06/23/23 19:19 Gram Stain - Preliminary Toe - Left First Wound Culture - Preliminary Gram Neg Bacilli Assessment and Plan (1) Diabetic foot infection Current Visit: Yes Status: Acute Code(s): E11.628 - TYPE 2 DIABETES MELLITUS WITH OTHER SKIN COMPLICATIONS; L08.9 - LOCAL INFECTION OF THE SKIN AND SUBCUTANEOUS TISSUE, UNSP SNOMED Code(s): 277851497 (2) Gangrene of toe of left foot Current Visit: Yes Status: Acute Code(s): I96 - GANGRENE, NOT ELSEWHERE CLASSIFIED SNOMED Code(s): 27142790012670264 Plan: 1patient was in the hospital with left big toe diabetic foot infection with evidence of wet gangrene and x-ray has been suspicious for osteomyelitis with gas-forming organism we will need to cover for the polymicrobial gaby usually associated with diabetic foot infection 2-patient has been evaluated by vascular surgery and status post left big toe amputation, patient did have a significantly deep wound with surrounding inf lammation and ulceration on the left second toe 3-patient local cultures came back positive with ESBL Klebsiella Proteus and enterococcus faecalis, 4- we will obtain a PICC line and plan for outpatient IV Invanz 1 g daily for at least 6 weeks with concern for underlying osteomyelitis, continue with the meropenem Dictation was produced using [employer] dictation software. please excuse any grammatical, word or spelling errors. Time with Patient: Less than 30
--- NOTE | 2023-06-26 15:34 | IR ---
PICC LINE PLACEMENT: HISTORY: Infection requiring long-term antibiotic therapy PROCEDURE: Ultrasound and fluoroscopic guidance of PICC line placement. COMPLICATIONS: None ANESTHESIA: 1. 1% Lidocaine locally. FINDINGS/TECHNIQUE: The procedure was explained to the patient. The risks, complications, benefits and alternatives were discussed and any questions were answered. Informed consent was obtained. The patient was placed supine on the fluoroscopic table and prepped and draped in the usual sterile fash ion. Utilizing a 21 gauge needle and sonographic and fluoroscopic guidance, access in the left basi lic vein was achieved and there is placement of a 0.018 guidewire. The vein is patent. A 4-F sheath was placed over the guidewire. The guidewire and dilator were removed and a 4-F. PICC line was plac ed through the sheath with the tip at the level of the SVC. The sheath was removed, the catheter was flushed and sutured into position. The patient was stable throughout the procedure and remained sta ble upon discharge from the Department of Radiology. The vein puncture was patent under ultrasound. A lynch scale image was obtained to document patency of the vein punctured. All elements of the maximal barrier technique were utilized. FLUOROSCOPY TIME: DAP 0.54Gy cm2 IMPRESSION: Successful PICC line placement under ultrasound and fluoroscopic guidance.
[2023-06-26 17:10] LABS: Glucose,Whole Blood 156 mg/dL (70-110)
[2023-06-26] MEDS: LORazepam 2 MG/ML INJ IV PRN (17:37)
--- NOTE | 2023-06-26 17:52 | P.PN ---
Subjective Progress Note Date: 06/26/23 Mr. 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 He has had this chronic wound for the last several months but states his wound has worsened over the last 2 weeks. He has noted some necrotic tissue and worsening ulceration with drainage. He also has some surrounding erythema around the area. Denies any fevers at home but does state he has had intermittent chills. He does not have any known peripheral vascular disease. States the wound initially started after trauma to the area. The wound is located on the medial border of the great toe and foot. X-ray of the left foot showed osteomyelitis with gas of the first toe metatarsal phalangeal joint. Started on Vancomycin and Cefepime along with Clindamycin. MRI foot ordered along with wound and blood cultures. ID consulted. Vascular surgery consulted. 06/23 Patient was seen and examined. Vascular surgery plans for left great toe amputation with possible transmetatarsal amputation today. Patient reports anxiety. CBC Hg 12.7. CMP Cl 110, bicarb 17, BUN 31, glu 127, alk phos 139. Art duplex shows severe PAD. Currently on Cefepime 2g IV TID, Flagyl 500 mg PO TID, Vancomycin dosed per pharmacy. 06/24 Patient was seen and examined. Underwent amputation of the L first toe yesterday. He reports burning pain, 10/10 in his left foot. CBC Hg 11.9. BMP Cl 111, bicarb 16, BUN 30, glu 165. 06/25 Patient was seen and examined. Pain better controlled. Feels more comfortable going home vs SNF. Will need wound vac on discharge. CBC Hg 11.3. BMP Cl 113, bicarb 16, BUN 31, glu 174. Initial WCx growing K. pneumoniae, proteus vulgaris and enterococcus faecalis. 06/26 Patient was seen and examined. Increased Gabapentin to 600 mg PO TID for better pain control. Plans for PICC line today. Will need 6 weeks of IV Abx. Will need wound vac. Case management on board. CBC Hg 10.8. BMP Cl 110, bicarb 18, BUN 25, glu 155. Cefepime and Vancomycin switched to Meropenem by ID. General: non toxic, no distress, appears at stated age Derm: warm, dry Head: atraumatic, normocephalic, symmetric Eyes: EOMI, no lid lag, anicteric sclera Cardiovascular: good distal perfusion in all 4 extremities Lungs: breathing comfortably, no accessory muscle use Ext: no gross muscle atrophy, no edema, no contractures, L foot wrapped dressing c/d/i Neuro: no focal neuro deficits Psych: Alert, oriented, appropriate affect Based on my assessment of this patient, this patient meets a moderate complexity level of care. Patient has an acute diagnosis of OM of the left foot that poses a threat to life or bodily function. L foot OM: Cefepime and Vancomycin sitched to Meropenem. Flagyl for anerobic coverage. POD 3 left great toe amputation. Initial wound culture growing K. pneumoniae, proteus vulgaris and enterococcus faecalis. Follow deep wound cult ure. Follow BCx. ID and Vascular Sx on board. Anxiety: Ativan 1 mg IV Q6H PRN for anxiety. Diabetes mellitus: Levemir 5 units QHS. ISS. Accuechecks ACHS. Prerenal azotemia with metabolic acidosis: DC IVF. HTN: Hydralazine IV PRN with parameters. Metoprolol 25 mg PO BID. Nifedipine 60 mg PO QD. CODE STATUS: FULL CODE DVT Prophylaxis: Heparin SQ. GI Prophylaxis: Protonix PO. Designated medical POA if patient is not able to make medical decisions for themselves: I have reviewed the following sec reporting consultant notes: ID, Vascular surgery note. I have reviewed the results of the following tests: CBC, BMP I have ordered the following tests: I have discussed the care of this patient with the following independent historian: I have independently interpreted the following test below: I have discussed the management of this patient with the following physician: Discussed with Dr. Sheikh in detail. Objective - Vital Signs Vital signs: Vital Signs Temp 97.8 F 06/26/23 14:00 Pulse 69 06/26/23 14:00 Resp 16 06/26/23 14:00 BP 174/87 06/26/23 14:00 Pulse Ox 94 L 06/26/23 14:00 FiO2 Intake & Output 06/25/23 06/26/23 06/26/23 18:59 06:59 18:59 Intake Total 177 118 Output Total 2300 1430 Balance -2123 -1312 Intake: Oral 177 118 Output: Urine 2300 1430 Other: Voiding Method Urinal # Voids 3 # Bowel Movements 1 - Labs CBC & Chem 7: 06/26/23 04:59 06/26/23 04:59 Labs: Abnormal Lab Results - Last 24 Hours (Table) 06/25/23 06/26/23 06/26/23 Range/Units 20:22 04:59 04:59 RBC 3.81 L (4.30-5.90) m/uL Hgb 10.8 L (13.0-17.5) gm/dL Hct 33.7 L (39.0-53.0) % Chloride 110 H (98-107) mmol/L Carbon Dioxide 18 L (22-30) mmol/L BUN 25 H (9-20) mg/dL Glucose 155 H (74-99) mg/dL POC Glucose (mg/dL) 175 H (70-110) mg/dL 06/26/23 06/26/23 06/26/23 Range/Units 06:13 12:52 17:08 RBC (4.30-5.90) m/uL Hgb (13.0-17.5) gm/dL Hct (39.0-53.0) % Chloride (98-107) mmol/L Carbon Dioxide (22-30) mmol/L BUN (9-20) mg/dL Glucose (74-99) mg/dL POC Glucose (mg/dL) 166 H 172 H 156 H (70-110) mg/dL Microbiology - Last 24 Hours (Table) 06/22/23 11:40 Gram Stain - Final Foot - Left Wound Culture - Final Klebsiella pneumoniae Proteus vulgaris Enterococcus faecalis 06/22/23 11:50 Blood Culture - Preliminary Blood 06/22/23 11:35 Blood Culture - Preliminary Blood 06/23/23 19:19 Gram Stain - Preliminary Toe - Left First Wound Culture - Preliminary Gram Neg Bacilli
[2023-06-26] MEDS: ATORVASTATIN 80 MG TAB PO SCH (20:30)
[2023-06-26 20:43] LABS: Glucose,Whole Blood 178 mg/dL (70-110)
[2023-06-26] MEDS: INSULIN DETEMIR (LEVEMIR) 100 UNIT/ML SYR SQ SCH (21:32)
[2023-06-27] MEDS: HEPARIN SODIUM,PORCINE 5,000 UNIT/ML 1 ML VIAL SQ SCH ×2 (00:41→09:37)
[2023-06-27] MEDS: HYDROmorphone 1 MG/ML 1 ML SYRINGE IVP PRN (00:41)
[2023-06-27] MEDS: CYCLOBENZAPRINE 5 MG TAB PO PRN (00:50)
[2023-06-27] MEDS: MEROPENEM 1 GM in SODIUM CHLORIDE 0.9% 100 ML IVPB SCH (03:24)
[2023-06-27] MEDS: PANTOPRAZOLE 40 MG TABLET PO SCH (06:31)
[2023-06-27 06:34] LABS: Glucose,Whole Blood 182 mg/dL (70-110)
[2023-06-27] MEDS: HYDROcodone/APAP 5-325MG 1 EACH TAB PO PRN ×2 (07:03→12:34)
[2023-06-27] MEDS: INSULIN ASPART (NovoLOG) 100 UNIT/ML VIAL SQ SCH ×2 (07:03→12:34)
[2023-06-27 08:58] VITALS: BP 162/71; PULSE 81; TEMP 98.2
[2023-06-27] MEDS: metroNIDAZOLE 500 MG TAB PO SCH (09:37)
[2023-06-27] MEDS: METOPROLOL TARTRATE 25 MG TAB PO SCH (09:37)
[2023-06-27] MEDS: GABAPENTIN 300 MG CAP PO SCH (09:37)
[2023-06-27] MEDS: TAMSULOSIN 0.4 MG CAP.ER.24H PO SCH (09:37)
[2023-06-27] MEDS ORDERED: ERTAPENEM 1 GM in SODIUM CHLORIDE 0.9% 50 ML IVPB SCH (11:30)
[2023-06-27 12:31] LABS: Glucose,Whole Blood 189 mg/dL (70-110)
--- NOTE | 2023-06-27 12:49 | P.DS ---
Providers Date of admission: 06/22/23 13:46 Expected date of discharge: 06/27/23 Attending physician: Luis Cobb MD Consults: 06/22/23 14:53 Consult Physician Stat Consulting Provider: Monique Krueger Consult Reason/Comments: osteomyelitis Do you want consulting provider notified?: Already Contacted 06/22/23 15:56 Consult Physician Routine Consulting Provider: Cynthia Sheikh Consult Reason/Comments: osteomyelitis Do you want consulting provider notified?: Yes Primary care physician: Kushal Deleon MD Hospital Course: Mr. 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 He has had this chronic wound for the last several months but states his wound has worsened over the last 2 weeks. He has noted some necrotic tissue and worsening ulceration with drainage. He also has some surrounding erythema around the area. Denies any fevers at home but does state he has had intermittent chills. He does not have any known peripheral vascular disease. States the wound initially started after trauma to the area. The wound is located on the medial border of the great toe and foot. X-ray of the left foot showed osteomyelitis with gas of the first toe metatarsal phalangeal joint. Started on Vancomycin and Cefepime along with Clindamycin. MRI foot ordered along with wound and blood cultures. ID consulted. Vascular surgery consulted. He underwent amputation of the L first toe. WCx growing K. pneumoniae, proteus vulgaris and enterococcus faecalis. Increased Gabapentin to 400 mg PO TID for better pain control. Obtained PICC line. Dr. Sheikh recommended 6 weeks of IV Invanz. Wound vac supplies set up. 06/27 Patient was seen and examined. Reports feeling sleepy but pain better controlled. Plans for discharge home today. General: non toxic, no distress, appears at stated age Derm: warm, dry Head: atraumatic, normocephalic, symmetric Eyes: EOMI, no lid lag, anicteric sclera Cardiovascular: good distal perfusion in all 4 extremities Lungs: breathing comfortably, no accessory muscle use Ext: no gross muscle atrophy, no edema, no contractures, L foot wrapped dressing c/d/i Neuro: no focal neuro deficits Psych: Alert, oriented, appropriate affect Discharge Diagnosis: L foot OM Anxiety Diabetes mellitus Prerenal azotemia with metabolic acidosis HTN This complex discharge took 35 minutes to complete. Patient Condition at Discharge: Stable Plan - Discharge Summary Discharge Rx Participant: No New Discharge Prescriptions: New HYDROcodone/APAP 10-325MG [[place] 10-325] 1 tab PO Q4HR PRN 3 Days #18 tab PRN Reason: Severe Pain (Scale 7 To 10) Ertapenem [INVanz] 1 gm IVPB Q24H #42 each Gabapentin [Neurontin] 400 mg PO TID 30 Days #90 cap Continue Ibuprofen [Motrin] 600 mg PO Q8H PRN PRN Reason: Pain Insulin Lispro [humaLOG Kwikpen] 6 unit SQ AC-TID Atorvastatin [Lipitor] 80 mg PO DAILY Tamsulosin [Flomax] 0.8 mg PO DAILY Thiamine [Vitamin B-1] 100 mg PO DAILY Losartan [Cozaar] 25 mg PO HS Albuterol Sulfate [Albuterol Sulfate Hfa] 1 - 2 puff PO RT-Q4H PRN PRN Reason: Shortness Of Breath Folic Acid 1 mg PO DAILY traMADol-ACETAMINOP 37.5-325MG [Ultracet] 1 tab PO TID PRN PRN Reason: Pain Empagliflozin [Jardiance] 10 mg PO DAILY Metoprolol Tartrate [Lopressor] 25 mg PO BID Cyclobenzaprine [Flexeril] 5 mg PO TID Insulin Glargine,Hum.rec.anlog [Lantus Solostar Pen] 39 unit SQ HS Aspirin EC [Ecotrin Low Dose] 81 mg PO DAILY Cholecalciferol [Vitamin D3 (25 Mcg = 1000 Iu)] 50 mcg PO DAILY Omeprazole 20 mg PO DAILY Metoclopramide [Reglan] 5 mg PO TID PRN PRN Reason: Nausea NIFEdipine XL [Procardia XL] 60 mg PO HS Discontinued Gabapentin [Neurontin] 300 mg PO BID Cephalexin [Keflex] 500 mg PO QID Discharge Medication List Aspirin EC [Ecotrin Low Dose] 81 mg PO DAILY 03/01/21 [History] Atorvastatin [Lipitor] 80 mg PO DAILY 03/01/21 [History] Ibuprofen [Motrin] 600 mg PO Q8H PRN 03/01/21 [History] Insulin Glargine,Hum.rec.anlog [Lantus Solostar Pen] 39 unit SQ HS 03/01/21 [History] Insulin Lispro [humaLOG Kwikpen] 6 unit SQ AC-TID 03/01/21 [History] Tamsulosin [Flomax] 0.8 mg PO DAILY 03/01/21 [History] Albuterol Sulfate [Albuterol Sulfate Hfa] 1 - 2 puff PO RT-Q4H PRN 06/22/23 [History] Cholecalciferol [Vitamin D3 (25 Mcg = 1000 Iu)] 50 mcg PO DAILY 06/22/23 [History] Cyclobenzaprine [Flexeril] 5 mg PO TID 06/22/23 [History] Empagliflozin [Jardiance] 10 mg PO DAILY 06/22/23 [History] Folic Acid 1 mg PO DAILY 06/22/23 [History] Losartan [Cozaar] 25 mg PO HS 06/22/23 [History] Metoclopramide [Reglan] 5 mg PO TID PRN 06/22/23 [History] Metoprolol Tartrate [Lopressor] 25 mg PO BID 06/22/23 [History] NIFEdipine XL [Procardia XL] 60 mg PO HS 06/22/23 [History] Omeprazole 20 mg PO DAILY 06/22/23 [History] Thiamine [Vitamin B-1] 100 mg PO DAILY 06/22/23 [History] traMADol-ACETAMINOP 37.5-325MG [Ultracet] 1 tab PO TID PRN 06/22/23 [History] Ertapenem [INVanz] 1 gm IVPB Q24H #42 each 06/27/23 [Rx] Gabapentin [Neurontin] 400 mg PO TID 30 Days #90 cap 06/27/23 [Rx] HYDROcodone/APAP 10-325MG [[place] 10-325] 1 tab PO Q4HR PRN 3 Days #18 tab 06/27/23 [Rx] Follow up Appointment(s)/Referral(s): Kushal Deleon MD [Primary Care Provider] - 1-2 days [facility] [NON-STAFF] - As Needed Monique Krueger DO [STAFF PHYSICIAN] - 2 Weeks [facility], [REFERRING] - 06/27/23 6:00 pm [facility] [NON-STAFF] - 1 Week Cynthia Sheikh MD [STAFF PHYSICIAN] - 1 Week [facility], [NON-STAFF] - 06/28/23 9:00 am Discharge Disposition: HOME SELF-CARE
[2023-06-27 13:05] VITALS: BMI 27.5
--- NOTE | 2023-06-27 14:50 | P.PN ---
Subjective Progress Note Date: 06/27/23 Principal diagnosis: Reason for follow-up is left big toe gangrene and diabetic foot infection Patient is a 68-year-old male with a past medical history significant for diabetes mellitus hypertension hyperlipidemia patient did have a history of thoracic discitis and paraspinal abscess, presented to hospital with discoloration of the left big toe has been diagnosed with a wet gangrene and underlying diabetes mellitus. Patient is status post a left big toe amputation completed on 06/23/2023 On today's evaluation that is 06/27/2023 the patient remains to be afebrile, the patient is breathing comfortably on room air and no need for oxygen. The patient denies shortness of breath denies any chest pain or cough, patient denies nausea/vomiting or diarrhea and no abdominal pain, the patient denies any worsening pain to the left big toe amputation site Patient did have white count of 8.2, creatinine 1.03 as of yesterday no lab draw today, culture with ESBL Klebsiella Proteus and enterococcus faecalis Objective - Vital Signs Vital signs: Vital Signs Temp 98.2 F 06/27/23 08:00 Pulse 81 06/27/23 08:00 Resp 16 06/27/23 08:00 BP 162/71 06/27/23 08:00 Pulse Ox 92 L 06/27/23 08:00 FiO2 Intake & Output 06/26/23 06/27/23 06/27/23 18:59 06:59 18:59 Intake Total 236 Output Total 1430 900 600 Balance -1194 -900 -600 Weight 99.79 kg Intake: Oral 236 Output: Urine 1430 900 600 Other: Voiding Method Urinal Urinal - Exam GENERAL DESCRIPTION: An elderly male lying in bed in no distress RESPIRATORY SYSTEM: Unlabored breathing , clear to auscultation anteriorly HEART: S1 S2 regular rate and rhythm , ABDOMEN: Soft , no tenderness EXTREMITIES: Left big toe amputation site wound is covered with a wound VAC - Labs CBC & Chem 7: 06/26/23 04:59 06/26/23 04:59 Labs: Abnormal Lab Results - Last 24 Hours (Table) 06/26/23 06/26/23 06/27/23 Range/Units 17:08 20:42 06:33 POC Glucose (mg/dL) 156 H 178 H 182 H (70-110) mg/dL 06/27/23 Range/Units 12:30 POC Glucose (mg/dL) 189 H (70-110) mg/dL Microbiology - Last 24 Hours (Table) 06/23/23 19:19 Gram Stain - Preliminary Toe - Left First Wound Culture - Preliminary Enterococcus faecalis Gram Neg Bacilli Morganella morganii 06/22/23 11:40 Gram Stain - Final Foot - Left Wound Culture - Final Klebsiella pneumoniae Proteus vulgaris Enterococcus faecalis Assessment and Plan (1) Diabetic foot infection Current Visit: Yes Status: Acute Code(s): E11.628 - TYPE 2 DIABETES MELLITUS WITH OTHER SKIN COMPLICATIONS; L08.9 - LOCAL INFECTION OF THE SKIN AND SUBCUTANE OUS TISSUE, UNSP SNOMED Code(s): 552934620 (2) Gangrene of toe of left foot Current Visit: Yes Status: Acute Code(s): I96 - GANGRENE, NOT ELSEWHERE CLASSIFIED SNOMED Code(s): 03645580727121010 Plan: 1patient was in the hospital with left big toe diabetic foot infection with evidence of wet gangrene and x-ray has been suspicious for osteomyelitis with gas-forming organism we will need to cover for the polymicrobial gaby usually associated with diabetic foot infection 2-patient has been evaluated by vascular surgery and status post left big toe amputation, patient did have a significantly deep wound with surrounding inflammation and ulceration on the left second toe 3-patient local cultures came back positive with ESBL Klebsiella Proteus and enterococcus faecalis, 4-patient did get PICC line and plan for outpatient IV Invanz 1 g daily for at least 6 weeks with weekly monitoring of CRP and a sed rate 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 please excuse any grammatical, word or spelling errors. Time with Patient: Less than 30
[2023-06-27] MEDS ORDERED: GABAPENTIN 400 MG CAP PO SCH (16:00)
--- NOTE | 2023-06-30 20:47 | CDI ---
Documentation Clarification Form Date: 06/30/2023 08:22:44 PM From: Cheri Luz Phone: Admit Date: 06/22/2023 01:46:00 PM Patient Name: Jones Ferraro Visit Number: [id number] Discharge Date: 06/27/2023 04:46:00 PM ATTENTION: The Clinical Documentation Specialists (CDI) and [facility] Coding Staff appreciate your assistance in clarifying documentation. Please respond to the clarification below the line at the bottom and electronically sign. The CDI & [facility] Coding staff will review the response and follow-up if needed. Please note: Queries are made part of the Legal Health Record. If you have any questions, please contact the author of this message via ITS. Dr. Milena Hay Diabetes is documented per ED Note and throughout, in addition to elevated glucose readings. Additional clarification is requested. History/Risk Factors: 68yo M, DMII w Lt foot ESBL OM, gas gangrene, PVD, metabolic acidosis, ALICIA, anxiety, HTN, chronic pain, cigar smoker, pt. has not had insurance so has not been taking meds/seeing physician, BPH Clinical Indicators: glucose 106- 209 Treatment: Sliding scale insulin Please clarify if Type 2 diabetes mellitus with hyperglycemia is a valid diagnosis? [ ] Yes, Type 2 diabetes mellitus with hyperglycemia is present [ ] Present on admission [ ] Not present on admission [ x ] No, Type 2 diabetes mellitus with hyperglycemia is ruled out [ ] Other (please specify diagnosis) [ ] Unable to determine (Template Last Revised: September 2020) MTDD
== END 2023-06-27 16:46 | disposition home or self-care (01) | DRG 616 ==
LOC: EC 10:44 → 6NMEDSUR 13:46
PROVIDERS: ADMIT Student in an Organized Health Care Education/Training Program; ATTEND Student in an Organized Health Care Education/Training Program
PROC: 0Y6Q0Z1 Detachment at Left 1st Toe, High, Open Approach (ICD-10-PCS; principal; 2023-06-23 21:25)
PROC: 02HV33Z Insertion of Infusion Device into Superior Vena Cava, Percutaneous Approach (ICD-10-PCS; 2023-06-26)
DX: E11.69 Type 2 diabetes mellitus with other specified complication (principal); A48.0 Gas gangrene; E11.52 Type 2 diabetes mellitus with diabetic peripheral angiopathy with gangrene; E87.20 Acidosis, unspecified; Z16.12 Extended spectrum beta lactamase (ESBL) resistance; M86.172 Other acute osteomyelitis, left ankle and foot; N17.9 Acute kidney failure, unspecified; L97.524 Non-pressure chronic ulcer of other part of left foot with necrosis of bone; I10 Essential (primary) hypertension; E11.42 Type 2 diabetes mellitus with diabetic polyneuropathy; E11.621 Type 2 diabetes mellitus with foot ulcer; E11.628 Type 2 diabetes mellitus with other skin complications; F41.9 Anxiety disorder, unspecified; E78.5 Hyperlipidemia, unspecified; G89.29 Other chronic pain; M47.816 Spondylosis without myelopathy or radiculopathy, lumbar region; F17.290 Nicotine dependence, other tobacco product, uncomplicated; N40.0 Benign prostatic hyperplasia without lower urinary tract symptoms; E87.5 Hyperkalemia; Z59.7 Insufficient social insurance and welfare support; Z91.120 Patient's intentional underdosing of medication regimen due to financial hardship; Z28.310 Unvaccinated for COVID-19; Z79.4 Long term (current) use of insulin; Z91.190 Patient's noncompliance with other medical treatment and regimen due to financial hardship; T39.016A Underdosing of aspirin, initial encounter; T46.6X6A Underdosing of antihyperlipidemic and antiarteriosclerotic drugs, initial encounter; T42.6X6A Underdosing of other antiepileptic and sedative-hypnotic drugs, initial encounter; T38.3X6A Underdosing of insulin and oral hypoglycemic [antidiabetic] drugs, initial encounter; T44.6X6A Underdosing of alpha-adrenoreceptor antagonists, initial encounter; T36.1X6A Underdosing of cephalosporins and other beta-lactam antibiotics, initial encounter; T46.5X6A Underdosing of other antihypertensive drugs, initial encounter; T44.7X6A Underdosing of beta-adrenoreceptor antagonists, initial encounter; T46.1X6A Underdosing of calcium-channel blockers, initial encounter; T47.1X6A Underdosing of other antacids and anti-gastric-secretion drugs, initial encounter; T45.2X6A Underdosing of vitamins, initial encounter; T40.426A Underdosing of tramadol, initial encounter; B95.2 Enterococcus as the cause of diseases classified elsewhere; B96.4 Proteus (mirabilis) (morganii) as the cause of diseases classified elsewhere; B96.1 Klebsiella pneumoniae [K. pneumoniae] as the cause of diseases classified elsewhere; Z79.82 Long term (current) use of aspirin; Z79.899 Other long term (current) drug therapy; Z79.891 Long term (current) use of opiate analgesic; Z79.84 Long term (current) use of oral hypoglycemic drugs; Z86.14 Personal history of Methicillin resistant Staphylococcus aureus infection
CPT/HCPCS: 36415; 36573; 80048; 80053; 80202; 82565; 83605; 83735; 84100; 85025; 85027; 85610; 85730; 87040; 87070; 87077; 87186; 87205; 93923; 96365; 96366; 96368; 96375; 99285

== ENCOUNTER 2023-07-04 09:14 | Inpatient (IN) | payer MEDICARE, OTHER ==
[2023-07-04] MEDS ORDERED: VANCOMYCIN IV PER PHARMACY 1 EACH MISC MISCELLANE PRN (10:29)
--- NOTE | 2023-07-04 10:41 | ED ---
General Adult HPI - General Chief complaint: Extremity Injury, Lower Stated complaint: open wound left leg brought Time Seen by Provider: 07/04/23 09:54 Source: patient, family Mode of arrival: wheelchair Limitations: no limitations - History of Present Illness Initial comments: Dictation was produced using [employer] dictation software. please excuse any grammatical, word or spelling errors. Chief Complaint: 68-year-old male presents to the emergency department with worsening left foot wound History of Present Illness: 68-year-old male with chronic infection to his left foot. He has had amputations. He follows up at the wound clinic. Patient states that initially he suffered left lower extremity injury that led to gangrenous left foot. He went to the wound care clinic today and was told to come to the emergency department for signs of worsening infection. The last couple days he's been having worsening pain to his left foot area. Denies any fever or chills. The ROS documented in this emergency department record has been reviewed and confirmed by me. Those systems with pertinent positive or negative responses have been documented in the HPI. All other systems are other negative and/or noncontributory. - Related Data Home Medications Medication Instructions Recorded Confirmed Aspirin EC [Ecotrin Low Dose] 81 mg PO DAILY 03/01/21 07/04/23 Atorvastatin [Lipitor] 80 mg PO DAILY 03/01/21 07/04/23 Ibuprofen [Motrin] 600 mg PO Q8H PRN 03/01/21 07/04/23 Insulin Glargine,Hum.rec.anlog 39 unit SQ HS 03/01/21 07/04/23 [Lantus Solostar Pen] Insulin Lispro [humaLOG Kwikpen] 6 unit SQ AC-TID 03/01/21 07/04/23 Tamsulosin [Flomax] 0.8 mg PO DAILY 03/01/21 07/04/23 Albuterol Sulfate [Albuterol 1 - 2 puff PO RT-Q4H PRN 06/22/23 07/04/23 Sulfate Hfa] Cholecalciferol [Vitamin D3 (25 50 mcg PO DAILY 06/22/23 07/04/23 Mcg = 1000 Iu)] Cyclobenzaprine [Flexeril] 5 mg PO TID 06/22/23 07/04/23 Empagliflozin [Jardiance] 10 mg PO DAILY 06/22/23 07/04/23 Folic Acid 1 mg PO DAILY 06/22/23 07/04/23 Losartan [Cozaar] 25 mg PO HS 06/22/23 07/04/23 Metoclopramide [Reglan] 5 mg PO TID PRN 06/22/23 07/04/23 Metoprolol Tartrate [Lopressor] 25 mg PO BID 06/22/23 07/04/23 NIFEdipine XL [Procardia XL] 60 mg PO HS 06/22/23 07/04/23 Omeprazole 20 mg PO DAILY 06/22/23 07/04/23 Thiamine [Vitamin B-1] 100 mg PO DAILY 06/22/23 07/04/23 traMADol-ACETAMINOP 37.5-325MG 1 tab PO TID PRN 06/22/23 07/04/23 [Ultracet] Previous Rx's Medication Instructions Recorded Ertapenem [INVanz] 1 gm IVPB Q24H #42 each 06/27/23 Gabapentin [Neurontin] 400 mg PO TID 30 Days #90 cap 06/27/23 HYDROcodone/APAP 10-325MG [[place] 1 tab PO Q4HR PRN 3 Days #18 tab 06/27/23 10-325] Allergies Allergy/AdvReac Type Severity Reaction Status Date / Time No Known Allergies Allergy Verified 07/04/23 11:27 Review of Systems ROS Statement: Those systems with pertinent positive or pertinent negative responses have been documented in the HPI. ROS Other: All systems not noted in ROS Statement are negative. Past Medical History Past Medical History: Diabetes Mellitus, Hyperlipidemia, Hypertension Additional Past Medical History / Comment(s): Signiificant other and rosy state pt has not had insurance so has not been taking meds/seeing physician, NIDDM type II, neuropathy bilateral feet, past nephrolithiasis with pt passing stones on his own, pt passed a couple stones (s.o. 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 Back surgery-feb 2020- infection after, mrsa, amputation of left great toe 06/27/23 Past Anesthesia/Blood Transfusion Reactions: Unable to Obtain Additional Past Anesthesia/Blood Transfusion Reaction / Comment(s): Pt has never had general anesthesia per family Past Psychological History: No Psychological Hx Reported Smoking Status: Former smoker Past Alcohol Use History: Rare Past Drug Use History: Marijuana - Past Family History Father Family Medical History: Dementia Mother Family Medical History: Cancer Additional Family Medical History / Comment(s): Mother of skin cancer. General Exam - General Exam Comments Initial Comments: PHYSICAL EXAM: General Impression: Alert and oriented x3, not in acute distress HEENT: Normocephalic atraumatic, extra-ocular movements intact, pupils equal and reactive to light bilaterally, mucous membranes moist. Cardiovascular: Heart regular rate and rhythm Chest: Able to complete full sentences, no retractions, no tachypnea Abdomen: abdomen soft, non-tender, non-distended, no organomegaly Musculoskeletal: Pulses present and equal in all extremities, no peripheral edema Motor: no focal deficits noted Neurological: CN II-XII grossly intact, no focal motor or sensory deficits noted Skin: Intact with no visualized rashes Psych: Normal affect and mood Left foot: Be dictated left great toe with large open wound with surrounding erythema. It is very palpable pain. No obvious discharge Limitations: no limitations Course Vital Signs 07/04/23 07/04/23 07/04/23 09:17 10:21 11:21 Temperature 98 F Pulse Rate 36 L 32 L 45 L Respiratory 18 17 Rate Blood Pressure 124/64 136/67 O2 Sat by Pulse 93 L 96 Oximetry Medical Decision Making - Medical Decision Making Was pt. sent in by a medical professional or institution (, PA, PHOTOLITHOGRAPHIC STRIPPER, urgent care, hospital, or fpc...) When possible be specific @ -Sent in from wound clinic Did you speak to anyone other than the patient for history (EMS, parent, family, police, friend...)? What history was obtained from this source @ -No Did you review nursing and triage notes (agree or disagree)? Why? @ -I reviewed and agree with nursing and triage notes Were old charts reviewed (outside hosp., previous admission, EMS record, old EKG, old radiological studies, urgent care reports/EKG's, fpc records)? Report findings @ -No old charts were reviewed Differential Diagnosis (chest pain, altered mental status, abdominal pain women, abdominal pain men, vaginal bleeding, musculoskeletal, weakness, fever, dyspnea, syncope, headache, dizziness, GI bleed, back pain, seizure, CVA, palpatations, mental health)? @ -not applicable EKG interpreted by me (3pts min.). @ -My EKG interpretation: Ventricular rate 35, sinus bradycardia,. 156, QRS 95, QTC 262. No DE prolongation, no QTC prolongation, no ST or T-wave changes noted. Overall, this EKG is unremarkable X-rays interpreted by me (1pt min.). @ -The foot shows amputated left toe no soft tissue gas CT interpreted by me (1pt min.). @ -None done U/S interpreted by me (1pt. min.). @ -None done What testing was considered but not performed or refused? (CT, X-rays, U/S, labs)? Why? @ -None What meds were considered but not given or refused? Why? @ -None Did you discuss the management of the patient with other professionals (professionals i.e. , PA, PHOTOLITHOGRAPHIC STRIPPER, lab, RT, psych nurse, transition social worker, deckhand tuna boat, teacher, artillery officer, field case manager)? Give summary @ -Is discussed with armhole raiser lockstitch who felt the patient did not meet criteria for ICU admission. Case discussed with hospitalist for admission Was smoking cessation discussed for >3mins.? @ -No Was critical care preformed (if so, how long)? @ -yes, 33 minutes Were there social determinants of health that impacted care today? How? (Homelessness, low income, unemployed, alcoholism, drug addiction, transportatio n, low edu. Level, literacy, decrease access to med. care, intermediate, rehab)? @ -No Was there de-escalation of care discussed even if they declined (Discuss DNR or withdrawal of care, Hospice)? DNR status @ -No What co-morbidities impacted this encounter? (DM, HTN, Smoking, COPD, CAD, Cancer, CVA, ARF, Chemo, Hep., AIDS, mental health diagnosis, sleep apnea, morbid obesity)? @ -None Was patient admitted / discharged? Hospital course, mention meds given and route, prescriptions, significant lab abnormalities, going to OR and other pertinent info. @ -68-year-old male presents emergency department for worsening of left foot wound. Patient was found to be bradycardic. Patient is normotensive. His heart rate is very low. Patient atropine with no improvement. Patient found to be hyperkalemic with a potassium of 6.1. Patient started on hyperkalemia cocktail. States that he normally has low heart rate. No leukocytosis. Rest of labs within acceptable limits. Patient be admitted for further care. Infectious disease consulted. Undiagnosed new problem with uncertain prognosis? @ -No Drug Therapy requiring intensive monitoring for toxicity (Heparin, Nitro, Insulin, Cardizem)? @ -No Were any procedures done? @ -No Diagnosis/symptom? Acute, or Chronic, or Acute on Chronic? Uncomplicated (without systemic symptoms) or Complicated (systemic symptoms)? @ -Left foot cellulitis, hyperkalemia Side effects of treatment? @ -No Exacerbation, Progression, or Severe Exacerbation? @ -No Poses a threat to life or bodily function? How? (Chest pain, [place], [place], pneumonia, PE, COPD, DKA, ARF, appy, cholecystitis, CVA, Diverticulitis, Homicidal, Suicidal, threat to staff... and all critical care pts) @ -yes - Lab Data Result diagrams: 07/04/23 11:23 07/04/23 11:23 Lab Results 07/04/23 07/04/23 07/04/23 Range/Units 11:23 11:23 11:23 WBC 11.2 H (3.8-10.6) k/uL RBC 3.84 L (4.30-5.90) m/uL Hgb 10.7 L (13.0-17.5) gm/dL Hct 34.9 L (39.0-53.0) % MCV 90.8 (80.0-100.0) fL MCH 27.9 (25.0-35.0) pg MCHC 30.7 L (31.0-37.0) g/dL RDW 14.8 (11.5-15.5) % Plt Count 229 (150-450) k/uL MPV 8.0 Neutrophils % 80 % Lymphocytes % 9 % Monocytes % 7 % Eosinophils % 1 % Basophils % 0 % Neutrophils # 9.0 H (1.3-7.7) k/uL Lymphocytes # 1.0 (1.0-4.8) k/uL Monocytes # 0.8 (0-1.0) k/uL Eosinophils # 0.1 (0-0.7) k/uL Basophils # 0.0 (0-0.2) k/uL Hypochromasia Moderate PT 10.0 (10.0-12.5) sec INR 0.9 (<1.2) APTT 26.8 (22.0-30.0) sec Sodium 135 L (137-145) mmol/L Potassium 6.1 H* (3.5-5.1) mmol/L Chloride 105 (98-107) mmol/L Carbon Dioxide 19 L (22-30) mmol/L Anion Gap 11 mmol/L BUN 64 H (9-20) mg/dL Creatinine 1.62 H (0.66-1.25) mg/dL Est GFR (CKD-EPI)AfAm 50 (>60 ml/min/1.73 sqM) Est GFR (CKD-EPI)NonAf 44 (>60 ml/min/1.73 sqM) Glucose 147 H (74-99) mg/dL Plasma Lactic Acid Reilly (0.7-2.0) mmol/L Calcium 8.6 (8.4-10.2) mg/dL Magnesium 2.6 H (1.6-2.3) mg/dL Total Bilirubin 0.4 (0.2-1.3) mg/dL AST 25 (17-59) U/L ALT 24 (4-49) U/L Alkaline Phosphatase 127 H (38-126) U/L Troponin I (0.000-0.034) ng/mL C-Reactive Protein 5.9 H (<1.0) mg/dL Total Protein 6.4 (6.3-8.2) g/dL Albumin 3.7 (3.5-5.0) g/dL 07/04/23 07/04/23 Range/Units 11:23 11:23 WBC (3.8-10.6) k/uL RBC (4.30-5.90) m/uL Hgb (13.0-17.5) gm/dL Hct (39.0-53.0) % MCV (80.0-100.0) fL MCH (25.0-35.0) pg MCHC (31.0-37.0) g/dL RDW (11.5-15.5) % Plt Count (150-450) k/uL MPV Neutrophils % % Lymphocytes % % Monocytes % % Eosinophils % % Basophils % % Neutrophils # (1.3-7.7) k/uL Lymphocytes # (1.0-4.8) k/uL Monocytes # (0-1.0) k/uL Eosinophils # (0-0.7) k/uL Basophils # (0-0.2) k/uL Hypochromasia PT (10.0-12.5) sec INR (<1.2) APTT (22.0-30.0) sec Sodium (137-145) mmol/L Potassium (3.5-5.1) mmol/L Chloride (98-107) mmol/L Carbon Dioxide (22-30) mmol/L Anion Gap mmol/L BUN (9-20) mg/dL Creatinine (0.66-1.25) mg/dL Est GFR (CKD-EPI)AfAm (>60 ml/min/1.73 sqM) Est GFR (CKD-EPI)NonAf (>60 ml/min/1.73 sqM) Glucose (74-99) mg/dL Plasma Lactic Acid Reilly 0.7 (0.7-2.0) mmol/L Calcium (8.4-10.2) mg/dL Magnesium (1.6-2.3) mg/dL Total Bilirubin (0.2-1.3) mg/dL AST (17-59) U/L ALT (4-49) U/L Alkaline Phosphatase (38-126) U/L Troponin I <0.012 (0.000-0.034) ng/mL C-Reactive Protein (<1.0) mg/dL Total Protein (6.3-8.2) g/dL Albumin (3.5-5.0) g/dL Disposition Clinical Impression: Hyperkalemia, Infected wound Disposition: ADMITTED IP TO [facility] Condition: Serious Referrals: Kushal Deleon MD [Primary Care Provider] - 1-2 days Decision Time: 12:37
[2023-07-04] MEDS ORDERED: VANCOMYCIN 2,000 MG in SODIUM CHLORIDE 0.9% 500 ML 500 ML IVPB ONE (11:00)
[2023-07-04] MEDS ORDERED: ATROPINE SULFATE 0.1 MG/ML 10ML SYRINGE IV STA (11:24)
[2023-07-04 11:48] LABS: Basophils % (A) 0 %; Eosinophils # (A) 0.1 k/uL (0-0.7); Eosinophils % (A) 1 %; HCT 34.9 % (39.0-53.0); HGB 10.7 gm/dL (13.0-17.5); Hypochromasia Moderate; Lymphocytes % (A) 9 %; MCH 27.9 pg (25.0-35.0); MCHC 30.7 g/dL (31.0-37.0); MCV 90.8 fL (80.0-100.0); Monocytes # (A) 0.8 k/uL (0-1.0); Monocytes % (A) 7 %; Neutrophils % (A) 80 %; Platelet Count 229 k/uL (150-450); RBC 3.84 m/uL (4.30-5.90); RDW 14.8 % (11.5-15.5); WBC 11.2 k/uL (3.8-10.6)
[2023-07-04] MEDS ORDERED: MEROPENEM 1 GM in SODIUM CHLORIDE 0.9% 100 ML IVPB SCH (12:00)
[2023-07-04 12:06] LABS: ALT 24 U/L (4-49); AST 25 U/L (17-59); African American GFR (CKD) 50 (>60 ml/min/1.73 sqM); Albumin 3.7 g/dL (3.5-5.0); Alkaline Phosphatase 127 U/L (38-126); Blood Urea Nitrogen 64 mg/dL (9-20); C Reactive Protein 5.9 mg/dL (<1.0); Calcium 8.6 mg/dL (8.4-10.2); Carbon Dioxide 19 mmol/L (22-30); Glucose 147 mg/dL (74-99); Magnesium 2.6 mg/dL (1.6-2.3); Non-African American GFR(CKD) 44 (>60 ml/min/1.73 sqM); Sodium 135 mmol/L (137-145); Total Bilirubin 0.4 mg/dL (0.2-1.3); Total Protein 6.4 g/dL (6.3-8.2)
[2023-07-04 12:11] LABS: INR 0.9 (<1.2); Partial Thromboplastin Time 26.8 sec (22.0-30.0)
[2023-07-04 12:22] LABS: Anion Gap 11 mmol/L
[2023-07-04] MEDS ORDERED: ALBUTEROL NEB (CONC) 2.5 MG/0.5 ML INHALATION ONE (12:22)
[2023-07-04] MEDS ORDERED: INSULIN REGULAR 100 UNIT/ML VIAL (IV) IV ONE (12:22)
[2023-07-04] MEDS ORDERED: SODIUM ZIRCONIUM CYCLOSILICATE 10 GM PACKET PO ONE (12:22)
[2023-07-04] MEDS ORDERED: SODIUM BICARB 8.4% 50 ML SYR (1 MEQ/ML) IV ONE (12:22)
[2023-07-04] MEDS ORDERED: DEXTROSE 50% SYRINGE 50 ML IVP ONE (12:22)
[2023-07-04 12:23] LABS: Chloride 105 mmol/L (98-107)
[2023-07-04] MEDS ORDERED: SODIUM CHLORIDE 0.9% 500 ML 500 ML IV STA (12:29)
[2023-07-04] MEDS ORDERED: NALOXONE 0.4 MG/ML 1 ML VIAL IV PRN (12:32)
[2023-07-04] MEDS ORDERED: CALCIUM GLUCONATE IN NACL 1 GM in SALINE 1 100ML.BAG IVPB ONE (12:45)
[2023-07-04] MEDS ORDERED: MORPHINE SULFATE 4 MG/ML SYRINGE IV STA (12:59)
--- NOTE | 2023-07-04 13:01 | XR ---
EXAMINATION TYPE: XR foot limited LT DATE OF EXAM: 07/04/2023 COMPARISON: 06/22/2026 HISTORY: Pain TECHNIQUE: Three views are submitted. FINDINGS: There is a transmetatarsal amputation of the first digit. The distal margin of the bone may extend ou tside the soft tissues. Correlate clinically. Diffuse soft tissue edema. Diffuse osteopenia. Vascular calcifications. Small osseous fragment adjacent to the remaining portion of the first metatarsal. No definitive destructive changes. IMPRESSION: 1. No definite destructive changes. Diffuse soft tissue edema correlate for cellulitis. 2. Transmetatarsal amputation first digit with the bone appearing to extend close to or outside the m argin of the soft tissues, correlate clinically.
[2023-07-04] MEDS: SODIUM CHLORIDE 0.9% 1,000 ML IV SCH (13:27)
[2023-07-04 14:32] LABS: Glucose,Whole Blood 55 mg/dL (70-110)
[2023-07-04 15:56] LABS: Erythrocyte Sedimentation Rate 63 mm/Hr (0-20)
[2023-07-04] MEDS ORDERED: METOCLOPRAMIDE 5 MG TAB PO PRN (17:02)
[2023-07-04] MEDS ORDERED: traMADol-ACETAMINOP 37.5-325MG 1 EACH TAB PO PRN (17:02)
--- NOTE | 2023-07-04 17:06 | P.HPIM ---
History of Present Illness H&P Date: 07/04/23 Chief Complaint: foot infection, hyperkalemia 68 year old man with history of recent toe amputation, DM with insulin dependence, BPH, hypertension, hyperlipidemia, previous history of thoracic discitis and paraspinal abscess requiring surgery currently on suppressive oral Keflex normally, and recently on ertapenem, presented for left-sided pain in the foot. Patient says that he previously had infection of his left toe which was amputated due to wet gangrene approximately 10 days ago. Since that time, he has been treated with wound care, but noted that the surrounding area around his foot became more red, painful and that the wound appeared to look more infected. Patient presented to the hospital for further evaluation. He denies fevers, chills, nausea, vomiting, chest pain, palpitations, syncope, presyncope, cough, dyspnea, abdominal pain, constipation, diarrhea, dysuria, dyschezia, numbness/weakness of extremities. In the emergency room, patient was afebrile, 124/64, heart rate 36, 93% on room air. CBC showed leukocytosis to 11.2, anemia of 10.7. His metabolic panel showed sodium of 135, potassium 6.1, CO2 of 19, BUN of 64, creatinine of 1.60. Liver function tests showed elevation of alkaline phosphatase to 127. ESR was elevated at 63, CRP was elevated at 5.9. Coags are unremarkable. EKG demonstrates sinus bradycardia at a rate of 35 with peaked T waves. Foot x-ray demonstrated transmetatarsal amputation of the first digit with exposed-a ppearing bone. All Systems reviewed and pertinent positives and negatives noted in HPI, all other symptoms are negative Gen: in no apparent distress, resting comfortably in bed Eyes: PERRL, no scleral injection or icterus HENT: normocephalic, atraumatic, good hearing acuity, moist mucous membranes Neck: no tracheal deviation, full range of motion Resp: good air exchange, breathing comfortably with no accessory muscle use, no tactile fremitus, clear to auscultation bilaterally CVS: good distal perfusion x 4, no pitting edema, regular rate and rhythm without murmurs GI: soft, NTTP, ND, no hepatosplenomegaly : no suprapubic tenderness, no CVAT, ware catheter not present MSK: no clubbing, no cyanosis, no noted contractures of extremities Skin: no noted rashes, petechiae; temperature of skin is appropriate Neuro: moving all extremities without signs of weakness, CN II-XII intact Psych: cooperative, euthymic mood, insight and judgment intact Labs and imaging as above Assessment/plan: Dry gangrene with osteomyelitis Diabetic foot infection -Patient should be admitted inpatient -Infectious disease consultation -Vascular surgery consultation for further debridement -Cover patient with vancomycin, meropenem -Follow vancomycin level for toxicity Diabetes type II -Strict sugar control -Resume Lantus at 39 units at bedtime, 6 units lispro before meals 3 times a day, aspart sliding scale insulin Hypertension Hyperlipidemia BPH -Home medications reviewed and reconciled Patient is full code Past Medical History Past Medical History: Diabetes Mellitus, Hyperlipidemia, Hypertension Additional Past Medical History / Comment(s): Signiificant other and rosy state pt has not had insurance so has not been taking meds/seeing physician, NIDDM type II, neuropathy bilateral feet, past nephrolithiasis with pt passing stones on his own, pt passed a couple stones (s.o. 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 Back surgery-feb 2020- infection after, mrsa, amputation of left great toe 06/27/23 Past Anesthesia/Blood Transfusion Reactions: Unable to Obtain Additional Past Anesthesia/Blood Transfusion Reaction / Comment(s): Pt has never had general anesthesia per family Past Psychological History: No Psychological Hx Reported Smoking Status: Former smoker Past Alcohol Use History: Rare Past Drug Use History: Marijuana - Past Family History Father Family Medical History: Dementia Mother Family Medical History: Cancer Additional Family Medical History / Comment(s): Mother of skin cancer. Medications and Allergies Home Medications Medication Instructions Recorded Confirmed Type Aspirin EC [Ecotrin Low Dose] 81 mg PO DAILY 03/01/21 07/04/23 History Atorvastatin [Lipitor] 80 mg PO DAILY 03/01/21 07/04/23 History Ibuprofen [Motrin] 600 mg PO Q8H PRN 03/01/21 07/04/23 History Insulin Glargine,Hum.rec.anlog 39 unit SQ HS 03/01/21 07/04/23 History [Lantus Solostar Pen] Insulin Lispro [humaLOG Kwikpen] 6 unit SQ AC-TID 03/01/21 07/04/23 History Tamsulosin [Flomax] 0.8 mg PO DAILY 03/01/21 07/04/23 History Albuterol Sulfate [Albuterol 1 - 2 puff PO RT-Q4H PRN 06/22/23 07/04/23 History Sulfate Hfa] Cholecalciferol [Vitamin D3 (25 50 mcg PO DAILY 06/22/23 07/04/23 History Mcg = 1000 Iu)] Cyclobenzaprine [Flexeril] 5 mg PO TID 06/22/23 07/04/23 History Empagliflozin [Jardiance] 10 mg PO DAILY 06/22/23 07/04/23 History Folic Acid 1 mg PO DAILY 06/22/23 07/04/23 History Losartan [Cozaar] 25 mg PO HS 06/22/23 07/04/23 History Metoclopramide [Reglan] 5 mg PO TID PRN 06/22/23 07/04/23 History Metoprolol Tartrate [Lopressor] 25 mg PO BID 06/22/23 07/04/23 History NIFEdipine XL [Procardia XL] 60 mg PO HS 06/22/23 07/04/23 History Omeprazole 20 mg PO DAILY 06/22/23 07/04/23 History Thiamine [Vitamin B-1] 100 mg PO DAILY 06/22/23 07/04/23 History traMADol-ACETAMINOP 37.5-325MG 1 tab PO TID PRN 06/22/23 07/04/23 History [Ultracet] Ertapenem [INVanz] 1 gm IVPB Q24H #42 each 06/27/23 07/04/23 Rx Gabapentin [Neurontin] 400 mg PO TID 30 Days #90 cap 06/27/23 07/04/23 Rx HYDROcodone/APAP 10-325MG [[place] 1 tab PO Q4HR PRN 3 Days #18 tab 12/01/23 12/08/23 Rx 10-325] Allergies Allergy/AdvReac Type Severity Reaction Status Date / Time No Known Allergies Allergy Verified 07/04/23 11:27 Physical Exam Osteopathic Statement: *. No significant issues noted on an osteopathic structural exam other than those noted in the History and Physical/Consult. Vitals: Vital Signs Temp Pulse Resp BP Pulse Ox 07/04/23 16:00 75 18 124/61 95 07/04/23 14:38 56 L 07/04/23 14:35 55 L 18 133/63 95 07/04/23 14:19 55 L 07/04/23 13:00 47 L 17 147/66 94 L 07/04/23 11:21 45 L 17 136/67 96 07/04/23 10:21 32 L 07/04/23 09:17 98 F 36 L 18 124/64 93 L Intake and Output 07/04/23 07/04/23 07/04/23 06:59 14:59 22:59 Other: Weight 104.326 kg Results CBC & Chem 7: 07/04/23 11:23 07/04/23 11:23 Labs: Abnormal Lab Results - Last 24 Hours (Table) 07/04/23 07/04/23 07/04/23 Range/Units 11:23 11:23 14:30 WBC 11.2 H (3.8-10.6) k/uL RBC 3.84 L (4.30-5.90) m/uL Hgb 10.7 L (13.0-17.5) gm/dL Hct 34.9 L (39.0-53.0) % MCHC 30.7 L (31.0-37.0) g/dL Neutrophils # 9.0 H (1.3-7.7) k/uL ESR 63 H (0-20) mm/Hr Sodium 135 L (137-145) mmol/L Potassium 6.1 H* (3.5-5.1) mmol/L Carbon Dioxide 19 L (22-30) mmol/L BUN 64 H (9-20) mg/dL Creatinine 1.62 H (0.66-1.25) mg/dL Glucose 147 H (74-99) mg/dL POC Glucose (mg/dL) 55 L (70-110) mg/dL Magnesium 2.6 H (1.6-2.3) mg/dL Alkaline Phosphatase 127 H (38-126) U/L C-Reactive Protein 5.9 H (<1.0) mg/dL
[2023-07-04] MEDS: MORPHINE SULFATE 4 MG/ML SYRINGE IV PRN (17:40)
[2023-07-04 18:52] LABS: Glucose,Whole Blood 156 mg/dL (70-110)
[2023-07-04] MEDS: INSULIN ASPART (NovoLOG) 100 UNIT/ML VIAL SQ SCH ×2 (19:07→19:08)
[2023-07-04 20:11] LABS: Glucose,Whole Blood 200 mg/dL (70-110)
[2023-07-04] MEDS: GABAPENTIN 400 MG CAP PO SCH (20:14)
[2023-07-04] MEDS: CYCLOBENZAPRINE 5 MG TAB PO SCH (20:15)
[2023-07-04 20:29] LABS: Potassium 6.1 mmol/L (3.5-5.1)
[2023-07-04] MEDS: INSULIN DETEMIR (LEVEMIR) 100 UNIT/ML SYR SQ SCH (21:34)
[2023-07-04] MEDS: MEROPENEM 1 GM in SODIUM CHLORIDE 0.9% 100 ML IVPB SCH (21:34)
[2023-07-04] MEDS: HYDROcodone/APAP 10-325MG 1 EACH TAB PO PRN (23:51)
--- NOTE | 2023-07-05 00:23 | P.CONS ---
History of Present Illness - Reason for Consult Consult date: 07/04/23 - History of Present Illness Patient is a 68-year-old male with a past medical history significant for diabetes mellitus hypertension hyperlipidemia who was recently admitted to this facility with left big toe gangrene and diabetic foot infection in this patient who is status post left big toe amputation patient did have a culture positive for ESBL Klebsiella in addition to Proteus and Enterococcus faecalis En terococcus was ampicillin sensitive patient was advised a 6-week course of IV Invanz the patient was currently receiving in the outpatient setting patient apparently did have a follow-up with the wound care center where the patient was noticed to have a some discoloration to the left big toe amputation site concerning for worsening ischemia/infection and the patient was advised to go to the ER patient on presentation to the hospital was afebrile patient did have a white count of 11.2 creatinine is 1.62 lower limits of normal foot x-ray no definite destructive changes diffuse soft tissue edema correlate for cellulitis, patient was started on vancomycin infectious was consulted for further man agement of antibiotic therapy, the patient has been complaining of some dull aching and throbbing pain to the left foot big toe amputation site and has been attributing pressure from the wound VAC denies any foul-smelling drainage denies any problem with the PICC line and no diarrhea with antibiotic therapy Past Medical History Past Medical History: Diabetes Mellitus, Hyperlipidemia, Hypertension Additional Past Medical History / Comment(s): Signiificant other and rosy state pt has not had insurance so has not been taking meds/seeing physician, NIDDM type II, neuropathy bilateral feet, past nephrolithiasis with pt passing stones on his own, pt passed a couple stones (s.o. 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 Back surgery-feb 2020- infection after, mrsa, amputation of left great toe 06/27/23 Past Anesthesia/Blood Transfusion Reactions: Unable to Obtain Additional Past Anesthesia/Blood Transfusion Reaction / Comm: Pt has never had general anesthesia per family Past Psychological History: No Psychological Hx Reported Smoking Status: Former smoker Past Alcohol Use History: Rare Past Drug Use History: Marijuana - Past Family History Father Family Medical History: Dementia Mother Family Medical History: Cancer Additional Family Medical History / Comment(s): Mother of skin cancer. Medications and Allergies Home Medications Medication Instructions Recorded Confirmed Type Aspirin EC [Ecotrin Low Dose] 81 mg PO DAILY 03/01/21 07/04/23 History Atorvastatin [Lipitor] 80 mg PO DAILY 03/01/21 07/04/23 History Ibuprofen [Motrin] 600 mg PO Q8H PRN 03/01/21 07/04/23 History Insulin Glargine,Hum.rec.anlog 39 unit SQ HS 03/01/21 07/04/23 History [Lantus Solostar Pen] Insulin Lispro [humaLOG Kwikpen] 6 unit SQ AC-TID 03/01/21 07/04/23 History Tamsulosin [Flomax] 0.8 mg PO DAILY 03/01/21 07/04/23 History Albuterol Sulfate [Albuterol 1 - 2 puff PO RT-Q4H PRN 06/22/23 07/04/23 History Sulfate Hfa] Cholecalciferol [Vitamin D3 (25 50 mcg PO DAILY 06/22/23 07/04/23 History Mcg = 1000 Iu)] Cyclobenzaprine [Flexeril] 5 mg PO TID 06/22/23 07/04/23 History Empagliflozin [Jardiance] 10 mg PO DAILY 06/22/23 07/04/23 History Folic Acid 1 mg PO DAILY 06/22/23 07/04/23 History Losartan [Cozaar] 25 mg PO HS 06/22/23 07/04/23 History Metoclopramide [Reglan] 5 mg PO TID PRN 06/22/23 07/04/23 History Metoprolol Tartrate [Lopressor] 25 mg PO BID 06/22/23 07/04/23 History NIFEdipine XL [Procardia XL] 60 mg PO HS 06/22/23 07/04/23 History Omeprazole 20 mg PO DAILY 06/22/23 07/04/23 History Thiamine [Vitamin B-1] 100 mg PO DAILY 06/22/23 07/04/23 History traMADol-ACETAMINOP 37.5-325MG 1 tab PO TID PRN 06/22/23 07/04/23 History [Ultracet] Ertapenem [INVanz] 1 gm IVPB Q24H #42 each 06/27/23 07/04/23 Rx Gabapentin [Neurontin] 400 mg PO TID 30 Days #90 cap 06/27/23 07/04/23 Rx HYDROcodone/APAP 10-325MG [[place] 1 tab PO Q4HR PRN 3 Days #18 tab 06/27/23 07/04/23 Rx 10-325] Allergies Allergy/AdvReac Type Severity Reaction Status Date / Time No Known Allergies Allergy Verified 07/04/23 11:27 Physical Exam Vitals: Vital Signs Temp Pulse Resp BP Pulse Ox 07/04/23 09:17 98 F 36 L 18 124/64 93 L Intake and Output 07/03/23 07/04/23 07/04/23 22:59 06:59 14:59 Other: Weight 104.326 kg Results CBC & Chem 7: 07/04/23 11:23 07/04/23 16:20 Assessment and Plan Plan: 1patient with recent extensive left big toe diabetic foot infection with gangrene in this patient who is status post amputation of the left big toe culture did grow multiple pathogen including a drug-resistant ESBL Klebsiella in addition to Enterococcus for the patient was getting IV Invanz in the outpatient setting presented to hospital with some discoloration to the left big toe potation site concerning for worsening ischemia versus worsening infection, the patient did have a mild elevated white count but no fever 2-awaiting vascular surgery evaluation and possible deep cultures 3-continue with vancomycin watching his kidney function closely we will add meropenem for for gram-negative coverage We will follow on clinical condition and cultures to further adjust medication if needed Thank you for this consultation we will follow the patient along with you Dictation was produced using [employer] dictation software. please excuse any grammatical, word or spelling errors. Time with Patient: Greater than 30
[2023-07-05] MEDS: SODIUM CHLORIDE 0.9% 1,000 ML IV SCH ×2 (02:31→18:25)
[2023-07-05] MEDS: MEROPENEM 1 GM in SODIUM CHLORIDE 0.9% 100 ML IVPB SCH ×3 (04:15→20:19)
[2023-07-05] MEDS: MORPHINE SULFATE 4 MG/ML SYRINGE IV PRN ×2 (04:24→20:20)
[2023-07-05] MEDS ORDERED: VANCOMYCIN 1,750 MG in SODIUM CHLORIDE 0.9% 500 ML 500 ML IVPB SCH (06:00)
[2023-07-05 06:10] LABS: Glucose,Whole Blood 55 mg/dL (70-110)
[2023-07-05] MEDS: INSULIN ASPART (NovoLOG) 100 UNIT/ML VIAL SQ SCH ×6 (06:13→16:56)
[2023-07-05] MEDS: PANTOPRAZOLE 40 MG TABLET PO SCH (06:17)
[2023-07-05 06:33] LABS: Glucose,Whole Blood 75 mg/dL (70-110)
[2023-07-05 08:06] LABS: Basophils % (A) 0 %; Eosinophils # (A) 0.1 k/uL (0-0.7); Eosinophils % (A) 1 %; HCT 35.5 % (39.0-53.0); HGB 10.9 gm/dL (13.0-17.5); Hypochromasia Slight; Lymphocytes # (A) 0.6 k/uL (1.0-4.8); Lymphocytes % (A) 6 %; MCH 27.7 pg (25.0-35.0); MCHC 30.7 g/dL (31.0-37.0); MCV 90.2 fL (80.0-100.0); Mean Platelet Volume 7.7; Monocytes # (A) 0.7 k/uL (0-1.0); Monocytes % (A) 7 %; Neutrophils # (A) 8.4 k/uL (1.3-7.7); Neutrophils % (A) 84 %; Platelet Count 269 k/uL (150-450); RBC 3.93 m/uL (4.30-5.90); RDW 14.7 % (11.5-15.5)
[2023-07-05 08:19] LABS: African American GFR (CKD) 71 (>60 ml/min/1.73 sqM); Anion Gap 9 mmol/L; Blood Urea Nitrogen 45 mg/dL (9-20); Calcium 8.4 mg/dL (8.4-10.2); Carbon Dioxide 22 mmol/L (22-30); Chloride 110 mmol/L (98-107); Glucose 136 mg/dL (74-99); Non-African American GFR(CKD) 62 (>60 ml/min/1.73 sqM); Potassium 4.9 mmol/L (3.5-5.1); Sodium 141 mmol/L (137-145)
[2023-07-05] MEDS: ATORVASTATIN 80 MG TAB PO SCH (09:01)
[2023-07-05] MEDS: GABAPENTIN 400 MG CAP PO SCH ×2 (09:01→15:31)
[2023-07-05] MEDS: FOLIC ACID 1 MG TAB PO SCH (09:01)
[2023-07-05] MEDS: THIAMINE 100 MG TAB PO SCH (09:01)
[2023-07-05] MEDS: CYCLOBENZAPRINE 5 MG TAB PO SCH ×2 (09:01→15:31)
[2023-07-05] MEDS: TAMSULOSIN 0.4 MG CAP.ER.24H PO SCH (09:01)
[2023-07-05] MEDS: ASPIRIN 81 MG PO SCH (09:08)
[2023-07-05] MEDS: CHOLECALCIFEROL 25 MCG (1000 IU) TABLET PO SCH (09:08)
[2023-07-05] MEDS: HYDROcodone/APAP 10-325MG 1 EACH TAB PO PRN ×2 (09:08→15:31)
[2023-07-05 11:25] LABS: Glucose,Whole Blood 233 mg/dL (70-110)
--- NOTE | 2023-07-05 12:52 | P.GSCN ---
History of Present Illness Consult date: 07/05/23 Reason for Consult: Gangrene of the left foot, status post amputation of left great toe. History of present illness: Patient is a 68-year-old male with at least a 22 year history of diabetes mellitus who also continues to use tobacco up until this admission who is status post amputation of left great toe. This amputation was up to the level of the metatarsal level and a wound VAC was applied postoperatively. Unfortunately the patient's financial situation does not allow him to maintain his wound VAC and the patient discontinued the wound VAC. He was seen in wound care and he was subsequently referred for further therapy. He denies any ischemic rest pain. Past Medical History Past Medical History: Diabetes Mellitus, Hyperlipidemia, Hypertension Additional Past Medical History / Comment(s): Signiificant other and rosy state pt has not had insurance so has not been taking meds/seeing physician, NIDDM type II, neuropathy bilateral feet, past nephrolithiasis with pt passing stones on his own, pt passed a couple stones (s.o. 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 Back surgery-feb 2020- infection after, mrsa, amputation of left great toe 06/27/23 Past Anesthesia/Blood Transfusion Reactions: Unable to Obtain Additional Past Anesthesia/Blood Transfusion Reaction / Comm: Pt has never had general anesthesia per family Past Psychological History: No Psychological Hx Reported Smoking Status: Former smoker Past Alcohol Use History: Rare Past Drug Use History: Marijuana - Past Family History Father Family Medical History: Dementia Mother Family Medical History: Cancer Additional Family Medical History / Comment(s): Mother of skin cancer. Medications and Allergies Home Medications Medication Instructions Recorded Confirmed Type Aspirin EC [Ecotrin Low Dose] 81 mg PO DAILY 03/01/21 07/04/23 History Atorvastatin [Lipitor] 80 mg PO DAILY 03/01/21 07/04/23 History Ibuprofen [Motrin] 600 mg PO Q8H PRN 03/01/21 07/04/23 History Insulin Glargine,Hum.rec.anlog 39 unit SQ HS 03/01/21 07/04/23 History [Lantus Solostar Pen] Insulin Lispro [humaLOG Kwikpen] 6 unit SQ AC-TID 03/01/21 07/04/23 History Tamsulosin [Flomax] 0.8 mg PO DAILY 03/01/21 07/04/23 History Albuterol Sulfate [Albuterol 1 - 2 puff PO RT-Q4H PRN 06/22/23 07/04/23 History Sulfate Hfa] Cholecalciferol [Vitamin D3 (25 50 mcg PO DAILY 06/22/23 07/04/23 History Mcg = 1000 Iu)] Cyclobenzaprine [Flexeril] 5 mg PO TID 06/22/23 07/04/23 History Empagliflozin [Jardiance] 10 mg PO DAILY 06/22/23 07/04/23 History Folic Acid 1 mg PO DAILY 06/22/23 07/04/23 History Losartan [Cozaar] 25 mg PO HS 06/22/23 07/04/23 History Metoclopramide [Reglan] 5 mg PO TID PRN 06/22/23 07/04/23 History Metoprolol Tartrate [Lopressor] 25 mg PO BID 06/22/23 07/04/23 History NIFEdipine XL [Procardia XL] 60 mg PO HS 06/22/23 07/04/23 History Omeprazole 20 mg PO DAILY 06/22/23 07/04/23 History Thiamine [Vitamin B-1] 100 mg PO DAILY 06/22/23 07/04/23 History traMADol-ACETAMINOP 37.5-325MG 1 tab PO TID PRN 06/22/23 07/04/23 History [Ultracet] Ertapenem [INVanz] 1 gm IVPB Q24H #42 each 06/27/23 07/04/23 Rx Gabapentin [Neurontin] 400 mg PO TID 30 Days #90 cap 06/27/23 07/04/23 Rx HYDROcodone/APAP 10-325MG [[place] 1 tab PO Q4HR PRN 3 Days #18 tab 06/27/23 07/04/23 Rx 10-325] Allergies Allergy/AdvReac Type Severity Reaction Status Date / Time No Known Allergies Allergy Verified 07/04/23 11:27 Surgical - Exam Osteopathic Statement: *. No significant issues noted on an osteopathic structural exam other than those noted in the History and Physical/Consult. Vital Signs Temp Pulse Resp BP Pulse Ox 98 F 36 L 18 124/64 93 L 07/04/23 09:17 12 09:17 12 09:17 07/04/23 09:17 07/04/23 09:17 Femoral pulses are intact bilaterally although it could not appreciate a popli teal or DP or PT pulse on the left. The left foot wound is desiccated. There is no malodor or drainage noted. Bone is exposed. I did review the results of the arterial Doppler study performed a bit earlier in his care. 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 Results - Labs 07/05/23 07:49 07/05/23 07:49 Abnormal Lab Results - Last 24 Hours (Table) 07/04/23 07/04/23 07/04/23 Range/Units 11:23 11:23 14:30 RBC (4.30-5.90) m/uL Hgb (13.0-17.5) gm/dL Hct (39.0-53.0) % MCHC (31.0-37.0) g/dL Neutrophils # (1.3-7.7) k/uL Lymphocytes # (1.0-4.8) k/uL ESR 63 H (0-20) mm/Hr Potassium 6.1 H* (3.5-5.1) mmol/L Chloride (98-107) mmol/L BUN (9-20) mg/dL Glucose (74-99) mg/dL POC Glucose (mg/dL) 55 L (70-110) mg/dL 07/04/23 07/04/23 07/05/23 Range/Units 18:51 20:09 06:08 RBC (4.30-5.90) m/uL Hgb (13.0-17.5) gm/dL Hct (39.0-53.0) % MCHC (31.0-37.0) g/dL Neutrophils # (1.3-7.7) k/uL Lymphocytes # (1.0-4.8) k/uL ESR (0-20) mm/Hr Potassium (3.5-5.1) mmol/L Chloride (98-107) mmol/L BUN (9-20) mg/dL Glucose (74-99) mg/dL POC Glucose (mg/dL) 156 H 200 H 55 L (70-110) mg/dL 07/05/23 07/05/23 07/05/23 Range/Units 07:49 07:49 11:23 RBC 3.93 L (4.30-5.90) m/uL Hgb 10.9 L (13.0-17.5) gm/dL Hct 35.5 L (39.0-53.0) % MCHC 30.7 L (31.0-37.0) g/dL Neutrophils # 8.4 H (1.3-7.7) k/uL Lymphocytes # 0.6 L (1.0-4.8) k/uL ESR (0-20) mm/Hr Potassium (3.5-5.1) mmol/L Chloride 110 H (98-107) mmol/L BUN 45 H (9-20) mg/dL Glucose 136 H (74-99) mg/dL POC Glucose (mg/dL) 233 H (70-110) mg/dL Diabetes panel 07/04/23 07/04/23 07/05/23 Range/Units 11: 16:20 07:49 Sodium 141 (137-145) mmol/L Potassium 6.1 H* 5.0 4.9 (3.5-5.1) mmol/L Chloride 110 H (98-107) mmol/L Carbon Dioxide 22 (22-30) mmol/L BUN 45 H (9-20) mg/dL Creatinine 1.22 (0.66-1.25) mg/dL Glucose 136 H (74-99) mg/dL Calcium 8.4 (8.4-10.2) mg/dL Calcium panel 07/05/23 Range/Units 07:49 Calcium 8.4 (8.4-10.2) mg/dL Pituitary panel 07/04/23 07/04/23 07/05/23 Range/Units 11:23 16:20 07:49 Sodium 141 (137-145) mmol/L Potassium 6.1 H* 5.0 4.9 (3.5-5.1) mmol/L Chloride 110 H (98-107) mmol/L Carbon Dioxide 22 (22-30) mmol/L BUN 45 H (9-20) mg/dL Creatinine 1.22 (0.66-1.25) mg/dL Glucose 136 H (74-99) mg/dL Calcium 8.4 (8.4-10.2) mg/dL Adrenal panel 07/04/23 07/04/23 07/05/23 Range/Units 11:23 16:20 07:49 Sodium 141 (137-145) mmol/L Potassium 6.1 H* 5.0 4.9 (3.5-5.1) mmol/L Chloride 110 H (98-107) mmol/L Carbon Dioxide 22 (22-30) mmol/L BUN 45 H (9-20) mg/dL Creatinine 1.22 (0.66-1.25) mg/dL Glucose 136 H (74-99) mg/dL Calcium 8.4 (8.4-10.2) mg/dL - Imaging Additional studies: Arterial Doppler study. Assessment and Plan Assessment: 1: Long-standing history of diabetes with secondary diabetic vascular disease. 2: Nonhealing surgical wound left foot. 3: History of tobacco use. 4: Anemia. Plan: 1: Patient most likely will require transmetatarsal amputation however prior to any surgical intervention I would like to obtain a CT angiogram to evaluate for possible revascularization options. 2: Wet-to-dry dressings left foot wound. 3: Will follow. Time with Patient: Greater than 30
--- NOTE | 2023-07-05 14:43 | P.PN ---
Subjective Progress Note Date: 07/05/23 No new complaints today. Seen by vascular surgery with anticipation of transmetatarsal amputation. Gen: in no apparent distress, resting comfortably in bed Eyes: PERRL, no scleral injection or icterus HENT: normocephalic, atraumatic, good hearing acuity, moist mucous membranes Neck: no tracheal deviation, full range of motion Resp: good air exchange, breathing comfortably with no accessory muscle use, no tactile fremitus, clear to auscultation bilaterally CVS: good distal perfusion x 4, no pitting edema, regular rate and rhythm without murmurs GI: soft, NTTP, ND, no hepatosplenomegaly : no suprapubic tenderness, no CVAT, ware catheter not present MSK: no clubbing, no cyanosis, no noted contractures of extremities Skin: no noted rashes, petechiae; temperature of skin is appropriate Neuro: moving all extremities without signs of weakness, CN II-XII intact Psych: cooperative, euthymic mood, insight and judgment intact Hospital Course: 68 year old man with history of recent toe amputation, DM with insulin dependence, BPH, hypertension, hyperlipidemia, previous history of thoracic discitis and paraspinal abscess requiring surgery currently on suppressive oral Keflex normally, and recently on ertapenem, presented for left-sided pain in the foot. In the emergency room, patient was afebrile, 124/64, heart rate 36, 93% on room air. CBC showed leukocytosis to 11.2, anemia of 10.7. His metabolic panel showed sodium of 135, potassium 6.1, CO2 of 19, BUN of 64, creatinine of 1.60. Liver function tests showed elevation of alkaline phosphatase to 127. ESR was elevated at 63, CRP was elevated at 5.9. Coags are unremarkable. EKG demonstrates sinus bradycardia at a rate of 35 with peaked T waves. Foot x-ray demonstrated transmetatarsal amputation of the first digit with exposed- appearing bone. Assessment/plan: Dry gangrene with osteomyelitis Diabetic foot infection -Patient should be admitted inpatient -Infectious disease consultation -Vascular surgery consultation for further debridement -Cover patient with vancomycin, meropenem -Follow vancomycin level for toxicity Diabetes type II -Strict sugar control -Resume Lantus at 39 units at bedtime, 6 units lispro before meals 3 times a day, aspart sliding scale insulin Hypertension Hyperlipidemia BPH -Home medications reviewed and reconciled Patient is full code Objective - Vital Signs Vital signs: Vital Signs Temp 98.7 F 07/05/23 11:34 Pulse 79 07/05/23 11:34 Resp 17 07/05/23 11:34 BP 155/74 07/05/23 11:34 Pulse Ox 89 L 07/05/23 11:34 FiO2 Intake & Output 07/04/23 07/05/23 07/05/23 18:59 06:59 18:59 Intake Total 236 Output Total 850 475 Balance -850 -239 Weight 104.326 kg 104.326 kg Intake: Oral 236 Output: Urine 850 475 Other: Voiding Method Toilet Urinal # Voids 1 - Labs CBC & Chem 7: 07/05/23 07:49 07/05/23 07:49 Labs: Abnormal Lab Results - Last 24 Hours (Table) 07/04/23 07/04/23 07/04/23 Range/Units 11:23 11:23 18:51 RBC (4.30-5.90) m/uL Hgb (13.0-17.5) gm/dL Hct (39.0-53.0) % MCHC (31.0-37.0) g/dL Neutrophils # (1.3-7.7) k/uL Lymphocytes # (1.0-4.8) k/uL ESR 63 H (0-20) mm/Hr Potassium 6.1 H* (3.5-5.1) mmol/L Chloride (98-107) mmol/L BUN (9-20) mg/dL Glucose (74-99) mg/dL POC Glucose (mg/dL) 156 H (70-110) mg/dL 07/04/23 07/05/23 07/05/23 Range/Units 20:09 06:08 07:49 RBC (4.30-5.90) m/uL Hgb (13.0-17.5) gm/dL Hct (39.0-53.0) % MCHC (31.0-37.0) g/dL Neutrophils # (1.3-7.7) k/uL Lymphocytes # (1.0-4.8) k/uL ESR (0-20) mm/Hr Potassium (3.5-5.1) mmol/L Chloride 110 H (98-107) mmol/L BUN 45 H (9-20) mg/dL Glucose 136 H (74-99) mg/dL POC Glucose (mg/dL) 200 H 55 L (70-110) mg/dL 07/05/23 07/05/23 Range/Units 07:49 11:23 RBC 3.93 L (4.30-5.90) m/uL Hgb 10.9 L (13.0-17.5) gm/dL Hct 35.5 L (39.0-53.0) % MCHC 30.7 L (31.0-37.0) g/dL Neutrophils # 8.4 H (1.3-7.7) k/uL Lymphocytes # 0.6 L (1.0-4.8) k/uL ESR (0-20) mm/Hr Potassium (3.5-5.1) mmol/L Chloride (98-107) mmol/L BUN (9-20) mg/dL Glucose (74-99) mg/dL POC Glucose (mg/dL) 233 H (70-110) mg/dL
--- NOTE | 2023-07-05 14:55 | CT ---
CTA abdomen with runoff. HISTORY: Gangrene. COMPARISON: None TECHNIQUE: Multiple axial images are obtained through the abdomen, pelvis and lower extremities follo wing administration nonionic IV contrast material. The exam is markedly suboptimal due to poor IV injection which was limited by the patient's discomfor t. FINDINGS: CT abdomen pelvis: As noted on the prior CT of the abdomen and pelvis 02/29/2020 there is marked chronic bilateral hydrone phrosis and hydroureter to the level of the urinary bladder which appears distended. There is prostatic hypertrophy. There is no organomegaly of the solid visceral organs of the upper abdomen the gallbladder is normal. The bowel loops are normal in caliber and there is no obstruction. There is no free intraperitoneal a ir or fluid. CTA runoff There is marked diffuse arteriosclerotic calcification involving the abdominal aorta, common and exte rnal iliac arteries as well as the common femoral arteries, superficial femoral arteries, popliteal a rteries and runoff vessels. Multiple scattered severe focal stenoses are suspected particularly in th e mid and distal superficial femoral arteries. Lack of sufficient contrast severely limits the evalua tion of the runoff vasculature. IMPRESSION: 1. Markedly limited study due to suboptimal contrast administration. There is diffuse severe scattere d arteriosclerotic calcification of the abdominal aorta, pelvic arteries and runoff vessels. Multiple significant stenoses suspected in the superficial femoral arteries. Evaluation the runoff is indeter minate given the lack of IV contrast. 2. Marked chronic bilateral hydronephrosis and hydroureter
[2023-07-05 16:22] LABS: Glucose,Whole Blood 106 mg/dL (70-110)
[2023-07-05] MEDS: VANCOMYCIN 1,750 MG in SODIUM CHLORIDE 0.9% 500 ML 500 ML IVPB SCH (18:22)
[2023-07-05 20:05] LABS: Glucose,Whole Blood 139 mg/dL (70-110)
[2023-07-05] MEDS: INSULIN DETEMIR (LEVEMIR) 100 UNIT/ML SYR SQ SCH (20:19)
[2023-07-06] MEDS: CYCLOBENZAPRINE 5 MG TAB PO SCH ×4 (00:34→20:25)
[2023-07-06] MEDS: GABAPENTIN 400 MG CAP PO SCH ×4 (00:35→20:25)
[2023-07-06] MEDS: MEROPENEM 1 GM in SODIUM CHLORIDE 0.9% 100 ML IVPB SCH ×3 (04:05→20:42)
[2023-07-06] MEDS: HYDROcodone/APAP 10-325MG 1 EACH TAB PO PRN ×3 (04:05→14:17)
[2023-07-06] MEDS: SODIUM CHLORIDE 0.9% 1,000 ML IV SCH ×2 (04:31→20:25)
[2023-07-06 06:02] LABS: Glucose,Whole Blood 82 mg/dL (70-110)
[2023-07-06] MEDS: INSULIN ASPART (NovoLOG) 100 UNIT/ML VIAL SQ SCH ×6 (06:06→17:18)
[2023-07-06] MEDS: VANCOMYCIN 1,750 MG in SODIUM CHLORIDE 0.9% 500 ML 500 ML IVPB SCH ×2 (06:11→17:38)
[2023-07-06] MEDS: PANTOPRAZOLE 40 MG TABLET PO SCH (06:11)
[2023-07-06] MEDS: FOLIC ACID 1 MG TAB PO SCH (08:35)
[2023-07-06] MEDS: CHOLECALCIFEROL 25 MCG (1000 IU) TABLET PO SCH (08:35)
[2023-07-06] MEDS: ASPIRIN 81 MG PO SCH (08:35)
[2023-07-06] MEDS: ATORVASTATIN 80 MG TAB PO SCH (08:35)
[2023-07-06 08:59] LABS: African American GFR (CKD) 81 (>60 ml/min/1.73 sqM); Anion Gap 8 mmol/L; Blood Urea Nitrogen 31 mg/dL (9-20); Calcium 8.5 mg/dL (8.4-10.2); Carbon Dioxide 22 mmol/L (22-30); Chloride 111 mmol/L (98-107); Glucose 119 mg/dL (74-99); Non-African American GFR(CKD) 70 (>60 ml/min/1.73 sqM); Sodium 141 mmol/L (137-145)
[2023-07-06] MEDS: THIAMINE 100 MG TAB PO SCH (09:31)
[2023-07-06] MEDS: TAMSULOSIN 0.4 MG CAP.ER.24H PO SCH (09:31)
--- NOTE | 2023-07-06 10:16 | P.PN ---
Subjective Progress Note Date: 07/06/23 No new complaints today. Seen by vascular surgery with anticipation of transmetatarsal amputation. Gen: in no apparent distress, resting comfortably in bed Eyes: PERRL, no scleral injection or icterus HENT: normocephalic, atraumatic, good hearing acuity, moist mucous membranes Neck: no tracheal deviation, full range of motion Resp: good air exchange, breathing comfortably with no accessory muscle use, no tactile fremitus, clear to auscultation bilaterally CVS: good distal perfusion x 4, no pitting edema, regular rate and rhythm without murmurs GI: soft, NTTP, ND, no hepatosplenomegaly : no suprapubic tenderness, no CVAT, ware catheter not present MSK: no clubbing, no cyanosis, no noted contractures of extremities Skin: no noted rashes, petechiae; temperature of skin is appropriate Neuro: moving all extremities without signs of weakness, CN II-XII intact Psych: cooperative, euthymic mood, insight and judgment intact Hospital Course: 68 year old man with history of recent toe amputation, DM with insulin dependence, BPH, hypertension, hyperlipidemia, previous history of thoracic discitis and paraspinal abscess requiring surgery currently on suppressive oral Keflex normally, and recently on ertapenem, presented for left-sided pain in the foot. In the emergency room, patient was afebrile, 124/64, heart rate 36, 93% on room air. CBC showed leukocytosis to 11.2, anemia of 10.7. His metabolic panel showed sodium of 135, potassium 6.1, CO2 of 19, BUN of 64, creatinine of 1.60. Liver function tests showed elevation of alkaline phosphatase to 127. ESR was elevated at 63, CRP was elevated at 5.9. Coags are unremarkable. EKG demonstrates sinus bradycardia at a rate of 35 with peaked T waves. Foot x-ray demonstrated transmetatarsal amputation of the first digit with exposed- appearing bone. Assessment/plan: Dry gangrene with osteomyelitis Diabetic foot infection -Patient should be admitted inpatient -Infectious disease consultation -Vascular surgery consultation for further debridement -Cover patient with vancomycin, meropenem -Follow vancomycin level for toxicity Diabetes type II -Strict sugar control -Resume Lantus at 39 units at bedtime, 6 units lispro before meals 3 times a day, aspart sliding scale insulin Hypertension Hyperlipidemia BPH -Home medications reviewed and reconciled Patient is full code Objective - Vital Signs Vital signs: Vital Signs Temp 98.3 F 07/06/23 08:31 Pulse 79 07/06/23 08:31 Resp 17 07/06/23 08:31 BP 145/73 07/06/23 08:31 Pulse Ox 93 L 07/06/23 08:31 FiO2 Intake & Output 07/05/23 07/06/23 07/06/23 18:59 06:59 18:59 Intake Total 354 540 Output Total 1775 1000 425 Balance -1421 -1000 115 Intake: Oral 354 540 Output: Urine 1775 1000 425 Other: Voiding Method Toilet Toilet Toilet Urinal Urinal Urinal - Labs CBC & Chem 7: 07/05/23 07:49 07/06/23 08:16 Labs: Abnormal Lab Results - Last 24 Hours (Table) 07/05/23 07/05/23 07/06/23 Range/Units 11:23 20:04 08:16 Chloride 111 H (98-107) mmol/L BUN 31 H (9-20) mg/dL Glucose 119 H (74-99) mg/dL POC Glucose (mg/dL) 233 H 139 H (70-110) mg/dL
[2023-07-06] MEDS: MORPHINE SULFATE 4 MG/ML SYRINGE IV PRN ×2 (11:04→20:42)
--- NOTE | 2023-07-06 11:23 | US ---
EXAMINATION TYPE: US arterial LE multi level DATE OF EXAM: 07/06/2023 10:57 AM CLINICAL INDICATION: Male, 68 years old with history of occlusion; Left great toe amputation 1 week a go History of: Smoker: current Hypertension: yes Diabetic: yes Hyperlipidemia: yes TIA/CVA: no Previous Vascular Surgery: no CAD: no MN: no Doppler Waveforms: Right: Monophasic Left: Monophasic Right Brachial Pressure: 156 Left Brachial Pressure: deferred due to port and bandages Ankle-Brachial Indices: Right: 0.53 Left: 0.41 Toe Brachial Indices: Right: 0.18 Left: left great toe amputation IMPRESSION: * Right Toe brachial index on the right with severe peripheral vascular disease. * Bilateral ankle brachial indices suggestive of severe for vascular disease.
[2023-07-06 11:34] LABS: Glucose,Whole Blood 111 mg/dL (70-110)
--- NOTE | 2023-07-06 12:11 | P.PN ---
Subjective Progress Note Date: 07/06/23 Principal diagnosis: 1: Nonhealing left great toe wound. 2: Diabetic as well as nondiabetic vascular disease bilateral lower extremities with resulting arterial insufficiency. 3: Bilateral hydronephrosis and hydroureters. Rule out bladder obstruction. 4: History of tobacco abuse. Surgically the patient remained stable. I did review the results of the material Doppler study which demonstrates evidence of lower extremity arterial occlusive disease bilaterally. Given the fact that his wound straight such poor wound healing revascularization is most likely necessary to achieve complete wound healing. CTA of the abdominal, pelvic and lower extremity vessels was reviewed. Unfortunately due to poor contrast timing in relation to obtaining angiography the infrainguinal vessels did not have any contrast within them at the time of imaging and thus CTA is nondiagnostic in reference to lower extremity arterial occlusive disease. We will repeat this examination. The computed tomography scan however did demonstrate bilateral hydroureters and hydronephrosis. Upon speaking the patient he indicates she has a known bladder tumor/mass which she has not had evaluated. I'm suspicious of ureteral obstruction secondary to this mass resulting in bilateral hydroureter and hydronephrosis. I discussed with the patient urologic consultation. He was initially resistant however eventually did agree to allow for urologic evaluation. Objective - Vital Signs Vital signs: Vital Signs Temp 98.3 F 07/06/23 08:31 Pulse 79 07/06/23 08:31 Resp 17 07/06/23 08:31 BP 145/73 07/06/23 08:31 Pulse Ox 93 L 07/06/23 08:31 FiO2 Intake & Output 07/05/23 07/06/23 07/06/23 18:59 06:59 18:59 Intake Total 354 540 Output Total 1775 1000 425 Balance -1421 -1000 115 Intake: Oral 354 540 Output: Urine 1775 1000 425 Other: Voiding Method Toilet Toilet Toilet Urinal Urinal Urinal - Exam Patient remains surgically unchanged. - Labs CBC & Chem 7: 07/05/23 07:49 07/06/23 08:16 Labs: Abnormal Lab Results - Last 24 Hours (Table) 07/05/23 07/06/23 07/06/23 Range/Units 20:04 08:16 11:33 Chloride 111 H (98-107) mmol/L BUN 31 H (9-20) mg/dL Glucose 119 H (74-99) mg/dL POC Glucose (mg/dL) 139 H 111 H (70-110) mg/dL Assessment and Plan Assessment: 1: Long-standing history of diabetes with secondary diabetic vascular disease. 2: Nonhealing surgical wound left foot. 3: History of tobacco use. 4: Anemia. 5: Bilateral hydroureter and hydronephrosis. Plan: 1: Patient most likely will require transmetatarsal amputation however prior to any surgical intervention I would like to obtain a CT angiogram to evaluate for possible revascularization options. 2: Wet-to-dry dressings left foot wound. 3: Will follow. 07/06/2023: 1: Will repeat CTA due to poor bolus and image timing. Hopefully this will allow for further delineation of vascular anatomy and possible option for revascularization. 2: Will request urologic consultation secondary to hydroureter/hydronephrosis. Time with Patient: Greater than 30
[2023-07-06 16:28] LABS: Glucose,Whole Blood 163 mg/dL (70-110)
[2023-07-06 20:09] LABS: Glucose,Whole Blood 164 mg/dL (70-110)
[2023-07-06] MEDS: INSULIN DETEMIR (LEVEMIR) 100 UNIT/ML SYR SQ SCH (20:25)
--- NOTE | 2023-07-06 21:25 | P.PN ---
Subjective Progress Note Date: 07/05/23 Principal diagnosis: Reason for follow up is diabetic foot wound and osteomyelitis This is a telehealth visit Patient is a 68-year-old male with a past medical history significant for diabetes mellitus hypertension hyperlipidemia who was recently admitted to this facility with left big toe gangrene and diabetic foot infection in this patient who is status post left big toe amputation patient did have a culture positive for ESBL Klebsiella in addition to Proteus and Enterococcus faecalis Enterococcus and the patient was discharged on Invanz subsequently readmitted from the wound care center concerning for worsening wound and some necrotic changes. On today's evaluation that is 07/05/2023, patient denies having any fever or any chills he is breathing comfortably on on 3 L nasal cannula oxygen denies any chest pain or cough no nausea vomiting abdominal pain or any worsening pain to the left foot wound area. Patient did have white count of 10.0 creatinine is 1.22. Objective - Vital Signs Vital signs: Vital Signs Temp 98.4 F 07/05/23 00:00 Pulse 71 07/05/23 04:00 Resp 18 07/05/23 04:00 BP 125/64 07/05/23 04:00 Pulse Ox 93 L 07/05/23 04:00 FiO2 Intake & Output 07/04/23 07/05/23 07/05/23 18:59 06:59 18:59 Intake Total 118 Output Total 850 Balance -850 118 Weight 104.326 kg 104.326 kg Intake: Oral 118 Output: Urine 850 Other: # Voids 1 - Exam GENERAL DESCRIPTION: Elderly male lying in bed in no distress RESPIRATORY SYSTEM: Unlabored breathing , decreased breath sounds at bases HEART: S1 S2 regular rate and rhythm ,no loud murmurs ABDOMEN: Soft , no tenderness EXTREMITIES: Left foot wound is currently dressed no drainage on the dressing Exam completed with the help of NAVAL ARCHITECT SPECIALIST - Labs CBC & Chem 7: 07/05/23 07:49 07/06/23 08:16 Labs: Abnormal Lab Results - Last 24 Hours (Table) 07/04/23 07/04/23 07/04/23 Range/Units 11:23 11:23 14:30 WBC 11.2 H (3.8-10.6) k/uL RBC 3.84 L (4.30-5.90) m/uL Hgb 10.7 L (13.0-17.5) gm/dL Hct 34.9 L (39.0-53.0) % MCHC 30.7 L (31.0-37.0) g/dL Neutrophils # 9.0 H (1.3-7.7) k/uL Lymphocytes # (1.0-4.8) k/uL ESR 63 H (0-20) mm/Hr Sodium 135 L (137-145) mmol/L Potassium 6.1 H* (3.5-5.1) mmol/L Chloride (98-107) mmol/L Carbon Dioxide 19 L (22-30) mmol/L BUN 64 H (9-20) mg/dL Creatinine 1.62 H (0.66-1.25) mg/dL Glucose 147 H (74-99) mg/dL POC Glucose (mg/dL) 55 L (70-110) mg/dL Magnesium 2.6 H (1.6-2.3) mg/dL Alkaline Phosphatase 127 H (38-126) U/L C-Reactive Protein 5.9 H (<1.0) mg/dL 07/04/23 07/04/23 07/05/23 Range/Units 18:51 20:09 06:08 WBC (3.8-10.6) k/uL RBC (4.30-5.90) m/uL Hgb (13.0-17.5) gm/dL Hct (39.0-53.0) % MCHC (31.0-37.0) g/dL Neutrophils # (1.3-7.7) k/uL Lymphocytes # (1.0-4.8) k/uL ESR (0-20) mm/Hr Sodium (137-145) mmol/L Potassium (3.5-5.1) mmol/L Chloride (98-107) mmol/L Carbon Dioxide (22-30) mmol/L BUN (9-20) mg/dL Creatinine (0.66-1.25) mg/dL Glucose (74-99) mg/dL POC Glucose (mg/dL) 156 H 200 H 55 L (70-110) mg/dL Magnesium (1.6-2.3) mg/dL Alkaline Phosphatase (38-126) U/L C-Reactive Protein (<1.0) mg/dL 12/09/23 12/09/23 Range/Units 07:49 07:49 WBC (3.8-10.6) k/uL RBC 3.93 L (4.30-5.90) m/uL Hgb 10.9 L (13.0-17.5) gm/dL Hct 35.5 L (39.0-53.0) % MCHC 30.7 L (31.0-37.0) g/dL Neutrophils # 8.4 H (1.3-7.7) k/uL Lymphocytes # 0.6 L (1.0-4.8) k/uL ESR (0-20) mm/Hr Sodium (137-145) mmol/L Potassium (3.5-5.1) mmol/L Chloride 110 H (98-107) mmol/L Carbon Dioxide (22-30) mmol/L BUN 45 H (9-20) mg/dL Creatinine (0.66-1.25) mg/dL Glucose 136 H (74-99) mg/dL POC Glucose (mg/dL) (70-110) mg/dL Magnesium (1.6-2.3) mg/dL Alkaline Phosphatase (38-126) U/L C-Reactive Protein (<1.0) mg/dL Assessment and Plan (1) Infected wound Current Visit: Yes Status: Acute Code(s): T14.8XXA - OTHER INJURY OF UNSPECIFIED BODY REGION, INITIAL ENCOUNTER; L08.9 - LOCAL INFECTION OF THE SKIN AND SUBCUTANEOUS TISSUE, UNSP SNOMED Code(s): 95796980 (2) Osteomyelitis Current Visit: No Status: Acute Code(s): M86.9 - OSTEOMYELITIS, UNSPECIFIED SNOMED Code(s): 53078530 (3) Type 2 diabetes mellitus with foot ulcer Current Visit: No Status: Acute Code(s): E11.621 - TYPE 2 DIABETES MELLITUS WITH FOOT ULCER; L97.509 - NON-PRESSURE CHRONIC ULCER OTH PRT UNSP FOOT W UNSP SEVERITY SNOMED Code(s): 144957281 Plan: 1patient with recent extensive left big toe diabetic foot infection with gangrene in this patient who is status post amputation of the left big toe culture did grow multiple pathogen including a drug-resistant ESBL Klebsiella in addition to Enterococcus for the patient was getting IV Invanz in the outpatient setting presented to hospital with some discoloration to the left big toe potation site concerning for worsening ischemia versus worsening infection, the patient did have a mild elevated white count but no fever 2patient has been evaluated by vascular surgery and CT has been ordered revascularization purposes and also plan is for possible transmetatarsal amputation. 3we will keep the patient on vancomycin and meropenem while waiting for the workup to be completed antibiotic medical course closely Dictation was produced using [employer] dictation software. please excuse any grammatical, word or spelling errors. Time with Patient: Less than 30
--- NOTE | 2023-07-06 21:30 | P.PN ---
Subjective Progress Note Date: 07/06/23 Principal diagnosis: Reason for follow up is diabetic foot wound and osteomyelitis This is a telehealth visit Patient is a 68-year-old male with a past medical history significant for diabetes mellitus hypertension hyperlipidemia who was recently admitted to this facility with left big toe gangrene and diabetic foot infection in this patient who is status post left big toe amputation patient did have a culture positive for ESBL Klebsiella in addition to Proteus and Enterococcus faecalis Enterococcus and the patient was discharged on Invanz subsequently readmitted from the wound care center concerning for worsening wound and some necrotic changes. On today's evaluation that is 07/06/2023, patient remains to be afebrile , the pt is breathing comfortably on 3 L nasal cannula oxygen , the pt denies any chest pain or cough no nausea vomiting abdominal pain or any worsening pain to the left foot wound area. Patient did have white count of 10.0 as of 07/05/23 creatinine is 1.10 Objective - Vital Signs Vital signs: Vital Signs Temp 98.3 F 07/06/23 08:31 Pulse 79 07/06/23 08:31 Resp 17 07/06/23 08:31 BP 145/73 07/06/23 08:31 Pulse Ox 93 L 07/06/23 08:31 FiO2 Intake & Output 07/05/23 07/06/23 07/06/23 18:59 06:59 18:59 Intake Total 354 540 Output Total 1775 1000 425 Balance -1421 -1000 115 Intake: Oral 354 540 Output: Urine 1775 1000 425 Other: Voiding Method Toilet Toilet Toilet Urinal Urinal Urinal - Exam GENERAL DESCRIPTION: Elderly male lying in bed in no distress RESPIRATORY SYSTEM: Unlabored breathing , decreased breath sounds at bases HEART: S1 S2 regular rate and rhythm ,no loud murmurs ABDOMEN: Soft , no tenderness EXTREMITIES: Left foot wound is currently dressed no drainage on the dressing Exam completed with the help of HISTOLOGIC TECHNICIAN - Labs CBC & Chem 7: 07/05/23 07:49 07/06/23 08:16 Labs: Abnormal Lab Results - Last 24 Hours (Table) 07/05/23 07/05/23 07/06/23 Range/Units 11:23 20:04 08:16 Chloride 111 H (98-107) mmol/L BUN 31 H (9-20) mg/dL Glucose 119 H (74-99) mg/dL POC Glucose (mg/dL) 233 H 139 H (70-110) mg/dL Assessment and Plan (1) Osteomyelitis Current Visit: No Status: Acute Code(s): M86.9 - OSTEOMYELITIS, UNSPECIFIED SNOMED Code(s): 00655821 (2) Type 2 diabetes mellitus with foot ulcer Current Visit: No Status: Acute Code(s): E11.621 - TYPE 2 DIABETES MELLITUS WITH FOOT ULCER; L97.509 - NON-PRESSURE CHRONIC ULCER OTH PRT UNSP FOOT W UNSP SEVERITY SNOMED Code(s): 330499350 Plan: 1patient with recent extensive left big toe diabetic foot infection with gangrene in this patient who is status post amputation of the left big toe culture did grow multiple pathogen including a drug-resistant ESBL Klebsiella in addition to Enterococcus for the patient was getting IV Invanz in the outpatient setting presented to hospital with some discoloration to the left big toe potation site concerning for worsening ischemia versus worsening infection, the patient did have a mild elevated white count but no fever 2patient has been evaluated by vascular surgery and CTA has been ordered and plan is for revascularization before transmetatarsal amputation, urology has been consulted for possible bladder tumor. 3Pt to coniutnue with vancomycin and meropenem while watching his kidney function closely , cr is 1.10 today Dictation was produced using [employer] dictation software. please excuse any grammatical, word or spelling errors. Time with Patient: Less than 30
[2023-07-07] MEDS: MEROPENEM 1 GM in SODIUM CHLORIDE 0.9% 100 ML IVPB SCH ×3 (04:27→21:34)
[2023-07-07 05:56] LABS: Glucose,Whole Blood 132 mg/dL (70-110)
[2023-07-07] MEDS: INSULIN ASPART (NovoLOG) 100 UNIT/ML VIAL SQ SCH ×6 (05:58→16:59)
[2023-07-07] MEDS ORDERED: VANCOMYCIN TROUGH DUE 1 EACH MISC MISCELLANE ONE (06:00)
[2023-07-07] MEDS: HYDROcodone/APAP 10-325MG 1 EACH TAB PO PRN ×3 (06:52→15:30)
[2023-07-07] MEDS: PANTOPRAZOLE 40 MG TABLET PO SCH (06:52)
[2023-07-07 06:58] LABS: African American GFR (CKD) 88 (>60 ml/min/1.73 sqM); Anion Gap 9 mmol/L; Blood Urea Nitrogen 28 mg/dL (9-20); Calcium 8.3 mg/dL (8.4-10.2); Carbon Dioxide 21 mmol/L (22-30); Chloride 110 mmol/L (98-107); Glucose 117 mg/dL (74-99); Non-African American GFR(CKD) 77 (>60 ml/min/1.73 sqM); Potassium 5.3 mmol/L (3.5-5.1); Sodium 140 mmol/L (137-145)
[2023-07-07] MEDS: FOLIC ACID 1 MG TAB PO SCH (08:40)
[2023-07-07] MEDS: ASPIRIN 81 MG PO SCH (08:40)
[2023-07-07] MEDS: CYCLOBENZAPRINE 5 MG TAB PO SCH ×3 (08:40→21:34)
[2023-07-07] MEDS: THIAMINE 100 MG TAB PO SCH (08:40)
[2023-07-07] MEDS: ATORVASTATIN 80 MG TAB PO SCH (08:40)
[2023-07-07] MEDS: TAMSULOSIN 0.4 MG CAP.ER.24H PO SCH (08:40)
[2023-07-07] MEDS: GABAPENTIN 400 MG CAP PO SCH ×3 (08:40→21:34)
[2023-07-07] MEDS: CHOLECALCIFEROL 25 MCG (1000 IU) TABLET PO SCH (08:41)
--- NOTE | 2023-07-07 09:33 | CT ---
EXAMINATION TYPE: CT angio lower extremity BILAT DATE OF EXAM: 07/06/2023 COMPARISON: 07/05/2023 INDICATION: Gangrene in left foot. DLP: 1486.2 mGycm, Automated exposure control for dose reduction was used. CONTRAST: 100 ml mL of Isovue 370. Study performed without Oral Contrast TECHNIQUE: Axial images were obtained from above the diaphragm to the pubic rami in the axial plane a t 5 mm thick sections. Reconstructed images are reviewed on the computer in the coronal plane. FINDINGS: Aortic runoff: Vascular calcifications within the distal abdominal aorta and common iliac vessels. In ternal and external iliac vessels are patent. Common femoral arteries are patent. There may be some n arrowing of the proximal left common carotid artery. Profunda femoris and superficial femoral arterie s are patent. There is some narrowing of the proximal left official femoral artery. Vascular calcific ation is through the superficial femoral arteries with scattered levels moderate narrowing. There is narrowing of the distal superficial femoral arteries. Within the digital press operator canals on the appe ars to be obstruction bilaterally. Some collateral vascular flow is evident. Popliteal arteries: Vascular calcifications within the popliteal arteries. Contrast is not clearly ev ident within the proximal popliteal arteries. The small caliber distal popliteal arteries appear to h ave contrast. Vascular calcifications within the trifurcation vessels. Left anterior posterior and pe roneal arteries appear to be patent. These extend to the level of the ankle. There is intermittent loss of density within the right posterior tibial artery. Small obstructions ar e critical stenoses may be present on the right. Bilateral lower extremity swelling is evident within the subcutaneous tissues. IMPRESSION: 1. Exam is limited due to contrast density within the calcified vessels. 2. There appears to be bilateral proximal popliteal obstruction. Collateral flow reconstitutes the di stal popliteal artery and trifurcation vessels. 3. Trifurcation vessels appear to extend to the level of the ankle bilaterally. 4. Vascular calcification through the lower extremity arterial system may have additional areas of at least moderate narrowing through the superficial femoral arteries.
[2023-07-07 11:28] LABS: Glucose,Whole Blood 156 mg/dL (70-110)
[2023-07-07] MEDS: VANCOMYCIN 1,750 MG in SODIUM CHLORIDE 0.9% 500 ML 500 ML IVPB SCH (11:33)
--- NOTE | 2023-07-07 12:35 | P.GSCN ---
History of Present Illness Consult date: 07/07/23 Reason for Consult: urinary retention, bilateral hydronephrosis History of present illness: this is a 68-year-old male admitted to the hospital with a nonhealing left lower extremity wound. He underwent a CT angiogram which showed evidence of bilateral hydronephrosis with bladder distention. Patient does have history of recurrent urinary retention and obstructive urinary symptoms at baseline. He is on Flomax 0.4 mg twice a day a baseline. At baseline he complains of difficulty voiding, with this weak stream with hesitancy. Denies any gross hematuria or dysuria. CT did show evidence of bladder wall thickening this evidence of bilateral hydroureteronephrosis with significant bladder distention. Patient previously did require a Krueger catheter for his urinary retention. At this point he is able to void but not to completion. Review of Systems - Constitutional Denies fever, Denies weight loss - EENT Ears, nose, mouth and throat: Denies dysphagia - Cardiovascular Denies chest pain, Denies shortness of breath - Gastrointestinal Reports as per HPI - Genitourinary Reports nocturia, Reports urinary frequency, Reports urinary hesitancy, Reports urinary retention, Denies dysuria, Denies flank pain, Denies hematuria - Integumentary Denies rash, Denies unusual bruising - Neurological Denies headaches, Denies syncope Past Medical History Past Medical History: Diabetes Mellitus, Hyperlipidemia, Hypertension Additional Past Medical History / Comment(s): Signiificant other and rosy state pt has not had insurance so has not been taking meds/seeing physician, NIDDM type II, neuropathy bilateral feet, past nephrolithiasis with pt passing stones on his own, pt passed a couple stones (s.o. saw stones) 2 weeks ago and had hematuria which improved after passing stones but has had weakness and loss of appetite past 2 weeks, spondylosis/chronic low back pain History of Any Multi-Drug Resistant Organisms: CRE, ESBL Year Discovered:: 04/13/21 [id number] [facility] ESBL MDRO Source:: [id number]; MDRO; Left Foot ESBL Past Surgical History: No Surgical Hx Reported Additional Past Surgical History / Comment(s): Bilateral cataract removals/lens implants. Back surgery-feb 2020- infection after, mrsa, amputation of left great toe 06/27/23 Past Anesthesia/Blood Transfusion Reactions: Unable to Obtain Additional Past Anesthesia/Blood Transfusion Reaction / Comm: Pt has never had general anesthesia per family Past Psychological History: No Psychological Hx Reported Smoking Status: Former smoker Past Alcohol Use History: Rare Past Drug Use History: Marijuana - Past Family History Father Family Medical History: Dementia Mother Family Medical History: Cancer Additional Family Medical History / Comment(s): Mother of skin cancer. Medications and Allergies Home Medications Medication Instructions Recorded Confirmed Type Aspirin EC [Ecotrin Low Dose] 81 mg PO DAILY 03/01/21 07/04/23 History Atorvastatin [Lipitor] 80 mg PO DAILY 03/01/21 07/04/23 History Ibuprofen [Motrin] 600 mg PO Q8H PRN 03/01/21 07/04/23 History Insulin Glargine,Hum.rec.anlog 39 unit SQ HS 03/01/21 07/04/23 History [Lantus Solostar Pen] Insulin Lispro [humaLOG Kwikpen] 6 unit SQ AC-TID 03/01/21 07/04/23 History Tamsulosin [Flomax] 0.8 mg PO DAILY 03/01/21 07/04/23 History Albuterol Sulfate [Albuterol 1 - 2 puff PO RT-Q4H PRN 06/22/23 07/04/23 History Sulfate Hfa] Cholecalciferol [Vitamin D3 (25 50 mcg PO DAILY 06/22/23 07/04/23 History Mcg = 1000 Iu)] Cyclobenzaprine [Flexeril] 5 mg PO TID 06/22/23 07/04/23 History Empagliflozin [Jardiance] 10 mg PO DAILY 06/22/23 07/04/23 History Folic Acid 1 mg PO DAILY 06/22/23 07/04/23 History Losartan [Cozaar] 25 mg PO HS 06/22/23 07/04/23 History Metoclopramide [Reglan] 5 mg PO TID PRN 06/22/23 07/04/23 History Metoprolol Tartrate [Lopressor] 25 mg PO BID 06/22/23 07/04/23 History NIFEdipine XL [Procardia XL] 60 mg PO HS 06/22/23 07/04/23 History Omeprazole 20 mg PO DAILY 06/22/23 07/04/23 History Thiamine [Vitamin B-1] 100 mg PO DAILY 06/22/23 07/04/23 History traMADol-ACETAMINOP 37.5-325MG 1 tab PO TID PRN 06/22/23 07/04/23 History [Ultracet] Ertapenem [INVanz] 1 gm IVPB Q24H #42 each 06/27/23 07/04/23 Rx Gabapentin [Neurontin] 400 mg PO TID 30 Days #90 cap 06/27/23 07/04/23 Rx HYDROcodone/APAP 10-325MG [Hiko 1 tab PO Q4HR PRN 3 Days #18 tab 06/27/23 07/04/23 Rx 10-325] Allergies Allergy/AdvReac Type Severity Reaction Status Date / Time No Known Allergies Allergy Verified 07/04/23 11:27 Surgical - Exam Vital Signs Temp Pulse Resp BP Pulse Ox 98 F 36 L 18 124/64 93 L 07/04/23 09:17 07/04/23 09:17 07/04/23 09:17 07/04/23 09:17 07/04/23 09:17 - General no distress, no pain - Eyes normal ocular movement, no pale - ENT normal nares, normal mucosa - Respiratory normal expansion, normal respiratory effort - Abdomen Abdomen: soft, non tender, no distended - Psychiatric oriented to time, oriented to person, oriented to place Results - Labs 07/05/23 07:49 07/07/23 06:08 Abnormal Lab Results - Last 24 Hours (Table) 07/06/23 07/06/23 07/07/23 Range/Units 16:27 20:07 05:54 Potassium (3.5-5.1) mmol/L Chloride (98-107) mmol/L Carbon Dioxide (22-30) mmol/L BUN (9-20) mg/dL Glucose (74-99) mg/dL POC Glucose (mg/dL) 163 H 164 H 132 H (70-110) mg/dL Calcium (8.4-10.2) mg/dL 07/07/23 07/07/23 Range/Units 06:08 11:27 Potassium 5.3 H (3.5-5.1) mmol/L Chloride 110 H (98-107) mmol/L Carbon Dioxide 21 L (22-30) mmol/L BUN 28 H (9-20) mg/dL Glucose 117 H (74-99) mg/dL POC Glucose (mg/dL) 156 H (70-110) mg/dL Calcium 8.3 L (8.4-10.2) mg/dL Diabetes panel 07/07/23 Range/Units 06:08 Sodium 140 (137-145) mmol/L Potassium 5.3 H (3.5-5.1) mmol/L Chloride 110 H (98-107) mmol/L Carbon Dioxide 21 L (22-30) mmol/L BUN 28 H (9-20) mg/dL Creatinine 1.02 (0.66-1.25) mg/dL Glucose 117 H (74-99) mg/dL Calcium 8.3 L (8.4-10.2) mg/dL Calcium panel 07/07/23 Range/Units 06:08 Calcium 8.3 L (8.4-10.2) mg/dL Pituitary panel 07/07/23 Range/Units 06:08 Sodium 140 (137-145) mmol/L Potassium 5.3 H (3.5-5.1) mmol/L Chloride 110 H (98-107) mmol/L Carbon Dioxide 21 L (22-30) mmol/L BUN 28 H (9-20) mg/dL Creatinine 1.02 (0.66-1.25) mg/dL Glucose 117 H (74-99) mg/dL Calcium 8.3 L (8.4-10.2) mg/dL Adrenal panel 07/07/23 Range/Units 06:08 Sodium 140 (137-145) mmol/L Potassium 5.3 H (3.5-5.1) mmol/L Chloride 110 H (98-107) mmol/L Carbon Dioxide 21 L (22-30) mmol/L BUN 28 H (9-20) mg/dL Creatinine 1.02 (0.66-1.25) mg/dL Glucose 117 H (74-99) mg/dL Calcium 8.3 L (8.4-10.2) mg/dL Assessment and Plan Assessment: 68-year-old male history of chronic urinary retention an incidental finding of bilateral hydroureteronephrosis. His hydroureteronephrosis this most likely secondary to significant bladder distention from his chronic urinary retention. There was questionable history of bladder mass I reviewed the CT I don't see any evidence of mass within the bladder, patient is not having gross hematuria thus obstruction from the bladder masses highly unlikely, his bladder wall thickness is most likely secondary to his chronic retention. I discussed with him given this finding of distended bladder with hydronephrosis I do recommend bladder decompression with a Krueger catheter. Patient is refusing any intervention for his bladder at this time aware of the risk of renal failure recurrent UTIs and permanent bladder damage from overdistention. At this point he is not interested in any further evaluation. he did verbalize understanding of the risk involved with placing a Krueger cathete patient. At this point recommend continuing Flomax, please contact us back if patient is interested in further evaluation
[2023-07-07] MEDS: SODIUM CHLORIDE 0.9% 1,000 ML IV SCH (12:57)
[2023-07-07] MEDS ORDERED: ALPRAZolam 0.25 MG TAB PO PRN (12:57)
--- NOTE | 2023-07-07 12:57 | P.PN ---
Subjective Progress Note Date: 07/07/23 Mr. 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 Hospital course below: Started on Vancomycin and Cefepime along with Clindamycin. MRI foot ordered along with wound and blood cultures. ID consulted. Vascular surgery consulted. He underwent amputation of the L first toe. WCx growing K. pneumoniae, proteus vulgaris and enterococcus faecalis. Increased Gabapentin to 400 mg PO TID for better pain control. Obtained PICC line. Dr. Sheikh recommended 6 weeks of IV Invanz. Wound vac supplies set up and discharged home. Presents back to the ED on 07/04 for worsening erythema and pain of the L foot. Underwent extensive evaluation: CBC WBC 11.2, Hg 10.7. ESR 63. CRP 5.9. CMP Na 135, bicarb 19, BUN 64, Cr 1.62, glu 147, alk phos 127. Mag 2.6. Lactic acid negative. Foot XR soft tissue edema with transmetatarsal amputation first digit L foot. Admitted for further management. Started on Vancomycin and Meropenem. ID and Vascular Sx consulted. CTA with runoff showed severe calcifications of the abdominal aortal and runoff vessels with chronic bilateral hydronephrosis and hydroureter. 07/07 Patient was seen and examined. He reports moderate pain in his foot. Urology recommends straight cath or ware but patient is reluctant. Vascular surgery has ordered a repeat CTA due to suboptimal study. BMP K 5.3, Cl 110, bicarb 21, BUN 28, glu 117, Ca 8.3. POC glucose 75-233 over the past 24H. Antibiotics include Meropenem 1g IV TID and Vancomycin dosed per pharmacy. Currently on NS at 75 cc/hr. General: non toxic, no distress, appears at stated age Derm: warm, dry Head: atraumatic, normocephalic, symmetric Eyes: EOMI, no lid lag, anicteric sclera Cardiovascular: S1S2 reg, no murmur Lungs: Clear to auscultation bilaterally , no accessory muscle use Ext: no gross muscle atrophy, no edema, L foot wrapped dressing c/d/i Neuro: no focal neuro deficits Psych: Alert, oriented, appropriate affect Based on my assessment of this patient, this patient meets a high complexity level of care. Patient has an acute diagnosis of OM and wet gangrene of the L foot that poses a threat to life or bodily function. L foot OM: Meropenem and Vancomycin as above. Repeat CTA ordered. ID and Vascular Sx on board. Bilateral hydronephrosis and hydroureter: Continue Flomax 0.8 mg PO QD. Urology recommends straight cath or ware but patient reluctant. Urology consulted. Prerenal azotemia with hyperCl metabolic acidosis: IV hydration as above. Hyperkalemia: Mildly elevated. Continue to monitor. Diabetes mellitus: Levemir 39 units QHS. Novolog 6 units TID. ISS. Accuchecks ACHS. HTN: Nifedipine 60 mg PO QD. CODE STATUS: FULL CODE DVT Prophylaxis: Heparin SQ. GI Prophylaxis: Protonix PO. Designated medical POA if patient is not able to make medical decisions for themselves: I have reviewed the following client experience consultant notes: ID, Vascular surgery note. I have reviewed the results of the following tests: BMP. I have ordered the following tests: CBC, BMP. I have discussed the care of this patient with the following independent historian: I have independently interpreted the following test below: I have discussed the management of this patient with the following physician: This patient has a high risk of morbidity due to the following reasons: Vancomycin requires monitoring for toxicity and renal monitoring. Objective - Vital Signs Vital signs: Vital Signs Temp 99.1 F 07/07/23 08:35 Pulse 62 07/07/23 08:35 Resp 17 07/07/23 08:35 BP 158/76 07/07/23 08:35 Pulse Ox 94 L 07/07/23 08:35 FiO2 Intake & Output 07/06/23 07/07/23 07/07/23 18:59 06:59 18:59 Intake Total 1016 118 Output Total 825 800 Balance 191 -800 118 Intake: Oral 1016 118 Output: Urine 825 800 Other: Voiding Method Toilet Toilet Urinal Urinal - Labs CBC & Chem 7: 07/05/23 07:49 07/07/23 06:08 Labs: Abnormal Lab Results - Last 24 Hours (Table) 07/06/23 07/06/23 07/06/23 Range/Units 11:33 16:27 20:07 Potassium (3.5-5.1) mmol/L Chloride (98-107) mmol/L Carbon Dioxide (22-30) mmol/L BUN (9-20) mg/dL Glucose (74-99) mg/dL POC Glucose (mg/dL) 111 H 163 H 164 H (70-110) mg/dL Calcium (8.4-10.2) mg/dL 07/07/23 07/07/23 Range/Units 05:54 06:08 Potassium 5.3 H (3.5-5.1) mmol/L Chloride 110 H (98-107) mmol/L Carbon Dioxide 21 L (22-30) mmol/L BUN 28 H (9-20) mg/dL Glucose 117 H (74-99) mg/dL POC Glucose (mg/dL) 132 H (70-110) mg/dL Calcium 8.3 L (8.4-10.2) mg/dL
--- NOTE | 2023-07-07 14:33 | P.PN ---
Subjective Progress Note Date: 07/07/23 Principal diagnosis: Nonhealing left great toe wound Patient is seen and examined today as a follow-up. No acute changes through the night. Repeat CT a of lower extremities completed reporting limited due to contrast density within the calcified vessels. Appears to be bilateral proximal popliteal obstruction collateral flow reconstitutes the distal popliteal artery and trifurcation vessels. Trifurcation vessels appear to extend to the level of the ankle bilaterally. Vascular calcification through the lower extremity arterial system may have additional areas of at least moderate narrowing through the superficial femoral arteries. Patient is on IV antibiotics. He is been afebrile. Patient was seen by urology who recommended Krueger catheter being placed. Patient is refusing indwelling Krueger catheter and refusing intermittent straight cathing. Objective - Vital Signs Vital signs: Vital Signs Temp 99.1 F 07/07/23 08:35 Pulse 62 07/07/23 08:35 Resp 17 07/07/23 08:35 BP 158/76 07/07/23 08:35 Pulse Ox 94 L 07/07/23 08:35 FiO2 Intake & Output 07/06/23 07/07/23 07/07/23 18:59 06:59 18:59 Intake Total 1016 118 Output Total 825 800 Balance 191 -800 118 Intake: Oral 1016 118 Output: Urine 825 800 Other: Voiding Method Toilet Toilet Urinal Urinal - Exam General appearance: The patient is alert, oriented, appears in no acute distress. HET: Head is normocephalic and atraumatic. Pupils are equal and reactive. Neck: Supple. Abdomen: Soft, nondistended. Extremities: Left foot with dressing clean dry and intact. Neurological: No focal deficits. Strength and sensation are grossly intact. - Labs CBC & Chem 7: 07/05/23 07:49 07/07/23 06:08 Labs: Abnormal Lab Results - Last 24 Hours (Table) 07/06/23 07/06/23 07/06/23 Range/Units 11:33 16:27 20:07 Potassium (3.5-5.1) mmol/L Chloride (98-107) mmol/L Carbon Dioxide (22-30) mmol/L BUN (9-20) mg/dL Glucose (74-99) mg/dL POC Glucose (mg/dL) 111 H 163 H 164 H (70-110) mg/dL Calcium (8.4-10.2) mg/dL 07/07/23 07/07/23 Range/Units 05:54 06:08 Potassium 5.3 H (3.5-5.1) mmol/L Chloride 110 H (98-107) mmol/L Carbon Dioxide 21 L (22-30) mmol/L BUN 28 H (9-20) mg/dL Glucose 117 H (74-99) mg/dL POC Glucose (mg/dL) 132 H (70-110) mg/dL Calcium 8.3 L (8.4-10.2) mg/dL Assessment and Plan Assessment: 1. Nonhealing left great toe wound 2. Diabetic vascular disease bilateral lower extremities with resulting arter ial insufficiency 3. Bilateral hydronephrosis and hydroureters. Rule out bladder obstruction 4. History of tobacco abuse Plan: 1. Consult to urology, and Asians for indwelling Krueger catheter for urinary retention. Patient is refusing. 2. Patient scheduled for left lower extremity angiogram with possible intervention 3. Continue recommendations from infectious disease 4. Further recommendations forthcoming The impression and plan of care has been dictated as directed. I performed a history and examination of this patient, discussed the same with the dictator. I agree with the dictator's note ,documented as a scribe. Any additional findings or plans will be noted.
[2023-07-07 16:05] LABS: Glucose,Whole Blood 127 mg/dL (70-110)
[2023-07-07 20:37] LABS: Glucose,Whole Blood 219 mg/dL (70-110)
[2023-07-07] MEDS: MORPHINE SULFATE 4 MG/ML SYRINGE IV PRN (21:33)
[2023-07-07] MEDS: INSULIN DETEMIR (LEVEMIR) 100 UNIT/ML SYR SQ SCH (21:33)
[2023-07-08] MEDS ORDERED: VANCOMYCIN TROUGH DUE 1 EACH MISC MISCELLANE ONE (05:00)
[2023-07-08 06:21] LABS: Glucose,Whole Blood 162 mg/dL (70-110)
[2023-07-08] MEDS: PANTOPRAZOLE 40 MG TABLET PO SCH (06:48)
[2023-07-08] MEDS: VANCOMYCIN 1,750 MG in SODIUM CHLORIDE 0.9% 500 ML 500 ML IVPB SCH (06:49)
[2023-07-08] MEDS: INSULIN ASPART (NovoLOG) 100 UNIT/ML VIAL SQ SCH ×6 (06:49→17:04)
[2023-07-08] MEDS: MEROPENEM 1 GM in SODIUM CHLORIDE 0.9% 100 ML IVPB SCH ×3 (06:51→22:32)
[2023-07-08] MEDS: HYDROcodone/APAP 10-325MG 1 EACH TAB PO PRN ×3 (07:15→20:03)
[2023-07-08] MEDS: SODIUM CHLORIDE 0.9% 1,000 ML IV SCH ×2 (07:58→12:16)
[2023-07-08] MEDS: GABAPENTIN 400 MG CAP PO SCH ×3 (08:12→22:32)
[2023-07-08] MEDS: ASPIRIN 81 MG PO SCH (08:12)
[2023-07-08] MEDS: CHOLECALCIFEROL 25 MCG (1000 IU) TABLET PO SCH (08:12)
[2023-07-08] MEDS: CYCLOBENZAPRINE 5 MG TAB PO SCH ×3 (08:12→22:33)
[2023-07-08] MEDS: ATORVASTATIN 80 MG TAB PO SCH (08:13)
[2023-07-08] MEDS: ENOXAPARIN 40 MG/0.4 ML SYRINGE SQ SCH (08:13)
[2023-07-08] MEDS: TAMSULOSIN 0.4 MG CAP.ER.24H PO SCH (08:13)
[2023-07-08] MEDS: FOLIC ACID 1 MG TAB PO SCH (08:13)
[2023-07-08] MEDS: THIAMINE 100 MG TAB PO SCH (08:13)
[2023-07-08 11:51] LABS: Glucose,Whole Blood 81 mg/dL (70-110)
--- NOTE | 2023-07-08 11:57 | P.PN ---
Subjective Progress Note Date: 07/08/23 Principal diagnosis: Nonhealing left great toe wound Patient is seen and examined today as a follow-up. No acute changes through the night. He is scheduled for angiogram tomorrow with possible intervention. Objective - Vital Signs Vital signs: Vital Signs Temp 99.4 F 07/08/23 07:52 Pulse 61 07/08/23 07:52 Resp 20 07/08/23 07:52 BP 128/69 07/08/23 07:52 Pulse Ox 93 L 07/08/23 07:52 FiO2 Intake & Output 07/07/23 07/08/23 07/08/23 18:59 06:59 18:59 Intake Total 894 118 Output Total 925 1625 350 Balance -31 -1621 -555 Intake: Oral 894 118 Output: Urine 925 1625 350 Other: Voiding Method Toilet Toilet Urinal Urinal - Exam General appearance: The patient is alert, oriented, appears in no acute d istress. HET: Head is normocephalic and atraumatic. Pupils are equal and reactive. Neck: Supple. Abdomen: Soft, nondistended. Extremities: Left foot with dressing clean dry and intact. Neurological: No focal deficits. Strength and sensation are grossly intact. - Labs CBC & Chem 7: 07/05/23 07:49 07/07/23 06:08 Labs: Abnormal Lab Results - Last 24 Hours (Table) 07/07/23 07/07/23 07/08/23 Range/Units 16:03 20:36 06:20 POC Glucose (mg/dL) 127 H 219 H 162 H (70-110) mg/dL Assessment and Plan Assessment: 1. Nonhealing left great toe wound 2. Diabetic vascular disease bilateral lower extremities with resulting arterial insufficiency 3. Bilateral hydronephrosis and hydroureters. Rule out bladder obstruction 4. History of tobacco abuse Plan: 1. Patient is scheduled for left lower extremity angiogram with possible intervention 2. By mouth after midnight 3. Hold Lovenox 07/09/2023 4. Urology was consulted regarding urinary retention. The recommendation was indwelling Krueger catheter. Patient is refusing indwelling Krueger catheter as well as intermittent catheterization. They have signed off at this time. 5. Continue recommendations from infectious disease The impression and plan of care has been dictated as directed. Dr. Cuppari I performed a history and examination of this patient, discussed the same with the dictator. I agree with the dictator's note ,documented as a scribe. Any additional findings or plans will be noted.
[2023-07-08 12:39] LABS: African American GFR (CKD) >90 (>60 ml/min/1.73 sqM); Non-African American GFR(CKD) 85 (>60 ml/min/1.73 sqM)
[2023-07-08 12:40] LABS: African American GFR (CKD) >90 (>60 ml/min/1.73 sqM); Anion Gap 9 mmol/L; Blood Urea Nitrogen 24 mg/dL (9-20); Calcium 8.3 mg/dL (8.4-10.2); Carbon Dioxide 19 mmol/L (22-30); Chloride 111 mmol/L (98-107); Glucose 82 mg/dL (74-99); Non-African American GFR(CKD) 84 (>60 ml/min/1.73 sqM); Sodium 139 mmol/L (137-145)
[2023-07-08 12:51] LABS: Potassium 5.3 mmol/L (3.5-5.1)
--- NOTE | 2023-07-08 13:00 | P.PN ---
Subjective Progress Note Date: 07/08/23 Mr. 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 Hospital course below: Started on Vancomycin and Cefepime along with Clindamycin. MRI foot ordered along with wound and blood cultures. ID consulted. Vascular surgery consulted. He underwent amputation of the L first toe. WCx growing K. pneumoniae, proteus vulgaris and enterococcus faecalis. Increased Gabapentin to 400 mg PO TID for better pain control. Obtained PICC line. Dr. Sheikh recommended 6 weeks of IV Invanz. Wound vac supplies set up and discharged home. Presents back to the ED on 07/04 for worsening erythema and pain of the L foot. Underwent extensive evaluation: CBC WBC 11.2, Hg 10.7. ESR 63. CRP 5.9. CMP Na 135, bicarb 19, BUN 64, Cr 1.62, glu 147, alk phos 127. Mag 2.6. Lactic acid negative. Foot XR soft tissue edema with transmetatarsal amputation first digit L foot. Admitted for further management. Started on Vancomycin and Meropenem. ID and Vascular Sx consulted. CTA with runoff showed severe calcifications of the abdominal aortal and runoff vessels with chronic bilateral hydronephrosis and hydroureter. 07/07 Patient was seen and examined. He reports moderate pain in his foot. Urology recommends straight cath or ware but patient is reluctant. Vascular surgery has ordered a repeat CTA due to suboptimal study. BMP K 5.3, Cl 110, bicarb 21, BUN 28, glu 117, Ca 8.3. POC glucose 75-233 over the past 24H. Antibiotics include Meropenem 1g IV TID and Vancomycin dosed per pharmacy. Currently on NS at 75 cc/hr. 07/08 Patient was seen and examined. Tmax 100F over the past 24H. Repeat CTA shows bilateral proximal popliteal obstruction with collateral flow, vascular calcification with at least moderate narrowing through the superficial femoral arteries. Vascular surgery scheduled patient for left lower extremity angiogram with possible intervention tomorrow. BMP K 5.3 Cl 111 bicarb 19 BUN 24 Ca 8.3. General: non toxic, no distress, appears at stated age Derm: warm, dry Head: atraumatic, normocephalic, symmetric Eyes: EOMI, no lid lag, anicteric sclera Cardiovascular: S1S2 reg, no murmur Lungs: Clear to auscultation bilaterally , no accessory muscle use Ext: no gross muscle atrophy, no edema, L foot wrapped dressing c/d/i Neuro: no focal neuro deficits Psych: Alert, oriented, appropriate affect Based on my assessment of this patient, this patient meets a high complexity level of care. Patient has an acute diagnosis of OM and wet gangrene of the L foot that poses a threat to life or bodily function. L foot OM: Meropenem and Vancomycin as above. Plans for LLE angiogram with possible intervention tomorrow. ID and Vascular Sx on board. Bilateral hydronephrosis and hydroureter: Continue Flomax 0.8 mg PO QD. Urology recommends straight cath or ware but patient refuses. Wants to follow up outpatient for management. Urology consulted. Prerenal azotemia with hyperCl metabolic acidosis: IV hydration as above. Hyperkalemia: Mildly elevated. Continue to monitor. Diabetes mellitus: Levemir 39 units QHS. Novolog 6 units TID. ISS. Accuchecks ACHS. HTN: Nifedipine 60 mg PO QD. CODE STATUS: FULL CODE DVT Prophylaxis: Heparin SQ. GI Prophylaxis: Protonix PO. Designated medical POA if patient is not able to make medical decisions for themselves: I have reviewed the following travel service consultant notes: ID, Vascular surgery, Urology note. I have reviewed the results of the following tests: BMP. I have ordered the following tests: CBC, BMP. I have discussed the care of this patient with the following independent historian: I have independently interpreted the following test below: I have discussed the management of this patient with the following physician: This patient has a high risk of morbidity due to the following reasons: Vancomycin requires monitoring for toxicity and renal monitoring. Objective - Vital Signs Vital signs: Vital Signs Temp 99.4 F 07/08/23 07:52 Pulse 61 07/08/23 07:52 Resp 20 07/08/23 07:52 BP 128/69 07/08/23 07:52 Pulse Ox 93 L 07/08/23 07:52 FiO2 Intake & Output 07/07/23 07/08/23 07/08/23 18:59 06:59 18:59 Intake Total 894 Output Total 925 1625 350 Balance -28 -5417 -905 Intake: Oral 894 Output: Urine 632 9385 550 Other: Voiding Method Toilet Toilet Urinal Urinal - Labs CBC & Chem 7: 07/05/23 07:49 07/08/23 12:15 Labs: Abnormal Lab Results - Last 24 Hours (Table) 07/07/23 07/07/23 07/07/23 Range/Units 11:27 16:03 20:36 POC Glucose (mg/dL) 156 H 127 H 219 H (70-110) mg/dL 07/08/23 Range/Units 06:20 POC Glucose (mg/dL) 162 H (70-110) mg/dL
--- NOTE | 2023-07-08 14:54 | P.PN ---
Subjective Progress Note Date: 07/07/23 Principal diagnosis: Reason for follow up is diabetic foot wound and osteomyelitis This is a telehealth visit Patient is a 68-year-old male with a past medical history significant for diabetes mellitus hypertension hyperlipidemia who was recently admitted to this facility with left big toe gangrene and diabetic foot infection in this patient who is status post left big toe amputation patient did have a culture positive for ESBL Klebsiella in addition to Proteus and Enterococcus faecalis Enterococcus and the patient was discharged on Invanz subsequently readmitted from the wound care center concerning for worsening wound and some necrotic changes. On today's evaluation that is 07/07/2023 the patient denies any fever or any chills, the patient is breathing comfortably on 3 L nasal cannula oxygen, the patient denies nausea vomiting or any diarrhea, and no abdominal pain, the patient denies having any chest pain shortness of breath or cough, but denies any worsening pain to the left foot Patient did have white count of 10.0 as of 07/05/23, and a CBC was done today creatinine is 1.02 Objective - Vital Signs Vital signs: Vital Signs Temp 99.1 F 07/07/23 08:35 Pulse 62 07/07/23 08:35 Resp 17 07/07/23 08:35 BP 158/76 07/07/23 08:35 Pulse Ox 94 L 07/07/23 08:35 FiO2 Intake & Output 07/06/23 07/07/23 07/07/23 18:59 06:59 18:59 Intake Total 1016 118 Output Total 825 800 Balance 191 -800 118 Intake: Oral 1016 118 Output: Urine 825 800 Other: Voiding Method Toilet Toilet Urinal Urinal - Exam GENERAL DESCRIPTION: Elderly male lying in bed in no distress RESPIRATORY SYSTEM: Unlabored breathing , decreased breath sounds at bases HEART: S1 S2 regular rate and rhythm ,no loud murmurs ABDOMEN: Soft , no tenderness EXTREMITIES: Left foot wound is currently dressed no drainage on the dressing Exam completed with the help of STRATEGIC CONSULTANT - Labs CBC & Chem 7: 07/05/23 07:49 07/08/23 12:15 Labs: Abnormal Lab Results - Last 24 Hours (Table) 07/06/23 07/06/23 07/07/23 Range/Units 16:27 20:07 05:54 Potassium (3.5-5.1) mmol/L Chloride (98-107) mmol/L Carbon Dioxide (22-30) mmol/L BUN (9-20) mg/dL Glucose (74-99) mg/dL POC Glucose (mg/dL) 163 H 164 H 132 H (70-110) mg/dL Calcium (8.4-10.2) mg/dL 07/07/23 07/07/23 Range/Units 06:08 11:27 Potassium 5.3 H (3.5-5.1) mmol/L Chloride 110 H (98-107) mmol/L Carbon Dioxide 21 L (22-30) mmol/L BUN 28 H (9-20) mg/dL Glucose 117 H (74-99) mg/dL POC Glucose (mg/dL) 156 H (70-110) mg/dL Calcium 8.3 L (8.4-10.2) mg/dL Assessment and Plan (1) Osteomyelitis Current Visit: No Status: Acute Code(s): M86.9 - OSTEOMYELITIS, UNSPECIFIED SNOMED Code(s): 38773915 (2) Type 2 diabetes mellitus with foot ulcer Current Visit: No Status: Acute Code(s): E11.621 - TYPE 2 DIABETES MELLITUS WITH FOOT ULCER; L97.509 - NON-PRESSURE CHRONIC ULCER OTH PRT UNSP FOOT W UNSP SEVERITY SNOMED Code(s): 040874349 Plan: 1patient with recent extensive left big toe diabetic foot infection with gangrene in this patient who is status post amputation of the left big toe culture did grow multiple pathogen including a drug-resistant ESBL Klebsiella in addition to Enterococcus for the patient was getting IV Invanz in the outpatient setting presented to hospital with some discoloration to the left big toe potation site concerning for worsening ischemia versus worsening infection, the patient did have a mild elevated white count but no fever 2patient has been evaluated by vascular surgery and CTA has been ordered and plan is for revascularization before transmetatarsal amputation, urology has seen the patient recommending Krueger catheter apparently the patient is refusing any further neurological workup 3patient at this time to coniutnue with vancomycin and meropenem awaiting furth er workup from vascular surgery Dictation was produced using [employer] dictation software. please excuse any grammatical, word or spelling errors. Time with Patient: Less than 30
--- NOTE | 2023-07-08 14:56 | P.PN ---
Subjective Progress Note Date: 07/08/23 Principal diagnosis: Reason for follow up is diabetic foot wound and osteomyelitis This is a telehealth visit Patient is a 68-year-old male with a past medical history significant for diabetes mellitus hypertension hyperlipidemia who was recently admitted to this facility with left big toe gangrene and diabetic foot infection in this patient who is status post left big toe amputation patient did have a culture positive for ESBL Klebsiella in addition to Proteus and Enterococcus faecalis Enterococcus and the patient was discharged on Invanz subsequently readmitted from the wound care center concerning for worsening wound and some necrotic changes. On today's evaluation that is 07/08/2023 the patient remains to be afebrile, the patient is breathing comfortably on 3 L nasal cannula oxygen, the patient chest pain shortness of breath or cough, the patient denies nausea vomiting or any diarrhea, and no abdominal pain, the patient denies any worsening pain to the left foot Patient did have white count of 10.0 as of 07/05/23, and a CBC was done today creatinine is 0.95, Vanco trough was 24.7 as of 07/07/2023 Objective - Vital Signs Vital signs: Vital Signs Temp 98.6 F 07/08/23 12:22 Pulse 64 07/08/23 12:22 Resp 18 07/08/23 12:22 BP 150/82 07/08/23 12:22 Pulse Ox 91 L 07/08/23 12:22 FiO2 Intake & Output 07/07/23 07/08/23 07/08/23 18:59 06:59 18:59 Intake Total 894 118 Output Total 925 1625 350 Balance -31 -1625 -232 Intake: Oral 894 118 Output: Urine 925 1625 350 Other: Voiding Method Toilet Toilet Toilet Urinal Urinal Urinal - Exam GENERAL DESCRIPTION: Elderly male lying in bed in no distress RESPIRATORY SYSTEM: Unlabored breathing , decreased breath sounds at bases HEART: S1 S2 regular rate and rhythm ,no loud murmurs ABDOMEN: Soft , no tenderness EXTREMITIES: Left foot wound is currently dressed no drainage on the dressing Exam completed with the help of TONE ARTIST APPRENTICE - Labs CBC & Chem 7: 07/05/23 07:49 07/08/23 12:15 Labs: Abnormal Lab Results - Last 24 Hours (Table) 07/07/23 07/07/23 07/08/23 Range/Units 16:03 20:36 06:20 Potassium (3.5-5.1) mmol/L Chloride (98-107) mmol/L Carbon Dioxide (22-30) mmol/L BUN (9-20) mg/dL POC Glucose (mg/dL) 127 H 219 H 162 H (70-110) mg/dL Calcium (8.4-10.2) mg/dL 07/08/23 Range/Units 12:15 Potassium 5.3 H (3.5-5.1) mmol/L Chloride 111 H (98-107) mmol/L Carbon Dioxide 19 L (22-30) mmol/L BUN 24 H (9-20) mg/dL POC Glucose (mg/dL) (70-110) mg/dL Calcium 8.3 L (8.4-10.2) mg/dL Assessment and Plan (1) Osteomyelitis Current Visit: No Status: Acute Code(s): M86.9 - OSTEOMYELITIS, UNSPECIFIED SNOMED Code(s): 34705680 (2) Type 2 diabetes mellitus with foot ulcer Current Visit: No Status: Acute Code(s): E11.621 - TYPE 2 DIABETES MELLITUS WITH FOOT ULCER; L97.509 - NON-PRESSURE CHRONIC ULCER OTH PRT UNSP FOOT W UNSP SEVERITY SNOMED Code(s): 304753328 Plan: 1patient with recent extensive left big toe diabetic foot infection with gangrene in this patient who is status post amputation of the left big toe culture did grow multiple pathogen including a drug-resistant ESBL Klebsiella in addition to Enterococcus for the patient was getting IV Invanz in the outpatient setting presented to hospital with some discoloration to the left big toe potation site concerning for worsening ischemia versus worsening infection, the patient did have a mild elevated white count but no fever 2patient has been evaluated by vascular surgery and CTA has been ordered and plan is for revascularization before transmetatarsal amputation, urology has seen the patient recommending Krueger catheter apparently the patient is refusing any further neurological workup 3patient is scheduled for angiogram and intervention tomorrow per vascular surgery 4-we will continue the patient on meropenem keeping in mind culture were negative for MRSA on last admission no culture done this admission we will discontinue vancomycin to decrease risk of nephrotoxicity as the patient will be getting contrast tomorrow for angiogram Dictation was produced using [employer] software. please excuse any g rammatical, word or spelling errors. Time with Patient: Less than 30
[2023-07-08 16:58] LABS: Glucose,Whole Blood 132 mg/dL (70-110)
[2023-07-08 20:27] LABS: Glucose,Whole Blood 123 mg/dL (70-110)
[2023-07-08] MEDS: INSULIN DETEMIR (LEVEMIR) 100 UNIT/ML SYR SQ SCH (22:33)
[2023-07-09] MEDS: HYDROcodone/APAP 10-325MG 1 EACH TAB PO PRN (02:34)
[2023-07-09] MEDS: MEROPENEM 1 GM in SODIUM CHLORIDE 0.9% 100 ML IVPB SCH ×3 (05:38→21:13)
[2023-07-09 06:29] LABS: Glucose,Whole Blood 83 mg/dL (70-110)
[2023-07-09] MEDS: SODIUM CHLORIDE 0.9% 1,000 ML IV SCH ×2 (08:20→12:08)
[2023-07-09] MEDS: INSULIN ASPART (NovoLOG) 100 UNIT/ML VIAL SQ SCH ×6 (08:21→17:12)
[2023-07-09] MEDS: CHOLECALCIFEROL 25 MCG (1000 IU) TABLET PO SCH (08:29)
[2023-07-09] MEDS: ATORVASTATIN 80 MG TAB PO SCH (08:29)
[2023-07-09] MEDS: TAMSULOSIN 0.4 MG CAP.ER.24H PO SCH (08:29)
[2023-07-09] MEDS: THIAMINE 100 MG TAB PO SCH (08:29)
[2023-07-09] MEDS: CYCLOBENZAPRINE 5 MG TAB PO SCH ×3 (08:29→21:13)
[2023-07-09] MEDS: ASPIRIN 81 MG PO SCH (08:29)
[2023-07-09] MEDS: FOLIC ACID 1 MG TAB PO SCH (08:29)
[2023-07-09] MEDS: PANTOPRAZOLE 40 MG TABLET PO SCH (08:29)
[2023-07-09] MEDS: GABAPENTIN 400 MG CAP PO SCH ×3 (08:29→21:13)
[2023-07-09] MEDS: MORPHINE SULFATE 4 MG/ML SYRINGE IV PRN ×3 (08:30→21:14)
[2023-07-09] MEDS: ENOXAPARIN 40 MG/0.4 ML SYRINGE SQ SCH (09:33)
[2023-07-09 10:17] LABS: HCT 31.7 % (39.0-53.0); HGB 9.8 gm/dL (13.0-17.5); Hypochromasia Moderate; MCH 27.9 pg (25.0-35.0); MCV 90.1 fL (80.0-100.0); Mean Platelet Volume 8.1; Platelet Count 225 k/uL (150-450); RBC 3.52 m/uL (4.30-5.90); RDW 14.2 % (11.5-15.5); WBC 9.2 k/uL (3.8-10.6)
[2023-07-09 10:36] LABS: African American GFR (CKD) 79 (>60 ml/min/1.73 sqM); Anion Gap 8 mmol/L; Blood Urea Nitrogen 23 mg/dL (9-20); Calcium 8.5 mg/dL (8.4-10.2); Carbon Dioxide 24 mmol/L (22-30); Chloride 109 mmol/L (98-107); Glucose 60 mg/dL (74-99); Non-African American GFR(CKD) 68 (>60 ml/min/1.73 sqM); Potassium 4.7 mmol/L (3.5-5.1); Sodium 141 mmol/L (137-145)
--- NOTE | 2023-07-09 10:49 | P.PN ---
Subjective Progress Note Date: 07/09/23 Mr. 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 Hospital course below: Started on Vancomycin and Cefepime along with Clindamycin. MRI foot ordered along with wound and blood cultures. ID consulted. Vascular surgery consulted. He underwent amputation of the L first toe. WCx growing K. pneumoniae, proteus vulgaris and enterococcus faecalis. Increased Gabapentin to 400 mg PO TID for better pain control. Obtained PICC line. Dr. Sheikh recommended 6 weeks of IV Invanz. Wound vac supplies set up and discharged home. Presents back to the ED on 07/04 for worsening erythema and pain of the L foot. Underwent extensive evaluation: CBC WBC 11.2, Hg 10.7. ESR 63. CRP 5.9. CMP Na 135, bicarb 19, BUN 64, Cr 1.62, glu 147, alk phos 127. Mag 2.6. Lactic acid negative. Foot XR soft tissue edema with transmetatarsal amputation first digit L foot. Admitted for further management. Started on Vancomycin and Meropenem. ID and Vascular Sx consulted. CTA with runoff showed severe calcifications of the abdominal aortal and runoff vessels with chronic bilateral hydronephrosis and hydroureter. 07/07 Patient was seen and examined. He reports moderate pain in his foot. Urology recommends straight cath or ware but patient is reluctant. Vascular surgery has ordered a repeat CTA due to suboptimal study. BMP K 5.3, Cl 110, bicarb 21, BUN 28, glu 117, Ca 8.3. POC glucose 75-233 over the past 24H. Antibiotics include Meropenem 1g IV TID and Vancomycin dosed per pharmacy. Currently on NS at 75 cc/hr. 07/08 Patient was seen and examined. Tmax 100F over the past 24H. Repeat CTA shows bilateral proximal popliteal obstruction with collateral flow, vascular calcification with at least moderate narrowing through the superficial femoral arteries. Vascular surgery scheduled patient for left lower extremity angiogram with possible intervention tomorrow. BMP K 5.3 Cl 111 bicarb 19 BUN 24 Ca 8.3. 07/09 Patient was seen and examined. No complaints. CBC Hg 9.8 Hct 31.7. BMP Cl 109, BUN 23, glu 60. Plans for angiogram and possible vascular intervention today. General: non toxic, no distress, appears at stated age Derm: warm, dry Head: atraumatic, normocephalic, symmetric Eyes: EOMI, no lid lag, anicteric sclera Cardiovascular: S1S2 reg, no murmur Lungs: Clear to auscultation bilaterally , no accessory muscle use Ext: no gross muscle atrophy, no edema, L foot wrapped dressing c/d/i Neuro: no focal neuro deficits Psych: Alert, oriented, appropriate affect Based on my assessment of this patient, this patient meets a high complexity level of care. Patient has an acute diagnosis of OM and wet gangrene of the L foot that poses a threat to life or bodily function. L foot OM: Meropenem and Vancomycin as above. Plans for LLE angiogram with possible intervention today. ID and Vascular Sx on board. Bilateral hydronephrosis and hydroureter: Continue Flomax 0.8 mg PO QD. Urology recommends straight cath or ware but patient refuses. Wants to follow up outpatient for management. Urology consulted. Prerenal azotemia with hyperCl metabolic acidosis: IV hydration as above. Hyperkalemia: Mildly elevated. Slight hemolysis. Continue to monitor. Diabetes mellitus: Levemir 39 units QHS. Novolog 6 units TID. ISS. Accuchecks ACHS. HTN: Nifedipine 60 mg PO QD. CODE STATUS: FULL CODE DVT Prophylaxis: Heparin SQ. GI Prophylaxis: Protonix PO. Designated medical POA if patient is not able to make medical decisions for themselves: I have reviewed the following solutions market consultant notes: ID, Vascular surgery, Urology note. I have reviewed the results of the following tests: I have ordered the following tests: Pending: CBC, BMP. I have discussed the care of this patient with the following independent historian: I have independently interpreted the following test below: I have discussed the management of this patient with the following physician: This patient has a high risk of morbidity due to the following reasons: Vancomycin requires monitoring for toxicity and renal monitoring. Objective - Vital Signs Vital signs: Vital Signs Temp 97.7 F 07/09/23 04:00 Pulse 69 07/09/23 04:00 Resp 18 07/09/23 04:00 BP 145/76 07/09/23 04:00 Pulse Ox 93 L 07/09/23 04:00 FiO2 Intake & Output 07/08/23 07/09/23 07/09/23 18:59 06:59 18:59 Intake Total 236 118 Output Total 650 800 Balance -414 -682 Intake: Oral 236 118 Output: Urine 650 800 Other: Voiding Method Toilet Toilet Urinal Urinal - Labs CBC & Chem 7: 07/09/23 09:28 07/09/23 09:28 Labs: Abnormal Lab Results - Last 24 Hours (Table) 07/08/23 07/08/23 07/08/23 Range/Units 12:15 16:55 20:25 Potassium 5.3 H (3.5-5.1) mmol/L Chloride 111 H (98-107) mmol/L Carbon Dioxide 19 L (22-30) mmol/L BUN 24 H (9-20) mg/dL POC Glucose (mg/dL) 132 H 123 H (70-110) mg/dL Calcium 8.3 L (8.4-10.2) mg/dL
[2023-07-09 11:42] LABS: Glucose,Whole Blood 61 mg/dL (70-110)
[2023-07-09] MEDS ORDERED: DEXTROSE 50% SYRINGE 50 ML IVP ONE (12:00)
[2023-07-09] MEDS ORDERED: DEXTROSE 50% SYRINGE 50 ML IVP STA (12:02)
[2023-07-09 12:24] LABS: Glucose,Whole Blood 108 mg/dL (70-110)
[2023-07-09] MEDS ORDERED: LIDOCAINE 1% INJ 10MG/ML (20 ML MDV) ONE (13:32)
[2023-07-09] MEDS ORDERED: HEPARIN SODIUM,PORCINE 30 ML 30 ML ONE (13:33)
[2023-07-09 13:41] VITALS: BMI 28.7
[2023-07-09] MEDS ORDERED: VERAPAMIL 2.5 MG/ML 2 ML AMP ONE (13:43)
[2023-07-09 13:56] LABS: Glucose,Whole Blood 70 mg/dL (70-110)
[2023-07-09] MEDS ORDERED: fentaNYL (PF) 50 MCG/ML 2 ML AMP ONE (14:00)
[2023-07-09] MEDS ORDERED: MIDAZOLAM 2 MG/2 ML VIAL IVP ONE (14:06)
[2023-07-09] MEDS ORDERED: fentaNYL (PF) 50 MCG/1 ML VIAL IVP ONE (14:06)
[2023-07-09] MEDS ORDERED: LIDOCAINE 1% INJ 10MG/ML (5 ML VIAL-PF) SQ ONE ×2 (14:07→14:08)
[2023-07-09] MEDS ORDERED: IV FLUID CONTINUATION 1,000 ML IV ONE (14:10)
[2023-07-09] MEDS ORDERED: IOPAMIDOL-370 100ML BTL INTRATHECA ONE ×2 (14:24)
--- NOTE | 2023-07-09 14:50 | P.OP ---
Date of Procedure: 07/09/23 Description of Procedure: Preoperative diagnosis: [place] 5 peripheral arterial disease of lower extremity Postoperative diagnosis: Same Procedure: Ultrasound-guided left radial artery access #2 aortogram with runoffs #3 22 minutes of moderate conscious sedation with personal and hemodynamic monitoring of certified RN administration Surgeon: Monique Krueger D.O. EBL: Less than 5 mL IV fluids: See records Urine output: Not measured Drains: None Complications: None immediately apparent Condition: Stable to recovery Operative indication and findings: Patient is a 68-year-old male who previously underwent a left fifth toe amputation due to nonhealing wound and necrotic toe. He presents today for angiogram due to abnormal images and nonhealing wound Procedure in detail: Patient is brought to the special suite and placed in supine position. The bilateral groins and left radial artery are prepped and draped in usual sterile fashion. A preprocedure timeout was performed, all parties were in agreement. Using Beau Danielle, the radial artery was identified. The skin overlying was anesthetized 1% lidocaine plain. The artery was patent and found to the free of significant calcific disease. Permanent images stored. The micro-access needle was used to access the radial artery and Seldinger technique was used to place a 5 slender sheath. Catheter's wires were then used to traverse the aorta and select the descending aorta. An aortogram with runoffs was then performed and the catheter and infrarenal aorta. After appropriate images were obtained. Catheters was removed, the sheath was removed and a TR vein was used for hemostasis. Angiographic findings aorta appeared normal in course and caliber. The visualized portions of the mesenteric vessels are patent without significant disease. There are bilateral renal arteries appear patent without significant disease. The bilateral common iliac arteries appear patent without significant disease. The bilateral external and internal iliac arteries appear patent without significant disease. On the right the common femoral and profunda appear patent without significant disease. The superficial femoral artery has mild diffuse disease until the level of the abductor canal where there is abrupt occlusion and reconstitution of the very proximal popliteal artery. The below- knee popliteal artery appears patent, there is a visualized anterior tibial artery but no visualized TP truncal posterior tibial artery. Visualization distal to this is difficult due to limitation of flow. On the left, the common femoral and deep femoral artery appear patent without significant disease. The superficial femoral artery has a few areas of moderate stenosis but is relatively patent to the level of the abductor canal and there is abrupt occlusion. There is reconstitution of flow at the below-knee popliteal artery. There is evidence of takeoff of the anterior tibial artery. There does appear to be a posterior tibial artery but appears to fill via collateral flow. The anterior tibial and posterior tibial are visualized at the midcalf, nothing visualized well at the ankle due to limitations of flow. Due to the occlusion across the joint as well as one-vessel runoff the patient would be best served by a proper bypass rather than endovascular approach. He will need medical and cardiac clearances prior to surgical intervention.
--- NOTE | 2023-07-09 15:07 | IR ---
EXAMINATION TYPE: IR angio abdominal w runoff DATE OF EXAM: 07/09/2023 COMPARISON: NONE HISTORY: Fluoroscopy time. Fluoroscopy was provided to the referring clinician.
[2023-07-09 16:34] LABS: Glucose,Whole Blood 116 mg/dL (70-110)
--- NOTE | 2023-07-09 16:46 | US ---
EXAMINATION TYPE: US vein mapping LT DATE OF EXAM: 07/09/2023 3:38 PM COMPARISON: NONE CLINICAL INDICATION: Male, 68 years old with history of for LLE bypass; pending bypass SIDE PERFORMED: Left TECHNIQUE: Lower extremity saphenous vein is examined and measured utilizing real time linear array sonography. Patient History: Patient had recent infection and left big toe amputated DUPLEX FINDINGS: Greater Saphenous: Color flow seen Measurements in mm: Left Greater Saphenous: Groin: 8.4 x 11.4 mm High Thigh: 6.8 x 5.9 mm Mid Thigh: 5.3 x 7.7 mm Above Knee: 5.6 x 7.8 mm Knee: 5.0 x 6.0 mm Below Knee: 4.4 x 5.3 mm Mid Calf: 3.6 x 5.2 mm At Ankle: 2.9 x 3.6 mm IMPRESSION: 1. Left GSV measurements listed above. 2. Performing surgeon to determine viability as conduit.
[2023-07-09] MEDS ORDERED: VANCOMYCIN TROUGH DUE 1 EACH MISC MISCELLANE ONE (17:00)
[2023-07-09 18:01] LABS: African American GFR (CKD) 88 (>60 ml/min/1.73 sqM); Non-African American GFR(CKD) 77 (>60 ml/min/1.73 sqM)
[2023-07-09 20:00] LABS: Glucose,Whole Blood 105 mg/dL (70-110)
[2023-07-09] MEDS: INSULIN DETEMIR (LEVEMIR) 100 UNIT/ML SYR SQ SCH (21:13)
[2023-07-10] MEDS: MORPHINE SULFATE 4 MG/ML SYRINGE IV PRN ×3 (05:02→21:00)
[2023-07-10 06:07] LABS: Glucose,Whole Blood 159 mg/dL (70-110)
[2023-07-10] MEDS: PANTOPRAZOLE 40 MG TABLET PO SCH (06:12)
[2023-07-10] MEDS: INSULIN ASPART (NovoLOG) 100 UNIT/ML VIAL SQ SCH ×7 (06:13→17:16)
[2023-07-10] MEDS: MEROPENEM 1 GM in SODIUM CHLORIDE 0.9% 100 ML IVPB SCH ×3 (06:13→22:10)
[2023-07-10] MEDS: SODIUM CHLORIDE 0.9% 1,000 ML IV SCH ×2 (06:15→16:42)
[2023-07-10] MEDS: HYDROcodone/APAP 10-325MG 1 EACH TAB PO PRN ×2 (09:01→16:39)
[2023-07-10] MEDS: FOLIC ACID 1 MG TAB PO SCH (09:02)
[2023-07-10] MEDS: ASPIRIN 81 MG PO SCH (09:02)
[2023-07-10] MEDS: TAMSULOSIN 0.4 MG CAP.ER.24H PO SCH (09:02)
[2023-07-10] MEDS: CHOLECALCIFEROL 25 MCG (1000 IU) TABLET PO SCH (09:02)
[2023-07-10] MEDS: THIAMINE 100 MG TAB PO SCH (09:02)
[2023-07-10] MEDS: ATORVASTATIN 80 MG TAB PO SCH (09:02)
[2023-07-10] MEDS: GABAPENTIN 400 MG CAP PO SCH ×3 (09:02→21:00)
[2023-07-10] MEDS: ENOXAPARIN 40 MG/0.4 ML SYRINGE SQ SCH (09:03)
[2023-07-10] MEDS: CYCLOBENZAPRINE 5 MG TAB PO SCH ×3 (09:03→21:00)
[2023-07-10 09:23] LABS: African American GFR (CKD) 85 (>60 ml/min/1.73 sqM); Anion Gap 12 mmol/L; Blood Urea Nitrogen 23 mg/dL (9-20); Calcium 8.5 mg/dL (8.4-10.2); Carbon Dioxide 21 mmol/L (22-30); Chloride 108 mmol/L (98-107); Glucose 158 mg/dL (74-99); Non-African American GFR(CKD) 73 (>60 ml/min/1.73 sqM); Potassium 4.9 mmol/L (3.5-5.1); Sodium 141 mmol/L (137-145)
[2023-07-10 09:26] LABS: HCT 31.4 % (39.0-53.0); HGB 9.9 gm/dL (13.0-17.5); Hypochromasia Marked; MCH 28.8 pg (25.0-35.0); MCHC 31.5 g/dL (31.0-37.0); MCV 91.2 fL (80.0-100.0); Mean Platelet Volume 8.6; Platelet Count 222 k/uL (150-450); RBC 3.44 m/uL (4.30-5.90); RDW 14.3 % (11.5-15.5); WBC 7.3 k/uL (3.8-10.6)
--- NOTE | 2023-07-10 11:47 | P.PN ---
Subjective Progress Note Date: 07/10/23 Principal diagnosis: Nonhealing left great toe wound Patient seen and examined today as a follow-up. Yesterday he underwent aortogram with runoffs via left radial artery access. Due to occlusion across the left joint as well as one-vessel runoff he will require a left lower ex tremity fem-pop bypass. Patient is without any complaints today. No bleeding from the radial artery access and states that is just mildly tender. Patient is afebrile. Objective - Vital Signs Vital signs: Vital Signs Temp 98.1 F 07/10/23 08:55 Pulse 58 L 07/10/23 08:55 Resp 19 07/10/23 08:55 BP 140/65 07/10/23 08:55 Pulse Ox 92 L 07/10/23 08:55 FiO2 Intake & Output 07/09/23 07/10/23 07/10/23 18:59 06:59 18:59 Intake Total 368 240 Output Total 550 Balance 368 -550 240 Weight 104.326 kg Intake: IV 50 Intake, IV Titration 200 Amount Meropenem 1 gm In Sodium 200 Chloride 0.9% 100 ml @ 33 .3 mls/hr IVPB Q8H [facility] Rx #:[id number] Oral 118 240 Output: Urine 550 Other: Voiding Method Toilet Toilet Urinal Urinal # Voids 0 - Exam General appearance: The patient is alert, oriented, appears in no acute distress. HET: Head is normocephalic and atraumatic. Pupils are equal and reactive. Neck: Supple. Abdomen: Soft, nondistended. Extremities: Left foot with dressing clean dry and intact. Bilateral femoral pulses intact. Left radial access without any bleeding or hematoma. Palpable pulse. Neurological: No focal deficits. Strength and sensation are grossly intact. - Labs CBC & Chem 7: 07/10/23 08:33 07/10/23 08:33 Labs: Abnormal Lab Results - Last 24 Hours (Table) 07/09/23 07/09/23 07/09/23 Range/Units 09:28 09:28 11:40 RBC 3.52 L (4.30-5.90) m/uL Hgb 9.8 L (13.0-17.5) gm/dL Hct 31.7 L (39.0-53.0) % Chloride 109 H (98-107) mmol/L Carbon Dioxide (22-30) mmol/L BUN 23 H (9-20) mg/dL Glucose 60 L (74-99) mg/dL POC Glucose (mg/dL) 61 L (70-110) mg/dL 07/09/23 07/10/23 07/10/23 Range/Units 16:32 06:05 08:33 RBC 3.44 L (4.30-5.90) m/uL Hgb 9.9 L (13.0-17.5) gm/dL Hct 31.4 L (39.0-53.0) % Chloride (98-107) mmol/L Carbon Dioxide (22-30) mmol/L BUN (9-20) mg/dL Glucose (74-99) mg/dL POC Glucose (mg/dL) 116 H 159 H (70-110) mg/dL 07/10/23 Range/Units 08:33 RBC (4.30-5.90) m/uL Hgb (13.0-17.5) gm/dL Hct (39.0-53.0) % Chloride 108 H (98-107) mmol/L Carbon Dioxide 21 L (22-30) mmol/L BUN 23 H (9-20) mg/dL Glucose 158 H (74-99) mg/dL POC Glucose (mg/dL) (70-110) mg/dL Assessment and Plan Assessment: 1. Nonhealing left great toe wound 2. Diabetic vascular disease bilateral lower extremities with resulting arterial insufficiency. [place] 5 peripheral arterial disease. 3. SFA occlusion 3. Bilateral hydronephrosis and hydroureters. Rule out bladder obstruction 4. History of tobacco abuse Plan: 1. Patient is scheduled for left lower extremity angiogram with possible intervention 2. Patient will require left lower extremity fem-pop bypass with in situ vein, tentative plan 07/14/2023 if patient has medical/cardiac clearance 3. Vein mapping ordered 4. Patient will need medical and cardiac clearance prior to any surgical procedures 5. Urology was consulted regarding urinary retention. The recommendation was indwelling Krueger catheter. Patient is refusing indwelling Krueger catheter as well as intermittent catheterization. They have signed off at this time. 6. Continue with daily wet-to-dry dressing change to left foot The impression and plan of care has been dictated as directed. Dr. Pati Krueger performed a history and examination of this patient, discussed the same with the dictator. I agree with the dictator's note ,documented as a scribe. Any additional findings or plans will be noted.
[2023-07-10 12:00] LABS: Glucose,Whole Blood 114 mg/dL (70-110)
--- NOTE | 2023-07-10 14:52 | P.PN ---
Subjective Progress Note Date: 07/09/23 Principal diagnosis: Reason for follow up is diabetic foot wound and osteomyelitis Patient is a 68-year-old male with a past medical history significant for diabetes mellitus hypertension hyperlipidemia who was recently admitted to this facility with left big toe gangrene and diabetic foot infection in this patient who is status post left big toe amputation patient did have a culture positive for ESBL Klebsiella in addition to Proteus and Enterococcus faecalis Enterococcus and the patient was discharged on Invanz subsequently readmitted from the wound care center concerning for worsening wound and some necrotic changes. On today's evaluation that is 07/09/2023 the patient continues to be afebrile, the patient is breathing comfortably on 3 L nasal cannula oxygen, the patient denies having any chest pain or cough and no sputum production, patient denies nausea vomiting or any diarrhea, and no abdominal pain, the patient pain to the left foot is currently controlled Patient did have white count of 9.2, creatinine is 1.02, Objective - Vital Signs Vital signs: Vital Signs Temp 98.0 F 07/09/23 08:13 Pulse 71 07/09/23 08:13 Resp 20 07/09/23 08:13 BP 150/72 07/09/23 08:13 Pulse Ox 92 L 07/09/23 08:13 FiO2 Intake & Output 07/08/23 07/09/23 07/09/23 18:59 06:59 18:59 Intake Total 236 118 100 Output Total 650 800 Balance -414 -142 100 Intake: Intake, IV Titration 100 Amount Meropenem 1 gm In Sodium 100 Chloride 0.9% 100 ml @ 33 .3 mls/hr IVPB Q8H [facility] Rx #:[id number] Oral 236 118 Output: Urine 650 800 Other: Voiding Method Toilet Toilet Urinal Urinal - Exam GENERAL DESCRIPTION: Elderly male lying in bed in no distress RESPIRATORY SYSTEM: Unlabored breathing , decreased breath sounds at bases HEART: S1 S2 regular rate and rhythm ,no loud murmurs ABDOMEN: Soft , no tenderness EXTREMITIES: Left foot wound is currently dressed no drainage on the dressing - Labs CBC & Chem 7: 07/10/23 08:33 07/10/23 08:33 Labs: Abnormal Lab Results - Last 24 Hours (Table) 07/08/23 07/08/23 07/08/23 Range/Units 12:15 16:55 20:25 RBC (4.30-5.90) m/uL Hgb (13.0-17.5) gm/dL Hct (39.0-53.0) % Potassium 5.3 H (3.5-5.1) mmol/L Chloride 111 H (98-107) mmol/L Carbon Dioxide 19 L (22-30) mmol/L BUN 24 H (9-20) mg/dL POC Glucose (mg/dL) 132 H 123 H (70-110) mg/dL Calcium 8.3 L (8.4-10.2) mg/dL 07/09/23 Range/Units 09:28 RBC 3.52 L (4.30-5.90) m/uL Hgb 9.8 L (13.0-17.5) gm/dL Hct 31.7 L (39.0-53.0) % Potassium (3.5-5.1) mmol/L Chloride (98-107) mmol/L Carbon Dioxide (22-30) mmol/L BUN (9-20) mg/dL POC Glucose (mg/dL) (70-110) mg/dL Calcium (8.4-10.2) mg/dL Assessment and Plan (1) Osteomyelitis Current Visit: No Status: Acute Code(s): M86.9 - OSTEOMYELITIS, UNSPECIFIED SNOMED Code(s): 14561050 (2) Type 2 diabetes mellitus with foot ulcer Current Visit: No Status: Acute Code(s): E11.621 - TYPE 2 DIABETES MELLITUS WITH FOOT ULCER; L97.509 - NON-PRESSURE CHRONIC ULCER OTH PRT UNSP FOOT W UNSP SEVERITY SNOMED Code(s): 899297038 Plan: 1patient with recent extensive left big toe diabetic foot infection with gangrene in this patient who is status post amputation of the left big toe culture did grow multiple pathogen including a drug-resistant ESBL Klebsiella in addition to Enterococcus for the patient was getting IV Invanz in the outpatient setting presented to hospital with some discoloration to the left big toe potation site concerning for worsening ischemia versus worsening infection, the patient did have a mild elevated white count but no fever 2patient has been evaluated by vascular surgery and CTA has been ordered and plan is for revascularization before transmetatarsal amputation, urology has seen the patient recommending Krueger catheter apparently the patient is refusing any further neurological workup 3patient is scheduled for angiogram and possible intervention this afternoon per vascular surgery 4-we will continue the patient on meropenem and monitor clinical course closely Dictation was produced using [employer] dictation software. please excuse any grammatical, word or spelling errors.
--- NOTE | 2023-07-10 14:55 | P.PN ---
Subjective Progress Note Date: 07/10/23 Principal diagnosis: Reason for follow up is diabetic foot wound and osteomyelitis Patient is a 68-year-old male with a past medical history significant for diabetes mellitus hypertension hyperlipidemia who was recently admitted to this facility with left big toe gangrene and diabetic foot infection in this patient who is status post left big toe amputation patient did have a culture positive for ESBL Klebsiella in addition to Proteus and Enterococcus faecalis Enterococcus and the patient was discharged on Invanz subsequently readmitted from the wound care center concerning for worsening wound and some necrotic changes. Patient did have angiogram completed on 07/09/2023 and vascular surgery recommending bypass On today's evaluation that is 07/10/2023, the patient denies any fever or any chills, the patient is breathing comfortably on 3 L nasal cannula oxygen, patient denies chest pain shortness of breath, or cough, patient denies Abdominal pain and denies any nausea/vomiting or diarrhea , the patient denies any worsening pain to the left foot Patient did have white count of 7.3, creatinine 1.06 Objective - Vital Signs Vital signs: Vital Signs Temp 98.3 F 07/10/23 12:00 Pulse 54 L 07/10/23 12:00 Resp 18 07/10/23 12:00 BP 160/72 07/10/23 12:00 Pulse Ox 93 L 07/10/23 12:00 FiO2 Intake & Output 07/09/23 07/10/23 07/10/23 18:59 06:59 18:59 Intake Total 368 240 Output Total 550 Balance 368 -550 240 Weight 104.326 kg Intake: IV 50 Intake, IV Titration 200 Amount Meropenem 1 gm In Sodium 200 Chloride 0.9% 100 ml @ 33 .3 mls/hr IVPB Q8H [facility] Rx #:[id number] Oral 118 240 Output: Urine 550 Other: Voiding Method Toilet Toilet Toilet Urinal Urinal Urinal # Voids 0 - Exam GENERAL DESCRIPTION: Elderly male lying in bed in no distress RESPIRATORY SYSTEM: Unlabored breathing , decreased breath sounds at bases HEART: S1 S2 regular rate and rhythm ,no loud murmurs ABDOMEN: Soft , no tenderness EXTREMITIES: Left foot wound is currently dressed no drainage on the dressing - Labs CBC & Chem 7: 07/10/23 08:33 07/10/23 08:33 Labs: Abnormal Lab Results - Last 24 Hours (Table) 07/09/23 07/10/23 07/10/23 Range/Units 16:32 06:05 08:33 RBC 3.44 L (4.30-5.90) m/uL Hgb 9.9 L (13.0-17.5) gm/dL Hct 31.4 L (39.0-53.0) % Chloride (98-107) mmol/L Carbon Dioxide (22-30) mmol/L BUN (9-20) mg/dL Glucose (74-99) mg/dL POC Glucose (mg/dL) 116 H 159 H (70-110) mg/dL 07/10/23 07/10/23 Range/Units 08:33 11:59 RBC (4.30-5.90) m/uL Hgb (13.0-17.5) gm/dL Hct (39.0-53.0) % Chloride 108 H (98-107) mmol/L Carbon Dioxide 21 L (22-30) mmol/L BUN 23 H (9-20) mg/dL Glucose 158 H (74-99) mg/dL POC Glucose (mg/dL) 114 H (70-110) mg/dL Assessment and Plan (1) Osteomyelitis Current Visit: No Status: Acute Code(s): M86.9 - OSTEOMYELITIS, UNSPECIFIED SNOMED Code(s): 91502662 (2) Type 2 diabetes mellitus with foot ulcer Current Visit: No Status: Acute Code(s): E11.621 - TYPE 2 DIABETES MELLITUS WITH FOOT ULCER; L97.509 - NON-PRESSURE CHRONIC ULCER OTH PRT UNSP FOOT W UNSP SEVERITY SNOMED Code(s): 976785059 Plan: 1patient with recent extensive left big toe diabetic foot infection with gangrene in this patient who is status post amputation of the left big toe culture did grow multiple pathogen including a drug-resistant ESBL Klebsiella in addition to Enterococcus for the patient was getting IV Invanz in the outpatient setting presented to hospital with some discoloration to the left big toe potation site concerning for worsening ischemia versus worsening infection, the patient did have a mild elevated white count but no fever 2patient has been evaluated by vascular surgery and CTA has been ordered and plan is for revascularization before transmetatarsal amputation, urology has seen the patient recommending Krueger catheter apparently the patient is refusing any further neurological workup 3patient is status post angiogram to the left lower extremity on 07/09/2023 vascular surgeon recommending bypass rather than percutaneous intervention 4-patient will continue with meropenem and awaiting further surgical workup and monitor clinical course closely Dictation was produced using [employer] dictation software. please excuse any g rammatical, word or spelling errors.
--- NOTE | 2023-07-10 15:12 | P.PN ---
Subjective Progress Note Date: 07/10/23 Mr. 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 Hospital course below: Started on Vancomycin and Cefepime along with Clindamycin. MRI foot ordered along with wound and blood cultures. ID consulted. Vascular surgery consulted. He underwent amputation of the L first toe. WCx growing K. pneumoniae, proteus vulgaris and enterococcus faecalis. Increased Gabapentin to 400 mg PO TID for better pain control. Obtained PICC line. Dr. Sheikh recommended 6 weeks of IV Invanz. Wound vac supplies set up and discharged home. Presents back to the ED on 07/04 for worsening erythema and pain of the L foot. Underwent extensive evaluation: CBC WBC 11.2, Hg 10.7. ESR 63. CRP 5.9. CMP Na 135, bicarb 19, BUN 64, Cr 1.62, glu 147, alk phos 127. Mag 2.6. Lactic acid negative. Foot XR soft tissue edema with transmetatarsal amputation first digit L foot. Admitted for further management. Started on Vancomycin and Meropenem. ID and Vascular Sx consulted. CTA with runoff showed severe calcifications of the abdominal aortal and runoff vessels with chronic bilateral hydronephrosis and hydroureter. 07/07 Patient was seen and examined. He reports moderate pain in his foot. Urology recommends straight cath or ware but patient is reluctant. Vascular surgery has ordered a repeat CTA due to suboptimal study. BMP K 5.3, Cl 110, bicarb 21, BUN 28, glu 117, Ca 8.3. POC glucose 75-233 over the past 24H. Antibiotics include Meropenem 1g IV TID and Vancomycin dosed per pharmacy. Currently on NS at 75 cc/hr. 07/08 Patient was seen and examined. Tmax 100F over the past 24H. Repeat CTA shows bilateral proximal popliteal obstruction with collateral flow, vascular calcification with at least moderate narrowing through the superficial femoral arteries. Vascular surgery scheduled patient for left lower extremity angiogram with possible intervention tomorrow. BMP K 5.3 Cl 111 bicarb 19 BUN 24 Ca 8.3. 07/09 Patient was seen and examined. No complaints. CBC Hg 9.8 Hct 31.7. BMP Cl 109, BUN 23, glu 60. Plans for angiogram and possible vascular intervention today. 07/10 Patient was seen and examined. Angiogram performed by Dr. Ware, recommends bypass rather than endovascular approach. CBC Hg 9.9. BMP Cl 108, bicarb 21, BUN 23, glu 158. He will need cardiac clearance. He denies any history of CAD or [place]. Given his history of PAD, he likely has underlying CAD. Echo from 02/2020 shows EF 55-60% with mild concentric LVH mod-severe TR, mod-severe pulm HTN. He denies exertional chest pain or shortness of breath. ASA class III. NSQIP scoring shows below average risk for serious complications, PNA, cardiac complications, VTE, readmissions, sepsis or discharge to SNF. Average risk for surgical site infection, return to OR, renal failure. General: non toxic, no distress, appears at stated age Derm: warm, dry Head: atraumatic, normocephalic, symmetric Eyes: EOMI, no lid lag, anicteric sclera Cardiovascular: S1S2 reg, no murmur Lungs: Clear to auscultation bilaterally , no accessory muscle use Ext: no gross muscle atrophy, no edema, L foot wrapped dressing c/d/i Neuro: no focal neuro deficits Psych: Alert, oriented, appropriate affect Based on my assessment of this patient, this patient meets a high complexity level of care. Patient has an acute diagnosis of OM and wet gangrene of the L foot that poses a threat to life or bodily function. L foot OM: Meropenem and Vancomycin as above. Discussed with Kim ARAUJO, plans for OR on Friday. ID and Vascular Sx on board. Bilateral hydronephrosis and hydroureter: Continue Flomax 0.8 mg PO QD. Urology recommends straight cath or ware but patient refuses. Wants to follow up outpatient for management. Urology consulted. Prerenal azotemia with hyperCl metabolic acidosis: IV hydration as above. Hyperkalemia: Mildly elevated. Slight hemolysis. Continue to monitor. Diabetes mellitus: Levemir 39 units QHS. Novolog 6 units TID. ISS. Accuchecks ACHS. HTN: Nifedipine 60 mg PO QD. CODE STATUS: FULL CODE DVT Prophylaxis: Heparin SQ. GI Prophylaxis: Protonix PO. Designated medical POA if patient is not able to make medical decisions for themselves: I have reviewed the following vendor management consultant notes: ID, Vascular surgery note. I have reviewed the results of the following tests: CBC, BMP I have ordered the following tests: I have discussed the care of this patient with the following independent historian: I have independently interpreted the following test below: I have discussed the management of this patient with the following physician: Discussed with Kim ARAUJO as above. This patient has a high risk of morbidity due to the following reasons: Vancomycin requires monitoring for toxicity and renal monitoring. Objective - Vital Signs Vital signs: Vital Signs Temp 98.1 F 07/10/23 04:00 Pulse 70 07/10/23 04:00 Resp 20 07/10/23 04:00 BP 149/70 07/10/23 04:00 Pulse Ox 93 L 07/10/23 04:00 FiO2 Intake & Output 07/09/23 07/10/23 07/10/23 18:59 06:59 18:59 Intake Total 368 240 Output Total 550 Balance 368 -550 240 Weight 104.326 kg Intake: IV 50 Intake, IV Titration 200 Amount Meropenem 1 gm In Sodium 200 Chloride 0.9% 100 ml @ 33 .3 mls/hr IVPB Q8H ADRIAN Rx #:[id number] Oral 118 240 Output: Urine 550 Other: Voiding Method Toilet Toilet Urinal Urinal # Voids 0 - Labs CBC & Chem 7: 07/10/23 08:33 07/10/23 08:33 Labs: Abnormal Lab Results - Last 24 Hours (Table) 07/09/23 07/09/23 07/09/23 Range/Units 09:28 09:28 11:40 RBC 3.52 L (4.30-5.90) m/uL Hgb 9.8 L (13.0-17.5) gm/dL Hct 31.7 L (39.0-53.0) % Chloride 109 H (98-107) mmol/L BUN 23 H (9-20) mg/dL Glucose 60 L (74-99) mg/dL POC Glucose (mg/dL) 61 L (70-110) mg/dL 07/09/23 07/10/23 Range/Units 16:32 06:05 RBC (4.30-5.90) m/uL Hgb (13.0-17.5) gm/dL Hct (39.0-53.0) % Chloride (98-107) mmol/L BUN (9-20) mg/dL Glucose (74-99) mg/dL POC Glucose (mg/dL) 116 H 159 H (70-110) mg/dL
[2023-07-10 16:40] LABS: Glucose,Whole Blood 122 mg/dL (70-110)
[2023-07-10 20:16] LABS: Glucose,Whole Blood 116 mg/dL (70-110)
[2023-07-10] MEDS: INSULIN DETEMIR (LEVEMIR) 100 UNIT/ML SYR SQ SCH (21:00)
[2023-07-11] MEDS: MORPHINE SULFATE 4 MG/ML SYRINGE IV PRN ×2 (02:38→20:10)
[2023-07-11] MEDS: MEROPENEM 1 GM in SODIUM CHLORIDE 0.9% 100 ML IVPB SCH ×3 (04:52→20:09)
[2023-07-11] MEDS: SODIUM CHLORIDE 0.9% 1,000 ML IV SCH (04:53)
[2023-07-11] MEDS: PANTOPRAZOLE 40 MG TABLET PO SCH (06:24)
[2023-07-11] MEDS: INSULIN ASPART (NovoLOG) 100 UNIT/ML VIAL SQ SCH ×6 (06:57→17:02)
[2023-07-11 06:58] LABS: Glucose,Whole Blood 81 mg/dL (70-110)
[2023-07-11] MEDS: ATORVASTATIN 80 MG TAB PO SCH (09:06)
[2023-07-11] MEDS: GABAPENTIN 400 MG CAP PO SCH ×3 (09:06→20:09)
[2023-07-11] MEDS: TAMSULOSIN 0.4 MG CAP.ER.24H PO SCH (09:06)
[2023-07-11] MEDS: CYCLOBENZAPRINE 5 MG TAB PO SCH ×3 (09:06→20:09)
[2023-07-11] MEDS: ENOXAPARIN 40 MG/0.4 ML SYRINGE SQ SCH (09:06)
[2023-07-11] MEDS: THIAMINE 100 MG TAB PO SCH (09:06)
[2023-07-11] MEDS: FOLIC ACID 1 MG TAB PO SCH (09:06)
[2023-07-11] MEDS: CHOLECALCIFEROL 25 MCG (1000 IU) TABLET PO SCH (09:06)
[2023-07-11] MEDS: ASPIRIN 81 MG PO SCH (09:06)
[2023-07-11] MEDS: HYDROcodone/APAP 10-325MG 1 EACH TAB PO PRN ×2 (09:14→13:32)
[2023-07-11] MEDS ORDERED: FUROSEMIDE 10 MG/ML 4 ML VIAL IV STA (10:05)
--- NOTE | 2023-07-11 11:00 | P.PN ---
Subjective Progress Note Date: 07/11/23 Principal diagnosis: Nonhealing left great toe wound Patient seen and examined today as a follow-up. Acute changes through the night. No complaints at this time. Patient remains afebrile. Patient underwent vein mapping and will be a candidate for bypass with in situ vein. M edical team did consult cardiology for cardiac clearance. Objective - Vital Signs Vital signs: Vital Signs Temp 97.9 F 07/10/23 20:00 Pulse 58 L 07/11/23 04:00 Resp 18 07/11/23 04:00 BP 118/58 07/11/23 04:00 Pulse Ox 95 07/11/23 04:00 FiO2 Intake & Output 07/10/23 07/11/23 07/11/23 18:59 06:59 18:59 Intake Total 480 540 240 Output Total 450 1250 Balance 30 -710 240 Intake: Oral 480 540 240 Output: Urine 450 1250 Other: Voiding Method Toilet Toilet Urinal Urinal # Voids 0 - Exam General appearance: The patient is alert, oriented, appears in no acute distress. HET: Head is normocephalic and atraumatic. Pupils are equal and reactive. Neck: Supple. Abdomen: Soft, nondistended. Extremities: Left foot with dressing clean dry and intact. Bilateral femoral pulses intact. Left radial access without any bleeding or hematoma. Palpable pulse. Neurological: No focal deficits. Strength and sensation are grossly intact. - Labs CBC & Chem 7: 07/10/23 08:33 07/10/23 08:33 Labs: Abnormal Lab Results - Last 24 Hours (Table) 07/10/23 07/10/23 07/10/23 Range/Units 11:59 16:37 20:15 POC Glucose (mg/dL) 114 H 122 H 116 H (70-110) mg/dL Assessment and Plan Assessment: 1. Nonhealing left great toe wound 2. Diabetic vascular disease bilateral lower extremities with resulting arter ial insufficiency. [place] 5 peripheral arterial disease. 3. SFA occlusion 3. Bilateral hydronephrosis and hydroureters. Rule out bladder obstruction 4. History of tobacco abuse Plan: 1. Patient underwent left lower extremity angiogram with possible intervention 2. Patient will require left lower extremity fem-pop bypass with in situ vein, tentative plan 07/14/2023 if patient has medical/cardiac clearance 3. Vein mapping ordered and reviewed 4. Patient will need medical and cardiac clearance prior to any surgical procedures. Awaiting cardiology recommendations. 5. Urology was consulted regarding urinary retention. The recommendation was indwelling Krueger catheter. Patient is refusing indwelling Krueger catheter as well as intermittent catheterization. They have signed off at this time. 6. Continue with daily wet-to-dry dressing change to left foot Cardiology has seen patient today. They would like to perform lexiscan stress test on Friday before clearing patient for surgery. LLE bypass surgery canceled for Friday, timing to be determined. The impression and plan of care has been dictated as directed. Dr. Krueger I performed a history and examination of this patient, discussed the same with the dictator. I agree with the dictator's note ,documented as a scribe. Any additional findings or plans will be noted.
[2023-07-11] MEDS ORDERED: REGADENOSON 0.4 MG/5 ML SYRINGE IV PRN (11:31)
[2023-07-11 12:00] LABS: Glucose,Whole Blood 125 mg/dL (70-110)
--- NOTE | 2023-07-11 12:09 | P.PN ---
Subjective Progress Note Date: 07/11/23 Principal diagnosis: Reason for follow up is diabetic foot wound and osteomyelitis Patient is a 68-year-old male with a past medical history significant for diabetes mellitus hypertension hyperlipidemia who was recently admitted to this facility with left big toe gangrene and diabetic foot infection in this patient who is status post left big toe amputation patient did have a culture positive for ESBL Klebsiella in addition to Proteus and Enterococcus faecalis Enterococcus and the patient was discharged on Invanz subsequently readmitted from the wound care center concerning for worsening wound and some necrotic changes. Patient did have angiogram completed on 07/09/2023 and vascular surgery recommending bypass On today's evaluation that is 07/11/2023, the patient remains to be afebrile, the patient is breathing comfortably on 3 L nasal cannula oxygen which denies having any chest pain cough no nausea vomiting no abdominal pain no diarrhea denies pain to the left foot area is currently waiting for stress test followed by surgery. Patient did have white count of 7.3, creatinine 1.06 as of 07/10/2023. Objective - Vital Signs Vital signs: Vital Signs Temp 97.7 F 07/11/23 08:00 Pulse 73 07/11/23 08:00 Resp 18 07/11/23 08:00 BP 159/69 07/11/23 08:00 Pulse Ox 95 07/11/23 08:00 FiO2 Intake & Output 07/10/23 07/11/23 07/11/23 18:59 06:59 18:59 Intake Total 480 540 240 Output Total 450 1250 800 Balance 30 710 -560 Intake: Oral 480 540 240 Output: Urine 450 1250 800 Other: Voiding Method Toilet Toilet Toilet Urinal Urinal Urinal # Voids 0 - Exam GENERAL DESCRIPTION: Elderly male lying in bed in no distress RESPIRATORY SYSTEM: Unlabored breathing , decreased breath sounds at bases HEART: S1 S2 regular rate and rhythm ,no loud murmurs ABDOMEN: Soft , no tenderness EXTREMITIES: Left foot wound is currently dressed no drainage on the dressing - Labs CBC & Chem 7: 07/10/23 08:33 07/10/23 08:33 Labs: Abnormal Lab Results - Last 24 Hours (Table) 07/10/23 07/10/23 07/11/23 Range/Units 16:37 20:15 11:57 POC Glucose (mg/dL) 122 H 116 H 125 H (70-110) mg/dL Assessment and Plan (1) Osteomyelitis Current Visit: No Status: Acute Code(s): M86.9 - OSTEOMYELITIS, UNSPECIFIED SNOMED Code(s): 12181569 (2) Type 2 diabetes mellitus with foot ulcer Current Visit: No Status: Acute Code(s): E11.621 - TYPE 2 DIABETES MELLITUS WITH FOOT ULCER; L97.509 - NON-PRESSURE CHRONIC ULCER OTH PRT UNSP FOOT W UNSP SEVERITY SNOMED Code(s): 084240586 Plan: 1patient with recent extensive left big toe diabetic foot infection with gangrene in this patient who is status post amputation of the left big toe culture did grow multiple pathogen including a drug-resistant ESBL Klebsiella in addition to Enterococcus for the patient was getting IV Invanz in the outpatient setting presented to hospital with some discoloration to the left big toe potation site concerning for worsening ischemia versus worsening infection, the patient did have a mild elevated white count but no fever 2patient has been evaluated by vascular surgery and CTA has been ordered and plan is for revascularization before transmetatarsal amputation, urology has seen the patient recommending Krueger catheter apparently the patient is refusing any further neurological workup 3patient is status post angiogram to the left lower extremity on 07/09/2023 vascular surgeon recommending bypass , Patient is currently waiting for cardiac workup and clearance before surgery which apparently has been scheduled for Friday. 4patient currently on meropenem which will be continued and will monitor his clinical course closely questions concern answered Dictation was produced using [email or web address] software. please excuse any grammatical, word or spelling errors.
--- NOTE | 2023-07-11 12:27 | P.CRDCN ---
History of Present Illness History of present illness: HISTORY OF PRESENT ILLNESS: This is a 68-year-old male with a past medical history significant for diabetes, hyperlipidemia, and hypertension. 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 We have been asked to see the patient in consultation for cardiac clearance. [place] underwent aortogram with runoffs via left radial artery access. Due to occlusion across the left joint as well as one-vessel runoff he will require a left lower extremity fem-pop bypass vascular surgery. This has been scheduled for 07/14/2023. Patient examined this morning at the bedside. Patient denies chest pain or pressure. He denies shortness of breath. * EKG reveals sinus bradycardia with no signs of acute ischemia * Laboratory data: WBC 7.3. Hemoglobin 9.9. Platelet count 222. Sodium 141. Potassium 4.9. BUN 23. Creatinine 1.06. * Current home cardiac medications include nifedipine 60 mg at night, metoprolol titrate 25 mg twice a day, losartan 25 mg at night, Lipitor 80 mg daily, and aspirin 81 mg daily * Most recent echocardiogram obtained in February 2020 revealed ejection fraction 55-60%, moderate to severe TR, moderate to severe pulmonary hypertension REVIEW OF SYSTEMS: At the time of my exam: CONSTITUTIONAL: Denies fever or chills. HEENT: Denies blurred vision, vision changes, or eye pain. Denies hemoptysis CARDIOVASCULAR: Denies chest pain. Denies orthopnea. Denies PND. Denies palpitations RESPIRATORY: Denies shortness of breath. GASTROINTESTINAL: Denies abdominal pain. Denies nausea or vomiting. HEMATOLOGIC: Denies bleeding disorders. GENITOURINARY: Denies any blood in urine. SKIN: Denies pruitis. Denies rash. PHYSICAL EXAM: VITAL SIGNS: Reviewed. GENERAL: Well-developed in no acute distress. HEENT: Head is normocephalic. Pupils are equal, round. Sclerae anicteric. Mucous membranes of the mouth are moist. Neck supple. No JVD or thyromegaly LUNGS: Respirations even and unlabored. Lungs essentially clear to auscultation bilaterally. HEART: Regular rate and rhythm. S1 and S2 heard. ABDOMEN: Soft. Nondistended. Nontender. EXTREMITIES: Normal range of motion. No clubbing or cyanosis. Peripheral pulses intact. Wound with dressing to left lower extremity NEUROLOGIC: Awake and alert. Oriented x 3. ASSESSMENT: Nonhealing left great toe wound Diabetic vascular disease with bilateral lower extremities with resulting arterial insufficiency SFA occlusion Bilateral hydronephrosis Hypertension Hyperlipidemia Diabetes PLAN: Obtain 2-D echo to assess cardiac structure and function Continue current cardiac medications Obtain Lexiscan stress test on Friday (unable to do today as patient was given breakfast) Patient scheduled for left lower extremity femoral-popliteal bypass on 07/14/2023 with vascular services. However patient is not cleared at this time from a cardiac perspective pending stress test results Further recommendations pending patient's course Nurse practitioner note has been reviewed by physician. Signing provider agrees with the documented findings, assessment, and plan of care. Past Medical History Past Medical History: Diabetes Mellitus, Hyperlipidemia, Hypertension Additional Past Medical History / Comment(s): Signiificant other and rosy state pt has not had insurance so has not been taking meds/seeing physician, NIDDM type II, neuropathy bilateral feet, past nephrolithiasis with pt passing stones on his own, pt passed a couple stones (s.o. saw stones) 2 weeks ago and had hematuria which improved after passing stones but has had weakness and loss of appetite past 2 weeks, spondylosis/chronic low back pain History of Any Multi-Drug Resistant Organisms: CRE, ESBL Date of last positivie culture/infection: 04/13/21 [id number] [facility]23 ESBL MDRO Source:: [id number]; MDRO; Left Foot ESBL Past Surgical History: No Surgical Hx Reported Additional Past Surgical History / Comment(s): Bilateral cataract removals/lens implants. Back surgery-feb 2020- infection after, mrsa, amputation of left great toe 06/27/23 Past Anesthesia/Blood Transfusion Reactions: Unable to Obtain Additional Past Anesthesia/Blood Transfusion Reaction / Comment(s): Pt has never had general anesthesia per family Past Psychological History: No Psychological Hx Reported Smoking Status: Former smoker Past Alcohol Use History: Rare Past Drug Use History: Marijuana - Past Family History Father Family Medical History: Dementia Mother Family Medical History: Cancer Additional Family Medical History / Comment(s): Mother of skin cancer. Medications and Allergies Home Medications Medication Instructions Recorded Confirmed Type Aspirin EC [Ecotrin Low Dose] 81 mg PO DAILY 03/01/21 07/04/23 History Atorvastatin [Lipitor] 80 mg PO DAILY 03/01/21 07/04/23 History Ibuprofen [Motrin] 600 mg PO Q8H PRN 03/01/21 07/04/23 History Insulin Glargine,Hum.rec.anlog 39 unit SQ HS 03/01/21 07/04/23 History [Lantus Solostar Pen] Insulin Lispro [humaLOG Kwikpen] 6 unit SQ AC-TID 03/01/21 07/04/23 History Tamsulosin [Flomax] 0.8 mg PO DAILY 03/01/21 07/04/23 History Albuterol Sulfate [Albuterol 1 - 2 puff PO RT-Q4H PRN 06/22/23 07/04/23 History Sulfate Hfa] Cholecalciferol [Vitamin D3 (25 50 mcg PO DAILY 06/22/23 07/04/23 History Mcg = 1000 Iu)] Cyclobenzaprine [Flexeril] 5 mg PO TID 06/22/23 07/04/23 History Empagliflozin [Jardiance] 10 mg PO DAILY 06/22/23 07/04/23 History Folic Acid 1 mg PO DAILY 06/22/23 07/04/23 History Losartan [Cozaar] 25 mg PO HS 06/22/23 07/04/23 History Metoclopramide [Reglan] 5 mg PO TID PRN 06/22/23 07/04/23 History Metoprolol Tartrate [Lopressor] 25 mg PO BID 06/22/23 07/04/23 History NIFEdipine XL [Procardia XL] 60 mg PO HS 06/22/23 07/04/23 History Omeprazole 20 mg PO DAILY 06/22/23 07/04/23 History Thiamine [Vitamin B-1] 100 mg PO DAILY 06/22/23 07/04/23 History traMADol-ACETAMINOP 37.5-325MG 1 tab PO TID PRN 06/22/23 07/04/23 History [Ultracet] Ertapenem [INVanz] 1 gm IVPB Q24H #42 each 06/27/23 07/04/23 Rx Gabapentin [Neurontin] 400 mg PO TID 30 Days #90 cap 06/27/23 07/04/23 Rx HYDROcodone/APAP 10-325MG [[place] 1 tab PO Q4HR PRN 3 Days #18 tab 06/27/23 07/04/23 Rx 10-325] Allergies Allergy/AdvReac Type Severity Reaction Status Date / Time No Known Allergies Allergy Verified 07/04/23 11:27 Physical Exam Vitals: Vital Signs Temp Pulse Resp BP Pulse Ox 07/11/23 04:00 58 L 18 118/58 95 07/11/23 00:00 60 18 163/72 97 07/10/23 20:00 97.9 F 53 L 18 171/79 96 07/10/23 15:36 98.3 F 54 L 18 163/69 95 07/10/23 12:00 98.3 F 54 L 18 160/72 93 L 07/10/23 08:55 98.1 F 58 L 19 140/65 92 L Intake and Output 07/10/23 07/11/23 07/11/23 22:59 06:59 14:59 Intake Total 120 540 Output Total 450 1250 Balance -330 -710 Intake: Oral 120 540 Output: Urine 450 1250 Other: Voiding Method Toilet Toilet Urinal Urinal Results 07/10/23 08:33 07/10/23 08:33 CBC 07/10/23 Range/Units 08:33 WBC 7.3 (3.8-10.6) k/uL RBC 3.44 L (4.30-5.90) m/uL Hgb 9.9 L (13.0-17.5) gm/dL Hct 31.4 L (39.0-53.0) % Plt Count 222 (150-450) k/uL Comprehensive Metabolic Panel 07/10/23 Range/Units 08:33 Sodium 141 (137-145) mmol/L Potassium 4.9 (3.5-5.1) mmol/L Chloride 108 H (98-107) mmol/L Carbon Dioxide 21 L (22-30) mmol/L BUN 23 H (9-20) mg/dL Creatinine 1.06 (0.66-1.25) mg/dL Glucose 158 H (74-99) mg/dL Calcium 8.5 (8.4-10.2) mg/dL Current Medications Generic Name Dose Route Start Last Admin Trade Name Freq PRN Reason Stop Dose Admin Hydrocodone Bitart/Acetaminophen 1 each 07/04/23 17:02 07/10/23 16:39 Hydrocodone/Apap 10-325mg 1 Each Tab PO 1 each Q4HR PRN Administration Severe Pain (Scale 7 to 10) Alprazolam 0.25 mg 07/07/23 12:57 07/08/23 12:20 Alprazolam 0.25 Mg Tab PO 0.25 mg BID PRN Administration Anxiety Aspirin 81 mg 07/05/23 09:00 07/10/23 09:02 Aspirin 81 Mg PO 81 mg DAILY ADRIAN Administration Atorvastatin Calcium 80 mg 07/05/23 09:00 07/10/23 09:02 Atorvastatin 80 Mg Tab PO 80 mg DAILY ADRIAN Administration Cholecalciferol 50 mcg 07/05/23 09:00 07/10/23 09:02 Cholecalciferol 25 Mcg (1000 Iu) Tablet PO 50 mcg DAILY ADRIAN Administration Cyclobenzaprine HCl 5 mg 07/04/23 22:00 07/10/23 21:00 Cyclobenzaprine 5 Mg Tab PO 5 mg TID ADRIAN Administration Enoxaparin Sodium 40 mg 07/08/23 09:00 07/10/23 09:03 Enoxaparin 40 Mg/0.4 Ml Syringe SQ 40 mg DAILY ADRIAN Administration Folic Acid 1 mg 07/05/23 09:00 07/10/23 09:02 Folic Acid 1 Mg Tab PO 1 mg DAILY ADRIAN Administration Gabapentin 400 mg 07/04/23 22:00 07/10/23 21:00 Gabapentin 400 Mg Cap PO 400 mg TID ADRIAN Administration Sodium Chloride 1,000 mls @ 75 mls/hr 07/04/23 12:45 07/11/23 04:53 Saline 0.9% IV 75 mls/hr .[id number] ADRIAN Administration Meropenem 1 gm/ Sodium 100 mls @ 33.3 mls/hr 07/04/23 21:00 07/11/23 04:52 Chloride IVPB 33.3 mls/hr Q8H ADRIAN Administration Protocol Insulin Aspart 6 unit 07/04/23 17:30 07/11/23 06:59 Insulin Aspart (Novolog) 100 Unit/Ml Vial SQ 6 unit AC-TID ADRIAN Administration Insulin Aspart 0 unit 07/04/23 17:30 07/11/23 06:57 Insulin Aspart (Novolog) 100 Unit/Ml Vial SQ Not Given AC-TID [facility] Protocol Insulin Detemir 39 unit 07/04/23 21:00 07/10/23 21:00 Insulin Detemir (Levemir) 100 Unit/Ml Syr SQ 39 unit HS ADRIAN Administration Metoclopramide HCl 5 mg 07/04/23 17:02 Metoclopramide 5 Mg Tab PO TID PRN Nausea Morphine Sulfate 4 mg 07/04/23 12:32 07/11/23 02:38 Morphine Sulfate 4 Mg/Ml Syringe IV 4 mg Q4HR PRN Administration Severe Pain (Scale 7 to 10) Naloxone HCl 0.2 mg 07/04/23 12:32 Naloxone 0.4 Mg/Ml 1 Ml Vial IV Q2M PRN Opioid Reversal Nifedipine 60 mg 07/04/23 21:00 07/10/23 21:00 Nifedipine Xl 60 Mg Tab.Er.24 PO 60 mg HS ADRIAN Administration Pantoprazole Sodium 40 mg 07/05/23 07:30 07/11/23 06:24 Pantoprazole 40 Mg Tablet PO 40 mg AC-BRKFST ADRIAN Administration Tamsulosin HCl 0.8 mg 07/05/23 09:00 07/10/23 09:02 Tamsulosin 0.4 Mg Cap.Er.24h PO 0.8 mg DAILY ADRIAN Administration Thiamine HCl 100 mg 07/05/23 09:00 07/10/23 09:02 Thiamine 100 Mg Tab PO 100 mg DAILY ADRIAN Administration Tramadol/Acetaminophen 1 each 07/04/23 17:02 07/05/23 12:41 Tramadol-Acetaminop 37.5-325mg 1 Each Tab PO 1 each TID PRN Administration Pain Intake and Output 07/10/23 07/11/23 07/11/23 22:59 06:59 14:59 Intake Total 120 540 Output Total 450 1250 Balance -330 -710 Intake: Oral 120 540 Output: Urine 450 1250 Other: Voiding Method Toilet Toilet Urinal Urinal 07/10/23 08:33 07/10/23 08:33
--- NOTE | 2023-07-11 14:42 | P.PN ---
Subjective Progress Note Date: 07/11/23 Mr. 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 Hospital course below: Started on Vancomycin and Cefepime along with Clindamycin. MRI foot ordered along with wound and blood cultures. ID consulted. Vascular surgery consulted. He underwent amputation of the L first toe. WCx growing K. pneumoniae, proteus vulgaris and enterococcus faecalis. Increased Gabapentin to 400 mg PO TID for better pain control. Obtained PICC line. Dr. Sheikh recommended 6 weeks of IV Invanz. Wound vac supplies set up and discharged home. Presents back to the ED on 07/04 for worsening erythema and pain of the L foot. Underwent extensive evaluation: CBC WBC 11.2, Hg 10.7. ESR 63. CRP 5.9. CMP Na 135, K 6.1 bicarb 19, BUN 64, Cr 1.62, glu 147, alk phos 127. EKG showed sinus bradycardia with HR in the 30s with peaked T waves. Mag 2.6. Lactic acid negative. Foot XR soft tissue edema with transmetatarsal amputation first digit L foot. Admitted for further management. Hyperkalemia was treated in the ED, patient was given atropine for bradycardia. Started on Vancomycin and Meropenem. ID and Vascular Sx consulted. CTA with runoff showed severe calcifications of the abdo margy aortal and runoff vessels with chronic bilateral hydronephrosis and hydroureter. 07/07 Urology recommends straight cath or ware but patient is reluctant. Antibiotics include Meropenem 1g IV TID and Vancomycin dosed per pharmacy. 07/08 Repeat CTA shows bilateral proximal popliteal obstruction with collateral flow, vascular calcification with at least moderate narrowing through the superficial femoral arteries. Vascular surgery scheduled patient for left lower extremity angiogram with possible intervention tomorrow. 07/[address] Ware, recommends bypass rather than endovascular approach. 07/10 He will need cardiac clearance. He denies any history of CAD or OR. Given his history of PAD, he likely has underlying CAD. Echo from 02/2020 shows EF 55- 60% with mild concentric LVH mod-severe TR, mod-severe pulm HTN. He denies exertional chest pain or shortness of breath. ASA class III. NSQIP scoring shows below average risk for serious complications, PNA, cardiac complications, VTE, readmissions, sepsis or discharge to SNF. Average risk for surgical site infection, return to OR, renal failure. 07/11 Patient was seen and examined. He reports feeling puffy with swelling in his arms and eyes. NS running at 75 cc/hr will be discontinued and he will be given Lasix 40 mg IV x 1. Cardiology consulted for cardiac clearance, patient will need Echo and Lexiscan on Friday prior to his procedure. General: non toxic, no distress, appears at stated age Derm: warm, dry Head: atraumatic, normocephalic, symmetric Eyes: EOMI, no lid lag, anicteric sclera Cardiovascular: S1S2 reg, no murmur Lungs: Clear to auscultation bilaterally , no accessory muscle use Ext: no gross muscle atrophy, no edema, L foot wrapped dressing c/d/i Neuro: no focal neuro deficits Psych: Alert, oriented, appropriate affect Based on my assessment of this patient, this patient meets a high complexity level of care. Patient has an acute diagnosis of OM and wet gangrene of the L foot that poses a threat to life or bodily function. L foot OM: Meropenem and Vancomycin as above. Discussed with Kim ARAUJO, plans for OR on Friday. Cardiology recommends Echo and Lexiscan on Friday for cardiac clearance. ID and Vascular Sx on board. Bilateral hydronephrosis and hydroureter: Continue Flomax 0.8 mg PO QD. Urology recommends straight cath or ware but patient refuses. Wants to follow up outpatient for management. Urology consulted. Prerenal azotemia with hyperCl metabolic acidosis: IV hydration as above. Hyperkalemia: Mildly elevated. Slight hemolysis. Continue to monitor. Diabetes mellitus: Levemir 39 units QHS. Novolog 6 units TID. ISS. Accuchecks ACHS. HTN: Nifedipine 60 mg PO QD. Resolved: Bradycardia, Hyperkalemia CODE STATUS: FULL CODE DVT Prophylaxis: Heparin SQ. GI Prophylaxis: Protonix PO. Designated medical POA if patient is not able to make medical decisions for themselves: I have reviewed the following nutrition consultant notes: ID, Cardiology, Vascular surgery note. I have reviewed the results of the following tests: I have ordered the following tests: CBC, BMP. I have discussed the care of this patient with the following independent historian: I have independently interpreted the following test below: I have discussed the management of this patient with the following physician: This patient has a high risk of morbidity due to the following reasons: Vancomycin requires monitoring for toxicity and renal monitoring. Objective - Vital Signs Vital signs: Vital Signs Temp 97.7 F 07/11/23 08:00 Pulse 73 07/11/23 08:00 Resp 18 07/11/23 08:00 BP 159/69 07/11/23 08:00 Pulse Ox 95 07/11/23 08:00 FiO2 Intake & Output 07/10/23 07/11/23 07/11/23 18:59 06:59 18:59 Intake Total 480 540 240 Output Total 450 1250 800 Balance 30 -710 -560 Intake: Oral 480 540 240 Output: Urine 450 1250 800 Other: Voiding Method Toilet Toilet Toilet Urinal Urinal Urinal # Voids 0 - Labs CBC & Chem 7: 07/10/23 08:33 07/10/23 08:33 Labs: Abnormal Lab Results - Last 24 Hours (Table) 07/10/23 07/10/23 07/11/23 Range/Units 16:37 20:15 11:57 POC Glucose (mg/dL) 122 H 116 H 125 H (70-110) mg/dL
[2023-07-11 17:00] LABS: Glucose,Whole Blood 101 mg/dL (70-110)
--- NOTE | 2023-07-11 17:15 | CA ---
Transthoracic Echo Report Name: Jones Ferraro Age: 68 Gender: M : 1955 Exam Date: 07/11/2023 11:40 Exam Location: [facility] Ht (in): 75 Wt (lb): 230 Ordering Physician: Tati Hollis Attending/Referring Phys: [id number], Bunny Patient Registration Representative Jeronimo Coughlin Procedure CPT: Indications: LV function Cardiac Hx: Technical Quality: Technically difficult study Contrast 1: Total Dose (mL): Contrast 2: Total Dose (mL): MEASUREMENTS (Male / Female) Normal Values 2D ECHO LV Diastolic Diameter PLAX 6.1 cm 4.2 - 5.9 / 3.9 - 5.3 cm LV Systolic Diameter PLAX 4.0 cm IVS Diastolic Thickness 1.0 cm 0.6 - 1.0 / 0.6 - 0.9 cm LVPW Diastolic Thickness 1.3 cm 0.6 - 1.0 / 0.6 - 0.9 cm LV Relative Wall Thickness 0.4 RV Internal Dim ED PLAX 3.9 cm LVOT Diameter 2.1 cm Aortic Root Diameter 3.4 cm LA Systolic Diameter LX 2.5 cm 3.0 - 4.0 / 2.7 - 3.8 cm LV Diastolic Volume MOD BP 86.6 cm??? 67 - 155 / 56 - 104 cm??? LV Systolic Volume MOD BP 49.7 cm??? 22 - 58 / 19 - 49 cm??? LV Ejection Fraction MOD BP 42.5 % >= 55 % LV Cardiac Index MOD BP 1119.9 cm???/min???m??? LV Diastolic Volume MOD 4C 80.3 cm??? LV Systolic Volume MOD 4C 48.2 cm??? LV Ejection Fraction MOD 4C 39.9 % LV Cardiac Index MOD 4C 974.2 cm???/min???m??? LV Diastolic Length 4C 7.6 cm LV Systolic Length 4C 7.1 cm LV Diastolic Volume MOD 2C 87.9 cm??? LV Systolic Volume MOD 2C 48.0 cm??? LV Ejection Fraction MOD 2C 45.4 % LV Cardiac Index MOD 2C 1213.4 cm???/min???m??? LV Diastolic Length 2C 7.1 cm LV Systolic Length 2C 6.6 cm LA Volume 59.1 cm??? 18 - 58 / 22 - 52 cm??? LA Volume Index 25.0 cm???/m??? 16 - 28 cm???/m??? Ascending Aorta Diameter 3.2 cm DOPPLER LVOT Peak Velocity 112.4 cm/s LVOT Peak Gradient 5.1 mmHg LVOT Velocity Time Integral 24.4 cm LVOT Stroke Volume 85.6 cm??? LVOT Stroke Volume Index 36.8 ml/m??? LVOT Cardiac Index 2605.1 cm???/min???m??? MV Peak Velocity 185.1 cm/s MV Peak Gradient 13.7 mmHg MV Mean Velocity 80.0 cm/s MV Mean Gradient 3.6 mmHg MV Velocity Time Integral 56.5 cm MR Peak Velocity 313.0 cm/s MR Peak Gradient 39.2 mmHg Mitral E Point Velocity 133.5 cm/s Mitral A Point Velocity 106.4 cm/s Mitral E to A Ratio 1.3 MV Deceleration Time 356.2 ms TR Peak Velocity 363.6 cm/s TR Peak Gradient 52.9 mmHg Right Ventricular Systolic Press 57.9 mmHg PV Peak Velocity 131.4 cm/s PV Peak Gradient 6.9 mmHg FINDINGS Left Ventricle No obvious regional wall motion abnormalities. Normal LV size and wall thickness. Left ventricular ejection fraction is estimated at 55-60 %. Right Ventricle Normal right ventricular size. RVSP= 58mmHg. Right Atrium Normal right atrial size. Left Atrium Mildly increased left atrial volume. LA volume index= 25ml/m2 Mitral Valve Structurally normal mitral valve. Mild MR. Aortic Valve Trileaflet aortic valve. Mild AV calcification. No aortic valve stenosis or regurgitation. Tricuspid Valve Structurally normal tricuspid valve. Mild to moderate TR. Pulmonic Valve Pulmonic valve not well visualized. Mild PI. Pericardium Not well visualized otherwise normal pericardium. Aorta Normal size aortic root and proximal ascending aorta. CONCLUSIONS Left ventricular ejection fraction is estimated at 55-60 %. No obvious regional wall motion abnormalities. Severe pulmonary hypertension, RVSP estimated at 58 mmHg Mild MR, moderate TR Calcific aortic valve with no stenosis Previewed by: Dr Anish Marina (Electronically Signed) Final Date: 11 July 2023 17:14
[2023-07-11 20:19] LABS: Glucose,Whole Blood 167 mg/dL (70-110)
[2023-07-11] MEDS: INSULIN DETEMIR (LEVEMIR) 100 UNIT/ML SYR SQ SCH (20:19)
[2023-07-12] MEDS: MORPHINE SULFATE 4 MG/ML SYRINGE IV PRN ×3 (03:25→20:50)
[2023-07-12] MEDS: MEROPENEM 1 GM in SODIUM CHLORIDE 0.9% 100 ML IVPB SCH ×3 (04:32→20:48)
[2023-07-12 06:59] LABS: Glucose,Whole Blood 82 mg/dL (70-110)
[2023-07-12] MEDS: INSULIN ASPART (NovoLOG) 100 UNIT/ML VIAL SQ SCH ×7 (06:59→16:32)
[2023-07-12] MEDS: PANTOPRAZOLE 40 MG TABLET PO SCH (07:02)
[2023-07-12 08:45] LABS: African American GFR (CKD) 73 (>60 ml/min/1.73 sqM); Anion Gap 7 mmol/L; Blood Urea Nitrogen 23 mg/dL (9-20); Calcium 8.4 mg/dL (8.4-10.2); Carbon Dioxide 27 mmol/L (22-30); Chloride 105 mmol/L (98-107); Glucose 72 mg/dL (74-99); Non-African American GFR(CKD) 63 (>60 ml/min/1.73 sqM); Sodium 139 mmol/L (137-145)
[2023-07-12] MEDS: HYDROcodone/APAP 10-325MG 1 EACH TAB PO PRN (09:23)
[2023-07-12] MEDS: CHOLECALCIFEROL 25 MCG (1000 IU) TABLET PO SCH (09:24)
[2023-07-12] MEDS: TAMSULOSIN 0.4 MG CAP.ER.24H PO SCH (09:24)
[2023-07-12] MEDS: ENOXAPARIN 40 MG/0.4 ML SYRINGE SQ SCH (09:24)
[2023-07-12] MEDS: ASPIRIN 81 MG PO SCH (09:24)
[2023-07-12] MEDS: ATORVASTATIN 80 MG TAB PO SCH (09:24)
[2023-07-12] MEDS: CYCLOBENZAPRINE 5 MG TAB PO SCH ×3 (09:25→20:48)
[2023-07-12] MEDS: THIAMINE 100 MG TAB PO SCH (09:25)
[2023-07-12] MEDS: GABAPENTIN 400 MG CAP PO SCH ×3 (09:25→20:48)
[2023-07-12] MEDS: FOLIC ACID 1 MG TAB PO SCH (09:25)
[2023-07-12 10:58] LABS: Basophils % (A) 1 %; Eosinophils # (A) 0.2 k/uL (0-0.7); Eosinophils % (A) 3 %; HCT 31.2 % (39.0-53.0); HGB 9.7 gm/dL (13.0-17.5); Hypochromasia Moderate; Lymphocytes # (A) 1.1 k/uL (1.0-4.8); Lymphocytes % (A) 16 %; MCH 27.8 pg (25.0-35.0); MCHC 31.3 g/dL (31.0-37.0); MCV 88.9 fL (80.0-100.0); Mean Platelet Volume 8.2; Monocytes # (A) 0.6 k/uL (0-1.0); Monocytes % (A) 8 %; Neutrophils # (A) 4.8 k/uL (1.3-7.7); Neutrophils % (A) 71 %; Platelet Count 244 k/uL (150-450); RDW 14.3 % (11.5-15.5); WBC 6.7 k/uL (3.8-10.6)
[2023-07-12 11:39] LABS: Glucose,Whole Blood 163 mg/dL (70-110)
--- NOTE | 2023-07-12 13:16 | P.PN ---
Subjective Progress Note Date: 07/12/23 HISTORY OF PRESENT ILLNESS: This is a 68-year-old male with a past medical history significant for diabetes, hyperlipidemia, and hypertension. Patient does not follow with a credit and collections analyst. We have been asked to see the patient in consultation for cardiac clearance. Patient underwent aortogram with runoffs via left radial artery access. Due to occlusion across the left joint as well as one-vessel runoff he will require a left lower extremity fem-pop bypass vascular surgery. This has been scheduled for 07/14/2023. * EKG reveals sinus bradycardia with no signs of acute ischemia * Laboratory data: WBC 7.3. Hemoglobin 9.9. Platelet count 222. Sodium 141. Potassium 4.9. BUN 23. Creatinine 1.06. * Current home cardiac medications include nifedipine 60 mg at night, metoprolol titrate 25 mg twice a day, losartan 25 mg at night, Lipitor 80 mg daily, and aspirin 81 mg daily * Most recent echocardiogram obtained in February 2020 revealed ejection fraction 55-60%, moderate to severe TR, moderate to severe pulmonary hypertension 07/12/2023 He is doing well with no new complaints. No chest pain or shortness of breath. Echocardiogram 07/11/23 with EF 5560%, severe pulmonary hypertension, RVSP 58, mild mitral regurgitation, moderate tricuspid regurgitation. PHYSICAL EXAM: VITAL SIGNS: Reviewed. GENERAL: Well-developed in no acute distress. HEENT: Head is normocephalic. Pupils are equal, round. Sclerae anicteric. Mucous membranes of the mouth are moist. Neck supple. No JVD or thyromegaly LUNGS: Respirations even and unlabored. Lungs essentially clear to auscultation bilaterally. HEART: Regular rate and rhythm. S1 and S2 heard. ABDOMEN: Soft. Nondistended. Nontender. EXTREMITIES: Normal range of motion. No clubbing or cyanosis. Peripheral pulses intact. Wound with dressing intact to left lower extremity NEUROLOGIC: Awake and alert. Oriented x 3. 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 Patient scheduled for left lower extremity femoral-popliteal bypass on 07/14/2023 with vascular services. However patient is not cleared at this time from a cardiac perspective pending stress test results. Further recommendations pending patient's course. Nurse practitioner note has been reviewed by physician. Signing provider agrees with the documented findings, assessment, and plan of care. Objective - Vital Signs Vital signs: Vital Signs Temp 97.7 F 07/12/23 03:31 Pulse 53 L 07/12/23 12:00 Resp 16 07/12/23 12:00 BP 156/70 07/12/23 12:00 Pulse Ox 94 L 07/12/23 12:00 FiO2 Intake & Output 07/11/23 07/12/23 07/12/23 18:59 06:59 18:59 Intake Total 480 120 Output Total 1250 650 300 Balance -770 -650 -180 Intake: Intake, IV Titration 120 Amount Meropenem 1 gm In Sodium 120 Chloride 0.9% 100 ml @ 33 .3 mls/hr IVPB Q8H ADRIAN Rx #:[id number] Oral 480 0 Output: Urine 1250 650 300 Other: Voiding Method Toilet Toilet Toilet Urinal Urinal Urinal - Labs CBC & Chem 7: 07/12/23 06:55 07/12/23 06:55 Labs: Abnormal Lab Results - Last 24 Hours (Table) 07/11/23 07/12/23 07/12/23 Range/Units 20:18 06:55 06:55 RBC 3.50 L (4.30-5.90) m/uL Hgb 9.7 L (13.0-17.5) gm/dL Hct 31.2 L (39.0-53.0) % BUN 23 H (9-20) mg/dL Glucose 72 L (74-99) mg/dL POC Glucose (mg/dL) 167 H (70-110) mg/dL 07/12/23 Range/Units 11:37 RBC (4.30-5.90) m/uL Hgb (13.0-17.5) gm/dL Hct (39.0-53.0) % BUN (9-20) mg/dL Glucose (74-99) mg/dL POC Glucose (mg/dL) 163 H (70-110) mg/dL
[2023-07-12] MEDS ORDERED: ACETAMINOPHEN TAB 325 MG TAB PO PRN (14:02)
--- NOTE | 2023-07-12 14:38 | P.PN ---
Subjective Progress Note Date: 07/12/23 Hospital course: Patient is a very pleasant 68-year-old male with a past medical history of spinal infection status post intervention on preventative Keflex daily, hypertension, insulin-dependent diabetes mellitus, and BPH. Patient initially hospitalized from 06/22-06/27 for OM and wet gangrene of the L toe and underwent amputation of the L first toe with wound cultures growing K. pneumoniae, proteus vulgaris and enterococcus faecalis resulting in discharge home on 6 weeks of IV Invanz and wound vac Patient return to the emergency department on 07/04/23 se[place] ndary to reports of worsening erythema and pain in his left foot. Upon arrival to our facility patient underwent extensive evaluation. He was found to be bradycardic with heart rate of 36. EKG completed showing sinus bradycardia at 35 bpm. X-ray left foot showing diffuse soft tissue edema consistent with cellulitis and status post transmetatarsal amputation of first digit with bone appearing to extend outside the margin of the soft tissues. Labs were completed and reviewed showing leukocytosis with WBC count of 11.2, normocytic anemia with hemoglobin of 10.7, hyperkalemia with potassium of 6.1, and acute kidney injury with BUN of 64, creatinine 1.62, and GFR 44 with baseline creatinine of 1.1. Magnesium was also elevated at 2.6 and alkaline phosphatase elevated at 127. Troponin was negative at less than 0.012. CRP 5.9 and ESR was 63. Patient admitted under our services of consultation to infectious disease and vascular surgery. CTA with runoff revealed diffuse arteriosclerotic calcification of the abdominal aorta, pelvic arteries and runoff vessels with multiple significant stenosis suspected in the superficial femoral arteries and evaluation of runoff was indeterminate given lack of IV contrast, also revealing chronic bilateral hydronephrosis and hydroureter. Bilateral lower extremity CTA then repeated on 07/06/23 showing that it appears to be bilateral proximal popliteal obstruction with collateral flow reconstituting the distal popliteal artery and trifurcation vessels, trifurcation vessels appear to extend to the level of the ankle bilaterally and vascular calcification throughout the lower extremity arterial system is noted to have additional areas of at least moderate narrowing through the superficial femoral arteries. On 07/09/23 patient underwent ultrasound- guided left radial artery access aortogram with runoffs in which patient was found to have occlusion across the joint as well as 1 vessel runoff with vascular surgery recommending a patient would be best served by proper bypass rather than endovascular approach. Echocardiogram was completed showing preserved EF of 55-60% with severe pulmonary hypertension. Patient tentatively scheduled for OR for left lower extremity fem-pop bypass on Friday07/14/23. Cardiology recommending patient undergo Lexiscan stress test on the morning of 07/14/23 for preop clearance. Physical exam: Patient seen and fully evaluated at bedside this morning. He currently denies having any needs or complaints. Patient updated on plan for a cardiac stress test and tentative scheduling of fem-pop bypass on 07/14/23. Vital signs reviewed and stable. General: Nontoxic, no distress and appears stated age. Derm: Skin warm and dry, normal coloration for ethnicity. Head: Atraumatic, normocephalic and symmetric. Eyes: EOMs intact, no lid lag, and anicteric sclera Mouth: no lip lesions, mucus membranes moist Cardiovascular: regular rate and rhythm with normal S1S2, soft murmur, positive posterior tibial pulses bilaterally, and cap refill < 2 seconds. Lungs: Respirations even, regular, and unlabored on room air. Lungs diminished otherwise no rhonchi, no rales, no wheezing, and no accessory muscle usage. Abdominal: soft, nontender to palpation, no guarding, no appreciable organomegaly Ext: No gross muscle atrophy, no edema. Movement and sensation intact. Dressing left lower extremity clean dry and intact. Neuro: Speech clear, face symmetrical and CN II-XII grossly intact with no noted focal neuro deficits Psych: Alert and oriented to person, place, time, and situation. Appropriate and pleasant affect. 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 -Cardiology following and recommended Lexiscan stress test on Friday for cardiac clearance. -Infectious disease following, discussed plan of care with Dr. Sheikh. -Vascular surgery following, Patient tentatively scheduled for OR for left lower extremity fem-pop bypass on Friday07/14/23. -Obtain hemoglobin A1c. Decreased nightly Levemir from 39 units down to 35 units and patient to otherwise continue NovoLog 6 units 3 times daily along with sliding scale. Recurrent Episodes of hypoglycemia have only been noted to occur during morning lab draws. -Symptomatic care and pain management. Tylenol for mild pain, tramadol for moderate pain, and morphine for severe pain. Chronic bilateral hydronephrosis and hydroureter BPH -Continue Flomax 0.8 mg daily. -Urology consulted and stating chronic urinary retention and bilateral hydronephrosis is likely secondary to significant bladder distention resulting from patient's chronic urinary retention. Urology recommending recommending bladder decompression with insertion of Krueger catheter however patient refusing at this time and urology informed patient of risks of further retention result ing in risk of renal failure. Hypertension Continue nifedipine 60 mg daily Hyperlipidemia Continue atorvastatin 80 mg daily. Hyperkalemia, resolved. Potassium currently 5.0. -Potassium initially 6.1 with recurrent draws of 5.3 and 5.3, reported to be slightly hemolysis. Continue to monitor closely. Losartan discontinued. Bradycardia Patient initially on metoprolol 25 mg twice daily. Heart rate bradycardic in low 30s upon arrival to our facility. Metoprolol discontinued. CODE STATUS: Full code DVT prophylaxis: Lovenox Anticipated discharge date: Clinical course to determine Anticipated discharge place: Clinical course to determine Patient was seen independently by Nurse Pracitioner. This document was prepared using [employer] dictation software. Please allow for errors in entertainment production professional, while rare they do occur. Marty Joyce NP rendered care for this patient independently, reviewed the findings and plan as documented in the note above. I did not physically speak with or examine the patient on this date. Objective - Vital Signs Vital signs: Vital Signs Temp 97.7 F 07/12/23 03:31 Pulse 76 07/12/23 03:31 Resp 17 07/12/23 03:31 BP 169/74 07/12/23 03:31 Pulse Ox 91 L 07/12/23 03:31 FiO2 Intake & Output 07/11/23 07/12/23 07/12/23 18:59 06:59 18:59 Intake Total 480 Output Total 1250 650 Balance -770 -650 Intake: Oral 480 Output: Urine 1250 650 Other: Voiding Method Toilet Toilet Urinal Urinal - Labs CBC & Chem 7: 07/15/23 05:49 07/15/23 05:49 Labs: Abnormal Lab Results - Last 24 Hours (Table) 07/11/23 07/11/23 07/12/23 Range/Units 11:57 20:18 06:55 BUN 23 H (9-20) mg/dL Glucose 72 L (74-99) mg/dL POC Glucose (mg/dL) 125 H 167 H (70-110) mg/dL
[2023-07-12 16:10] LABS: Glucose,Whole Blood 83 mg/dL (70-110)
[2023-07-12 20:34] LABS: Glucose,Whole Blood 111 mg/dL (70-110)
[2023-07-12] MEDS: INSULIN DETEMIR (LEVEMIR) 100 UNIT/ML SYR SQ SCH (20:48)
[2023-07-13] MEDS: MORPHINE SULFATE 4 MG/ML SYRINGE IV PRN ×2 (03:51→08:59)
[2023-07-13] MEDS: MEROPENEM 1 GM in SODIUM CHLORIDE 0.9% 100 ML IVPB SCH ×3 (03:51→20:47)
[2023-07-13 08:27] LABS: HCT 31.1 % (39.0-53.0); HGB 9.8 gm/dL (13.0-17.5); Hypochromasia Moderate; MCHC 31.5 g/dL (31.0-37.0); Mean Platelet Volume 7.6; Platelet Count 249 k/uL (150-450); RDW 14.3 % (11.5-15.5); WBC 7.1 k/uL (3.8-10.6)
[2023-07-13 08:42] LABS: ALT 15 U/L (4-49); AST 17 U/L (17-59); African American GFR (CKD) 82 (>60 ml/min/1.73 sqM); Alkaline Phosphatase 113 U/L (38-126); Anion Gap 7 mmol/L; Blood Urea Nitrogen 22 mg/dL (9-20); Calcium 8.5 mg/dL (8.4-10.2); Carbon Dioxide 28 mmol/L (22-30); Chloride 105 mmol/L (98-107); Glucose 96 mg/dL (74-99); Magnesium 1.9 mg/dL (1.6-2.3); Non-African American GFR(CKD) 71 (>60 ml/min/1.73 sqM); Potassium 4.8 mmol/L (3.5-5.1); Sodium 140 mmol/L (137-145); Total Bilirubin 0.3 mg/dL (0.2-1.3); Total Protein 5.5 g/dL (6.3-8.2)
[2023-07-13] MEDS: INSULIN ASPART (NovoLOG) 100 UNIT/ML VIAL SQ SCH ×6 (08:47→16:52)
[2023-07-13] MEDS: ENOXAPARIN 40 MG/0.4 ML SYRINGE SQ SCH (08:55)
[2023-07-13] MEDS: FOLIC ACID 1 MG TAB PO SCH (08:56)
[2023-07-13] MEDS: THIAMINE 100 MG TAB PO SCH (08:56)
[2023-07-13] MEDS: CHOLECALCIFEROL 25 MCG (1000 IU) TABLET PO SCH (08:56)
[2023-07-13] MEDS: TAMSULOSIN 0.4 MG CAP.ER.24H PO SCH (08:56)
[2023-07-13] MEDS: ATORVASTATIN 80 MG TAB PO SCH (08:56)
[2023-07-13] MEDS: GABAPENTIN 400 MG CAP PO SCH ×3 (08:56→20:46)
[2023-07-13] MEDS: ASPIRIN 81 MG PO SCH (08:56)
[2023-07-13] MEDS: PANTOPRAZOLE 40 MG TABLET PO SCH (08:57)
[2023-07-13] MEDS: CYCLOBENZAPRINE 5 MG TAB PO SCH ×3 (08:57→20:46)
[2023-07-13 11:41] LABS: Glucose,Whole Blood 86 mg/dL (70-110)
--- NOTE | 2023-07-13 12:20 | P.PN ---
Subjective Progress Note Date: 07/13/23 HISTORY OF PRESENT ILLNESS: This is a 68-year-old male with a past medical history significant for diabetes, hyperlipidemia, and hypertension. Patient does not follow with a specialty development consultant. We have been asked to see the patient in consultation for cardiac clearance. Patient underwent aortogram with runoffs via left radial artery access. Due to occlusion across the left joint as well as one-vessel runoff he will require a left lower extremity fem-pop bypass vascular surgery. This has been scheduled for 07/14/2023. * EKG reveals sinus bradycardia with no signs of acute ischemia * Laboratory data: WBC 7.3. Hemoglobin 9.9. Platelet count 222. Sodium 141. Potassium 4.9. BUN 23. Creatinine 1.06. * Current home cardiac medications include nifedipine 60 mg at night, metoprolol titrate 25 mg twice a day, losartan 25 mg at night, Lipitor 80 mg daily, and aspirin 81 mg daily * Most recent echocardiogram obtained in February 2020 revealed ejection fraction 55-60%, moderate to severe TR, moderate to severe pulmonary hypertension 07/12/2023 He is doing well with no new complaints. No chest pain or shortness of breath. Echocardiogram 07/11/23 with EF 5560%, severe pulmonary hypertension, RVSP 58, mild mitral regurgitation, moderate tricuspid regurgitation. 07/13 Blood pressure readings have been elevatedup to 177/77, this morning 139/84. Patient denies having any chest pain no shortness of breath, no dizziness. He states his foot is unchanged. Patient scheduled for Lexiscan stress test tomorrow. PHYSICAL EXAM: VITAL SIGNS: Reviewed. GENERAL: Well-developed in no acute distress. HEENT: Head is normocephalic. Pupils are equal, round. Sclerae anicteric. Mucous membranes of the mouth are moist. Neck supple. No JVD or thyromegaly LUNGS: Respirations even and unlabored. Lungs essentially clear to auscultation bilaterally. HEART: Regular rate and rhythm. S1 and S2 heard. ABDOMEN: Soft. Nondistended. Nontender. EXTREMITIES: Normal range of motion. No clubbing or cyanosis. Peripheral pulses intact. Wound with dressing intact to left lower extremity NEUROLOGIC: Awake and alert. Oriented x 3. 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 Patient scheduled for left lower extremity femoral-popliteal bypass on 07/14/2023 with vascular services. However patient is not cleared at this time from a cardiac perspective pending stress test results. Further recommendations pending patient's course. Nurse practitioner note has been reviewed by physician. Signing provider agrees with the documented findings, assessment, and plan of care. Objective - Vital Signs Vital signs: Vital Signs Temp 97.7 F 07/12/23 20:00 Pulse 73 07/13/23 04:00 Resp 16 07/13/23 04:00 BP 177/77 07/13/23 04:00 Pulse Ox 90 L 07/13/23 04:00 FiO2 Intake & Output 07/12/23 07/13/23 07/13/23 18:59 06:59 18:59 Intake Total 360 540 118 Output Total 1000 1450 300 Balance -306 -910 -182 Intake: Intake, IV Titration 120 Amount Meropenem 1 gm In Sodium 120 Chloride 0.9% 100 ml @ 33 .3 mls/hr IVPB Q8H [facility] Rx #:[id number] Oral 240 540 118 Output: Urine 1000 1450 300 Other: Voiding Method Toilet Toilet Urinal Urinal - Labs CBC & Chem 7: 07/13/23 07:49 07/13/23 07:49 Labs: Abnormal Lab Results - Last 24 Hours (Table) 07/12/23 07/12/23 07/12/23 Range/Units 06:55 11:37 20:33 RBC 3.50 L (4.30-5.90) m/uL Hgb 9.7 L (13.0-17.5) gm/dL Hct 31.2 L (39.0-53.0) % BUN (9-20) mg/dL POC Glucose (mg/dL) 163 H 111 H (70-110) mg/dL Total Protein (6.3-8.2) g/dL Albumin (3.5-5.0) g/dL 07/13/23 07/13/23 Range/Units 07:49 07:49 RBC 3.50 L (4.30-5.90) m/uL Hgb 9.8 L (13.0-17.5) gm/dL Hct 31.1 L (39.0-53.0) % BUN 22 H (9-20) mg/dL POC Glucose (mg/dL) (70-110) mg/dL Total Protein 5.5 L (6.3-8.2) g/dL Albumin 3.0 L (3.5-5.0) g/dL
[2023-07-13] MEDS: HYDROcodone/APAP 10-325MG 1 EACH TAB PO PRN ×3 (12:27→20:46)
--- NOTE | 2023-07-13 14:37 | P.PN ---
Subjective Progress Note Date: 07/13/23 Hospital course: Patient is a very pleasant 68-year-old male with a past medical history of spinal infection status post intervention on preventative Keflex daily, hypertension, insulin-dependent diabetes mellitus, and BPH. Patient initially hospitalized from 06/22-06/27 for OM and wet gangrene of the L toe and underwent amputation of the L first toe with wound cultures growing K. pneumoniae, proteus vulgaris and enterococcus faecalis resulting in discharge home on 6 weeks of IV Invanz and wound vac Patient return to the emergency department on 07/04/23 seco ndary to reports of worsening erythema and pain in his left foot. Upon arrival to our facility patient underwent extensive evaluation. He was found to be bradycardic with heart rate of 36. EKG completed showing sinus bradycardia at 35 bpm. X-ray left foot showing diffuse soft tissue edema consistent with cellulitis and status post transmetatarsal amputation of first digit with bone appearing to extend outside the margin of the soft tissues. Labs were completed and reviewed showing leukocytosis with WBC count of 11.2, normocytic anemia with hemoglobin of 10.7, hyperkalemia with potassium of 6.1, and acute kidney injury with BUN of 64, creatinine 1.62, and GFR 44 with baseline creatinine of 1.1. Magnesium was also elevated at 2.6 and alkaline phosphatase elevated at 127. Troponin was negative at less than 0.012. CRP 5.9 and ESR was 63. Patient admitted under our services of consultation to infectious disease and vascular surgery. CTA with runoff revealed diffuse arteriosclerotic calcification of the abdominal aorta, pelvic arteries and runoff vessels with multiple significant stenosis suspected in the superficial femoral arteries and evaluation of runoff was indeterminate given lack of IV contrast, also revealing chronic bilateral hydronephrosis and hydroureter. Bilateral lower extremity CTA then repeated on 07/06/23 showing that it appears to be bilateral proximal popliteal obstruction with collateral flow reconstituting the distal popliteal artery and trifurcation vessels, trifurcation vessels appear to extend to the level of the ankle bilaterally and vascular calcification throughout the lower extremity arterial system is noted to have additional areas of at least moderate narrowing through the superficial femoral arteries. On 07/09/23 patient underwent ultrasound- guided left radial artery access aortogram with runoffs in which patient was found to have occlusion across the joint as well as 1 vessel runoff with vascular surgery recommending a patient would be best served by proper bypass rather than endovascular approach. Echocardiogram was completed showing preserved EF of 55-60% with severe pulmonary hypertension. Patient tentatively scheduled for OR for left lower extremity fem-pop bypass on Friday07/14/23. Cardiology recommending patient undergo Lexiscan stress test on the morning of 07/14/23 for preop clearance. Physical exam: Patient seen and fully evaluated at bedside this morning. He currently denies having any needs or complaints, he is resting comfortably at this time. Reports intermittent pain to left lower leg controlled by current medication regimen. Patient does report feeling mildly anxious over stress test tomorrow.. Plan remains for cardiac stress test and scheduling of fem-pop bypass on 07/14/23. Vital signs reviewed and stable. General: Nontoxic, no distress and appears stated age. Derm: Skin warm and dry, normal coloration for ethnicity. Head: Atraumatic, normocephalic and symmetric. Eyes: EOMs intact, no lid lag, and anicteric sclera Mouth: no lip lesions, mucus membranes moist Cardiovascular: regular rate and rhythm with normal S1S2, soft murmur, positive posterior tibial pulses bilaterally, and cap refill < 2 seconds. Lungs: Respirations even, regular, and unlabored on room air. Lungs diminished otherwise no rhonchi, no rales, no wheezing, and no accessory muscle usage. Abdominal: soft, nontender to palpation, no guarding, no appreciable organomegaly Ext: No gross muscle atrophy, no edema. Movement and sensation intact. Dressing left lower extremity clean dry and intact. Neuro: Speech clear, face symmetrical and CN II-XII grossly intact with no noted focal neuro deficits Psych: Alert and oriented to person, place, time, and situation. Appropriate and pleasant affect. 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 -Cardiology following and discussed plan of care with Dr. Radford, patient is scheduled for Lexiscan stress test tomorrow for cardiac clearance. -Infectious disease following, discussed plan of care with Dr. Sheikh. -Vascular surgery following, Patient tentatively scheduled for OR for left lower extremity fem-pop bypass on Friday07/14/23. -Hemoglobin A1c 7%. -Patient has had no further episodes of hypoglycemia since decreasing Levemir down to 35 units nightly. -Continue Levemir 35 units nightly, NovoLog 6 units 3 times daily and novolog sliding scale 3 times daily with meals.. -Symptomatic care and pain management. Tylenol for mild pain, tramadol for moderate pain, and morphine for severe pain. Chronic bilateral hydronephrosis and hydroureter BPH -Continue Flomax 0.8 mg daily. -Urology evaluated and reviewed documentation in chart, urology stating chronic urinary retention and bilateral hydronephrosis is likely secondary to significant bladder distention resulting from patient's chronic urinary retention. Urology recommending recommending bladder decompression with insertion of Krueger catheter however patient refusing at this time and urology i nformed patient of risks of further retention resulting in risk of renal failure. Hypertension Continue nifedipine 60 mg daily Hyperlipidemia Continue atorvastatin 80 mg daily. Hyperkalemia, resolved. Potassium currently 5.0. -Potassium initially 6.1 with recurrent draws of 5.3 and 5.3, reported to be slightly hemolysis. Continue to monitor closely. Losartan discontinued. Bradycardia Patient initially on metoprolol 25 mg twice daily. Heart rate bradycardic in low 30s upon arrival to our facility. Metoprolol discontinued. Cardiology following. Patient is scheduled for cardiac Lexiscan stress test tomorrow. Data reviewed: Vital signs reviewed. Blood pressure 139/84, heart rate 41, respiratory rate 16, and SpO2 of 97% on 3 L. Labs completed and reviewed. CBC showing normocytic anemia with hemoglobin stable at 9.8. BMP revealing mild prerenal azotemia with BUN of 22 and otherwise unremarkable. Blood glucose 96 this morning. Patient has had no further episodes of hypoglycemia since decreasing Levemir to 35 units nightly. Hemoglobin A1c resulting at 7%. Magnesium normal findings at 1.9 and liver profile remains unremarkable. CODE STATUS: Full code DVT prophylaxis: Lovenox Anticipated discharge date: Clinical course to determine Anticipated discharge place: Clinical course to determine Patient was seen independently by Nurse Pracitioner. This document was prepared using [facility] dictation software. Please allow for errors in retail merchandiser technician, while rare they do occur. Marty Joyce NP rendered care for this patient independently, reviewed the findings and plan as documented in the note above. I did not physically speak with or examine the patient on this date. Objective - Vital Signs Vital signs: Vital Signs Temp 97.7 F 07/12/23 20:00 Pulse 73 07/13/23 04:00 Resp 16 07/13/23 04:00 BP 177/77 07/13/23 04:00 Pulse Ox 90 L 07/13/23 04:00 FiO2 Intake & Output 07/12/23 07/13/23 07/13/23 18:59 06:59 18:59 Intake Total 360 540 Output Total 1000 1450 Balance -640 -910 Intake: Intake, IV Titration 120 Amount Meropenem 1 gm In Sodium 120 Chloride 0.9% 100 ml @ 33 .3 mls/hr IVPB Q8H [facility] Rx #:[id number] Oral 240 540 Output: Urine 1000 1450 Other: Voiding Method Toilet Toilet Urinal Urinal - Labs CBC & Chem 7: 07/15/23 05:49 07/15/23 05:49 Labs: Abnormal Lab Results - Last 24 Hours (Table) 07/12/23 07/12/23 07/12/23 Range/Units 06:55 06:55 11:37 RBC 3.50 L (4.30-5.90) m/uL Hgb 9.7 L (13.0-17.5) gm/dL Hct 31.2 L (39.0-53.0) % BUN 23 H (9-20) mg/dL Glucose 72 L (74-99) mg/dL POC Glucose (mg/dL) 163 H (70-110) mg/dL 07/12/23 Range/Units 20:33 RBC (4.30-5.90) m/uL Hgb (13.0-17.5) gm/dL Hct (39.0-53.0) % BUN (9-20) mg/dL Glucose (74-99) mg/dL POC Glucose (mg/dL) 111 H (70-110) mg/dL
--- NOTE | 2023-07-13 16:12 | P.PN ---
Subjective Progress Note Date: 07/12/23 Principal diagnosis: Reason for follow up is diabetic foot wound and osteomyelitis Patient is a 68-year-old male with a past medical history significant for diabetes mellitus hypertension hyperlipidemia who was recently admitted to this facility with left big toe gangrene and diabetic foot infection in this patient who is status post left big toe amputation patient did have a culture positive for ESBL Klebsiella in addition to Proteus and Enterococcus faecalis Enterococcus and the patient was discharged on Invanz subsequently readmitted from the wound care center concerning for worsening wound and some necrotic changes. Patient did have angiogram completed on 07/09/2023 and vascular surgery recommending bypass On today's evaluation that is 07/12/2023, the patient continues to be afebrile, the patient is breathing comfortably on 3 L nasal cannula oxygen , the patient denies having any chest pain cough no nausea vomiting no abdominal pain no diarrhea denies pain to the left foot area Patient did have white count of 6.7, creatinine is 1.19 Objective - Vital Signs Vital signs: Vital Signs Temp 97.7 F 07/12/23 03:31 Pulse 53 L 07/12/23 12:00 Resp 16 07/12/23 12:00 BP 156/70 07/12/23 12:00 Pulse Ox 94 L 07/12/23 12:00 FiO2 Intake & Output 07/11/23 07/12/23 07/12/23 18:59 06:59 18:59 Intake Total 480 120 Output Total 1250 650 300 Balance -770 -650 -180 Intake: Intake, IV Titration 120 Amount Meropenem 1 gm In Sodium 120 Chloride 0.9% 100 ml @ 33 .3 mls/hr IVPB Q8H [facility] Rx #:[id number] Oral 480 0 Output: Urine 1250 650 300 Other: Voiding Method Toilet Toilet Toilet Urinal Urinal Urinal - Exam GENERAL DESCRIPTION: Elderly male lying in bed in no distress RESPIRATORY SYSTEM: Unlabored breathing , decreased breath sounds at bases HEART: S1 S2 regular rate and rhythm ,no loud murmurs ABDOMEN: Soft , no tenderness EXTREMITIES: Left foot wound is currently dressed no drainage on the dressing - Labs CBC & Chem 7: 07/13/23 07:49 07/13/23 07:49 Labs: Abnormal Lab Results - Last 24 Hours (Table) 07/11/23 07/12/23 07/12/23 Range/Units 20:18 06:55 06:55 RBC 3.50 L (4.30-5.90) m/uL Hgb 9.7 L (13.0-17.5) gm/dL Hct 31.2 L (39.0-53.0) % BUN 23 H (9-20) mg/dL Glucose 72 L (74-99) mg/dL POC Glucose (mg/dL) 167 H (70-110) mg/dL 07/12/23 Range/Units 11:37 RBC (4.30-5.90) m/uL Hgb (13.0-17.5) gm/dL Hct (39.0-53.0) % BUN (9-20) mg/dL Glucose (74-99) mg/dL POC Glucose (mg/dL) 163 H (70-110) mg/dL Assessment and Plan (1) Osteomyelitis Current Visit: No Status: Acute Code(s): M86.9 - OSTEOMYELITIS, UNSPECIFIED SNOMED Code(s): 63394120 (2) Type 2 diabetes mellitus with foot ulcer Current Visit: No Status: Acute Code(s): E11.621 - TYPE 2 DIABETES MELLITUS WITH FOOT ULCER; L97.509 - NON-PRESSURE CHRONIC ULCER OTH PRT UNSP FOOT W UNSP SEVERITY SNOMED Code(s): 957734312 Plan: 1patient with recent extensive left big toe diabetic foot infection with gangrene in this patient who is status post amputation of the left big toe culture did grow multiple pathogen including a drug-resistant ESBL Klebsiella in addition to Enterococcus for the patient was getting IV Invanz in the outpatient setting presented to hospital with some discoloration to the left big toe potation site concerning for worsening ischemia versus worsening infection, the patient did have a mild elevated white count but no fever 2patient has been evaluated by vascular surgery and CTA has been ordered and plan is for revascularization before transmetatarsal amputation, urology has seen the patient recommending Krueger catheter apparently the patient is refusing any further neurological workup 3patient is status post angiogram to the left lower extremity on 07/09/2023 vascular surgeon recommending bypass , Patient is currently waiting for cardiac workup and clearance before surgery which apparently has been scheduled for Friday morning. 4patient continue with meropenem and will monitor his clinical course closely questions concern answered Dictation was produced using [employer] software. please excuse any grammatical, word or spelling errors. Time with Patient: Less than 30
--- NOTE | 2023-07-13 16:13 | P.PN ---
Subjective Progress Note Date: 07/13/23 Principal diagnosis: Reason for follow up is diabetic foot wound and osteomyelitis Patient is a 68-year-old male with a past medical history significant for diabetes mellitus hypertension hyperlipidemia who was recently admitted to this facility with left big toe gangrene and diabetic foot infection in this patient who is status post left big toe amputation patient did have a culture positive for ESBL Klebsiella in addition to Proteus and Enterococcus faecalis Enterococcus and the patient was discharged on Invanz subsequently readmitted from the wound care center concerning for worsening wound and some necrotic changes. Patient did have angiogram completed on 07/09/2023 and vascular surgery recommending bypass On today's evaluation that is 07/13/2023, the patient denies having any fever or any chills, the patient is breathing comfortably on 3 L nasal cannula oxygen, the patient denies having any chest pain or cough and no sputum production, patient denies nausea vomiting or any diarrhea, and no abdominal pain denies pain to the left foot area Patient did have white count of 7.1, creatinine 1.08 Objective - Vital Signs Vital signs: Vital Signs Temp 97.7 F 07/12/23 20:00 Pulse 61 07/13/23 12:00 Resp 16 07/13/23 12:00 BP 150/70 07/13/23 12:00 Pulse Ox 97 07/13/23 12:00 FiO2 Intake & Output 07/12/23 07/13/23 07/13/23 18:59 06:59 18:59 Intake Total 360 540 894 Output Total 1000 1450 1400 Balance -640 -910 -506 Intake: Intake, IV Titration 120 Amount Meropenem 1 gm In Sodium 120 Chloride 0.9% 100 ml @ 33 .3 mls/hr IVPB Q8H [facility] Rx #:[id number] Oral 240 540 894 Output: Urine 1000 1450 1400 Other: Voiding Method Toilet Toilet Toilet Urinal Urinal Urinal - Exam GENERAL DESCRIPTION: Elderly male lying in bed in no distress RESPIRATORY SYSTEM: Unlabored breathing , decreased breath sounds at bases HEART: S1 S2 regular rate and rhythm ,no loud murmurs ABDOMEN: Soft , no tenderness EXTREMITIES: Left foot wound is currently dressed no drainage on the dressing - Labs CBC & Chem 7: 07/13/23 07:49 07/13/23 07:49 Labs: Abnormal Lab Results - Last 24 Hours (Table) 07/12/23 07/13/23 07/13/23 Range/Units 20:33 07:49 07:49 RBC 3.50 L (4.30-5.90) m/uL Hgb 9.8 L (13.0-17.5) gm/dL Hct 31.1 L (39.0-53.0) % BUN (9-20) mg/dL POC Glucose (mg/dL) 111 H (70-110) mg/dL Hemoglobin A1c 7.0 H (<=6.0) % Total Protein (6.3-8.2) g/dL Albumin (3.5-5.0) g/dL 07/13/23 Range/Units 07:49 RBC (4.30-5.90) m/uL Hgb (13.0-17.5) gm/dL Hct (39.0-53.0) % BUN 22 H (9-20) mg/dL POC Glucose (mg/dL) (70-110) mg/dL Hemoglobin A1c (<=6.0) % Total Protein 5.5 L (6.3-8.2) g/dL Albumin 3.0 L (3.5-5.0) g/dL Assessment and Plan (1) Osteomyelitis Current Visit: No Status: Acute Code(s): M86.9 - OSTEOMYELITIS, UNSPECIFIED SNOMED Code(s): 86901193 (2) Type 2 diabetes mellitus with foot ulcer Current Visit: No Status: Acute Code(s): E11.621 - TYPE 2 DIABETES MELLITUS WITH FOOT ULCER; L97.509 - NON-PRESSURE CHRONIC ULCER OTH PRT UNSP FOOT W UNSP SEVERITY SNOMED Code(s): 309400234 Plan: 1patient with recent extensive left big toe diabetic foot infection with gangrene in this patient who is status post amputation of the left big toe culture did grow multiple pathogen including a drug-resistant ESBL Klebsiella in addition to Enterococcus for the patient was getting IV Invanz in the outpatient setting presented to hospital with some discoloration to the left big toe potat ion site concerning for worsening ischemia versus worsening infection, the patient did have a mild elevated white count but no fever 2patient has been evaluated by vascular surgery and CTA has been ordered and plan is for revascularization before transmetatarsal amputation, urology has seen the patient recommending Krueger catheter apparently the patient is refusing any further neurological workup 3patient is status post angiogram to the left lower extremity on 07/09/2023 vascular surgeon recommending bypass , Patient is currently waiting for cardiac workup and clearance before surgery which apparently has been scheduled for stress test tomorrow morning 4patient remains to be febrile white count was normal, patient continue with meropenem await further workup Dictation was produced using [email or web address] dictation software. please excuse any grammatical, word or spelling errors. Time with Patient: Less than 30
[2023-07-13 16:38] LABS: Glucose,Whole Blood 86 mg/dL (70-110)
[2023-07-13 20:12] LABS: Glucose,Whole Blood 112 mg/dL (70-110)
[2023-07-13] MEDS: INSULIN DETEMIR (LEVEMIR) 100 UNIT/ML SYR SQ SCH (20:46)
[2023-07-14] MEDS: MORPHINE SULFATE 4 MG/ML SYRINGE IV PRN ×3 (00:07→20:44)
[2023-07-14] MEDS: MEROPENEM 1 GM in SODIUM CHLORIDE 0.9% 100 ML IVPB SCH ×3 (05:44→21:21)
[2023-07-14 05:46] LABS: Glucose,Whole Blood 89 mg/dL (70-110)
[2023-07-14] MEDS ORDERED: CAFFEINE CITRATE 60 MG/3 ML VIAL IV PRN (06:00)
[2023-07-14] MEDS ORDERED: AMINOPHYLLINE 500 MG/20 ML VIAL IV PRN (06:00)
[2023-07-14 06:52] LABS: HCT 33.6 % (39.0-53.0); HGB 10.7 gm/dL (13.0-17.5); Hypochromasia Moderate; MCHC 31.8 g/dL (31.0-37.0); MCV 88.3 fL (80.0-100.0); Mean Platelet Volume 7.7; Platelet Count 298 k/uL (150-450); RBC 3.81 m/uL (4.30-5.90); RDW 14.5 % (11.5-15.5); WBC 6.9 k/uL (3.8-10.6)
[2023-07-14 07:09] LABS: ALT 21 U/L (4-49); AST 26 U/L (17-59); African American GFR (CKD) 88 (>60 ml/min/1.73 sqM); Albumin 3.4 g/dL (3.5-5.0); Alkaline Phosphatase 130 U/L (38-126); Anion Gap 7 mmol/L; Blood Urea Nitrogen 23 mg/dL (9-20); Calcium 8.9 mg/dL (8.4-10.2); Carbon Dioxide 31 mmol/L (22-30); Chloride 103 mmol/L (98-107); Glucose 79 mg/dL (74-99); Non-African American GFR(CKD) 77 (>60 ml/min/1.73 sqM); Potassium 4.8 mmol/L (3.5-5.1); Sodium 141 mmol/L (137-145); Total Bilirubin 0.5 mg/dL (0.2-1.3); Total Protein 6.1 g/dL (6.3-8.2)
[2023-07-14] MEDS: INSULIN ASPART (NovoLOG) 100 UNIT/ML VIAL SQ SCH ×6 (07:44→16:41)
[2023-07-14] MEDS: PANTOPRAZOLE 40 MG TABLET PO SCH (07:44)
--- NOTE | 2023-07-14 09:13 | P.PN ---
Subjective Progress Note Date: 07/14/23 Principal diagnosis: Nonhealing left great toe wound Seen and examined today as a follow-up. He is to undergo Lexiscan stress test today as part of his workup for cardiac clearance for left lower extremity bypass surgery. He is without any complaints at this time. No acute changes through the night. Objective - Vital Signs Vital signs: Vital Signs Temp 97.9 F 07/14/23 04:00 Pulse 54 L 07/14/23 04:00 Resp 16 07/14/23 04:00 BP 187/89 07/14/23 04:00 Pulse Ox 98 07/14/23 04:00 FiO2 Intake & Output 07/13/23 07/14/23 07/14/23 18:59 06:59 18:59 Intake Total 1012 240 Output Total 1400 1500 Balance -388 -1260 Intake: Oral 1012 240 Output: Urine 1400 1500 Other: Voiding Method Toilet Toilet Urinal Urinal - Exam General appearance: The patient is alert, oriented, appears in no acute distress. HET: Head is normocephalic and atraumatic. Pupils are equal and reactive. Neck: Supple. Abdomen: Soft, nondistended. Extremities: Left foot with dressing clean dry and intact. Bilateral femoral pulses intact. Left radial access without any bleeding or hematoma. Palpable pulse. Neurological: No focal deficits. Strength and sensation are grossly intact. - Labs CBC & Chem 7: 07/14/23 06:15 07/14/23 06:15 Labs: Abnormal Lab Results - Last 24 Hours (Table) 07/13/23 07/13/23 07/13/23 Range/Units 07:49 07:49 07:49 RBC 3.50 L (4.30-5.90) m/uL Hgb 9.8 L (13.0-17.5) gm/dL Hct 31.1 L (39.0-53.0) % Carbon Dioxide (22-30) mmol/L BUN 22 H (9-20) mg/dL POC Glucose (mg/dL) (70-110) mg/dL Hemoglobin A1c 7.0 H (<=6.0) % Alkaline Phosphatase (38-126) U/L Total Protein 5.5 L (6.3-8.2) g/dL Albumin 3.0 L (3.5-5.0) g/dL 07/13/23 07/14/23 07/14/23 Range/Units 20:09 06:15 06:15 RBC 3.81 L (4.30-5.90) m/uL Hgb 10.7 L (13.0-17.5) gm/dL Hct 33.6 L (39.0-53.0) % Carbon Dioxide 31 H (22-30) mmol/L BUN 23 H (9-20) mg/dL POC Glucose (mg/dL) 112 H (70-110) mg/dL Hemoglobin A1c (<=6.0) % Alkaline Phosphatase 130 H (38-126) U/L Total Protein 6.1 L (6.3-8.2) g/dL Albumin 3.4 L (3.5-5.0) g/dL Assessment and Plan Assessment: 1. Nonhealing left great toe wound 2. Diabetic vascular disease bilateral lower extremities with resulting art erial insufficiency. [place] 5 peripheral arterial disease. 3. SFA occlusion 3. Bilateral hydronephrosis and hydroureters. Rule out bladder obstruction 4. History of tobacco abuse Plan: 1. Patient underwent left lower extremity angiogram with possible intervention 2. Patient will require left lower extremity fem-pop bypass to below the knee with in situ vein, timing to be determined at this time 3. Vein mapping ordered and reviewed 4. Patient will need medical and cardiac clearance prior to any surgical procedures. 5. Urology was consulted regarding urinary retention. The recommendation was indwelling Krueger catheter. Patient is refusing indwelling Krueger catheter as well as intermittent catheterization. They have signed off at this time. 6. Continue with daily wet-to-dry dressing change to left foot 7. Patient scheduled for Lexiscan stress test today, await further recommendations from cardiology Cardiology has seen patient today. They would like to perform lexiscan stress test on Friday before clearing patient for surgery. LLE bypass surgery canceled for Friday, timing to be determined. The impression and plan of care has been dictated as directed. Dr. Daniel I performed a history and examination of this patient, discussed the same with the dictator. I agree with the dictator's note ,documented as a scribe. Any additional findings or plans will be noted.
[2023-07-14] MEDS: FOLIC ACID 1 MG TAB PO SCH (11:00)
[2023-07-14] MEDS: THIAMINE 100 MG TAB PO SCH (11:00)
[2023-07-14] MEDS: CYCLOBENZAPRINE 5 MG TAB PO SCH ×3 (11:00→20:44)
[2023-07-14] MEDS: TAMSULOSIN 0.4 MG CAP.ER.24H PO SCH (11:00)
[2023-07-14] MEDS: ENOXAPARIN 40 MG/0.4 ML SYRINGE SQ SCH (11:00)
[2023-07-14] MEDS: GABAPENTIN 400 MG CAP PO SCH ×3 (11:00→20:44)
[2023-07-14] MEDS: ATORVASTATIN 80 MG TAB PO SCH (11:00)
[2023-07-14] MEDS: ASPIRIN 81 MG PO SCH (11:00)
[2023-07-14] MEDS: CHOLECALCIFEROL 25 MCG (1000 IU) TABLET PO SCH (11:00)
[2023-07-14] MEDS: HYDROcodone/APAP 10-325MG 1 EACH TAB PO PRN (11:01)
--- NOTE | 2023-07-14 11:17 | CA ---
Lexiscan Nuclear Stress Test Report Name: Jones Ferraro Exam Date: 07/14/2023 09:13 Exam Location: [facility] Stress Ht (in): 75 Wt (lb): 230 BSA: 2.33 Ordering Phys: Tati Hollis Referring Phys: TATI HOLLIS,, Technologist: Oskar Pizarro Age: 68 Gender: M : 1955 Procedure CPT: Indications: Reflex order-Stress test ICD-10 Codes: Patient History: Medications: see chart Meds past 24 hrs: Pretest Chest Pain: STRESS TEST Lexiscan Protocol Exercise Duration (min:sec): 02:[address] Depressions (mm): Angina Score: Wong Score: Resting HR (bpm): 85 Peak HR (bpm): 90 Resting BP (mmHg): 153 / 54 Peak BP (mmHg): 145 / 50 MPHR: 154 Target HR: 131 % MPHR: 58 METS: 1.0 Total Dose: Peak Dose: Atropine: Double Product: 51504 BP Response: Stress Termination: PROTOCOL COMPLETE Stress Symptoms: NO SYMPTOMS Stress Summary: ECG ANALYSIS Resting ECG: Sinus rhythm. Normal conduction. No arrhythmias. Non-specific ST-T wave changes. Stress ECG: No ECG changes from baseline with Lexiscan infusion. CONCLUSIONS No ECG evidence of ischemia with Lexiscan infusion. Nuclear test results to follow. Dr. Willian De La O MD (Electronically Signed) Final Date: 14 July 2023 11:15
--- NOTE | 2023-07-14 11:32 | P.PN ---
Subjective Progress Note Date: 07/14/23 HISTORY OF PRESENT ILLNESS: This is a 68-year-old male with a past medical history significant for diabetes, hyperlipidemia, and hypertension. Patient does not follow with a infection prevention specialist. We have been asked to see the patient in consultation for cardiac clearance. Patient underwent aortogram with runoffs via left radial artery access. Due to occlusion across the left joint as well as one-vessel runoff he will require a left lower extremity fem-pop bypass vascular surgery. This has been scheduled for 07/14/2023. * EKG reveals sinus bradycardia with no signs of acute ischemia * Laboratory data: WBC 7.3. Hemoglobin 9.9. Platelet count 222. Sodium 141. Potassium 4.9. BUN 23. Creatinine 1.06. * Current home cardiac medications include nifedipine 60 mg at night, metoprolol titrate 25 mg twice a day, losartan 25 mg at night, Lipitor 80 mg daily, and aspirin 81 mg daily * Most recent echocardiogram obtained in February 2020 revealed ejection fraction 55-60%, moderate to severe TR, moderate to severe pulmonary hypertension 07/12/2023 He is doing well with no new complaints. No chest pain or shortness of breath. Echocardiogram 07/11/23 with EF 5560%, severe pulmonary hypertension, RVSP 58, mild mitral regurgitation, moderate tricuspid regurgitation. 07/13 Blood pressure readings have been elevatedup to 177/77, this morning 139/84. Patient denies having any chest pain no shortness of breath, no dizziness. He states his foot is unchanged. Patient scheduled for Lexiscan stress test tomorrow. 07/14 Patient is scheduled for Lexiscan stress test today. ASSESSMENT: Nonhealing left great toe wound Diabetic vascular disease with bilateral lower extremities with resulting arterial insufficiency SFA occlusion Bilateral hydronephrosis Hypertension Hyperlipidemia Diabetes Pulmonary hypertension, RVSP 58 PLAN: Obtain Lexiscan stress test today for pre-op clearance. Patient scheduled for left lower extremity femoral-popliteal bypass on 07/14/2023 with vascular services. However patient is not cleared at this time from a cardiac perspective pending stress test results. Further recommendations pending patient's course. Nurse practitioner note has been reviewed by physician. Signing provider agrees with the documented findings, assessment, and plan of care. Objective - Vital Signs Vital signs: Vital Signs Temp 97.8 F 07/14/23 08:29 Pulse 57 L 07/14/23 08:29 Resp 16 07/14/23 08:29 BP 120/64 07/14/23 08:29 Pulse Ox 97 07/14/23 08:29 FiO2 Intake & Output 07/13/23 07/14/23 07/14/23 18:59 06:59 18:59 Intake Total 1012 240 Output Total 1400 1500 650 Balance -624 -0178 -787 Intake: Oral 1012 240 Output: Urine 1400 1500 650 Other: Voiding Method Toilet Toilet Urinal Urinal - Labs CBC & Chem 7: 07/14/23 06:15 07/14/23 06:15 Labs: Abnormal Lab Results - Last 24 Hours (Table) 07/13/23 07/13/23 07/14/23 Range/Units 07:49 20:09 06:15 RBC 3.81 L (4.30-5.90) m/uL Hgb 10.7 L (13.0-17.5) gm/dL Hct 33.6 L (39.0-53.0) % Carbon Dioxide (22-30) mmol/L BUN (9-20) mg/dL POC Glucose (mg/dL) 112 H (70-110) mg/dL Hemoglobin A1c 7.0 H (<=6.0) % Alkaline Phosphatase (38-126) U/L Total Protein (6.3-8.2) g/dL Albumin (3.5-5.0) g/dL 07/14/23 Range/Units 06:15 RBC (4.30-5.90) m/uL Hgb (13.0-17.5) gm/dL Hct (39.0-53.0) % Carbon Dioxide 31 H (22-30) mmol/L BUN 23 H (9-20) mg/dL POC Glucose (mg/dL) (70-110) mg/dL Hemoglobin A1c (<=6.0) % Alkaline Phosphatase 130 H (38-126) U/L Total Protein 6.1 L (6.3-8.2) g/dL Albumin 3.4 L (3.5-5.0) g/dL
[2023-07-14 11:45] LABS: Glucose,Whole Blood 107 mg/dL (70-110)
--- NOTE | 2023-07-14 11:58 | NM ---
"EXAMINATION TYPE: NM stress lexiscan cardiolite DATE OF EXAM: 07/14/2023 COMPARISON: NONE CLINICAL INDICATION: Male, 68 years old with history of cardiac clearance; TECHNIQUE: After the intravenous administration of 10.6 mCi Tc 99m Sestamibi - Cardiolite resting SP ECT images acquired 100 minutes post injection. The patient received 0.4mg Lexiscan, 26.2 mCi Tc 99m Sestamibi - Stress images obtained [address] injection FINDINGS: Review of stress and rest SPECT images demonstrates predominantly matched defect involving the inferi or, inferoapical and inferior lateral wall.. Gated analysis shows normal wall motion with an estimat ed left ventricular ejection fraction of 56 %. IMPRESSION: Predominantly matched defect involving the inferior and inferior lateral wall. Small area of stress i nduced reversibility at the inferoapical wall not excluded. A Yellow level critical message alert has been initiated for Devon Naqvi MD~[id number] via the [facility] | Critical Results System on 07/14/2023 11:55 AM. This message alert has been sent to Devon ahumada MD~[id number] via the preferences provided by the clinician for the receipt of Radiology Critical F indings. Message ID [id number]."
--- NOTE | 2023-07-14 14:23 | P.PN ---
Subjective Progress Note Date: 07/14/23 Hospital course: Patient is a very pleasant 68-year-old male with a past medical history of spinal infection status post intervention on preventative Keflex daily, hypertension, insulin-dependent diabetes mellitus, and BPH. Patient initially hospitalized from 06/22-06/27 for OM and wet gangrene of the L toe and underwent amputation of the L first toe with wound cultures growing K. pneumoniae, proteus vulgaris and enterococcus faecalis resulting in discharge home on 6 weeks of IV Invanz and wound vac Patient return to the emergency department on 07/04/23 seco ndary to reports of worsening erythema and pain in his left foot. Upon arrival to our facility patient underwent extensive evaluation. He was found to be bradycardic with heart rate of 36. EKG completed showing sinus bradycardia at 35 bpm. X-ray left foot showing diffuse soft tissue edema consistent with cellulitis and status post transmetatarsal amputation of first digit with bone appearing to extend outside the margin of the soft tissues. Labs were completed and reviewed showing leukocytosis with WBC count of 11.2, normocytic anemia with hemoglobin of 10.7, hyperkalemia with potassium of 6.1, and acute kidney injury with BUN of 64, creatinine 1.62, and GFR 44 with baseline creatinine of 1.1. Magnesium was also elevated at 2.6 and alkaline phosphatase elevated at 127. Troponin was negative at less than 0.012. CRP 5.9 and ESR was 63. Patient admitted under our services of consultation to infectious disease and vascular surgery. CTA with runoff revealed diffuse arteriosclerotic calcification of the abdominal aorta, pelvic arteries and runoff vessels with multiple significant stenosis suspected in the superficial femoral arteries and evaluation of runoff was indeterminate given lack of IV contrast, also revealing chronic bilateral hydronephrosis and hydroureter. Bilateral lower extremity CTA then repeated on 07/06/23 showing that it appears to be bilateral proximal popliteal obstruction with collateral flow reconstituting the distal popliteal artery and trifurcation vessels, trifurcation vessels appear to extend to the level of the ankle bilaterally and vascular calcification throughout the lower extremity arterial system is noted to have additional areas of at least moderate narrowing through the superficial femoral arteries. On 07/09/23 patient underwent ultrasound- guided left radial artery access aortogram with runoffs in which patient was found to have occlusion across the joint as well as 1 vessel runoff with vascular surgery recommending a patient would be best served by proper bypass rather than endovascular approach. Echocardiogram was completed showing preserved EF of 55-60% with severe pulmonary hypertension. Patient awaiting to be scheduled for OR for left lower extremity fem-pop bypass on Friday07/14/23. Cardiology took patient for Lexiscan stress test this morning for preop clearance. Physical exam: Patient seen and fully evaluated at bedside this morning. He currently denies having any needs or complaints at this time. Patient just returned from stress testing. Reports mild pain to left foot and RN at bedside medicating. Vital signs reviewed and stable. General: Nontoxic, no distress and appears stated age. Derm: Skin warm and dry, normal coloration for ethnicity. Head: Atraumatic, normocephalic and symmetric. Eyes: EOMs intact, no lid lag, and anicteric sclera Mouth: no lip lesions, mucus membranes moist Cardiovascular: regular rate and rhythm with normal S1S2, soft murmur, positive posterior tibial pulses bilaterally, and cap refill < 2 seconds. Lungs: Respirations even, regular, and unlabored on room air. Lungs diminished otherwise no rhonchi, no rales, no wheezing, and no accessory muscle usage. Abdominal: soft, nontender to palpation, no guarding, no appreciable organomegaly Ext: No gross muscle atrophy, no edema. Movement and sensation intact. [place]res sing left lower extremity clean dry and intact. Neuro: Speech clear, face symmetrical and CN II-XII grossly intact with no noted focal neuro deficits Psych: Alert and oriented to person, place, time, and situation. Appropriate and pleasant affect. 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 -Cardiology following and took patient for Lexiscan stress test this morning for cardiac clearance. -Infectious disease following, discussed plan of care with Dr. Sheikh. -Vascular surgery following, Patient to be scheduled for OR once received cardiac clearance. Patient undergo left lower extremity fem-pop bypass. -Hemoglobin A1c 7%. -Patient has had no further episodes of hypoglycemia since decreasing Levemir down to 35 units nightly. -Continue Levemir 35 units nightly, NovoLog 6 units 3 times daily and novolog sliding scale 3 times daily with meals.. -Symptomatic care and pain management. Tylenol for mild pain, tramadol for moderate pain, and morphine for severe pain. Chronic bilateral hydronephrosis and hydroureter BPH -Continue Flomax 0.8 mg daily. -Urology evaluated and reviewed documentation in chart, urology stating chronic urinary retention and bilateral hydronephrosis is likely secondary to significant bladder distention resulting from patient's chronic urinary retention. Urology recommending recommending bladder decompression with insertion of Krueger catheter however patient refusing at this time and urology informed patient of risks of further retention resulting in risk of renal failure. Hypertension Continue nifedipine 60 mg daily Hyperlipidemia Continue atorvastatin 80 mg daily. Hyperkalemia, resolved. Potassium currently 4.8 -Losartan was discontinued. Bradycardia Patient initially on metoprolol 25 mg twice daily. Heart rate bradycardic in low 30s upon arrival to our facility. Metoprolol discontinued. Cardiology following. Patient is scheduled for cardiac Lexiscan stress test tomorrow. Data reviewed: Vital signs reviewed. Blood pressure 120/64, heart rate 57, respiratory rate 16, temp 97.8F, SpO2 of 97% on room air. Labs completed and reviewed. CBC showingg stable normocytic anemia with hemoglobin of 10.7 and BMP showing hypercarbia with bicarb of 31 and mild prerenal azotemia with BUN of 23. Liver profile showing slightly elevated alkaline phosphatase of 130 otherwise normal findings. CODE STATUS: Full code DVT prophylaxis: Lovenox Anticipated discharge date: Clinical course to determine Anticipated discharge place: Clinical course to determine Patient was seen independently by Nurse Pracitioner. This document was prepared using nooked dictation software. Please allow for errors in senior lead java developer, while rare they do occur. Marty Joyce NP rendered care for this patient independently, reviewed the findings and plan as documented in the note above. I did not physically speak with or examine the patient on this date. Objective - Vital Signs Vital signs: Vital Signs Temp 97.9 F 07/14/23 04:00 Pulse 54 L 07/14/23 04:00 Resp 16 07/14/23 04:00 BP 187/89 07/14/23 04:00 Pulse Ox 98 07/14/23 04:00 FiO2 Intake & Output 07/13/23 07/14/23 07/14/23 18:59 06:59 18:59 Intake Total 1012 240 Output Total 1400 1500 Balance -388 -1260 Intake: Oral 1012 240 Output: Urine 1400 1500 Other: Voiding Method Toilet Toilet Urinal Urinal - Labs CBC & Chem 7: 07/15/23 05:49 07/15/23 05:49 Labs: Abnormal Lab Results - Last 24 Hours (Table) 07/13/23 07/13/23 07/13/23 Range/Units 07:49 07:49 07:49 RBC 3.50 L (4.30-5.90) m/uL Hgb 9.8 L (13.0-17.5) gm/dL Hct 31.1 L (39.0-53.0) % Carbon Dioxide (22-30) mmol/L BUN 22 H (9-20) mg/dL POC Glucose (mg/dL) (70-110) mg/dL Hemoglobin A1c 7.0 H (<=6.0) % Alkaline Phosphatase (38-126) U/L Total Protein 5.5 L (6.3-8.2) g/dL Albumin 3.0 L (3.5-5.0) g/dL 07/13/23 07/14/23 07/14/23 Range/Units 20:09 06:15 06:15 RBC 3.81 L (4.30-5.90) m/uL Hgb 10.7 L (13.0-17.5) gm/dL Hct 33.6 L (39.0-53.0) % Carbon Dioxide 31 H (22-30) mmol/L BUN 23 H (9-20) mg/dL POC Glucose (mg/dL) 112 H (70-110) mg/dL Hemoglobin A1c (<=6.0) % Alkaline Phosphatase 130 H (38-126) U/L Total Protein 6.1 L (6.3-8.2) g/dL Albumin 3.4 L (3.5-5.0) g/dL
[2023-07-14 16:33] LABS: Glucose,Whole Blood 123 mg/dL (70-110)
[2023-07-14 20:03] LABS: Glucose,Whole Blood 107 mg/dL (70-110)
[2023-07-14] MEDS: INSULIN DETEMIR (LEVEMIR) 100 UNIT/ML SYR SQ SCH (20:44)
[2023-07-15] MEDS: HYDROcodone/APAP 10-325MG 1 EACH TAB PO PRN (00:22)
[2023-07-15] MEDS: MEROPENEM 1 GM in SODIUM CHLORIDE 0.9% 100 ML IVPB SCH ×3 (05:21→20:40)
[2023-07-15] MEDS: PANTOPRAZOLE 40 MG TABLET PO SCH (06:25)
[2023-07-15] MEDS: MORPHINE SULFATE 4 MG/ML SYRINGE IV PRN ×3 (06:29→20:40)
[2023-07-15 06:38] LABS: HCT 31.2 % (39.0-53.0); HGB 9.8 gm/dL (13.0-17.5); Hypochromasia Moderate; MCH 27.8 pg (25.0-35.0); MCHC 31.3 g/dL (31.0-37.0); MCV 88.8 fL (80.0-100.0); Mean Platelet Volume 7.6; Platelet Count 240 k/uL (150-450); RBC 3.51 m/uL (4.30-5.90); RDW 14.4 % (11.5-15.5); WBC 5.8 k/uL (3.8-10.6)
[2023-07-15 06:54] LABS: Glucose,Whole Blood 100 mg/dL (70-110)
[2023-07-15 07:00] LABS: ALT 24 U/L (4-49); AST 29 U/L (17-59); African American GFR (CKD) >90 (>60 ml/min/1.73 sqM); Albumin 2.9 g/dL (3.5-5.0); Alkaline Phosphatase 118 U/L (38-126); Anion Gap 7 mmol/L; Blood Urea Nitrogen 21 mg/dL (9-20); Calcium 8.3 mg/dL (8.4-10.2); Carbon Dioxide 31 mmol/L (22-30); Chloride 101 mmol/L (98-107); Glucose 102 mg/dL (74-99); Non-African American GFR(CKD) 78 (>60 ml/min/1.73 sqM); Potassium 4.8 mmol/L (3.5-5.1); Sodium 139 mmol/L (137-145); Total Bilirubin 0.4 mg/dL (0.2-1.3); Total Protein 5.3 g/dL (6.3-8.2)
[2023-07-15] MEDS: INSULIN ASPART (NovoLOG) 100 UNIT/ML VIAL SQ SCH ×6 (08:23→16:56)
[2023-07-15] MEDS: CYCLOBENZAPRINE 5 MG TAB PO SCH ×3 (08:26→20:40)
[2023-07-15] MEDS: TAMSULOSIN 0.4 MG CAP.ER.24H PO SCH (08:26)
[2023-07-15] MEDS: CHOLECALCIFEROL 25 MCG (1000 IU) TABLET PO SCH (08:26)
[2023-07-15] MEDS: ASPIRIN 81 MG PO SCH (08:26)
[2023-07-15] MEDS: THIAMINE 100 MG TAB PO SCH (08:26)
[2023-07-15] MEDS: GABAPENTIN 400 MG CAP PO SCH ×3 (08:26→20:40)
[2023-07-15] MEDS: ATORVASTATIN 80 MG TAB PO SCH (08:26)
[2023-07-15] MEDS: FOLIC ACID 1 MG TAB PO SCH (08:27)
[2023-07-15] MEDS: ENOXAPARIN 40 MG/0.4 ML SYRINGE SQ SCH (08:27)
[2023-07-15] MEDS: ISOSORBIDE MONONITRATE ER 30 MG TAB.ER.24H PO SCH (08:31)
--- NOTE | 2023-07-15 09:34 | P.PN ---
Subjective Progress Note Date: 07/15/23 Principal diagnosis: Nonhealing left great toe wound Patient Was seen and examined today for follow-up. Yesterday he underwent Lexiscan stress test. Spoke with cardiology and they reviewed stress test and states that patient may undergo left lower extremity fem-pop bypass with moderate risk. Dr. Diaz of reviewed stress test results and states patient does have good systolic function, no significant abnormality on the nuclear scan. There is a small area of reversible ischemia and history of moderate pulmonary hypertension, cardiology will plan for medical treatment for coronary artery disease in outpatient follow-up. stated patient does not need cardiac catheterization prior to procedure. Patient denies any chest pain, shortness of breath, abdominal pain, nausea or vomiting. He has been afebrile. Does have pain in his left foot. Objective - Vital Signs Vital signs: Vital Signs Temp 98.0 F 07/15/23 00:00 Pulse 45 L 07/15/23 04:00 Resp 16 07/15/23 04:00 BP 136/59 07/15/23 04:00 Pulse Ox 97 07/15/23 04:00 FiO2 Intake & Output 07/14/23 07/15/23 07/15/23 18:59 06:59 18:59 Intake Total 236 10 Output Total 1825 2700 Balance -1589 -2690 Intake: IV 10 Invasive Line 2 10 Oral 236 Output: Urine 1825 2700 Other: Voiding Method Toilet Urinal Urinal # Voids 3 - Exam General appearance: The patient is alert, oriented, appears in no acute distress. HET: Head is normocephalic and atraumatic. Pupils are equal and reactive. Neck: Supple. Abdomen: Soft, nondistended. Extremities: Left foot great toe amputation site with dry gangrene. Mild erythema to the dorsal aspect of foot. Neurological: No focal deficits. Strength and sensation are grossly intact. - Labs CBC & Chem 7: 07/15/23 05:49 07/15/23 05:49 Labs: Abnormal Lab Results - Last 24 Hours (Table) 07/14/23 07/15/23 07/15/23 Range/Units 16:31 05:49 05:49 RBC 3.51 L (4.30-5.90) m/uL Hgb 9.8 L (13.0-17.5) gm/dL Hct 31.2 L (39.0-53.0) % Carbon Dioxide 31 H (22-30) mmol/L BUN 21 H (9-20) mg/dL Glucose 102 H (74-99) mg/dL POC Glucose (mg/dL) 123 H (70-110) mg/dL Calcium 8.3 L (8.4-10.2) mg/dL Total Protein 5.3 L (6.3-8.2) g/dL Albumin 2.9 L (3.5-5.0) g/dL Assessment and Plan Assessment: 1. Nonhealing left great toe wound with dry gangrene 2. Diabetic vascular disease bilateral lower extremities with resulting arterial insufficiency. [place] 5 peripheral arterial disease. 3. SFA occlusion 3. Bilateral hydronephrosis and hydroureters. Rule out bladder obstruction 4. History of tobacco abuse Plan: 1. Patient underwent left lower extremity angiogram with possible intervention 2. Patient will require left lower extremity fem-pop bypass to below the knee with in situ vein, this will be scheduled for Friday07/18/23. 3. Vein mapping ordered and reviewed 4. Patient has medical and cardiac clearance to proceed with left lower extremity bypass. 5. Urology was consulted regarding urinary retention. The recommendation was indwelling Krueger catheter. Patient is refusing indwelling Krueger catheter as well as intermittent catheterization. They have signed off at this time. 6. Dressing to left lower extremity, 4 x 4 and Kerlix. The impression and plan of care has been dictated as directed. Dr. Daniel I performed a history and examination of this patient, discussed the same with the dictator. I agree with the dictator's note ,documented as a scribe. Any additional findings or plans will be noted.
--- NOTE | 2023-07-15 10:04 | P.PN ---
Subjective Progress Note Date: 07/15/23 HISTORY OF PRESENT ILLNESS: This is a 68-year-old male with a past medical history significant for diabetes, hyperlipidemia, and hypertension. 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 We have been asked to see the patient in consultation for cardiac clearance. Patient underwent aortogram with runoffs via left radial artery access. Due to occlusion across the left joint as well as one-vessel runoff he will require a left lower extremity fem-pop bypass vascular surgery. This has been scheduled for 07/14/2023. * EKG reveals sinus bradycardia with no signs of acute ischemia * Laboratory data: WBC 7.3. Hemoglobin 9.9. Platelet count 222. Sodium 141. Potassium 4.9. BUN 23. Creatinine 1.06. * Current home cardiac medications include nifedipine 60 mg at night, metoprolol titrate 25 mg twice a day, losartan 25 mg at night, Lipitor 80 mg daily, and aspirin 81 mg daily * Most recent echocardiogram obtained in February 2020 revealed ejection fraction 55-60%, moderate to severe TR, moderate to severe pulmonary hypertension 07/12/2023 He is doing well with no new complaints. No chest pain or shortness of breath. Echocardiogram 07/11/23 with EF 5560%, severe pulmonary hypertension, RVSP 58, mild mitral regurgitation, moderate tricuspid regurgitation. 07/13 Blood pressure readings have been elevatedup to 177/77, this morning 139/84. Patient denies having any chest pain no shortness of breath, no dizziness. He states his foot is unchanged. Patient scheduled for Lexiscan stress test tomorrow. 07/14 Patient is scheduled for Lexiscan stress test today. 07/15 Lexiscan stress test revealed predominantly matched defect involving the anterior and inferior lateral wall. Small area of stress-induced reversibility at the inferior apical wall not excluded. Results reviewed by Dr. Diaz he has cleared the patient for fem-pop bypass which is scheduled for . Discussed with vascular surgery. Patient is at moderate risk for complications. Patient does have good systolic function. No significant abnormality on the nuclear scan. There is a small area of reversible ischemia and history of moderate pulmonary hypertension. Patient can proceed with surgery and we will plan for medical treatment for CAD. 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 Further recommendations pending patient's course. Nurse practitioner note has been reviewed by physician. Signing provider agrees with the documented findings, assessment, and plan of care. Objective - Vital Signs Vital signs: Vital Signs Temp 98.0 F 07/15/23 00:00 Pulse 45 L 07/15/23 04:00 Resp 16 07/15/23 04:00 BP 136/59 07/15/23 04:00 Pulse Ox 97 07/15/23 04:00 FiO2 Intake & Output 07/14/23 07/15/23 07/15/23 18:59 06:59 18:59 Intake Total 236 10 Output Total 1825 2700 Balance -1589 -2690 Intake: IV 10 Invasive Line 2 10 Oral 236 Output: Urine 1825 2700 Other: Voiding Method Toilet Urinal Urinal # Voids 3 - Labs CBC & Chem 7: 07/15/23 05:49 07/15/23 05:49 Labs: Abnormal Lab Results - Last 24 Hours (Table) 07/14/23 07/15/23 07/15/23 Range/Units 16:31 05:49 05:49 RBC 3.51 L (4.30-5.90) m/uL Hgb 9.8 L (13.0-17.5) gm/dL Hct 31.2 L (39.0-53.0) % Carbon Dioxide 31 H (22-30) mmol/L BUN 21 H (9-20) mg/dL Glucose 102 H (74-99) mg/dL POC Glucose (mg/dL) 123 H (70-110) mg/dL Calcium 8.3 L (8.4-10.2) mg/dL Total Protein 5.3 L (6.3-8.2) g/dL Albumin 2.9 L (3.5-5.0) g/dL
--- NOTE | 2023-07-15 10:35 | P.PN ---
Subjective Progress Note Date: 07/15/23 Hospital course: Patient is a very pleasant 68-year-old male with a past medical history of spinal infection status post intervention on preventative Keflex daily, hypertension, insulin-dependent diabetes mellitus, and BPH. Patient initially hospitalized from 06/22-06/27 for OM and wet gangrene of the L toe and underwent amputation of the L first toe with wound cultures growing K. pneumoniae, proteus vulgaris and enterococcus faecalis resulting in discharge home on 6 weeks of IV Invanz and wound vac Patient return to the emergency department on 07/04/23 seco ndary to reports of worsening erythema and pain in his left foot. Upon arrival to our facility patient underwent extensive evaluation. He was found to be bradycardic with heart rate of 36. EKG completed showing sinus bradycardia at 35 bpm. X-ray left foot showing diffuse soft tissue edema consistent with cellulitis and status post transmetatarsal amputation of first digit with bone appearing to extend outside the margin of the soft tissues. Labs were completed and reviewed showing leukocytosis with WBC count of 11.2, normocytic anemia with hemoglobin of 10.7, hyperkalemia with potassium of 6.1, and acute kidney injury with BUN of 64, creatinine 1.62, and GFR 44 with baseline creatinine of 1.1. Magnesium was also elevated at 2.6 and alkaline phosphatase elevated at 127. Troponin was negative at less than 0.012. CRP 5.9 and ESR was 63. Patient admitted under our services of consultation to infectious disease and vascular surgery. CTA with runoff revealed diffuse arteriosclerotic calcification of the abdominal aorta, pelvic arteries and runoff vessels with multiple significant stenosis suspected in the superficial femoral arteries and evaluation of runoff was indeterminate given lack of IV contrast, also revealing chronic bilateral hydronephrosis and hydroureter. Bilateral lower extremity CTA then repeated on 07/06/23 showing that it appears to be bilateral proximal popliteal obstruction with collateral flow reconstituting the distal popliteal artery and trifurcation vessels, trifurcation vessels appear to extend to the level of the ankle bilaterally and vascular calcification throughout the lower extremity arterial system is noted to have additional areas of at least moderate narrowing through the superficial femoral arteries. On 07/09/23 patient underwent ultrasound- guided left radial artery access aortogram with runoffs in which patient was found to have occlusion across the joint as well as 1 vessel runoff with vascular surgery recommending a patient would be best served by proper bypass rather than endovascular approach. Echocardiogram was completed showing preserved EF of 55-60% with severe pulmonary hypertension. Cardiology took patient for Lexiscan stress test which revealed a predominantly matched defect involving the anterior and inferior lateral wall with small areas of stress- induced reversibility at the inferior apical wall, these results were thoroughly reviewed by software implementation project manager. Cardiology stated they're recommending medical management for CAD and clearing patient from cardiac perspective to proceed with vascular surgery. Patient is scheduled for fem-pop bypass on 07/18/23. Physical exam: Patient seen and fully evaluated at bedside this morning. He currently denies having any needs or complaints at this time. Patient reports mild anxiety regarding upcoming procedure. Orders place for Xanax 0.5 mg 3 times daily as needed for anxiety. Vital signs reviewed and stable. General: Nontoxic, no distress and appears stated age. Derm: Skin warm and dry, normal coloration for ethnicity. Head: Atraumatic, normocephalic and symmetric. Eyes: EOMs intact, no lid lag, and anicteric sclera Mouth: no lip lesions, mucus membranes moist Cardiovascular: regular rate and rhythm with normal S1S2, soft murmur, positive posterior tibial pulses bilaterally, and cap refill < 2 seconds. Lungs: Respirations even, regular, and unlabored on room air. Lungs diminished otherwise no rhonchi, no rales, no wheezing, and no accessory muscle usage. Abdominal: soft, nontender to palpation, no guarding, no appreciable organomegaly Ext: No gross muscle atrophy, no edema. Movement and sensation intact. Dressing left lower extremity clean dry and intact. Neuro: Speech clear, face symmetrical and CN II-XII grossly intact with no noted focal neuro deficits Psych: Alert and oriented to person, place, time, and situation. Appropriate and pleasant affect. Assessment and Plan of Care: Osteomyelitis and gangrene of left foot Occlusive Peripheral arterial disease, SFA occlusion Insulin-dependent diabetes mellitus with episodes of morning hypoglycemia -Continue IV antibiotics with Meropenem 1 g every 8 hours. -Cardiology cleared patient from cardiac perspective to proceed with vascular surgery. -Infectious disease following, discussed plan of care with Dr. Sheikh. -Vascular surgery following, discussed plan of care with vascular surgery and PE and patient is scheduled for OR Friday07/18/23 to undergo left lower extremity fem-pop bypass. -Hemoglobin A1c 7%. -Patient has had no further episodes of hypoglycemia since decreasing Levemir down to 35 units nightly. -Continue Levemir 35 units nightly, NovoLog 6 units 3 times daily and novolog sliding scale 3 times daily with meals.. -Symptomatic care and pain management. Tylenol for mild pain, tramadol for moderate pain, and morphine for severe pain. Chronic bilateral hydronephrosis and hydroureter BPH -Continue Flomax 0.8 mg daily. -Urology evaluated and reviewed documentation in chart, urology stating chronic urinary retention and bilateral hydronephrosis is likely secondary to significant bladder distention resulting from patient's chronic urinary retention. Urology recommending recommending bladder decompression with insertion of Krueger catheter however patient refusing at this time and urology informed patient of risks of further retention resulting in risk of renal failure. Hypertension Continue nifedipine 60 mg daily Hyperlipidemia Continue atorvastatin 80 mg daily. Hyperkalemia, resolved. Potassium currently 4.8 -Losartan was discontinued. Asymptomatic Bradycardia Patient initially on metoprolol 25 mg twice daily. Heart rate bradycardic in low 30s upon arrival to our facility. Metoprolol discontinued. Cardiology following. Data reviewed: Vital signs reviewed. Blood pressure 149/71, heart rate 52, respiratory rate 18, temp 97.9F, SpO2 of 98% on 2 L Labs completed and reviewed. CBC showing a stable normocytic anemia with hemoglobin of 9.8. BMP revealing mild hypercarbia with bicarb of 31 and elevated BUN of 21. Blood glucose 102. CODE STATUS: Full code DVT prophylaxis: Lovenox Anticipated discharge date: Clinical course to determine Anticipated discharge place: Clinical course to determine Patient was seen independently by Nurse Pracitioner. This document was prepared using [employer] dictation software. Please allow for errors in sales program manager, while rare they do occur. Marty Joyce NP rendered care for this patient independently, reviewed the findings and plan as documented in the note above. I did not physically speak with or examine the patient on this date. Objective - Vital Signs Vital signs: Vital Signs Temp 98.0 F 07/15/23 00:00 Pulse 45 L 07/15/23 04:00 Resp 16 07/15/23 04:00 BP 136/59 07/15/23 04:00 Pulse Ox 97 07/15/23 04:00 FiO2 Intake & Output 07/14/23 07/15/23 07/15/23 18:59 06:59 18:59 Intake Total 236 10 Output Total 1678 2490 Balance -3722 -4371 Intake: IV 10 Invasive Line 2 10 Oral 236 Output: Urine 4447 2700 Other: Voiding Method Toilet Urinal Urinal # Voids 3 - Labs CBC & Chem 7: 07/15/23 05:49 07/15/23 05:49 Labs: Abnormal Lab Results - Last 24 Hours (Table) 07/14/23 07/15/23 07/15/23 Range/Units 16:31 05:49 05:49 RBC 3.51 L (4.30-5.90) m/uL Hgb 9.8 L (13.0-17.5) gm/dL Hct 31.2 L (39.0-53.0) % Carbon Dioxide 31 H (22-30) mmol/L BUN 21 H (9-20) mg/dL Glucose 102 H (74-99) mg/dL POC Glucose (mg/dL) 123 H (70-110) mg/dL Calcium 8.3 L (8.4-10.2) mg/dL Total Protein 5.3 L (6.3-8.2) g/dL Albumin 2.9 L (3.5-5.0) g/dL
[2023-07-15 12:23] LABS: Glucose,Whole Blood 139 mg/dL (70-110)
[2023-07-15] MEDS: ALPRAZolam 0.5 MG TAB PO PRN (12:40)
[2023-07-15 16:44] LABS: Glucose,Whole Blood 141 mg/dL (70-110)
[2023-07-15 20:03] LABS: Glucose,Whole Blood 132 mg/dL (70-110)
[2023-07-15] MEDS: INSULIN DETEMIR (LEVEMIR) 100 UNIT/ML SYR SQ SCH (20:40)
--- NOTE | 2023-07-15 22:44 | P.PN ---
Subjective Progress Note Date: 07/14/23 Principal diagnosis: Reason for follow up is diabetic foot wound and osteomyelitis Patient is a 68-year-old male with a past medical history significant for diabetes mellitus hypertension hyperlipidemia who was recently admitted to this facility with left big toe gangrene and diabetic foot infection in this patient who is status post left big toe amputation patient did have a culture positive for ESBL Klebsiella in addition to Proteus and Enterococcus faecalis Enterococcus and the patient was discharged on Invanz subsequently readmitted from the wound care center concerning for worsening wound and some necrotic changes. Patient did have angiogram completed on 07/09/2023 and vascular surgery recommending bypass On today's evaluation that is 07/14/2023 patient remains to be afebrile the patient is breathing comfortably on 3 L nasal cannula oxygen patient denies having any chest pain shortness of breath or cough no nausea vomiting abdominal pain no diarrhea patient mention he did have a stress of this morning and apparently did well with that without any problem. The patient did have a white count of 6.9 creatinine 1.02 Objective - Vital Signs Vital signs: Vital Signs Temp 97.8 F 07/14/23 08:29 Pulse 55 L 07/14/23 12:26 Resp 16 07/14/23 12:26 BP 158/79 07/14/23 12:26 Pulse Ox 98 07/14/23 12:26 FiO2 Intake & Output 07/13/23 07/14/23 07/14/23 18:59 06:59 18:59 Intake Total 1012 240 118 Output Total 1400 1500 650 Balance 388 -5830 -532 Intake: Oral 1012 240 118 Output: Urine 1400 1500 650 Other: Voiding Method Toilet Toilet Toilet Urinal Urinal Urinal - Exam GENERAL DESCRIPTION: Elderly male lying in bed in no distress RESPIRATORY SYSTEM: Unlabored breathing , decreased breath sounds at bases HEART: S1 S2 regular rate and rhythm ,no loud murmurs ABDOMEN: Soft , no tenderness EXTREMITIES: Left foot wound is currently dressed no drainage on the dressing - Labs CBC & Chem 7: 07/15/23 05:49 07/15/23 05:49 Labs: Abnormal Lab Results - Last 24 Hours (Table) 07/13/23 07/14/23 07/14/23 Range/Units 20:09 06:15 06:15 RBC 3.81 L (4.30-5.90) m/uL Hgb 10.7 L (13.0-17.5) gm/dL Hct 33.6 L (39.0-53.0) % Carbon Dioxide 31 H (22-30) mmol/L BUN 23 H (9-20) mg/dL POC Glucose (mg/dL) 112 H (70-110) mg/dL Alkaline Phosphatase 130 H (38-126) U/L Total Protein 6.1 L (6.3-8.2) g/dL Albumin 3.4 L (3.5-5.0) g/dL Assessment and Plan (1) Osteomyelitis Current Visit: No Status: Acute Code(s): M86.9 - OSTEOMYELITIS, UNSPECIFIED SNOMED Code(s): 09354902 (2) Type 2 diabetes mellitus with foot ulcer Current Visit: No Status: Acute Code(s): E11.621 - TYPE 2 DIABETES MELLITUS WITH FOOT ULCER; L97.509 - NON-PRESSURE CHRONIC ULCER OTH PRT UNSP FOOT W UNSP SEVERITY SNOMED Code(s): 896634509 Plan: 1patient with recent extensive left big toe diabetic foot infection with gangrene in this patient who is status post amputation of the left big toe c ulture did grow multiple pathogen including a drug-resistant ESBL Klebsiella in addition to Enterococcus for the patient was getting IV Invanz in the outpatient setting presented to hospital with some discoloration to the left big toe potation site concerning for worsening ischemia versus worsening infection, the patient did have a mild elevated white count but no fever 2patient has been evaluated by vascular surgery and CTA has been ordered and plan is for revascularization before transmetatarsal amputation, urology has seen the patient recommending Krueger catheter apparently the patient is refusing any further neurological workup 3patient is status post angiogram to the left lower extremity on 07/09/2023 vascular surgeon recommending bypass Patient is currently undergoing cardiac workup in preparation for surgery hopefully this week. 4we will continue patient on meropenem and monitor his clinical course closely Dictation was produced using [employer] dictation software. please excuse any grammatical, word or spelling errors. Time with Patient: Less than 30
--- NOTE | 2023-07-15 22:48 | P.PN ---
Subjective Progress Note Date: 07/15/23 Principal diagnosis: Reason for follow up is diabetic foot wound and osteomyelitis Patient is a 68-year-old male with a past medical history significant for diabetes mellitus hypertension hyperlipidemia who was recently admitted to this facility with left big toe gangrene and diabetic foot infection in this patient who is status post left big toe amputation patient did have a culture positive for ESBL Klebsiella in addition to Proteus and Enterococcus faecalis Enterococcus and the patient was discharged on Invanz subsequently readmitted from the wound care center concerning for worsening wound and some necrotic changes. Patient did have angiogram completed on 07/09/2023 and vascular surgery recommending bypass On today's evaluation that is 07/15/2023 patient continues to be afebrile patient is breathing comfortably on 2 L nasal cannula oxygen patient denies having any chest pain shortness of breath occasional cough no nausea vomiting no abdominal pain and no diarrhea. Patient did have white count of 5.8 creatinine is 1.0 Objective - Vital Signs Vital signs: Vital Signs Temp 97.8 F 07/15/23 20:00 Pulse 69 07/15/23 20:00 Resp 18 07/15/23 20:00 BP 154/69 07/15/23 20:00 Pulse Ox 91 L 07/15/23 20:00 FiO2 Intake & Output 07/15/23 07/15/23 07/16/23 06:59 18:59 06:59 Intake Total 10 820 10 Output Total 2700 600 600 Balance -2690 220 -590 Intake: IV 10 10 Invasive Line 2 10 10 Intake, IV Titration 100 Amount Meropenem 1 gm In Sodium 100 Chloride 0.9% 100 ml @ 33 .3 mls/hr IVPB Q8H [facility] Rx #:[id number] Oral 720 Output: Urine 2700 600 600 Other: Voiding Method Urinal Urinal Urinal - Exam GENERAL DESCRIPTION: Elderly male lying in bed in no distress RESPIRATORY SYSTEM: Unlabored breathing , decreased breath sounds at bases HEART: S1 S2 regular rate and rhythm ,no loud murmurs ABDOMEN: Soft , no tenderness EXTREMITIES: Left foot wound is currently dressed no drainage on the dressing - Labs CBC & Chem 7: 07/15/23 05:49 07/15/23 05:49 Labs: Abnormal Lab Results - Last 24 Hours (Table) 07/15/23 07/15/23 07/15/23 Range/Units 05:49 05:49 12:21 RBC 3.51 L (4.30-5.90) m/uL Hgb 9.8 L (13.0-17.5) gm/dL Hct 31.2 L (39.0-53.0) % Carbon Dioxide 31 H (22-30) mmol/L BUN 21 H (9-20) mg/dL Glucose 102 H (74-99) mg/dL POC Glucose (mg/dL) 139 H (70-110) mg/dL Calcium 8.3 L (8.4-10.2) mg/dL Total Protein 5.3 L (6.3-8.2) g/dL Albumin 2.9 L (3.5-5.0) g/dL 07/15/23 07/15/23 Range/Units 16:39 20:01 RBC (4.30-5.90) m/uL Hgb (13.0-17.5) gm/dL Hct (39.0-53.0) % Carbon Dioxide (22-30) mmol/L BUN (9-20) mg/dL Glucose (74-99) mg/dL POC Glucose (mg/dL) 141 H 132 H (70-110) mg/dL Calcium (8.4-10.2) mg/dL Total Protein (6.3-8.2) g/dL Albumin (3.5-5.0) g/dL Assessment and Plan (1) Osteomyelitis Current Visit: No Status: Acute Code(s): M86.9 - OSTEOMYELITIS, UNSPECIFIED SNOMED Code(s): 74928256 (2) Type 2 diabetes mellitus with foot ulcer Current Visit: No Status: Acute Code(s): E11.621 - TYPE 2 DIABETES MELLITUS WITH FOOT ULCER; L97.509 - NON-PRESSURE CHRONIC ULCER OTH PRT UNSP FOOT W UNSP SEVERITY SNOMED Code(s): 675350078 Plan: 1patient with recent extensive left big toe diabetic foot infection with gangrene in this patient who is status post amputation of the left big toe culture did grow multiple pathogen including a drug-resistant ESBL Klebsiella in addition to Enterococcus for the patient was getting IV Invanz in the outpatient setting presented to hospital with some discoloration to the left big toe potation site concerning for worsening ischemia versus worsening infection, the patient did have a mild elevated white count but no fever 2patient has been evaluated by vascular surgery and CTA has been ordered and plan is for revascularization before transmetatarsal amputation, urology has se en the patient recommending Krueger catheter apparently the patient is refusing any further neurological workup 3patient is status post angiogram to the left lower extremity on 07/09/2023 vascular surgeon recommending bypass , Patient apparently has been cleared by cardiology for surgery which has been scheduled for this Friday, we will continue patient on meropenem and monitor clinical course closely Questions concern answered Dictation was produced using [employer] dictation software. please excuse any grammatical, word or spelling errors. Time with Patient: Less than 30
[2023-07-16] MEDS: ALPRAZolam 0.5 MG TAB PO PRN (00:30)
[2023-07-16] MEDS: MEROPENEM 1 GM in SODIUM CHLORIDE 0.9% 100 ML IVPB SCH ×3 (04:54→20:24)
[2023-07-16] MEDS: PANTOPRAZOLE 40 MG TABLET PO SCH (06:41)
[2023-07-16] MEDS: HYDROcodone/APAP 10-325MG 1 EACH TAB PO PRN ×2 (06:43→15:54)
[2023-07-16 07:06] LABS: Glucose,Whole Blood 95 mg/dL (70-110)
[2023-07-16] MEDS: INSULIN ASPART (NovoLOG) 100 UNIT/ML VIAL SQ SCH ×6 (07:06→16:50)
[2023-07-16] MEDS: TAMSULOSIN 0.4 MG CAP.ER.24H PO SCH (09:48)
[2023-07-16] MEDS: CHOLECALCIFEROL 25 MCG (1000 IU) TABLET PO SCH (09:49)
[2023-07-16] MEDS: ATORVASTATIN 80 MG TAB PO SCH (09:49)
[2023-07-16] MEDS: FOLIC ACID 1 MG TAB PO SCH (09:49)
[2023-07-16] MEDS: ASPIRIN 81 MG PO SCH (09:49)
[2023-07-16] MEDS: ENOXAPARIN 40 MG/0.4 ML SYRINGE SQ SCH (09:49)
[2023-07-16] MEDS: THIAMINE 100 MG TAB PO SCH (09:49)
[2023-07-16] MEDS: ISOSORBIDE MONONITRATE ER 30 MG TAB.ER.24H PO SCH (09:49)
[2023-07-16] MEDS: GABAPENTIN 400 MG CAP PO SCH ×3 (09:49→21:35)
[2023-07-16] MEDS: CYCLOBENZAPRINE 5 MG TAB PO SCH ×3 (09:49→21:35)
--- NOTE | 2023-07-16 10:38 | P.PN ---
Subjective Progress Note Date: 07/16/23 No new complaints today. Seen by vascular surgery with anticipation of transmetatarsal amputation. Gen: in no apparent distress, resting comfortably in bed Eyes: PERRL, no scleral injection or icterus HENT: normocephalic, atraumatic, good hearing acuity, moist mucous membranes Neck: no tracheal deviation, full range of motion Resp: good air exchange, breathing comfortably with no accessory muscle use, no tactile fremitus, clear to auscultation bilaterally CVS: good distal perfusion x 4, no pitting edema, regular rate and rhythm without murmurs GI: soft, NTTP, ND, no hepatosplenomegaly : no suprapubic tenderness, no CVAT, ware catheter not present MSK: no clubbing, no cyanosis, no noted contractures of extremities Skin: no noted rashes, petechiae; temperature of skin is appropriate Neuro: moving all extremities without signs of weakness, CN II-XII intact Psych: cooperative, euthymic mood, insight and judgment intact Hospital Course: Patient is a very pleasant 68-year-old male with a past medical history of spinal infection status post intervention on preventative Keflex daily, hypert ension, insulin-dependent diabetes mellitus, and BPH. Patient initially hospitalized from 06/22-06/27 for OM and wet gangrene of the L toe and underwent amputation of the L first toe with wound cultures growing K. pneumoniae, proteus vulgaris and enterococcus faecalis resulting in discharge home on 6 weeks of IV Invanz and wound vac Patient return to the emergency department on 07/04/23 secondary to reports of worsening erythema and pain in his left foot. Upon arrival to our facility patient underwent extensive evaluation. He was found to be bradycardic with heart rate of 36. EKG completed showing sinus bradycardia at 35 bpm. X-ray left foot showing diffuse soft tissue edema consistent with cellulitis and status post transmetatarsal amputation of first digit with bone appearing to extend outside the margin of the soft tissues. Labs were completed and reviewed showing leukocytosis with WBC count of 11.2, normocytic anemia with hemoglobin of 10.7, hyperkalemia with potassium of 6.1, and acute kidney injury with BUN of 64, creatinine 1.62, and GFR 44 with baseline creatinine of 1.1. Magnesium was also elevated at 2.6 and alkaline phosphatase elevated at 127. Troponin was negative at less than 0.012. CRP 5.9 and ESR was 63. Patient admitted under our services of consultation to infectious disease and vascular surgery. CTA with runoff revealed diffuse arteriosclerotic calcification of the abdominal aorta, pelvic arteries and runoff vessels with multiple significant stenosis suspected in the superficial femoral arteries and evaluation of runoff was indeterminate given lack of IV contrast, also revealing chronic bilateral hydronephrosis and hydroureter. Bilateral lower extremity CTA then repeated on 07/06/23 showing that it appears to be bilateral proximal popliteal obstruction with collateral flow reconstituting the distal popliteal artery and trifurcation vessels, trifurcation vessels appear to extend to the level of the ankle bilaterally and vascular calcification throughout the lower extremity arterial system is noted to have additional areas of at least moderate narrowing through the superficial femoral arteries. On 07/09/23 patient underwent ultrasound- guided left radial artery access aortogram with runoffs in which patient was found to have occlusion across the joint as well as 1 vessel runoff with vascular surgery recommending a patient would be best served by proper bypass rather than endovascular approach. Echocardiogram was completed showing preserved EF of 55-60% with severe pulmonary hypertension. Cardiology took patient for Lexiscan stress test which revealed a predominantly matched defect involving the anterior and inferior lateral wall with small areas of stress- induced reversibility at the inferior apical wall, these results were thoroughly reviewed by economics consultant. Cardiology stated they're recommending medical management for CAD and clearing patient from cardiac perspective to proceed with vascular surgery. Patient is scheduled for fem-pop bypass on 07/18/23. Assessment/plan: Dry gangrene with osteomyelitis Diabetic foot infection Peripheral Arterial Disease with Occlusion of SFA -Infectious disease consultation -Continue meropenem -Vancomycin completed -Vascular surgery consultation for further debridement -plan for bypass surgery on 07/18 -Cardiology cleared patient for surgery Chronic bilateral hydronephrosis and hydroureter BPH -Continue Flomax 0.8 mg daily. -Urology evaluated and reviewed documentation in chart, urology stating chronic urinary retention and bilateral hydronephrosis is likely secondary to significant bladder distention resulting from patient's chronic urinary retention. Urology recommending recommending bladder decompression with insertion of Ware catheter however patient refusing at this time and urology informed patient of risks of further retention resulting in risk of renal failure. Diabetes type II -Strict sugar control -Lantus at 35 units at bedtime, 6 units lispro before meals 3 times a day, aspart sliding scale insulin Hypertension Hyperlipidemia BPH -Home medications reviewed and reconciled Patient is full code CODE STATUS: Full code DVT prophylaxis: Lovenox Anticipated discharge date: Clinical course to determine Anticipated discharge place: Clinical course to determine Objective - Vital Signs Vital signs: Vital Signs Temp 97.8 F 07/15/23 20:00 Pulse 50 L 07/16/23 04:00 Resp 16 07/16/23 04:00 BP 134/76 07/16/23 04:00 Pulse Ox 96 07/16/23 04:00 FiO2 Intake & Output 07/15/23 07/16/23 07/16/23 18:59 06:59 18:59 Intake Total 820 10 Output Total 600 2200 600 Balance 220 -2190 -600 Intake: IV 10 Invasive Line 2 10 Intake, IV Titration 100 Amount Meropenem 1 gm In Sodium 100 Chloride 0.9% 100 ml @ 33 .3 mls/hr IVPB Q8H [facility] Rx #:[id number] Oral 720 Output: Urine 600 2200 600 Other: Voiding Method Urinal Urinal - Labs CBC & Chem 7: 07/15/23 05:49 07/15/23 05:49 Labs: Abnormal Lab Results - Last 24 Hours (Table) 07/15/23 07/15/23 07/15/23 Range/Units 12:21 16:39 20:01 POC Glucose (mg/dL) 139 H 141 H 132 H (70-110) mg/dL
--- NOTE | 2023-07-16 10:44 | P.PN ---
Subjective Progress Note Date: 07/16/23 HISTORY OF PRESENT ILLNESS: This is a 68-year-old male with a past medical history significant for diabetes, hyperlipidemia, and hypertension. Patient does not follow with a paper ruler. We have been asked to see the patient in consultation for cardiac clearance. Patient underwent aortogram with runoffs via left radial artery access. Due to occlusion across the left joint as well as one-vessel runoff he will require a left lower extremity fem-pop bypass vascular surgery. This has been scheduled for 07/14/2023. * EKG reveals sinus bradycardia with no signs of acute ischemia * Laboratory data: WBC 7.3. Hemoglobin 9.9. Platelet count 222. Sodium 141. Potassium 4.9. BUN 23. Creatinine 1.06. * Current home cardiac medications include nifedipine 60 mg at night, metoprolol titrate 25 mg twice a day, losartan 25 mg at night, Lipitor 80 mg daily, and aspirin 81 mg daily * Most recent echocardiogram obtained in February 2020 revealed ejection fraction 55-60%, moderate to severe TR, moderate to severe pulmonary hypertension 07/12/2023 He is doing well with no new complaints. No chest pain or shortness of breath. Echocardiogram 07/11/23 with EF 5560%, severe pulmonary hypertension, RVSP 58, mild mitral regurgitation, moderate tricuspid regurgitation. 07/13 Blood pressure readings have been elevatedup to 177/77, this morning 139/84. Patient denies having any chest pain no shortness of breath, no dizziness. He states his foot is unchanged. Patient scheduled for Lexiscan stress test tomorrow. 07/14 Patient is scheduled for Lexiscan stress test today. 07/15 Lexiscan stress test revealed predominantly matched defect involving the anterior and inferior lateral wall. Small area of stress-induced reversibility at the inferior apical wall not excluded. Results reviewed by Dr. Diaz he has cleared the patient for fem-pop bypass which is scheduled for . Discussed with vascular surgery. Patient is at moderate risk for complications. Patient does have good systolic function. No significant abnormality on the nuclear scan. There is a small area of reversible ischemia and history of moderate pulmonary hypertension. Patient can proceed with surgery and we will plan for medical treatment for CAD. 07/16 Patient states that surgery has been postponed until Friday. No news concerns from the patient. No chest pain. Heart rate is in the 50s, blood pressure 134/76, pulse ox 96% on 2 L nasal cannula. No repeat blood work available at this time. ASSESSMENT: Nonhealing left great toe wound Diabetic vascular disease with bilateral lower extremities with resulting arterial insufficiency SFA occlusion Bilateral hydronephrosis Hypertension Hyperlipidemia Diabetes Pulmonary hypertension, RVSP 58 PLAN: Continue patient on current cardiac medications Continue the addition of Imdur 30 mg daily Patient scheduled for left lower extremity femoral-popliteal bypass on Friday with vascular services. Patient is at moderate risk for complications. Patient does have good systolic function. No significant abnormality on the nuclear scan. There is a small area of reversible ischemia and history of moderate pulmonary hypertension. Patient can proceed with surgery and we will plan for medical treatment for CAD. Further recommendations pending patient's course. Nurse practitioner note has been reviewed by physician. Signing provider agrees with the documented findings, assessment, and plan of care. Objective - Vital Signs Vital signs: Vital Signs Temp 97.8 F 07/15/23 20:00 Pulse 50 L 07/16/23 04:00 Resp 16 07/16/23 04:00 BP 134/76 07/16/23 04:00 Pulse Ox 96 07/16/23 04:00 FiO2 Intake & Output 07/15/23 07/16/23 07/16/23 18:59 06:59 18:59 Intake Total 820 10 Output Total 600 2200 Balance 220 -2190 Intake: IV 10 Invasive Line 2 10 Intake, IV Titration 100 Amount Meropenem 1 gm In Sodium 100 Chloride 0.9% 100 ml @ 33 .3 mls/hr IVPB Q8H [facility] Rx #:[id number] Oral 720 Output: Urine 600 2200 Other: Voiding Method Urinal Urinal - Labs CBC & Chem 7: 07/15/23 05:49 07/15/23 05:49 Labs: Abnormal Lab Results - Last 24 Hours (Table) 07/15/23 07/15/23 07/15/23 Range/Units 12:21 16:39 20:01 POC Glucose (mg/dL) 139 H 141 H 132 H (70-110) mg/dL
[2023-07-16] MEDS: MORPHINE SULFATE 4 MG/ML SYRINGE IV PRN ×2 (11:25→20:21)
[2023-07-16 11:46] LABS: Glucose,Whole Blood 191 mg/dL (70-110)
--- NOTE | 2023-07-16 12:48 | P.PN ---
Subjective Progress Note Date: 07/16/23 Principal diagnosis: Nonhealing left great toe wound Seen and examined today as a follow-up. No acute changes through the night. He remains afebrile. Plan is to move forward with left lower extremity fem-pop bypass on Friday. Type and screen was obtained. Repeat labs tomorrow. Objective - Vital Signs Vital signs: Vital Signs Temp 97.8 F 07/16/23 12:00 Pulse 66 07/16/23 12:00 Resp 18 07/16/23 12:00 BP 177/81 07/16/23 12:00 Pulse Ox 94 L 07/16/23 12:00 FiO2 Intake & Output 07/15/23 07/16/23 07/16/23 18:59 06:59 18:59 Intake Total 820 10 Output Total 600 2200 600 Balance 220 -2190 -600 Intake: IV 10 Invasive Line 2 10 Intake, IV Titration 100 Amount Meropenem 1 gm In Sodium 100 Chloride 0.9% 100 ml @ 33 .3 mls/hr IVPB Q8H [facility] Rx #:[id number] Oral 720 Output: Urine 600 2200 600 Other: Voiding Method Urinal Urinal - Exam General appearance: The patient is alert, oriented, appears in no acute distress. HET: Head is normocephalic and atraumatic. Pupils are equal and reactive. Neck: Supple. Abdomen: Soft, nondistended. Extremities: Left foot great toe amputation site with dry gangrene. Mild erythema to the dorsal aspect of foot. Neurological: No focal deficits. Strength and sensation are grossly intact. - Labs CBC & Chem 7: 07/15/23 05:49 07/15/23 05:49 Labs: Abnormal Lab Results - Last 24 Hours (Table) 07/15/23 07/15/23 07/16/23 Range/Units 16:39 20:01 11:45 POC Glucose (mg/dL) 141 H 132 H 191 H (70-110) mg/dL Assessment and Plan Assessment: 1. Nonhealing left great toe wound with dry gangrene 2. Diabetic vascular disease bilateral lower extremities with resulting arterial insufficiency. Deborah 5 peripheral arterial disease. 3. SFA occlusion 3. Bilateral hydronephrosis and hydroureters. Rule out bladder obstruction 4. History of tobacco abuse Plan: 1. Patient underwent left lower extremity angiogram with possible intervention 2. Patient will require left lower extremity fem-pop bypass to below the knee with in situ vein, this will be scheduled for Friday07/18/23. 3. Vein mapping ordered and reviewed 4. Patient has medical and cardiac clearance to proceed with left lower extremity bypass. 5. Urology was consulted regarding urinary retention. The recommendation was indwelling Krueger catheter. Patient is refusing indwelling Krueger catheter as well as intermittent catheterization. They have signed off at this time. 6. Dressing to left lower extremity, 4 x 4 and Kerlix. 7. Patient may ambulate with heel walk only to left foot Thank you for this consultation. The impression and plan of care has been dictated as directed. Dr. Daneil I performed a history and examination of this patient, discussed the same with the dictator. I agree with the dictator's note ,documented as a scribe. Any additional findings or plans will be noted.
[2023-07-16 16:33] LABS: Glucose,Whole Blood 92 mg/dL (70-110)
[2023-07-16 20:19] LABS: Glucose,Whole Blood 81 mg/dL (70-110)
[2023-07-16] MEDS: INSULIN DETEMIR (LEVEMIR) 100 UNIT/ML SYR SQ SCH (21:35)
[2023-07-17] MEDS: MEROPENEM 1 GM in SODIUM CHLORIDE 0.9% 100 ML IVPB SCH ×3 (05:10→20:44)
[2023-07-17] MEDS: PANTOPRAZOLE 40 MG TABLET PO SCH (06:50)
[2023-07-17 06:51] LABS: Glucose,Whole Blood 112 mg/dL (70-110)
[2023-07-17] MEDS: MORPHINE SULFATE 4 MG/ML SYRINGE IV PRN ×2 (06:52→14:15)
[2023-07-17] MEDS: INSULIN ASPART (NovoLOG) 100 UNIT/ML VIAL SQ SCH ×6 (06:53→17:59)
[2023-07-17 08:16] LABS: HCT 33.8 % (39.0-53.0); HGB 10.3 gm/dL (13.0-17.5); Hypochromasia Moderate; MCHC 30.5 g/dL (31.0-37.0); MCV 88.7 fL (80.0-100.0); Mean Platelet Volume 8.1; Platelet Count 241 k/uL (150-450); RBC 3.81 m/uL (4.30-5.90); RDW 14.3 % (11.5-15.5); WBC 6.9 k/uL (3.8-10.6)
[2023-07-17 08:30] LABS: African American GFR (CKD) 88 (>60 ml/min/1.73 sqM); Anion Gap 6 mmol/L; Blood Urea Nitrogen 21 mg/dL (9-20); Calcium 8.8 mg/dL (8.4-10.2); Carbon Dioxide 30 mmol/L (22-30); Chloride 102 mmol/L (98-107); Glucose 94 mg/dL (74-99); Non-African American GFR(CKD) 76 (>60 ml/min/1.73 sqM); Potassium 4.7 mmol/L (3.5-5.1); Sodium 138 mmol/L (137-145)
--- NOTE | 2023-07-17 08:59 | P.PN ---
Subjective Progress Note Date: 07/16/23 Principal diagnosis: Reason for follow up is diabetic foot wound and osteomyelitis Patient is a 68-year-old male with a past medical history significant for diabetes mellitus hypertension hyperlipidemia who was recently admitted to this facility with left big toe gangrene and diabetic foot infection in this patient who is status post left big toe amputation patient did have a culture positive for ESBL Klebsiella in addition to Proteus and Enterococcus faecalis Enterococcus and the patient was discharged on Invanz subsequently readmitted from the wound care center concerning for worsening wound and some necrotic changes. Patient did have angiogram completed on 07/09/2023 and vascular surgery recommending bypass On today's evaluation that is 07/16/2023 the patient denies any fever or any chills, the patient is breathing comfortably currently on 2 L nasal cannula oxygen the patient denies chest pain shortness of breath or cough denies any abdominal pain no nausea vomiting or any diarrhea denies pain to the left foot wound. No lab draw today Objective - Vital Signs Vital signs: Vital Signs Temp 98.2 F 07/16/23 16:00 Pulse 46 L 07/16/23 16:00 Resp 18 07/16/23 16:00 BP 148/68 07/16/23 16:00 Pulse Ox 97 07/16/23 16:00 FiO2 Intake & Output 07/16/23 07/16/23 07/17/23 06:59 18:59 06:59 Intake Total 10 120 240 Output Total 2200 1425 Balance -2190 -1305 240 Intake: IV 10 Invasive Line 2 10 Oral 120 240 Output: Urine 2200 1425 Other: Voiding Method Urinal - Exam GENERAL DESCRIPTION: Elderly male lying in bed in no distress RESPIRATORY SYSTEM: Unlabored breathing , decreased breath sounds at bases HEART: S1 S2 regular rate and rhythm ,no loud murmurs ABDOMEN: Soft , no tenderness EXTREMITIES: Left foot wound is currently dressed no drainage on the dressing - Labs CBC & Chem 7: 07/17/23 07:39 07/17/23 07:39 Labs: Abnormal Lab Results - Last 24 Hours (Table) 07/16/23 Range/Units 11:45 POC Glucose (mg/dL) 191 H (70-110) mg/dL Assessment and Plan (1) Osteomyelitis Current Visit: No Status: Acute Code(s): M86.9 - OSTEOMYELITIS, UNSPECIFIED SNOMED Code(s): 56668381 (2) Type 2 diabetes mellitus with foot ulcer Current Visit: No Status: Acute Code(s): E11.621 - TYPE 2 DIABETES MELLITUS WITH FOOT ULCER; L97.509 - NON-PRESSURE CHRONIC ULCER OTH PRT UNSP FOOT W UNSP SEVERITY SNOMED Code(s): 189575901 Plan: 1patient with recent extensive left big toe diabetic foot infection with gangrene in this patient who is status post amputation of the left big toe culture did grow multiple pathogen including a drug-resistant ESBL Klebsiella in addition to Enterococcus for the patient was getting IV Invanz in the outpatient setting presented to hospital with some discoloration to the left big toe potation site concerning for worsening ischemia versus worsening infection, the patient did have a mild elevated white count but no fever 2patient has been evaluated by vascular surgery and CTA has been ordered and plan is for revascularization before transmetatarsal amputation, urology has seen the patient recommending Krueger catheter apparently the patient is refusing any further neurological workup 3patient is status post angiogram to the left lower extremity on 07/09/2023 vas cular surgeon recommending bypass , Patient apparently has been cleared by cardiology for surgery which has been scheduled for this Friday 4-patient to continue with the meropenem continue local wound care as ordered and monitor his clinical course closely prescription for outpatient biotic were given to the caser Dictation was produced using [employer] dictation software. please excuse any gr ammatical, word or spelling errors.
[2023-07-17] MEDS: ASPIRIN 81 MG PO SCH (09:07)
[2023-07-17] MEDS: GABAPENTIN 400 MG CAP PO SCH ×3 (09:07→20:44)
[2023-07-17] MEDS: ATORVASTATIN 80 MG TAB PO SCH (09:08)
[2023-07-17] MEDS: TAMSULOSIN 0.4 MG CAP.ER.24H PO SCH (09:08)
[2023-07-17] MEDS: THIAMINE 100 MG TAB PO SCH (09:08)
[2023-07-17] MEDS: ENOXAPARIN 40 MG/0.4 ML SYRINGE SQ SCH (09:08)
[2023-07-17] MEDS: CYCLOBENZAPRINE 5 MG TAB PO SCH ×3 (09:08→20:44)
[2023-07-17] MEDS: FOLIC ACID 1 MG TAB PO SCH (09:08)
[2023-07-17] MEDS: ISOSORBIDE MONONITRATE ER 30 MG TAB.ER.24H PO SCH (09:08)
[2023-07-17] MEDS: CHOLECALCIFEROL 25 MCG (1000 IU) TABLET PO SCH (09:08)
[2023-07-17] MEDS: HYDROcodone/APAP 10-325MG 1 EACH TAB PO PRN (09:12)
[2023-07-17] MEDS: ALPRAZolam 0.5 MG TAB PO PRN (11:10)
[2023-07-17 11:55] LABS: Glucose,Whole Blood 98 mg/dL (70-110)
--- NOTE | 2023-07-17 12:21 | P.PN ---
Subjective Progress Note Date: 07/17/23 Principal diagnosis: Nonhealing left great toe wound Patient is seen and examined today as a follow-up. No acute changes through the night. Plan is for bypass tomorrow of the left lower extremity. Type and screen has been completed. Hemoglobin stable at 10.3. Objective - Vital Signs Vital signs: Vital Signs Temp 98.3 F 07/17/23 08:00 Pulse 56 L 07/17/23 08:00 Resp 18 07/17/23 08:00 BP 137/65 07/17/23 08:00 Pulse Ox 99 07/17/23 08:00 FiO2 Intake & Output 07/16/23 07/17/23 07/17/23 18:59 06:59 18:59 Intake Total 120 340 360 Output Total 1425 2375 Balance -1305 -2035 360 Intake: Intake, IV Titration 100 Amount Meropenem 1 gm In Sodium 100 Chloride 0.9% 100 ml @ 33 .3 mls/hr IVPB Q8H [facility] Rx #:[id number] Oral 120 240 360 Output: Urine 1425 2375 Other: Voiding Method Urinal Urinal - Exam General appearance: The patient is alert, oriented, appears in no acute distress. HET: Head is normocephalic and atraumatic. Pupils are equal and reactive. Neck: Supple. Abdomen: Soft, nondistended. Extremities: Left foot dressing clean dry and intact. Neurological: No focal deficits. Strength and sensation are grossly intact. - Labs CBC & Chem 7: 07/17/23 07:39 07/17/23 07:39 Labs: Abnormal Lab Results - Last 24 Hours (Table) 07/17/23 07/17/23 07/17/23 Range/Units 06:49 07:39 07:39 RBC 3.81 L (4.30-5.90) m/uL Hgb 10.3 L (13.0-17.5) gm/dL Hct 33.8 L (39.0-53.0) % MCHC 30.5 L (31.0-37.0) g/dL BUN 21 H (9-20) mg/dL POC Glucose (mg/dL) 112 H (70-110) mg/dL Assessment and Plan Assessment: 1. Nonhealing left great toe wound with dry gangrene 2. Diabetic vascular disease bilateral lower extremities with resulting arterial insufficiency. Mchenry 5 peripheral arterial disease. 3. SFA occlusion 3. Bilateral hydronephrosis and hydroureters. Rule out bladder obstruction 4. History of tobacco abuse Plan: 1. Patient underwent left lower extremity angiogram 2. Left lower extremity fem-pop bypass to below the knee with in situ vein, this is scheduled for Friday07/18/23. 3. Vein mapping ordered and reviewed 4. Patient has medical and cardiac clearance to proceed with left lower extremity bypass. 5. Urology was consulted regarding urinary retention. The recommendation was indwelling Krueger catheter. Patient is refusing indwelling Krueger catheter as well as intermittent catheterization. They have signed off at this time. 6. Dressing to left lower extremity, 4 x 4 and Kerlix. 7. Patient may ambulate with heel walk only to left foot Thank you for this consultation. The impression and plan of care has been dictated as directed. Dr. Peña I performed a history and examination of this patient, discussed the same with the dictator. I agree with the dictator's note ,documented as a scribe. Any additional findings or plans will be noted. Attending note: Patient was evaluated and angiography imaging was reviewed. Additionally vein mapping demonstrates adequate vein for bypass. The left foot wound remains unchanged with steve bone exposed. I discussed with the patient the plan for femoral popliteal in situ vein bypass grafting. The procedure, risk and benefits were discussed in great detail. All questions were answered patient's satisfaction. Patient is scheduled for surgery at 7:30 in the morning on July 18.
--- NOTE | 2023-07-17 12:43 | PN ---
PROGRESS NOTE SUBJECTIVE: Mr. Ferraro is in a sinus rhythm, resting comfortably. He is going for a left femoral- popliteal surgery. He had a minimally abnormal stress test, but I am recommending he can proceed with limb saving surgery initially and to help the healing of the wound as well. Stable cardiac-brito, no angina. OBJECTIVE: VITALS: Stable. HEART: S1, S2 heard normally, short systolic murmur noted. LUNGS: Revealed decent air entry. ABDOMEN: Soft. EXTREMITIES: Lower extremity examination was not performed. The patient is a moderate risk. No contraindication, can proceed with surgery. Patient is aware that he has CAD, but no significant abnormality on the stress test that will preclude intervention for noncardiac surgery. MMODL / IJN: [id number] /
--- NOTE | 2023-07-17 14:58 | P.PN ---
Subjective Progress Note Date: 07/17/23 Principal diagnosis: Reason for follow up is diabetic foot wound and osteomyelitis Patient is a 68-year-old male with a past medical history significant for diabetes mellitus hypertension hyperlipidemia who was recently admitted to this facility with left big toe gangrene and diabetic foot infection in this patient who is status post left big toe amputation patient did have a culture positive for ESBL Klebsiella in addition to Proteus and Enterococcus faecalis Enterococcus and the patient was discharged on Invanz subsequently readmitted from the wound care center concerning for worsening wound and some necrotic changes. Patient did have angiogram completed on 07/09/2023 and vascular surgery recommending bypass On today's evaluation that is 07/17/2023 the patient remains to be afebrile, patient is breathing comfortably on room air patient denies having any chest pain shortness of breath or cough no nausea no vomiting no abdominal pain no diarrhea and denies pain to the left foot and no further drainage. Patient white count is 6.9 creatinine is 1.03 Objective - Vital Signs Vital signs: Vital Signs Temp 98.3 F 07/17/23 08:00 Pulse 56 L 07/17/23 12:00 Resp 18 07/17/23 08:00 BP 145/66 07/17/23 12:00 Pulse Ox 94 L 07/17/23 12:00 FiO2 Intake & Output 07/16/23 07/17/23 07/17/23 18:59 06:59 18:59 Intake Total 120 340 360 Output Total 1425 2375 500 Balance -1305 -2035 -140 Intake: Intake, IV Titration 100 Amount Meropenem 1 gm In Sodium 100 Chloride 0.9% 100 ml @ 33 .3 mls/hr IVPB Q8H [facility] Rx #:[id number] Oral 120 240 360 Output: Urine 1425 2375 500 Other: Voiding Method Urinal Urinal - Exam GENERAL DESCRIPTION: Elderly male lying in bed in no distress RESPIRATORY SYSTEM: Unlabored breathing , decreased breath sounds at bases HEART: S1 S2 regular rate and rhythm ,no loud murmurs ABDOMEN: Soft , no tenderness EXTREMITIES: Left foot wound is currently dressed no drainage on the dressing - Labs CBC & Chem 7: 07/17/23 07:39 07/17/23 07:39 Labs: Abnormal Lab Results - Last 24 Hours (Table) 07/17/23 07/17/23 07/17/23 Range/Units 06:49 07:39 07:39 RBC 3.81 L (4.30-5.90) m/uL Hgb 10.3 L (13.0-17.5) gm/dL Hct 33.8 L (39.0-53.0) % MCHC 30.5 L (31.0-37.0) g/dL BUN 21 H (9-20) mg/dL POC Glucose (mg/dL) 112 H (70-110) mg/dL Assessment and Plan (1) Osteomyelitis Current Visit: No Status: Acute Code(s): M86.9 - OSTEOMYELITIS, UNSPECIFIED SNOMED Code(s): 13065952 (2) Type 2 diabetes mellitus with foot ulcer Current Visit: No Status: Acute Code(s): E11.621 - TYPE 2 DIABETES MELLITUS WITH FOOT ULCER; L97.509 - NON-PRESSURE CHRONIC ULCER OTH PRT UNSP FOOT W UNSP SEVERITY SNOMED Code(s): 234495941 Plan: 1patient with recent extensive left big toe diabetic foot infection with gangrene in this patient who is status post amputation of the left big toe culture did grow multiple pathogen including a drug-resistant ESBL Klebsiella in addition to Enterococcus for the patient was getting IV Invanz in the outpatient setting presented to hospital with some discoloration to the left big toe potation site concerning for worsening ischemia versus worsening infection, the patient did have a mild elevated white count but no fever 2patient has been evaluated by vascular surgery and CTA has been ordered and plan is for revascularization before transmetatarsal amputation, urology has seen the patient recommending Krueger catheter apparently the patient is refusing any further neurological workup 3patient is status post angiogram to the left lower extremity on 07/09/2023 vascular surgeon recommending bypass , Patient apparently has been cleared by cardiology for surgery which has been scheduled for 07/18/2023. 4patient to continue local wound care as ordered continue with the meropenem will transition to Invanz on discharge multiple questions concern answered Dictation was produced using [employer] software. please excuse any grammatical, word or spelling errors. Time with Patient: Less than 30
[2023-07-17 16:26] LABS: Glucose,Whole Blood 129 mg/dL (70-110)
--- NOTE | 2023-07-17 18:21 | P.PN ---
Subjective Progress Note Date: 07/17/23 Hospital Course: Patient is a very pleasant 68-year-old male with a past medical history of spinal infection status post intervention on preventative Keflex daily, hypertension, insulin-dependent diabetes mellitus, and BPH. Patient initially hospitalized from 06/22-06/27 for OM and wet gangrene of the L toe and underwent amputation of the L first toe with wound cultures growing K. pneumoniae, proteus vulgaris and enterococcus faecalis resulting in discharge home on 6 weeks of IV Invanz and wound vac Patient return to the emergency department on 07/04/23 secondary to reports of worsening erythema and pain in his left foot. Upon arrival to our facility patient underwent extensive evaluation. He was found to be bradycardic with heart rate of 36. EKG completed showing sinus bradycardia at 35 bpm. X-ray left foot showing diffuse soft tissue edema consistent with cellulitis and status post transmetatarsal amputation of first digit with bone appearing to extend outside the margin of the soft tissues. Labs were completed and reviewed showing leukocytosis with WBC count of 11.2, normocytic anemia with hemoglobin of 10.7, hyperkalemia with potassium of 6.1, and acute kidney injury with BUN of 64, creatinine 1.62, and GFR 44 with baseline creatinine of 1.1. Magnesium was also elevated at 2.6 and alkaline phosphatase elevated at 127. Troponin was negative at less than 0.012. CRP 5.9 and ESR was 63. Patient admitted under our services of consultation to infectious disease and vascular surgery. CTA with runoff revealed diffuse arteriosclerotic calcification of the abdominal aorta, pelvic arteries and runoff vessels with multiple significant stenosis suspected in the superficial femoral arteries and evaluation of runoff was indeterminate given lack of IV contrast, also revealing chronic bilateral hydronephrosis and hydroureter. Bilateral lower extremity CTA then repeated on 07/06/23 showing that it appears to be bilateral proximal popliteal obstruction with collateral flow reconstituting the distal popliteal artery and trifurcation vessels, trifurcation vessels appear to extend to the level of the ankle bilaterally and vascular calcification throughout the lower extremity arterial system is noted to have additional areas of at least moderate narrowing through the superficial femoral arteries. On 07/09/23 patient underwent ultrasound- guided left radial artery access aortogram with runoffs in which patient was found to have occlusion across the joint as well as 1 vessel runoff with vascular surgery recommending a patient would be best served by proper bypass rather than endovascular approach. Echocardiogram was completed showing preserved EF of 55-60% with severe pulmonary hypertension. Cardiology took patient for Lexiscan stress test which revealed a predominantly matched defect involving the anterior and inferior lateral wall with small areas of stress- induced reversibility at the inferior apical wall, these results were thoroughly reviewed by physical director. Cardiology stated they're recommending medical management for CAD and clearing patient from cardiac perspective to proceed with vascular surgery. Patient is scheduled for fem-pop bypass on 07/18/23. Physical exam: Patient seen and fully evaluated at bedside this morning. He currently denies having any needs or complaints at this time. Patient reports he continues to feel slightly anxious but states that previously ordered Xanax did help. Patient denies having any questions at this time. Vital signs reviewed and stable. General: Nontoxic, no distress and appears stated age. Derm: Skin warm and dry, normal coloration for ethnicity. Head: Atraumatic, normocephalic and symmetric. Eyes: EOMs intact, no lid lag, and anicteric sclera Mouth: no lip lesions, mucus membranes moist Cardiovascular: regular rate and rhythm with normal S1S2, soft murmur, positive posterior tibial pulses bilaterally, and cap refill < 2 seconds. Lungs: Respirations even, regular, and unlabored on room air. Lungs diminished otherwise no rhonchi, no rales, no wheezing, and no accessory muscle usage. Abdominal: soft, nontender to palpation, no guarding, no appreciable organomega ly Ext: No gross muscle atrophy, no edema. Movement and sensation intact. Dressing left lower extremity clean dry and intact. Neuro: Speech clear, face symmetrical and CN II-XII grossly intact with no noted focal neuro deficits Psych: Alert and oriented to person, place, time, and situation. Appropriate and pleasant affect. 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 -Urology evaluated and reviewed documentation in chart, urology stating chronic urinary retention and bilateral hydronephrosis is likely secondary to significant bladder distention resulting from patient's chronic urinary retention. Urology recommending recommending bladder decompression with insertion of Krueger catheter however patient refusing at this time and urology informed patient of risks of further retention resulting in risk of renal failure. Diabetes type II -Globin A1c 7% -Continue Lantus at 35 units at bedtime, 6 units lispro before meals 3 times a day, and NovoLog sliding scale insulin Hypertension Hyperlipidemia BPH -Home medications reviewed and reconciled Data and imaging reviewed: Labs completed and reviewed. CBC showing stable normocytic anemia with hemoglobin of 10.3. BMP unremarkable. Vital signs reviewed. Blood pressure 137/65, heart rate 56, respiratory rate 18, temp 98.3F, SpO2 is 99% on 2 L. CODE STATUS: Full code DVT prophylaxis: Lovenox Anticipated discharge date: Clinical course to determine Anticipated discharge place: Clinical course to determine Patient was seen independently by Nurse Pracitioner. This document was prepared using [employer] dictation software. Please allow for errors in mgmt consultant, while rare they do occur. I reviewed the documentation as provided by the LUIS ANTONIO above, who is the original author of this note. I agree with the documented assessment and plan, with the following changes: none Objective - Vital Signs Vital signs: Vital Signs Temp 98.1 F 07/17/23 04:00 Pulse 68 07/17/23 04:00 Resp 17 07/17/23 04:00 BP 140/72 07/17/23 04:00 Pulse Ox 98 07/17/23 04:00 FiO2 Intake & Output 07/16/23 07/17/23 07/17/23 18:59 06:59 18:59 Intake Total 120 340 Output Total 1425 2375 Balance -1305 -2035 Intake: Intake, IV Titration 100 Amount Meropenem 1 gm In Sodium 100 Chloride 0.9% 100 ml @ 33 .3 mls/hr IVPB Q8H [facility] Rx #:[id number] Oral 120 240 Output: Urine 1425 2375 Other: Voiding Method Urinal - Labs CBC & Chem 7: 07/17/23 07:39 07/17/23 07:39 Labs: Abnormal Lab Results - Last 24 Hours (Table) 07/16/23 07/17/23 Range/Units 11:45 06:49 POC Glucose (mg/dL) 191 H 112 H (70-110) mg/dL
[2023-07-17 20:00] LABS: Glucose,Whole Blood 126 mg/dL (70-110)
[2023-07-17] MEDS: INSULIN DETEMIR (LEVEMIR) 100 UNIT/ML SYR SQ SCH (20:44)
[2023-07-18] MEDS: MEROPENEM 1 GM in SODIUM CHLORIDE 0.9% 100 ML IVPB SCH ×3 (04:25→20:44)
[2023-07-18] MEDS: ALPRAZolam 0.5 MG TAB PO PRN (05:49)
[2023-07-18] MEDS: PANTOPRAZOLE 40 MG TABLET PO SCH (05:54)
[2023-07-18] MEDS: INSULIN ASPART (NovoLOG) 100 UNIT/ML VIAL SQ SCH ×6 (05:54→16:58)
[2023-07-18] MEDS ORDERED: LACTATED RINGERS 1,000 ML IV ONE ×2 (06:19→07:35)
[2023-07-18 06:41] LABS: Glucose,Whole Blood 95 mg/dL (70-110)
[2023-07-18] MEDS ORDERED: ONDANSETRON 4 MG/2 ML VIAL ONE (07:01)
[2023-07-18] MEDS ORDERED: fentaNYL (PF) 50 MCG/ML 2 ML AMP IVP ONE (07:01)
[2023-07-18] MEDS ORDERED: MIDAZOLAM 2 MG/2 ML VIAL IVP ONE (07:01)
[2023-07-18] MEDS ORDERED: DEXAMETHASONE SOD PHOSPHATE 4 MG/ML 1 ML VIAL IVP ONE (07:16)
[2023-07-18] MEDS ORDERED: ONDANSETRON 4 MG/2 ML VIAL IVP ONE (07:16)
[2023-07-18] MEDS ORDERED: PROPOFOL 10 MG/ML 20 ML VIAL IV ONE (07:24)
[2023-07-18] MEDS ORDERED: HYDROmorphone (PF) 1 MG/ML ONE (07:24)
[2023-07-18] MEDS ORDERED: GLYCOPYRROLATE 0.2 MG/ML 2 ML VIAL ONE (07:24)
[2023-07-18] MEDS ORDERED: fentaNYL (PF) 50 MCG/ML 2 ML AMP ONE (07:24)
[2023-07-18] MEDS ORDERED: ePHEDrine 50 MG/ML 1 ML VIAL ONE (07:24)
[2023-07-18] MEDS ORDERED: KETAMINE HCL IN 0.9 % NACL 50 MG/5 ML SYRINGE ONE (07:24)
[2023-07-18] MEDS ORDERED: ROCURONIUM 10 MG/ML (5 ML VIAL) IV ONE (07:24)
[2023-07-18] MEDS ORDERED: HEPARIN SODIUM,PORCINE 10,000 UNIT/ML 1 ML VIAL ONE (07:24)
[2023-07-18] MEDS ORDERED: NEOSTIGMINE 1 MG/ML 10 ML VIAL ONE (07:24)
[2023-07-18] MEDS ORDERED: LIDOCAINE 1% INJ 10MG/ML (20 ML MDV) ONE (07:24)
[2023-07-18] MEDS ORDERED: PHENYLEPHRINE 10 MG/ML VIAL ONE (07:24)
[2023-07-18] MEDS ORDERED: WATER FOR INJECTION, STERILE 10 ML VIAL IV ONE (07:24)
[2023-07-18] MEDS ORDERED: SUCCINYLCHOLINE CHLORIDE 200 MG/10 ML VIAL IV ONE (07:24)
[2023-07-18] MEDS ORDERED: THROMBIN (BOVINE) 5,000 UNIT VIAL TOPICAL ONE (08:07)
[2023-07-18] MEDS ORDERED: HEPARIN SODIUM,PORCINE 10,000 UNIT in SODIUM CHLORIDE 0.9% 1,000 ML IRRIGATION ONE (08:07)
[2023-07-18] MEDS ORDERED: ceFAZolin 4 GM in SODIUM CHLORIDE 0.9% 1,000 ML IRRIGATION ONE (08:07)
[2023-07-18] MEDS ORDERED: GELATIN SPONGE,ABSORB (LARGE) 1 EACH SPONGE TOPICAL ONE (08:07)
[2023-07-18] MEDS ORDERED: METOPROLOL TARTRATE 12.5 MG TAB PO SCH (09:00)
--- NOTE | 2023-07-18 10:50 | PN ---
PROGRESS NOTE SUBJECTIVE: Mr. Ferraro is going for a left femoral-popliteal surgery. He has hypertension, mildly abnormal stress test, but I have cleared him for surgery. Risk is moderate. I will add 12.5 mg metoprolol tartrate in the morning and nifedipine will be increased to 90 mg in the evening. This patient has gone for surgery. He will be followed tomorrow. Whenever it is okay by the Infectious Disease and Vascular Surgery, he can be discharged and he will see Dr. Radford in the office in 2 weeks. MMODL / IJN: [id number] /
--- NOTE | 2023-07-18 12:16 | P.OP ---
Date of Procedure: 07/18/23 Preoperative Diagnosis: Left femoral occlusion with diabetic vascular disease resulting in gangrene of left foot. Postoperative Diagnosis: Same. Procedure(s) Performed: 1: Left femoral to peroneal in situ vein bypass graft. 2: Left common femoral thromboendarterectomy. Anesthesia: JOHNNYA Surgeon: Frank Peña Estimated Blood Loss (ml): 200 Pathology: other (Left common femoral plaque.) Condition: stable Disposition: no change Indications for Procedure: Patient is a 68-year-old male with a long-standing history of diabetes and lower extremity arterial occlusive disease had presented with gangrene of the left foot. He has undergone partial amputation of the left foot which has not healed. Further evaluation demonstrated femoral occlusion as well as common femoral artery stenosis and tibial artery occlusive disease. An effort to salvage the limb the patient is offered lower extremity bypass. The procedure, risk and benefits were discussed. All questions were answered to patient's satisfaction. Description of Procedure: Patient brought the upper and placed in supine position Mr. general endotracheal anesthesia delivered by the department anesthesiology. Krueger catheter was placed to gravity drainage. The patient's left lower extremity and lower abdominal areas were sterilely prepped and draped in usual manner. Patient was maintained on his IV antibiotic regimen. Skin incision was made overlying the left inguinal area and carried down through the subcu change tissues. Hemostasis was achieved using electrocautery. The incision was deepened. Lymphatic layer was divided laterally swept medially. Femoral sheath was identified and incised. This revealed the common femoral artery. The common femoral artery was dissected free of investing tissues and the dissection was carried distally to the bifurcation of the common into the profundus and superficial segments. Vesseloops were placed about the origin of the profundus, superficial femoral and common femoral segments. Attention was turned to the vein. The great saphenous vein was identified and dissected free from investing tissues down to the level of the saphenofemoral junction. Side branches were identified and doubly ligated and divided. The vein appeared appropriate for bypass purposes. Attention was turned to the proximal calf level where a skin incision was made on the medial aspect carried down through subcu change tissues. Care was taken to avoid injuring the great saphenous vein. The great saphenous vein was identified and mobilized. Side branches were identified were ligated and divided. Fascia was incised and entrance was gained into the distal popliteal space. The tibial peroneal trunk was identified. Diabetic vascular changes were identified. The artery was dissected free of investing tissues and encircled Vesseloops. Antibiotic soaked gauze was placed within the wound. The patient was systemically heparinized. ACT is were drawn throughout the case and additional heparin as needed was administered based on ACT results. The saphenofemoral junction was identified and hemostat was placed. The great saphenous vein was transected as proximally as possible. The venotomy was closed with 6-0 Prolene suture placed in running locked fashion. The vein was mobilized as far distally as possible. In spite of this it would not reach the common femoral artery however wouldn't reach the proximal segment of the superfi cial femoral artery. The common femoral artery was occluded as was the profundus and superficial femoral artery. Arteriotomy was made in the distal common femoral and extended into the proximal portion of the superficial femoral artery. Large bulky plaque was identified and thromboendarterectomy was performed at the common femoral extending into the origin of the superficial femoral artery. This resulted in excellent backbleeding through the profundus segment. The vein graft was able to reach the proximal portion of the superficial femoral artery. The proximal portion of the arteriotomy in the common femoral artery was closed with 6-0 Prolene suture leaving enough of the distal arteriotomy for anastomosis. The vein was brought to the femoral artery. The first valve of the vein was destroyed under direct visualization. End-to-side anastomosis between the vein and the artery was completed with 6-0 Prolene suture. Just prior to completion of the anastomotic line the artery was flushed and backbled and no thrombus was retrieved in either situation. The anastomotic line was completed and flow restored through the common and profundus as well as an of the arterialized segment of the great saphenous vein. Attention was turned to the proximal calf incision were the great saphenous vein was identified and completely mobilized. It was marked to help avoid twisting. The distal end was clipped and transected. LeMaitre valvulotome was then employed to lyse all the valves. Once this was performed excellent pulsatile flow was identified at distal end of the vein. The vein was then occluded. The peroneal artery was encircled Vesseloops and occluded. Arteriotomy was made longitudinally extended with Wendy Peng scissors. Backbleeding was identified. The vein graft was cut the appropriate length and spatulated match arteriotomy and an end-to-side anastomosis between the vein graft and the artery was performed. Just prior to completion of the anastomotic line the vein was flushed and the artery was backbled and no thrombus was retrieved. The anastomotic line was then completed and flow restored into the [place] vessel. Handheld continuous wave Doppler demonstrated excellent signal in the [place] vessel as well as within the artery itself. Ultrasound was then utilized to identify side branches. Where side branches were identified counter incision was made and the side branches were clipped. All wounds were inspected for hemostasis. This was judged be adequate. The proximal distal wounds were closed with 2-0 Vicryl suture for the deep tissues and skin was reapproximated with skin roel. Counter incisions were closed with skin roel. Proper dressings were applied. Patient tolerated the procedure well and was taken the recovery area satisfa ctory and stable condition.
[2023-07-18] MEDS ORDERED: HYDROmorphone 0.5 MG/0.5 ML SYRINGE IVP ONE ×2 (12:20→12:31)
[2023-07-18 13:49] LABS: Glucose,Whole Blood 182 mg/dL (70-110)
[2023-07-18] MEDS: oxyCODONE-APAP 10-325MG 1 EACH TAB PO PRN ×2 (13:52→20:47)
[2023-07-18] MEDS: CHOLECALCIFEROL 25 MCG (1000 IU) TABLET PO SCH (14:04)
[2023-07-18] MEDS: CYCLOBENZAPRINE 5 MG TAB PO SCH ×3 (14:04→20:45)
[2023-07-18] MEDS: ATORVASTATIN 80 MG TAB PO SCH (14:04)
[2023-07-18] MEDS: ASPIRIN 81 MG PO SCH (14:04)
[2023-07-18] MEDS: THIAMINE 100 MG TAB PO SCH (14:05)
[2023-07-18] MEDS: TAMSULOSIN 0.4 MG CAP.ER.24H PO SCH ×2 (14:05→15:46)
[2023-07-18] MEDS: FOLIC ACID 1 MG TAB PO SCH (14:05)
[2023-07-18] MEDS: ISOSORBIDE MONONITRATE ER 30 MG TAB.ER.24H PO SCH (14:05)
[2023-07-18] MEDS: ENOXAPARIN 40 MG/0.4 ML SYRINGE SQ SCH (14:05)
[2023-07-18] MEDS: GABAPENTIN 400 MG CAP PO SCH ×3 (14:05→20:45)
[2023-07-18] MEDS: MORPHINE SULFATE 4 MG/ML SYRINGE IV PRN (15:48)
--- NOTE | 2023-07-18 15:48 | P.PN ---
Subjective Progress Note Date: 07/18/23 Hospital Course: Patient is a very pleasant 68-year-old male with a past medical history of spinal infection status post intervention on preventative Keflex daily, hypertension, insulin-dependent diabetes mellitus, and BPH. Patient initially hospitalized from 06/22-06/27 for OM and wet gangrene of the L toe and underwent amputation of the L first toe with wound cultures growing K. pneumoniae, proteus vulgaris and enterococcus faecalis resulting in discharge home on 6 weeks of IV Invanz and wound vac Patient return to the emergency department on 07/04/23 secondary to reports of worsening erythema and pain in his left foot. Upon arrival to our facility patient underwent extensive evaluation. He was found to be bradycardic with heart rate of 36. EKG completed showing sinus bradycardia at 35 bpm. X-ray left foot showing diffuse soft tissue edema consistent with cellulitis and status post transmetatarsal amputation of first digit with bone appearing to extend outside the margin of the soft tissues. Labs were completed and reviewed showing leukocytosis with WBC count of 11.2, normocytic anemia with hemoglobin of 10.7, hyperkalemia with potassium of 6.1, and acute kidney injury with BUN of 64, creatinine 1.62, and GFR 44 with baseline creatinine of 1.1. Magnesium was also elevated at 2.6 and alkaline phosphatase elevated at 127. Troponin was negative at less than 0.012. CRP 5.9 and ESR was 63. Patient admitted under our services of consultation to infectious disease and vascular surgery. CTA with runoff revealed diffuse arteriosclerotic calcification of the abdominal aorta, pelvic arteries and runoff vessels with multiple significant stenosis suspected in the superficial femoral arteries and evaluation of runoff was indeterminate given lack of IV contrast, also revealing chronic bilateral hydronephrosis and hydroureter. Bilateral lower extremity CTA then repeated on 07/06/23 showing that it appears to be bilateral proximal popliteal obstruction with collateral flow reconstituting the distal popliteal artery and trifurcation vessels, trifurcation vessels appear to extend to the level of the ankle bilaterally and vascular calcification throughout the lower extremity arterial system is noted to have additional areas of at least moderate narrowing through the superficial femoral arteries. On 07/09/23 patient underwent ultrasound- guided left radial artery access aortogram with runoffs in which patient was found to have occlusion across the joint as well as 1 vessel runoff with vascular surgery recommending a patient would be best served by proper bypass rather than endovascular approach. Echocardiogram was completed showing preserved EF of 55-60% with severe pulmonary hypertension. Cardiology took patient for Lexiscan stress test which revealed a predominantly matched defect involving the anterior and inferior lateral wall with small areas of stress- induced reversibility at the inferior apical wall, these results were thoroughly reviewed by sound engineering technician. Cardiology stated they're recommending medical management for CAD and clearing patient from cardiac perspective to proceed with vascular surgery. Patient is scheduled for fem-pop bypass later today. Physical exam: Vital signs reviewed and stable. General: Nontoxic, no distress and appears stated age. Derm: Skin warm and dry, normal coloration for ethnicity. Head: Atraumatic, normocephalic and symmetric. Eyes: EOMs intact, no lid lag, and anicteric sclera Mouth: no lip lesions, mucus membranes moist Cardiovascular: regular rate and rhythm with normal S1S2, soft murmur, positive posterior tibial pulses bilaterally, and cap refill < 2 seconds. Lungs: Respirations even, regular, and unlabored on room air. Lungs diminished otherwise no rhonchi, no rales, no wheezing, and no accessory muscle usage. Abdominal: soft, nontender to palpation, no guarding, no appreciable organomegaly Ext: No gross muscle atrophy, no edema. Movement and sensation intact. Dressi ng left lower extremity clean dry and intact. Neuro: Speech clear, face symmetrical and CN II-XII grossly intact with no noted focal neuro deficits Psych: Alert and oriented to person, place, time, and situation. Appropriate and pleasant affect. Assessment and Plan of Care: Dry gangrene with osteomyelitis Diabetic foot infection Peripheral Arterial Disease with Occlusion of SFA -Infectious disease consultation -Continue meropenem -Vancomycin completed -Vascular surgery consultation for further debridement -plan for bypass surgery later today -Cardiology cleared patient for surgery Chronic bilateral hydronephrosis and hydroureter BPH -Continue Flomax 0.8 mg daily. -Urology evaluated and reviewed documentation in chart, urology stating chronic urinary retention and bilateral hydronephrosis is likely secondary to significant bladder distention resulting from patient's chronic urinary retention. Urology recommending recommending bladder decompression with insertion of Krueger catheter however patient refusing at this time and urology informed patient of risks of further retention resulting in risk of renal failure. Diabetes type II -Hemoglobin A1c 7% -Continue Lantus at 35 units at bedtime, 6 units lispro before meals 3 times a day, and NovoLog sliding scale insulin Hypertension Hyperlipidemia BPH -Continue atorvastatin 80 mg daily, isosorbide mononitrate 30 mg daily, me toprolol 12.5 mg daily, and Procardia 90 mg nightly. Data and imaging reviewed: Vital signs reviewed. Blood pressure 150/72, heart rate 54, respiratory rate 16, temp 98.3F, SpO2 of 97% on 2 L O2. CODE STATUS: Full code DVT prophylaxis: Lovenox Anticipated discharge date: Clinical course to determine Anticipated discharge place: Clinical course to determine Patient was seen independently by Nurse Pracitioner. This document was prepared using [employer] dictation software. Please allow for errors in horse trainer, while rare they do occur. I reviewed the documentation as provided by the LUIS ANTONIO above, who is the original author of this note. I agree with the documented assessment and plan, with the following changes: none Objective - Vital Signs Vital signs: Vital Signs Temp 97.8 F 07/18/23 14:26 Pulse 90 07/18/23 14:26 Resp 18 07/18/23 14:26 BP 144/79 07/18/23 14:26 Pulse Ox 95 07/18/23 14:26 FiO2 Intake & Output 07/17/23 07/18/23 07/18/23 18:59 06:59 18:59 Intake Total 3232 102 5588 Output Total 800 2300 3200 Balance 580 -1660 -1572 Weight 104.326 kg Intake: IV 100 1628 Oral 1380 540 Output: Urine 800 2300 3000 Estimated Blood Loss 200 Other: Voiding Method Urinal Urinal Indwelling Catheter - Labs CBC & Chem 7: 07/17/23 07:39 07/17/23 07:39 Labs: Abnormal Lab Results - Last 24 Hours (Table) 07/17/23 07/17/23 07/18/23 Range/Units 16:25 19:59 13:48 POC Glucose (mg/dL) 129 H 126 H 182 H (70-110) mg/dL
[2023-07-18 16:54] LABS: Glucose,Whole Blood 242 mg/dL (70-110)
[2023-07-18 19:51] LABS: Glucose,Whole Blood 249 mg/dL (70-110)
[2023-07-18] MEDS: INSULIN DETEMIR (LEVEMIR) 100 UNIT/ML SYR SQ SCH (20:45)
--- NOTE | 2023-07-18 21:47 | P.PN ---
Subjective Progress Note Date: 07/18/23 Principal diagnosis: Reason for follow up is diabetic foot wound and osteomyelitis Patient is a 68-year-old male with a past medical history significant for diabetes mellitus hypertension hyperlipidemia who was recently admitted to this facility with left big toe gangrene and diabetic foot infection in this patient who is status post left big toe amputation patient did have a culture positive for ESBL Klebsiella in addition to Proteus and Enterococcus faecalis Enterococcus and the patient was discharged on Invanz subsequently readmitted from the wound care center concerning for worsening wound and some necrotic changes. Patient did have angiogram completed on 07/09/2023 and vascular surgery recommending bypass patient is status post left femoral to peroneal in situ bypass and left femoral endarterectomy completed 07/18/2023. On today's evaluation that is 07/18/2023 the patient remains to be afebrile patient is currently breathing comfortably simple mask slightly lethargic and recovering from his anesthesia no vomiting diarrhea or any other changes re ported by the nursing staff. No new labs were obtained today Objective - Vital Signs Vital signs: Vital Signs Temp 97.8 F 07/18/23 12:30 Pulse 86 07/18/23 13:00 Resp 16 07/18/23 13:00 BP 160/83 07/18/23 13:00 Pulse Ox 98 07/18/23 13:00 FiO2 Intake & Output 07/17/23 07/18/23 07/18/23 18:59 06:59 18:59 Intake Total 4418 699 5948 Output Total 800 2300 3200 Balance 580 -1660 -1597 Weight 104.326 kg Intake: IV 100 1603 Oral 1380 540 Output: Urine 800 2300 3000 Estimated Blood Loss 200 Other: Voiding Method Urinal Urinal - Exam GENERAL DESCRIPTION: Elderly male lying in bed in no distress RESPIRATORY SYSTEM: Unlabored breathing , decreased breath sounds at bases HEART: S1 S2 regular rate and rhythm ,no loud murmurs ABDOMEN: Soft , no tenderness EXTREMITIES: Left foot wound is currently dressed no drainage on the dressing - Labs CBC & Chem 7: 07/17/23 07:39 07/17/23 07:39 Labs: Abnormal Lab Results - Last 24 Hours (Table) 07/17/23 07/17/23 Range/Units 16:25 19:59 POC Glucose (mg/dL) 129 H 126 H (70-110) mg/dL Assessment and Plan (1) Osteomyelitis Current Visit: No Status: Acute Code(s): M86.9 - OSTEOMYELITIS, UNSPECIFIED SNOMED Code(s): 65568847 (2) Type 2 diabetes mellitus with foot ulcer Current Visit: No Status: Acute Code(s): E11.621 - TYPE 2 DIABETES MELLITUS WITH FOOT ULCER; L97.509 - NON-PRESSURE CHRONIC ULCER OTH PRT UNSP FOOT W UNSP SEVERITY SNOMED Code(s): 091887212 Plan: 1patient with recent extensive left big toe diabetic foot infection with gangrene in this patient who is status post amputation of the left big toe culture did grow multiple pathogen including a drug-resistant ESBL Klebsiella in addition to Enterococcus for the patient was getting IV Invanz in the outpatient setting presented to hospital with some discoloration to the left big toe potation site concerning for worsening ischemia versus worsening infection, the patient did have a mild elevated white count but no fever 2patient has been evaluated by vascular surgery and CTA has been ordered and plan is for revascularization before transmetatarsal amputation, urology has seen the patient recommending Krueger catheter apparently the patient is refusing any further neurological workup 3patient is status post angiogram to the left lower extremity on 07/09/2023 vascular surgeon recommending bypass , patient is status post left femoral to peroneal in situ bypass and left femoral endarterectomy completed 07/18/2023. 4patient to continue with the meropenem continue local wound care to the left foot as ordered and monitor his clinical course closely Dictation was produced using [employer] dictation software. please excuse any grammatical, word or spelling errors.
[2023-07-19 06:55] LABS: Glucose,Whole Blood 158 mg/dL (70-110)
[2023-07-19] MEDS: oxyCODONE-APAP 10-325MG 1 EACH TAB PO PRN ×2 (06:59→12:43)
[2023-07-19] MEDS: PANTOPRAZOLE 40 MG TABLET PO SCH (06:59)
[2023-07-19] MEDS: MEROPENEM 1 GM in SODIUM CHLORIDE 0.9% 100 ML IVPB SCH ×2 (06:59→12:44)
[2023-07-19] MEDS: INSULIN ASPART (NovoLOG) 100 UNIT/ML VIAL SQ SCH ×4 (06:59→12:44)
[2023-07-19 08:24] VITALS: PULSE 91; RESP 17; TEMP 97.8
[2023-07-19] MEDS ORDERED: METOPROLOL TARTRATE 12.5 MG TAB PO SCH (09:00)
[2023-07-19] MEDS: ASPIRIN 81 MG PO SCH (09:01)
[2023-07-19] MEDS: THIAMINE 100 MG TAB PO SCH (09:01)
[2023-07-19] MEDS: ATORVASTATIN 80 MG TAB PO SCH (09:01)
[2023-07-19] MEDS: FOLIC ACID 1 MG TAB PO SCH (09:01)
[2023-07-19] MEDS: ENOXAPARIN 40 MG/0.4 ML SYRINGE SQ SCH (09:01)
[2023-07-19] MEDS: ISOSORBIDE MONONITRATE ER 30 MG TAB.ER.24H PO SCH (09:01)
[2023-07-19] MEDS: GABAPENTIN 400 MG CAP PO SCH (09:01)
[2023-07-19] MEDS: TAMSULOSIN 0.4 MG CAP.ER.24H PO SCH (09:01)
[2023-07-19] MEDS: CYCLOBENZAPRINE 5 MG TAB PO SCH (09:01)
[2023-07-19 09:12] VITALS: BP 109/56
[2023-07-19 09:20] LABS: HCT 29.2 % (39.0-53.0); HGB 9.2 gm/dL (13.0-17.5); Hypochromasia Moderate; MCH 28.3 pg (25.0-35.0); MCHC 31.6 g/dL (31.0-37.0); MCV 89.5 fL (80.0-100.0); Mean Platelet Volume 8.5; Platelet Count 225 k/uL (150-450); RBC 3.26 m/uL (4.30-5.90); RDW 14.7 % (11.5-15.5); WBC 10.2 k/uL (3.8-10.6)
--- NOTE | 2023-07-19 09:54 | P.PN ---
Subjective Progress Note Date: 07/19/23 Principal diagnosis: Nonhealing left great toe wound Patient is seen and examined today as a follow-up. No acute changes through the night. Plan is for bypass tomorrow of the left lower extremity. Type and screen has been completed. Hemoglobin stable at 10.3. Objective - Vital Signs Vital signs: Vital Signs Temp 97.8 F 07/19/23 08:00 Pulse 91 07/19/23 08:00 Resp 17 07/19/23 08:00 BP 109/56 07/19/23 08:54 Pulse Ox 97 07/19/23 08:07 FiO2 Intake & Output 07/18/23 07/19/23 07/19/23 18:59 06:59 18:59 Intake Total 2168 Output Total 4200 1200 100 Balance -2031 -1200 -100 Weight 104.326 kg Intake: IV 1628 Oral 540 Output: Urine 4000 1200 100 Estimated Blood Loss 200 Other: Voiding Method Indwelling Catheter Urinal - Exam Vital signs are stable, patient is afebrile. Surgical wounds are clean, dry and healing well. Minimal leg edema is noted. Palpable pulses noted within the graft. The foot soft tissues are pink and warm to touch consistent with good arterial perfusion. I discussed with the patient the amount of urine which was retrieved with initial Krueger placement of surgery with the surgery, that being of greater than 1 L. He diuresed quite significantly wall the catheter was in place however the catheter was removed. I discussed replacing the catheter with the patient and going home with a leg bag. The patient is adamantly refusing this. He wants to have outpatient follow-up with urology in this regard. From a surgical standpoint the patient appears to be doing well. We'll begin physical therapy. Continue supportive care. - Labs CBC & Chem 7: 07/19/23 08:21 07/17/23 07:39 Labs: Abnormal Lab Results - Last 24 Hours (Table) 07/18/23 07/18/23 07/18/23 Range/Units 13:48 16:52 19:50 RBC (4.30-5.90) m/uL Hgb (13.0-17.5) gm/dL Hct (39.0-53.0) % POC Glucose (mg/dL) 182 H 242 H 249 H (70-110) mg/dL 07/19/23 07/19/23 Range/Units 06:54 08:21 RBC 3.26 L (4.30-5.90) m/uL Hgb 9.2 L (13.0-17.5) gm/dL Hct 29.2 L (39.0-53.0) % POC Glucose (mg/dL) 158 H (70-110) mg/dL Assessment and Plan Plan: 1: Begin physical therapy. 2: Time with Patient: Less than 30
[2023-07-19] MEDS: CHOLECALCIFEROL 25 MCG (1000 IU) TABLET PO SCH (09:58)
[2023-07-19 12:00] LABS: Glucose,Whole Blood 214 mg/dL (70-110)
--- NOTE | 2023-07-19 15:53 | P.DS ---
Providers Date of admission: 07/04/23 12:32 Expected date of discharge: 07/19/23 Attending physician: Luis Cobb MD Consults: 07/04/23 10:30 Consult Physician Routine Consulting Provider: Percy Allen Consult Reason/Comments: Bilateral hydrourter/hydronephrosis Do you want consulting provider notified?: Yes 07/04/23 13:19 Consult Physician Routine Consulting Provider: Monique Krueger Consult Reason/Comments: debridement Do you want consulting provider notified?: Yes 07/06/23 12:33 Consult Physician Routine Consulting Provider: Cynthia Sheikh Consult Reason/Comments: foot wound Do you want consulting provider notified?: Already Contacted 07/10/23 15:11 Consult Physician Routine Consulting Provider: Devon Naqvi Consult Reason/Comments: Cardiac clearance Do you want consulting provider notified?: Yes Primary care physician: Kushal Deleon MD Hospital Course: Hospital Course: Patient is a very pleasant 68-year-old male with a past medical history of spinal infection status post intervention on preventative Keflex daily, hypertension, insulin-dependent diabetes mellitus, and BPH. Patient initially hospitalized from 06/22-06/27 for OM and wet gangrene of the L toe and underwent amputation of the L first toe with wound cultures growing K. pneumoniae, proteus vulgaris and enterococcus faecalis resulting in discharge home on 6 weeks of IV Invanz and wound vac Patient return to the emergency department on 07/04/23 secondary to reports of worsening erythema and pain in his left foot. Upon arrival to our facility patient underwent extensive evaluation. He was found to be bradycardic with heart rate of 36. EKG completed showing sinus bradycardia at 35 bpm. X-ray left foot showing diffuse soft tissue edema consistent with cellulitis and status post transmetatarsal amputation of first digit with bone appearing to extend outside the margin of the soft tissues. Labs were completed and reviewed showing leukocytosis with WBC count of 11.2, normocytic anemia with hemoglobin of 10.7, hyperkalemia with potassium of 6.1, and acute kidney injury with BUN of 64, creatinine 1.62, and GFR 44 with baseline creatinine of 1.1. Magnesium was also elevated at 2.6 and alkaline phosphatase elevated at 127. Troponin was negative at less than 0.012. CRP 5.9 and ESR was 63. Patient admitted under our services of consultation to infectious disease and vascular surgery. CTA with runoff revealed diffuse arteriosclerotic calcification of the abdominal aorta, pelvic arteries and runoff vessels with multiple significant stenosis suspected in the superficial femoral arteries and evaluation of runoff was indeterminate given lack of IV contrast, also revealing chronic bilateral hydronephrosis and hydroureter. Bilateral lower extremity CTA then repeated on 07/06/23 showing that it appears to be bilateral proximal popliteal obstruction with collateral flow reconstituting the distal popliteal artery and trifurcation vessels, trifurcation vessels appear to extend to the level of the ankle bilaterally and vascular calcification throughout the lower extremity arterial system is noted to have additional areas of at least moderate narrowing through the superficial femoral arteries. On 07/09/23 patient underwent ultrasound- guided left radial artery access aortogram with runoffs in which patient was found to have occlusion across the joint as well as 1 vessel runoff with vascular surgery recommending a patient would be best served by proper bypass rather than endovascular approach. Echocardiogram was completed showing preserved EF of 55-60% with severe pulmonary hypertension. Cardiology took patient for Lexiscan stress test which revealed a predominantly matched defect involving the anterior and inferior lateral wall with small areas of stress- induced reversibility at the inferior apical wall, these results were thoroughly reviewed by glue jointer feeder. Cardiology stated they're recommending medical management for CAD and clearing patient from cardiac perspective to proceed with vascular surgery. Patient is scheduled for fem-pop bypass later today. July 19: I assumed care of the patient today. Very keen to go home. Incision site doing well. No complaints. Cleared by vascular. Patient did ambulate with a walker. As the bathroom. Patient does not follow Krueger catheter. He was to follow-up with the urologist to the name of which he cannot remember. Home antibiotics and been arranged. Eating well. Spoke to the nurse. Patient will follow-up with vascular, urology, PCP. ID, cardiology Discussion and discharge planning more than 35 minutes On examination: VITAL SIGNS: [97.8, 91, 17, 109/56, 96% room air] GENERAL APPEARANCE: Eating up in the bed, comfortable HEENT: Normal external appearance of nose and ear. Oral cavity normal EYES: Pupils equal. Conjunctiva normal. NECK: JVD not raised. Mass not palpable. RESPIRATORY: Respiratory effort normal. Lungs clear to auscultation. CARDIOVASCULAR: First and second sounds normal. No edema. ABDOMEN: Soft. Liver and spleen not palpable. No tenderness. No mass palpable. PSYCHIATRY: Alert and oriented x3. Mood and affect normal. EXTREMITY: Incision and roel in the left leg healing well. Assessment and Plan of Care: Dry gangrene with acute osteomyelitis, secondary to diabetes, on the left foot big toe Left femoral occlusion with diabetic vascular disease leading to left femoral to peroneal in situ vein bypass graft and left,, and femoral thromboendarterectomy by Dr. Frank Peña Peripheral Arterial Disease with Occlusion of SFA Chronic bilateral hydronephrosis and hydroureter, secondary to BPH. Patient has declined Krueger catheter BPH -Continue Flomax 0.8 mg daily. -Urology evaluated and reviewed documentation in chart, urology stating chronic urinary retention and bilateral hydronephrosis is likely secondary to significant bladder distention resulting from patient's chronic urinary retention. Urology recommending recommending bladder decompression with insertion of Krueger catheter however patient refusing at this time and urology informed patient of risks of further retention resulting in risk of renal failure. He'll follow-up with this on neurologist outpatient Diabetes type II -Hemoglobin A1c 7% -Continue insulin sliding scale at home dose Hypertension Hyperlipidemia CODE STATUS: Full code Disposition: Home Plan - Discharge Summary Discharge Rx Participant: Yes New Discharge Prescriptions: New Isosorbide Mononitrate ER [Imdur] 30 mg PO DAILY #30 tab Metoprolol Tartrate [Lopressor] 12.5 mg PO DAILY #30 tab Ertapenem [INVanz] 1 gm IVPB Q24H #28 each Continue Insulin Lispro [humaLOG Kwikpen] 6 unit SQ AC-TID Atorvastatin [Lipitor] 80 mg PO DAILY Tamsulosin [Flomax] 0.8 mg PO DAILY Thiamine [Vitamin B-1] 100 mg PO DAILY Albuterol Sulfate [Albuterol Sulfate Hfa] 1 - 2 puff PO RT-Q4H PRN PRN Reason: Shortness Of Breath Folic Acid 1 mg PO DAILY Empagliflozin [Jardiance] 10 mg PO DAILY Cyclobenzaprine [Flexeril] 5 mg PO TID HYDROcodone/APAP 10-325MG [[place] 10-325] 1 tab PO Q4HR PRN 3 Days #18 tab PRN Reason: Severe Pain (Scale 7 To 10) Insulin Glargine,Hum.rec.anlog [Lantus Solostar Pen] 39 unit SQ HS Aspirin EC [Ecotrin Low Dose] 81 mg PO DAILY Cholecalciferol [Vitamin D3 (25 Mcg = 1000 Iu)] 50 mcg PO DAILY Omeprazole 20 mg PO DAILY Metoclopramide [Reglan] 5 mg PO TID PRN PRN Reason: Nausea NIFEdipine XL [Procardia XL] 60 mg PO HS Gabapentin [Neurontin] 400 mg PO TID 30 Days #90 cap Discontinued Ibuprofen [Motrin] 600 mg PO Q8H PRN PRN Reason: Pain Losartan [Cozaar] 25 mg PO HS traMADol-ACETAMINOP 37.5-325MG [Ultracet] 1 tab PO TID PRN PRN Reason: Pain Metoprolol Tartrate [Lopressor] 25 mg PO BID Ertapenem [INVanz] 1 gm IVPB Q24H #42 each Discharge Medication List Aspirin EC [Ecotrin Low Dose] 81 mg PO DAILY 03/01/21 [History] Atorvastatin [Lipitor] 80 mg PO DAILY 03/01/21 [History] Insulin Glargine,Hum.rec.anlog [Lantus Solostar Pen] 39 unit SQ HS 03/01/21 [History] Insulin Lispro [humaLOG Kwikpen] 6 unit SQ AC-TID 03/01/21 [History] Tamsulosin [Flomax] 0.8 mg PO DAILY 03/01/21 [History] Albuterol Sulfate [Albuterol Sulfate Hfa] 1 - 2 puff PO RT-Q4H PRN 06/22/23 [History] Cholecalciferol [Vitamin D3 (25 Mcg = 1000 Iu)] 50 mcg PO DAILY 06/22/23 [History] Cyclobenzaprine [Flexeril] 5 mg PO TID 06/22/23 [History] Empagliflozin [Jardiance] 10 mg PO DAILY 06/22/23 [History] Folic Acid 1 mg PO DAILY 06/22/23 [History] Metoclopramide [Reglan] 5 mg PO TID PRN 06/22/23 [History] NIFEdipine XL [Procardia XL] 60 mg PO HS 06/22/23 [History] Omeprazole 20 mg PO DAILY 06/22/23 [History] Thiamine [Vitamin B-1] 100 mg PO DAILY 06/22/23 [History] Gabapentin [Neurontin] 400 mg PO TID 30 Days #90 cap 06/27/23 [Rx] HYDROcodone/APAP 10-325MG [[place] 10-325] 1 tab PO Q4HR PRN 3 Days #18 tab 06/27/23 [Rx] Ertapenem [INVanz] 1 gm IVPB Q24H #28 each 07/19/23 [Rx] Isosorbide Mononitrate ER [Imdur] 30 mg PO DAILY #30 tab 07/19/23 [Rx] Metoprolol Tartrate [Lopressor] 12.5 mg PO DAILY #30 tab 07/19/23 [Rx] Follow up Appointment(s)/Referral(s): Kushal Deleon MD [Primary Care Provider] - 1-2 days (Please call Friday to schedule follow up appoitment) Erik Radford DO [STAFF PHYSICIAN] - 1 Week (Please call Friday to schedule follow up appoitment) Frank Peña DO [Doctor of Osteopathic Medicine] - 1 Week (Please call Friday to schedule follow up appoitment) Cynthia Sheikh MD [STAFF PHYSICIAN] - 2 Weeks (Please call Friday to schedule follow up appoitment) Patient Instructions/Handouts: Femoropopliteal Bypass (GEN) Activity/Diet/Wound Care/Special Instructions: If patient discharged over weekend need to call prior to discharge - ask for the group reservations coordinator infusion nurse and notify her/him patient is being discharged so they can deliver antibiotics to his home. Home Care is already aware he may be discharged over the weekend.
== END 2023-07-19 16:24 | disposition home health service (06) | DRG 253 ==
LOC: EC 09:14 → 3SCARD 12:32
PROVIDERS: ADMIT Student in an Organized Health Care Education/Training Program; ATTEND Student in an Organized Health Care Education/Training Program
PROC: B41D1ZZ Fluoroscopy of Aorta and Bilateral Lower Extremity Arteries using Low Osmolar Contrast (ICD-10-PCS; 2023-07-09 14:00)
PROC: 04CL0ZZ Extirpation of Matter from Left Femoral Artery, Open Approach (ICD-10-PCS; principal; 2023-07-18 07:30)
PROC: 041L09M Bypass Left Femoral Artery to Peroneal Artery with Autologous Venous Tissue, Open Approach (ICD-10-PCS; principal; 2023-07-18 07:30)
DX: E11.52 Type 2 diabetes mellitus with diabetic peripheral angiopathy with gangrene (principal); E87.20 Acidosis, unspecified; M86.172 Other acute osteomyelitis, left ankle and foot; I70.262 Atherosclerosis of native arteries of extremities with gangrene, left leg; N17.9 Acute kidney failure, unspecified; L03.116 Cellulitis of left lower limb; N13.39 Other hydronephrosis; E11.649 Type 2 diabetes mellitus with hypoglycemia without coma; I27.20 Pulmonary hypertension, unspecified; L97.524 Non-pressure chronic ulcer of other part of left foot with necrosis of bone; E11.69 Type 2 diabetes mellitus with other specified complication; E11.621 Type 2 diabetes mellitus with foot ulcer; E11.628 Type 2 diabetes mellitus with other skin complications; E11.42 Type 2 diabetes mellitus with diabetic polyneuropathy; I70.201 Unspecified atherosclerosis of native arteries of extremities, right leg; I70.0 Atherosclerosis of aorta; Z79.4 Long term (current) use of insulin; Z89.412 Acquired absence of left great toe; Z89.422 Acquired absence of other left toe(s); I10 Essential (primary) hypertension; I08.1 Rheumatic disorders of both mitral and tricuspid valves; D64.9 Anemia, unspecified; Z95.828 Presence of other vascular implants and grafts; Z53.20 Procedure and treatment not carried out because of patient's decision for unspecified reasons; N40.1 Benign prostatic hyperplasia with lower urinary tract symptoms; E78.5 Hyperlipidemia, unspecified; E87.5 Hyperkalemia; D49.4 Neoplasm of unspecified behavior of bladder; G89.29 Other chronic pain; M47.816 Spondylosis without myelopathy or radiculopathy, lumbar region; I25.10 Atherosclerotic heart disease of native coronary artery without angina pectoris; T50.916A Underdosing of multiple unspecified drugs, medicaments and biological substances, initial encounter; R33.8 Other retention of urine; R00.1 Bradycardia, unspecified; R39.12 Poor urinary stream; R94.39 Abnormal result of other cardiovascular function study; Z59.7 Insufficient social insurance and welfare support; Z91.120 Patient's intentional underdosing of medication regimen due to financial hardship; Z91.190 Patient's noncompliance with other medical treatment and regimen due to financial hardship; Z79.82 Long term (current) use of aspirin; Z79.899 Other long term (current) drug therapy; Z79.84 Long term (current) use of oral hypoglycemic drugs; Z79.891 Long term (current) use of opiate analgesic; Z87.891 Personal history of nicotine dependence; Z86.19 Personal history of other infectious and parasitic diseases; Z86.14 Personal history of Methicillin resistant Staphylococcus aureus infection; Z28.310 Unvaccinated for COVID-19
CPT/HCPCS: 36200; 36415; 75625; 75635; 75716; 78452; 80048; 80053; 80202; 82565; 83036; 83605; 83735; 84132; 84484; 85025; 85027; 85610; 85652; 85730; 86140; 86850; 86900; 86901; 88304; 88311; 93017; 93306; 93923; 94640; 94760; 96361; 96365; 96366; 96368; 96375; 96376; 99291